=== PATIENT | female | born 1945 | race Caucasian/White ===

== ENCOUNTER → 2016-03-13 | Outpatient (CLI) | payer BC ==
[~2016-03-13] MED LIST: ATEN-173 PO; CALC600T PO; CALCTAB5 PO; CETI5TAB5 PO; CHOL100027 PO; CHOL20009 PO; ELQ25 PO; LORA-741 PO; LOSA50TA6 PO; MAGN250T9 PO; MELO15TA4 PO; MELO7.5T5 PO; METO50TA17 PO; OMEG10007 PO; PRAV20TA PO; PRAV80TA2 PO; PRLSR20 PO; SERT-234 PO; ULT50X PO; ZNTT/150 PO
--- NOTE | 2016-03-13 12:19 | DIAGNOSTIC IMAGING REPORT ---
SPLEEN ULTRASOUND CLINICAL HISTORY: SPLENOMEGALY R16.1 COMPARISON STUDY: Spleen ultrasound 02/13/2015. PET CT 12/16/2015. FINDINGS: The spleen remains enlarged measuring 16.5 cm in length. This previously measured 15.8 cm. No splenic masses. No perisplenic fluid collections. IMPRESSION: Splenomegaly which has slightly increased in size. Electronically signed by: Severino Wu M.D. 03/13/2016 12:17 PM Dictated Date/Time: 03/13/2016 12:15 PM
[2016-03-13 12:35] LABS: BASO % 0.3 %; BASO ABS # 0.02 K/uL (0-0.2); COMPLETE YES; EOS % 4.4 %; HEMATOCRIT 43.8 % (37-47); IG% 0.4 %; LYMPH % 20.4 %; LYMPH ABS # 1.39 K/uL (1.2-3.4); MEAN CELL VOLUME 86.7 fL (80-100); MEAN CORPUSCULAR HEMOGLOBIN 29.7 pg (25-34); MEAN CORPUSCULAR HGB CONC 34.2 g/dl (32-36); MEAN PLATELET VOLUME 10.1 fL (7.4-10.4); NEUT % 68.5 %; PLATELET COUNT 153 K/uL (130-400); RED BLOOD COUNT 5.05 M/uL (4.2-5.4); WHITE BLOOD COUNT 6.81 K/uL (4.8-10.8)
[2016-03-13 13:13] LABS: ALT/SGPT 21 U/L (12-78); BLOOD UREA NITROGEN 24 mg/dl (7-18); BUN/CREATININE RATIO 26.2 (10-20); CALCIUM 9.3 mg/dl (8.5-10.1); CARBON DIOXIDE 28 mmol/L (21-32); CHLORIDE 104 mmol/L (98-107); CREATININE 0.93 mg/dl (0.60-1.20); GLUCOSE 91 mg/dl (70-99); POTASSIUM 3.9 mmol/L (3.5-5.1); SODIUM 140 mmol/L (136-145)
[2016-03-13 13:17] LABS: ALB/GLOB RATIO 1.1 (0.9-2); ALKALINE PHOSPHATASE 97 U/L (45-117); AST/SGOT 18 U/L (15-37)
[2016-03-16 15:01] LABS: ALBUMIN 4.8 G/DL (3.8-4.8); GAMMA GLOBULIN 1.2 G/DL (0.8-1.7); TOTAL PROTEIN 7.7 G/DL (6.2-8.3)
== END | disposition home or self-care (01) ==
LOC: C.ULTR 11:29
PROVIDERS: ATTEND Nurse Practitioner
DX: R16.1 Splenomegaly, not elsewhere classified (principal)

== ENCOUNTER → 2016-03-24 | Outpatient (CLI) | payer BC ==
--- NOTE | 2016-03-24 15:45 | MAMMOGRAPHY REPORT ---
BILATERAL DIGITAL SCREENING MAMMOGRAM WITH CAD: 03/24/2016 CLINICAL HISTORY: Routine screening. Patient has no complaints. TECHNIQUE: Bilateral CC, MLO and repeat left cc views were obtained. Current study was also evaluat ed with a Computer Aided Detection (CAD) system. COMPARISON: Comparison is made to exams dated: 08/02/2014 mammogram, 06/27/2013 mammogram, 06/22/2013 mammogram, 06/14/2012 mammogram, 03/24/2011 mammogram, and 03/21/2010 mammogram - [facility]. BREAST COMPOSITION: There are scattered areas of fibroglandular density in both breasts. FINDINGS: There are benign calcifications and benign-appearing rodlike calcifications in the breasts . No new suspicious mass, architectural distortion or cluster of microcalcifications is seen. IMPRESSION: ACR BI-RADS CATEGORY 1: NEGATIVE There is no mammographic evidence of malignancy. A 1 year screening mammogram is recommended. The p atient will receive written notification of the results. Approximately 10% of breast cancers are not detected with mammography. A negative mammographic repor t should not delay biopsy if a clinically suggestive mass is present. Viji Vanegas M.D. ay/:03/24/2016 15:25:43 [employer] Operator: Marisel ZHANG(Niranjan)(Rober)(BD), [facility] letter sent: Normal 1/2 BI-RADS Code: ACR BI-RADS Category 1: Negative
== END | disposition home or self-care (01) ==
LOC: C.MAMM 14:23
PROVIDERS: ATTEND Obstetrics & Gynecology
DX: Z12.31 Encounter for screening mammogram for malignant neoplasm of breast (principal)

== ENCOUNTER → 2016-04-07 | Outpatient (CLI) | payer BC | END | disposition home or self-care (01) | LOC: C.LABSPEC 14:41 | PROVIDERS: ATTEND Pathology Anatomic Pathology & Clinical Pathology | DX: R91.1 Solitary pulmonary nodule (principal) ==

== ENCOUNTER → 2016-05-03 | Outpatient (CLI) | payer BC ==
[2016-05-03 08:43] LABS: BASO % 0.4 %; BASO ABS # 0.02 K/uL (0-0.2); COMPLETE YES; EOS % 5.6 %; HEMATOCRIT 40.7 % (37-47); IG% 0.2 %; LYMPH % 19.4 %; LYMPH ABS # 1.08 K/uL (1.2-3.4); MEAN CELL VOLUME 85.3 fL (80-100); MEAN CORPUSCULAR HEMOGLOBIN 29.4 pg (25-34); MEAN CORPUSCULAR HGB CONC 34.4 g/dl (32-36); MEAN PLATELET VOLUME 9.9 fL (7.4-10.4); NEUT % 67.4 %; PLATELET COUNT 138 K/uL (130-400); RED BLOOD COUNT 4.77 M/uL (4.2-5.4); WHITE BLOOD COUNT 5.58 K/uL (4.8-10.8)
[2016-05-03 09:11] LABS: URINE APPEARANCE CLEAR (CLEAR); URINE BILIRUBIN NEG (NEG); URINE COLOR YELLOW; URINE EPITHELIAL CELL AUTO >30 /lpf (0-5); URINE NITRITE NEG (NEG); URINE SPECIFIC GRAVITY 1.018 (1.000-1.030); UROBILINOGEN NEG (NEG); ZZUR CULT IF INDIC CLEAN CATCH YES
[2016-05-03 09:13] LABS: ALT/SGPT 20 U/L (12-78); BLOOD UREA NITROGEN 23 mg/dl (7-18); BUN/CREATININE RATIO 25.3 (10-20); CALCIUM 8.9 mg/dl (8.5-10.1); CARBON DIOXIDE 30 mmol/L (21-32); CHLORIDE 102 mmol/L (98-107); CHOLESTEROL 203 mg/dl (0-200); CREATININE 0.91 mg/dl (0.60-1.20); GLUCOSE 109 mg/dl (70-99); SODIUM 137 mmol/L (136-145)
[2016-05-03 09:14] LABS: MANUAL MICROSCOPIC REQUIRED? NO; REVIEW REQ? NO
[2016-05-03 09:23] LABS: ALKALINE PHOSPHATASE 88 U/L (45-117); AST/SGOT 15 U/L (15-37); CHOLESTEROL/HDL RATIO 5.2; HDL CHOLESTEROL 39 mg/dl; LDL CHOLESTEROL CALCULATED 104 mg/dl; TRIGLYCERIDES 298 mg/dl (0-150); VERY LOW DENSITY LIPOPROT CALC 60 mg/dl
[2016-05-04 07:01] LABS: ESTIMATED AVERAGE GLUCOSE 105 mg/dl; HA1C FLAG Normal (Normal)
--- NOTE | 2016-05-07 10:43 | CODING QUERY MEDICAL NECESSITY ---
SUPPORTING DIAGNOSIS NEEDED A supporting diagnosis is required for the test/procedure performed on this patient in order for us to be reimbursed by the patient's insurance. Please provide a supporting diagnosis for the following test/procedure listed below next to the test name along with your signature. *If there is no additional diagnosis for this patient that would support the following test/procedure please document that below next to the test/procedure. Test(s)/Procedure(s) that require a supporting diagnosis: DOS 05/03 * Vitamin D DIAGNOSIS: * urine culture DIAGNOSIS: Provider Signature: Date: Thank you Chloé Miller Health Information Management Once completed, please kindly fax back to [phone] For questions please call [phone]
== END | disposition home or self-care (01) ==
LOC: C.LAB 08:08
PROVIDERS: ATTEND Internal Medicine
DX: M85.80 Other specified disorders of bone density and structure, unspecified site (principal); E78.00 Pure hypercholesterolemia, unspecified; R73.01 Impaired fasting glucose; M34.1 CR(E)ST syndrome; E55.9 Vitamin D deficiency, unspecified; R31.9 Hematuria, unspecified

== ENCOUNTER → 2016-05-11 | Outpatient (CLI) | payer BC ==
--- NOTE | 2016-05-11 10:53 | DIAGNOSTIC IMAGING REPORT ---
CHEST 2 VIEWS ROUTINE CLINICAL HISTORY: R91.1 Pulmonary nodule COMPARISON STUDY: 02/05/2016 FINDINGS: The heart is normal in size. There are postsurgical changes present within the left hemithorax. There is no focal pulmonary consolidation. There are no pleural effusions. There is a laminated calcification within the upper abdomen, consistent with a gallstone.[ IMPRESSION: Lower lobe postsurgical changes in left hemithorax. No active disease in the chest. Cholelithiasis. Electronically signed by: Germán Lin M.D. 05/11/2016 10:51 AM Dictated Date/Time: 05/11/2016 10:46 AM
[2016-05-11 11:04] LABS: BLOOD UREA NITROGEN 30 mg/dl (7-18); GLUCOSE 108 mg/dl (70-99)
[2016-05-11 11:05] LABS: BUN/CREATININE RATIO 26.9 (10-20); CALCIUM 9.8 mg/dl (8.5-10.1); CARBON DIOXIDE 30 mmol/L (21-32); CHLORIDE 103 mmol/L (98-107); POTASSIUM 4.6 mmol/L (3.5-5.1); SODIUM 140 mmol/L (136-145)
== END | disposition home or self-care (01) ==
LOC: C.RAD 09:56
PROVIDERS: ATTEND Internal Medicine
DX: R91.1 Solitary pulmonary nodule (principal); K80.20 Calculus of gallbladder without cholecystitis without obstruction

== ENCOUNTER 2016-05-30 22:23 | Inpatient (IN) | payer BC, OTHER ==
[~2016-05-30] VITALS: Ht 149.9 cm; Wt 83.7 kg
[~2016-05-30 22:23] MED LIST changes: -ATEN-173 PO; -CALC600T PO; -CHOL100027 PO; -ELQ25 PO; -MELO7.5T5 PO; -METO50TA17 PO; -PRAV20TA PO; -ULT50X PO
[2016-05-30] MEDS ORDERED: METOPROLOL TARTRATE 1 MG/ML VIAL IV STA ×2 (22:44→23:33)
[2016-05-30 22:50] LABS: BASO % 0.3 %; BASO ABS # 0.02 K/uL (0-0.2); COMPLETE YES; EOS % 3.8 %; HEMATOCRIT 38.8 % (37-47); IG% 0.3 %; LYMPH % 24.9 %; LYMPH ABS # 1.65 K/uL (1.2-3.4); MEAN CELL VOLUME 87.8 fL (80-100); MEAN CORPUSCULAR HEMOGLOBIN 30.3 pg (25-34); MEAN CORPUSCULAR HGB CONC 34.5 g/dl (32-36); MEAN PLATELET VOLUME 10.3 fL (7.4-10.4); MONO % 5.1 %; NEUT % 65.6 %; PLATELET COUNT 146 K/uL (130-400); RED BLOOD COUNT 4.42 M/uL (4.2-5.4); WHITE BLOOD COUNT 6.62 K/uL (4.8-10.8)
--- NOTE | 2016-05-30 22:55 | DIAGNOSTIC IMAGING REPORT ---
SINGLE VIEW CHEST CLINICAL HISTORY: Atypical chest pain. FINDINGS: An AP, portable, upright chest radiograph is compared to study dated 05/11/2016 and correlated with chest CT dated 11/25/2015. The examination is degraded by portable technique, large body habitus, and patient rotation. The heart is top normal for projection and there is atherosclerotic calcification of the thoracic aorta. There is chronic elevation of right hemidiaphragm and interstitial thickening. Right basilar atelectasis is observed. Consolidative change is questioned at the left lung base in the retrocardiac region. Suture material projects over the left lower lung. No large pleural effusion or pneumothorax is seen. The skeletal structures are osteopenic. Degenerative change and scoliosis are noted in the thoracic spine. Chronic posttraumatic deformity is seen in the right proximal humerus. IMPRESSION: Question developing airspace consolidation at the left lung base. Clinically for evidence of aspiration pneumonitis/developing pneumonia. Radiographic follow-up to resolution is recommended. Electronically signed by: Edwin Franz M.D. 05/30/2016 10:53 PM Dictated Date/Time: 05/30/2016 10:50 PM
[2016-05-30 23:00] LABS: PARTIAL THROMBOPLASTIN RATIO 0.9; PROTHROMBIN TIME (PATIENT) 10.7 SECONDS (9.0-12.0)
[2016-05-30] MEDS ORDERED: ASPIRIN 81 MG CHEW PO STA (23:07)
[2016-05-30 23:18] LABS: ALKALINE PHOSPHATASE 80 U/L (45-117); ALT/SGPT 24 U/L (12-78); BLOOD UREA NITROGEN 22 mg/dl (7-18); BUN/CREATININE RATIO 19.9 (10-20); CALCIUM 8.7 mg/dl (8.5-10.1); CARBON DIOXIDE 30 mmol/L (21-32); CHLORIDE 106 mmol/L (98-107); GLUCOSE 98 mg/dl (70-99)
[2016-05-30 23:23] LABS: POTASSIUM 3.8 mmol/L (3.5-5.1); SODIUM 144 mmol/L (136-145)
[2016-05-30 23:32] LABS: AST/SGOT 21 U/L (15-37); CKMB/CK RATIO 2.8 (0-3.0); MAGNESIUM 2.1 mg/dl (1.8-2.4)
[2016-05-30] MEDS ORDERED: CALC600T PO (23:48)
[2016-05-30] MEDS ORDERED: ATEN-173 PO (23:48)
[2016-05-31] VITALS (10 sets, daily range): BP systolic 108–138; BP diastolic 65–84; PULSE 95–130; TEMP 36.5–37; O2SAT 93–97; Ht 149.9 cm; Wt 83.7 kg
[2016-05-31] MEDS ORDERED: HEPARIN IV LOW DOSE NO BOLUS STA (01:02)
[2016-05-31] MEDS ORDERED: ZOLPIDEM TARTRATE 5 MG TAB PO PRN (01:15)
[2016-05-31] MEDS ORDERED: CETIRIZINE HCL 10 MG TAB PO PRN (01:15)
[2016-05-31] MEDS ORDERED: NITROGLYCERIN 0.4 MG SL PER TAB CHARGE SL PRN (01:15)
[2016-05-31] MEDS ORDERED: ACETAMINOPHEN 325 MG TAB PO PRN (01:15)
[2016-05-31] MEDS ORDERED: LORAZEPAM 0.5 MG TAB PO PRN (01:15)
[2016-05-31] MEDS ORDERED: DIGOXIN IV 250 MCG in SYRINGE 9 ML IV STA (01:15)
[2016-05-31] MEDS ORDERED: HEPARIN 25000 UNIT/500 ML D5W ONE (01:42)
[2016-05-31] MEDS ORDERED: HEPARIN 25,000 UNIT/500ML D5W 500 ML IV PRN (02:15)
[2016-05-31] MEDS ORDERED: NSS + 20MEQ KCL 1000ML 1,000 ML IV SCH (02:30)
--- NOTE | 2016-05-31 02:59 | EMERGENCY ROOM VISIT NOTE ---
History Report prepared by Franky: Mark Olivarez Under the Supervision of: Dr. Kehinde Nash M.D. First contact with patient: 22:25 Chief Complaint: CHEST PAIN Stated Complaint: CHEST PAIN, SOB Nursing Triage Summary: Per EMS, patient c/o of shortness of breath for several weeks and intermittent chest pain for 1 week. Today, patient experienced chest pain radiating to left shoulder and back, palpitations and shortness of breath. Patient received 500 mls of NSS in route. History of Present Illness The patient is a 70 year old female who presents to the Emergency Room via EMS with complaints of intermittent band like pressure chest pain that began 1 week ago. This pain tends to last for about 20 minutes at a time. The patient rates her current pain a 2/10 in severity. At its worst, the pain was a 10/10, and she felt like she was going to "burst open". Today, her pain radiated into her right arm and shoulder. She was not doing anything in particular when the pain began. She is also experiencing shortness of breath that worsens with exertion, diaphoresis, palpitations, and fatigue. Earlier today, she was also having some indigestion. In the past, she was told she has a heart murmur. Patient denies LOC, headache, fevers, chills, visual changes, neck pain, nausea, vomiting, abdominal pain, back pain, melena, hematochezia, urinary symptoms, numbness, weakness, lymphadenopathy, rash, or other complaints. She does not take Aspirin regularly. Source of History: patient Onset: 1 week ago Position: chest Symptom Intensity: 2/10 Quality: pressure Timing: intermittent Modifying Factors (Worsening): exertion Associated Symptoms: + SOB, + diaphoresis, + fatigue Note: She has palpitations. Review of Systems See HPI for pertinent positives and negatives. A total of ten systems were reviewed and were otherwise negative. Past Medical & Surgical Medical Problems: (1) Arthritis (2) Atrial fibrillation with rapid ventricular response (3) Mass of left lung Family History Omitted due to age. Social History Smoking Status: Never Smoker Smokeless Tobacco Use: No Drug Use: none Marital Status: Housing Status: lives with family Current/Historical Medications Scheduled Atenolol (Tenormin), 25 MG PO QAM Calcium Carbonate (Calcium 600), 1,200 MG PO QPM Cholecalciferol (Vitamin D), 2 TAB PO QAM Fish Oil ([place]-3), 1 CAP PO QAM Magnesium (Magnesium), 250 MG PO QPM Meloxicam (Mobic), 15 MG PO QAM Omeprazole (Prilosec), 20 MG PO QAM Pravastatin Sodium (Pravastatin Sodium), 80 MG PO HS Ranitidine (Zantac), 150 MG PO QAM Sertraline (Zoloft), 150 MG PO QAM Scheduled PRN Cetirizine Hcl (Zyrtec), 5 MG PO DAILY PRN for ALLERGY SX Lorazepam (Ativan), 0.5 MG PO DAILY PRN for Anxiety Allergies Coded Allergies: Adhesives (Verified Allergy, Unknown, skin irritation/'burning', 05/30/16) Diclofenac (Verified Allergy, Unknown, RASH, 05/30/16) Penicillins (Verified Allergy, Unknown, HIVES, 05/30/16) Physical Exam Vital Signs Date Time Temp Pulse Resp B/P Pulse Ox O2 Delivery O2 Flow Rate FiO2 05/31/16 01:00 127/111 05/31/16 00:43 107 23 93 05/31/16 00:30 125/98 05/31/16 00:13 125 22 97 05/31/16 00:01 109 22 122/89 94 Room Air 05/31/16 00:00 122/89 05/30/16 23:52 137 149/104 05/30/16 23:43 109 22 149/104 96 Room Air 05/30/16 23:43 137 26 94 05/30/16 23:38 136 22 96 05/30/16 23:30 149/104 05/30/16 23:23 142 23 93 05/30/16 23:11 119/83 05/30/16 23:10 138/84 05/30/16 23:08 125 19 149/115 94 05/30/16 23:06 125 158/78 05/30/16 23:05 141 05/30/16 23:02 158/78 05/30/16 23:00 145/128 05/30/16 22:57 120/101 05/30/16 22:38 98 Room Air 05/30/16 22:38 98 Room Air 05/30/16 22:23 36.9 128 24 129/96 98 Room Air 05/30/16 22:23 Room Air Physical Exam GENERAL: Awake, alert, well-appearing, in no distress HENT: Normocephalic, atraumatic. Oropharynx unremarkable. EYES: Normal conjunctiva. Sclera non-icteric. NECK: Supple. No nuchal rigidity. FROM. No JVD. RESPIRATORY: Clear to auscultation. CARDIAC: Tachycardic rate, irregular rhythm. Extremities warm and well perfused. Pulses equal. ABDOMEN: Soft, non-distended. No tenderness to palpation. No rebound or guarding. No masses. RECTAL: Deferred. MUSCULOSKELETAL: Chest examination reveals no tenderness. The back is symmetrical on inspection without obvious abnormality. There is no CVA tenderness to palpation. No joint edema. LOWER EXTREMITIES: Calves are equal size bilaterally and non-tender. No edema. No discoloration. NEURO: Normal sensorium. No sensory or motor deficits noted. SKIN: No rash or jaundice noted. Medical Decision & Procedures ER Provider Diagnostic Interpretation: X ray results as stated below per my interpretation and radiologist interpretation. Other radiology results as stated below per my review and radiologist interpretation. SINGLE VIEW CHEST CLINICAL HISTORY: Atypical chest pain. FINDINGS: An AP, portable, upright chest radiograph is compared to study dated 05/11/2016 and correlated with chest CT dated 11/25/2015. The examination is degraded by portable technique, large body habitus, and patient rotation. The heart is top normal for projection and there is atherosclerotic calcification of the thoracic aorta. There is chronic elevation of right hemidiaphragm and interstitial thickening. Right basilar atelectasis is observed. Consolidative change is questioned at the left lung base in the retrocardiac region. Suture material projects over the left lower lung. No large pleural effusion or pneumothorax is seen. The skeletal structures are osteopenic. Degenerative change and scoliosis are noted in the thoracic spine. Chronic posttraumatic deformity is seen in the right proximal humerus. IMPRESSION: Question developing airspace consolidation at the left lung base. Clinically for evidence of aspiration pneumonitis/developing pneumonia. Radiographic follow-up to resolution is recommended. Electronically signed by: Edwin Franz M.D. 05/30/2016 10:53 PM Dictated Date/Time: 05/30/2016 10:50 PM Laboratory Results 05/30/16 22:23 Red Blood Count 4.42, Mean Corpuscular Volume 87.8, Mean Corpuscular Hemoglobin 30.3, Mean Corpuscular Hemoglobin Concent 34.5, Mean Platelet Volume 10.3, Neutrophils (%) (Auto) 65.6, Lymphocytes (%) (Auto) 24.9, Monocytes (%) (Auto) 5.1, Eosinophils (%) (Auto) 3.8, Basophils (%) (Auto) 0.3, Neutrophils # (Auto) 4.34, Lymphocytes # (Auto) 1.65, Monocytes # (Auto) 0.34, Eosinophils # (Auto) 0.25, Basophils # (Auto) 0.02 05/30/16 22:23 Test 05/30/16 22:23 White Blood Count 6.62 K/uL (4.8-10.8) Red Blood Count 4.42 M/uL (4.2-5.4) Hemoglobin 13.4 g/dL (12.0-16.0) Hematocrit 38.8 % (37-47) Mean Corpuscular Volume 87.8 fL (80-100) Mean Corpuscular Hemoglobin 30.3 pg (25-34) Mean Corpuscular Hemoglobin Concent 34.5 g/dl (32-36) Platelet Count 146 K/uL (130-400) Mean Platelet Volume 10.3 fL (7.4-10.4) Neutrophils (%) (Auto) 65.6 % Lymphocytes (%) (Auto) 24.9 % Monocytes (%) (Auto) 5.1 % Eosinophils (%) (Auto) 3.8 % Basophils (%) (Auto) 0.3 % Neutrophils # (Auto) 4.34 K/uL (1.4-6.5) Lymphocytes # (Auto) 1.65 K/uL (1.2-3.4) Monocytes # (Auto) 0.34 K/uL (0.11-0.59) Eosinophils # (Auto) 0.25 K/uL (0-0.5) Basophils # (Auto) 0.02 K/uL (0-0.2) RDW Standard Deviation 49.1 fL (36.4-46.3) RDW Coefficient of Variation 15.4 % (11.5-14.5) Immature Granulocyte % (Auto) 0.3 % Immature Granulocyte # (Auto) 0.02 K/uL (0.00-0.02) Prothrombin Time 10.7 SECONDS (9.0-12.0) Prothromb Time International Ratio 1.0 (0.9-1.1) Activated Partial Thromboplast Time 24.5 SECONDS (21.0-31.0) Partial Thromboplastin Ratio 0.9 Anion Gap 8.0 mmol/L (3-11) Est Creatinine Clear Calc Drug Dose 46.8 ml/min Estimated GFR () 59.3 Estimated GFR (Non- 51.2 BUN/Creatinine Ratio 19.9 (10-20) Calcium Level 8.7 mg/dl (8.5-10.1) Magnesium Level 2.1 mg/dl (1.8-2.4) Total Bilirubin 0.5 mg/dl (0.2-1) Direct Bilirubin 0.1 mg/dl (0-0.2) Aspartate Amino Transf (AST/SGOT) 21 U/L (15-37) Alanine Aminotransferase (ALT/SGPT) 24 U/L (12-78) Alkaline Phosphatase 80 U/L (45-117) Total Creatine Kinase 138 U/L (26-192) Creatine Kinase MB 3.9 ng/ml (0.5-3.6) Creatine Kinase MB Ratio 2.8 (0-3.0) Troponin I < 0.015 ng/ml (0-0.045) Total Protein 7.3 gm/dl (6.4-8.2) Albumin 3.8 gm/dl (3.4-5.0) Lipase 224 U/L (73-393) Laboratory results reviewed by me Medications Administered Medications (Trade) Dose Ordered Sig/Paige Route Start Time Stop Time Status Last Admin Dose Admin Metoprolol Tartrate (Lopressor Iv) 5 mg NOW STAT IV 05/30/16 22:44 05/30/16 22:45 DC 05/30/16 23:06 5 MG Aspirin (Aspirin Chew) 324 mg NOW STAT PO 05/30/16 23:07 05/30/16 23:08 DC 05/30/16 23:16 324 MG Metoprolol Tartrate (Lopressor Iv) 5 mg NOW STAT IV 05/30/16 23:33 05/30/16 23:35 DC 05/30/16 23:52 5 MG ECG Indication: chest pain Rate (beats per minute): 111 Rhythm: atrial fibrillation Findings: nonspecific-ST abn, other (RVR) Comparison ECG Date: Prehospital ECG Change: Prehospital ECG showed A fib with RVR at 129 with infra/lateral st depressions. ED Course 2224: The patient was evaluated in room B4. A complete history and physical exam was performed. 2244: Ordered Lopressor Iv 5 mg IV 2307: Aspirin 324 mg PO 2333: Lopressor Iv 5 mg IV 2358: Upon reexamination, the patient was resting. I discussed the test results and treatment plan with her. The patient will be evaluated by Dr. Yissel THORNE, for further management. Medical Decision Triage Nursing notes reviewed. The patient's presentation and history were concerning for chest pain and a rapid heart rate. Etiologies such as cardiac ischemia, ectopy, cardiac dysrhythmia, electrolyte abnormality, thyroid dysfunction, pulmonary embolism, infection, gastrointestinal, as well as others were entertained. The patient has new-onset A. fib with rapid ventricular response. She received 2 doses of IV Lopressor and oral aspirin. Her chest discomfort had resolved. The patient had an unremarkable chest x-ray. Her CBC and chemistry panel were unremarkable. Cardiac markers revealed a minimal elevation of CK-MB with normal troponin. The patient will need further evaluation and management in the hospital. Consultation was made with Dr. Kennedy Dey. The patient was evaluated in the Emergency Room for further treatment [employer] Speech voice recognition software. Grammatical errors, random word insertions, pronoun errors, and incomplete sentences are an occasional consequence of this system due to software limitations, ambient noise, and hardware issues. Any formal questions or concerns about the content, text, or information contained within the body of this dictation should be directly addressed to the physician for clarification. Consults Time Called: [phone] Consulting Physician: Dr. Yissel THORNE Returned Call: [phone] He will be evaluating the patient for further management. Impression Primary Impression: Atrial fibrillation with rapid ventricular response Additional Impression: Right-sided chest pain Critical Care I have personally spent greater than 30 minutes of critical care time in the direct management of this patient. This includes bedside care, interpretation of diagnostic studies, and testing, discussion with consultants, patient, and family members, and other required patient management activities. This 30 minutes is in excess of all separately billable procedures. Scribe Attestation The scribe's documentation has been prepared under my direction and personally reviewed by me in its entirety. I confirm that the note above accurately reflects all work, treatment, procedures, and medical decision making performed by me. Departure Information Dispostion Being Evaluated By Hospitalist Referrals Luciano Jorgensen M.D. (PCP) Patient Instructions My [facility] Problem Qualifiers
--- NOTE | 2016-05-31 05:14 | History and Physical ---
History & Physical Date & Time of Service: May 31, 2016 at 05:06 Chief Complaint: A-Fib With Rapid Ventricular Response Primary Care Physician: Luciano Jorgensen M.D. History of Present Illness Source: patient, family The patient is a 70-year-old female who presents emergency department via EMS due to a bandlike pressure around her chest that initially began about one week ago, but since that time has recurred more frequently and the progressively longer duration, with today's episode duration 20 minutes. She reports the pain today radiating to her right arm and shoulder. Her symptoms worsen with activity, and a copy by sweats, palpitations and fatigue. Her symptoms have been off and on a copy by indigestion over the past week as well. Past Medical/Surgical History Medical Problems: (1) Arthritis Status: Chronic Social History Smoking Status: Never Smoker Smokeless Tobacco Use: No Alcohol Use: none Drug Use: none Marital Status: Housing status: lives with family Occupational Status: retired Immunizations History of Influenza Vaccine: Yes Influenza Vaccine Date: Jan 16, 2012 History of Tetanus Vaccine?: Yes History of Pneumococcal: Yes Pneumococcal Date: Jan 15, 2009 History of Hepatitis B Vaccine: No Multi-Drug Resistant Organisms History of MDRO: No Allergies Coded Allergies: Adhesives (Verified Allergy, Unknown, skin irritation/'burning', 05/30/16) Diclofenac (Verified Allergy, Unknown, RASH, 05/30/16) Penicillins (Verified Allergy, Unknown, HIVES, 05/30/16) Home Medications Scheduled Atenolol (Tenormin), 25 MG PO QAM Calcium Carbonate (Calcium 600), 1,200 MG PO QPM Cholecalciferol (Vitamin D), 2 TAB PO QAM Fish Oil ([place]-3), 1 CAP PO QAM Magnesium (Magnesium), 250 MG PO QPM Meloxicam (Mobic), 15 MG PO QAM Omeprazole (Prilosec), 20 MG PO QAM Pravastatin Sodium (Pravastatin Sodium), 80 MG PO HS Ranitidine (Zantac), 150 MG PO QAM Sertraline (Zoloft), 150 MG PO QAM Scheduled PRN Cetirizine Hcl (Zyrtec), 5 MG PO DAILY PRN for ALLERGY SX Lorazepam (Ativan), 0.5 MG PO DAILY PRN for Anxiety Review of Systems The patient denies cough, lower extremity swelling, vision change, hearing change, sore throat, fevers, chills, sweats, vomiting, abdominal pain, pelvic pain, blood in urine or stool, dysuria, urinary frequency or urgency, lightheadedness, dizziness, headache, memory loss, rash, abnormal bruising or bleeding, imbalance, focal weakness, numbness or tingling in legs, arthralgias or myalgias, night sweats, or allergy symptoms. The review of systems is otherwise negative other than for that already noted above, and at least 10 systems have been reviewed. Physical Exam Vital Signs Date Time Temp Pulse Resp B/P Pulse Ox O2 Delivery O2 Flow Rate FiO2 05/31/16 04:02 116 05/31/16 04:02 Room Air 05/31/16 02:42 37.0 130 20 108/65 97 Room Air 05/31/16 02:08 36.9 107 19 112/83 96 05/31/16 02:05 107 19 112/83 96 Room Air 05/31/16 01:48 134 05/31/16 01:13 123 19 96 05/31/16 01:10 123/96 05/31/16 01:00 127/111 05/31/16 00:43 107 23 93 05/31/16 00:30 125/98 05/31/16 00:13 125 22 97 05/31/16 00:01 109 22 122/89 94 Room Air 05/31/16 00:00 122/89 05/30/16 23:52 137 149/104 05/30/16 23:43 109 22 149/104 96 Room Air 05/30/16 23:43 137 26 94 05/30/16 23:38 136 22 96 05/30/16 23:30 149/104 05/30/16 23:23 142 23 93 05/30/16 23:11 119/83 05/30/16 23:10 138/84 05/30/16 23:08 125 19 149/115 94 05/30/16 23:06 125 158/78 05/30/16 23:05 141 05/30/16 23:02 158/78 05/30/16 23:00 145/128 05/30/16 22:57 120/101 05/30/16 22:38 98 Room Air 05/30/16 22:38 98 Room Air 05/30/16 22:23 36.9 128 24 129/96 98 Room Air 05/30/16 22:23 Room Air The patient is awake, well-developed and adequately nourished, alert and oriented 3, normocephalic and atraumatic, lying in bed and in no acute distress. HEENT--PERRL, EOMI, mucous membranes and oropharynx dry. Neck--supple, no JVD or bruits, thyroid normal, trachea midline, no adenopathy. Heart--tachycardic, irregularly irregular, no murmurs, rubs or gallops. Lungs--clear bilaterally with good air movement, no respiratory distress, no accessory muscle use. Abdomen--normal bowel sounds and soft, nontender and nondistended, no hernias or masses, no organomegaly. Extremities--no cyanosis, clubbing or edema. There are good distal pulses b/l. Dermatologic--normal skin turgor, normal color, warm and dry, no abnormal lymph nodes, no rash. Neurologic--cranial nerves II through XII grossly intact, motor and sensory examination normal. Rheumatologic--normal range of motion, nontender, muscles and joints. Psychiatric--normal affect. Diagnostics Laboratory Results Results Past 24 Hours Test 05/30/16 22:23 05/31/16 02:57 Range/Units White Blood Count 6.62 4.8-10.8 K/uL Red Blood Count 4.42 4.2-5.4 M/uL Hemoglobin 13.4 12.0-16.0 g/dL Hematocrit 38.8 37-47 % Mean Corpuscular Volume 87.8 80-100 fL Mean Corpuscular Hemoglobin 30.3 25-34 pg Mean Corpuscular Hemoglobin Concent 34.5 32-36 g/dl Platelet Count 146 130-400 K/uL Mean Platelet Volume 10.3 7.4-10.4 fL Neutrophils (%) (Auto) 65.6 % Lymphocytes (%) (Auto) 24.9 % Monocytes (%) (Auto) 5.1 % Eosinophils (%) (Auto) 3.8 % Basophils (%) (Auto) 0.3 % Neutrophils # (Auto) 4.34 1.4-6.5 K/uL Lymphocytes # (Auto) 1.65 1.2-3.4 K/uL Monocytes # (Auto) 0.34 0.11-0.59 K/uL Eosinophils # (Auto) 0.25 0-0.5 K/uL Basophils # (Auto) 0.02 0-0.2 K/uL RDW Standard Deviation 49.1 36.4-46.3 fL RDW Coefficient of Variation 15.4 11.5-14.5 % Immature Granulocyte % (Auto) 0.3 % Immature Granulocyte # (Auto) 0.02 0.00-0.02 K/uL Prothrombin Time 10.7 9.0-12.0 SECONDS Prothromb Time International Ratio 1.0 0.9-1.1 Activated Partial Thromboplast Time 24.5 21.0-31.0 SECONDS Partial Thromboplastin Ratio 0.9 Sodium Level 144 136-145 mmol/L Potassium Level 3.8 3.5-5.1 mmol/L Chloride Level 106 98-107 mmol/L Carbon Dioxide Level 30 21-32 mmol/L Anion Gap 8.0 3-11 mmol/L Blood Urea Nitrogen 22 7-18 mg/dl Creatinine 1.10 0.60-1.20 mg/dl Est Creatinine Clear Calc Drug Dose 46.8 ml/min Estimated GFR () 59.3 Estimated GFR (Non- 51.2 BUN/Creatinine Ratio 19.9 10-20 Random Glucose 98 70-99 mg/dl Calcium Level 8.7 8.5-10.1 mg/dl Magnesium Level 2.1 1.8-2.4 mg/dl Total Bilirubin 0.5 0.2-1 mg/dl Direct Bilirubin 0.1 0-0.2 mg/dl Aspartate Amino Transf (AST/SGOT) 21 15-37 U/L Alanine Aminotransferase (ALT/SGPT) 24 12-78 U/L Alkaline Phosphatase 80 45-117 U/L Total Creatine Kinase 138 26-192 U/L Creatine Kinase MB 3.9 0.5-3.6 ng/ml Creatine Kinase MB Ratio 2.8 0-3.0 Troponin I < 0.015 0-0.045 ng/ml Total Protein 7.3 6.4-8.2 gm/dl Albumin 3.8 3.4-5.0 gm/dl Lipase 224 73-393 U/L Diagnostic Radiology [~ rep ct add3]] SINGLE VIEW CHEST CLINICAL HISTORY: Atypical chest pain. FINDINGS: An AP, portable, upright chest radiograph is compared to study dated 05/11/2016 and correlated with chest CT dated 11/25/2015. The examination is degraded by portable technique, large body habitus, and patient rotation. The heart is top normal for projection and there is atherosclerotic calcification of the thoracic aorta. There is chronic elevation of right hemidiaphragm and interstitial thickening. Right basilar atelectasis is observed. Consolidative change is questioned at the left lung base in the retrocardiac region. Suture material projects over the left lower lung. No large pleural effusion or pneumothorax is seen. The skeletal structures are osteopenic. Degenerative change and scoliosis are noted in the thoracic spine. Chronic posttraumatic deformity is seen in the right proximal humerus. IMPRESSION: Question developing airspace consolidation at the left lung base. Clinically for evidence of aspiration pneumonitis/developing pneumonia. Radiographic follow-up to resolution is recommended. Electronically signed by: Edwin Franz M.D. 05/30/2016 10:53 PM Dictated Date/Time: 05/30/2016 10:50 PM EKG EKG shows atrial fibrillation with RVR at 111 bpm, with nonspecific ST-T changes in lateral chest leads. Impression Assessment and Plan New onset atrial fibrillation with rapid ventricular response/hypertension--the patient will be admitted to the telemetry unit, for serial cardiac enzymes, cardiac rhythm monitoring and a 2-D echocardiogram with Dopplers. She is received Lopressor 5 mg IV 2 in the emergency department. She'll be given digoxin 0.25 g IV 1, and increase atenolol from 25 mg by mouth every morning to twice a day with additional dose now. Start heparin IV low-dose no bolus since duration of activity is likely one week or greater. Further management based on her response. Hypercholesterolemia--continue pravastatin 80 mg by mouth at bedtime. GERD--change omeprazole 20 mg by mouth every morning to pantoprazole 40 mg by mouth every morning, and change ranitidine 10 mg by mouth at bedtime. Depression--continue sertraline 100 mg by mouth every morning. Osteoarthritis hold movement 50 mg by mouth every morning since will be on anticoagulation. Level of Care Telemetry Advanced Directives Existing Advance Directive: No Existing Living Will: No Existing Power of Biz[employer] Administrator: No Resuscitation Status FULL RESUSCITATION VTE Prophylaxis VTE Risk Assessment Done? Y/N: Yes Risk Level: Moderate Given or contraindicated: Unfractionated heparin SQ
[2016-05-31] MEDS: PANTOprazole SOD 40 MG TAB PO SCH (07:53)
[2016-05-31] MEDS: CHOLECALCIFEROL 1000 INTER.UNIT TAB PO SCH (07:53)
[2016-05-31] MEDS: SERTRALINE HCL 100 MG TAB PO SCH (07:54)
[2016-05-31] MEDS: CALCIUM 600MG + VIT D 400 IU TAB PO SCH ×2 (07:54→19:37)
[2016-05-31] MEDS: MAGNESIUM OXIDE 400 MG TAB PO SCH ×2 (07:54→19:37)
[2016-05-31] MEDS ORDERED: DIGOXIN IV 250 MCG in SYRINGE 9 ML IV SCH (08:00)
[2016-05-31 08:19] LABS: PARTIAL THROMBOPLASTIN RATIO 1.1
[2016-05-31] MEDS ORDERED: METOPROLOL TARTRATE 25 MG TAB PO SCH (09:00)
[2016-05-31] MEDS ORDERED: HEPARIN IV BOLUS 4,000 UNIT in SYRINGE 0 ML IV ONE (09:45)
[2016-05-31] MEDS: APIXABAN 2.5 MG TAB PO SCH ×2 (11:24→19:37)
[2016-05-31] MEDS: METOPROLOL TARTRATE 25 MG TAB PO SCH ×3 (11:24→23:47)
--- NOTE | 2016-05-31 14:22 | Progress Note ---
Subjective Date of Service: May 31, 2016. Subjective pt still with some bandlike tightness across chest even with rate control Problem List Medical Problems: (1) Right-sided chest pain Status: Acute Review of Systems Constitutional: No chills, No fever Respiratory: No cough, No dyspnea on exertion, No shortness of breath Cardiac: + chest pain, + palpitations, No edema Abdomen: No constipation, No diarrhea, No nausea, No pain, No vomiting Psychiatric: No anhedonism, No anxiety, No depression symptoms Objective Vital Signs Date Time Temp Pulse Resp B/P Pulse Ox O2 Delivery O2 Flow Rate FiO2 05/31/16 12:25 36.8 97 18 135/71 93 Room Air 05/31/16 12:00 97 Room Air 05/31/16 08:17 36.5 118 20 133/76 96 Room Air 05/31/16 08:06 134 05/31/16 08:00 97 Room Air 05/31/16 05:00 122 05/31/16 04:02 116 05/31/16 04:02 Room Air 05/31/16 02:42 37.0 130 20 108/65 97 Room Air 05/31/16 02:08 36.9 107 19 112/83 96 05/31/16 02:05 107 19 112/83 96 Room Air 05/31/16 01:48 134 05/31/16 01:13 123 19 96 05/31/16 01:10 123/96 05/31/16 01:00 127/111 05/31/16 00:43 107 23 93 05/31/16 00:30 125/98 05/31/16 00:13 125 22 97 05/31/16 00:01 109 22 122/89 94 Room Air 05/31/16 00:00 122/89 05/30/16 23:52 137 149/104 05/30/16 23:43 109 22 149/104 96 Room Air 05/30/16 23:43 137 26 94 05/30/16 23:38 136 22 96 05/30/16 23:30 149/104 05/30/16 23:23 142 23 93 05/30/16 23:11 119/83 05/30/16 23:10 138/84 05/30/16 23:08 125 19 149/115 94 05/30/16 23:06 125 158/78 05/30/16 23:05 141 05/30/16 23:02 158/78 05/30/16 23:00 145/128 05/30/16 22:57 120/101 05/30/16 22:38 98 Room Air 05/30/16 22:38 98 Room Air 05/30/16 22:23 36.9 128 24 129/96 98 Room Air 05/30/16 22:23 Room Air Physical Exam General Appearance: WD/WN, + mild distress Neck: supple, no JVD Respiratory/Chest: chest non-tender, lungs clear, normal breath sounds Cardiovascular: + tachycardia, + irregularly irregular Abdomen: normal bowel sounds, non tender, soft Extremities: no pedal edema, no calf tenderness Neurologic/Psychiatric: alert, oriented x 3 Laboratory Results Last 24 Hours Test 05/30/16 22:23 05/31/16 07:53 White Blood Count 6.62 K/uL Red Blood Count 4.42 M/uL Hemoglobin 13.4 g/dL Hematocrit 38.8 % Mean Corpuscular Volume 87.8 fL Mean Corpuscular Hemoglobin 30.3 pg Mean Corpuscular Hemoglobin Concent 34.5 g/dl Platelet Count 146 K/uL Mean Platelet Volume 10.3 fL Neutrophils (%) (Auto) 65.6 % Lymphocytes (%) (Auto) 24.9 % Monocytes (%) (Auto) 5.1 % Eosinophils (%) (Auto) 3.8 % Basophils (%) (Auto) 0.3 % Neutrophils # (Auto) 4.34 K/uL Lymphocytes # (Auto) 1.65 K/uL Monocytes # (Auto) 0.34 K/uL Eosinophils # (Auto) 0.25 K/uL Basophils # (Auto) 0.02 K/uL RDW Standard Deviation 49.1 fL RDW Coefficient of Variation 15.4 % Immature Granulocyte % (Auto) 0.3 % Immature Granulocyte # (Auto) 0.02 K/uL Prothrombin Time 10.7 SECONDS Prothromb Time International Ratio 1.0 Activated Partial Thromboplast Time 24.5 SECONDS 27.5 SECONDS Partial Thromboplastin Ratio 0.9 1.1 Sodium Level 144 mmol/L Potassium Level 3.8 mmol/L Chloride Level 106 mmol/L Carbon Dioxide Level 30 mmol/L Anion Gap 8.0 mmol/L Blood Urea Nitrogen 22 mg/dl Creatinine 1.10 mg/dl Est Creatinine Clear Calc Drug Dose 46.8 ml/min Estimated GFR () 59.3 Estimated GFR (Non- 51.2 BUN/Creatinine Ratio 19.9 Random Glucose 98 mg/dl Calcium Level 8.7 mg/dl Magnesium Level 2.1 mg/dl Total Bilirubin 0.5 mg/dl Direct Bilirubin 0.1 mg/dl Aspartate Amino Transf (AST/SGOT) 21 U/L Alanine Aminotransferase (ALT/SGPT) 24 U/L Alkaline Phosphatase 80 U/L Total Creatine Kinase 138 U/L Creatine Kinase MB 3.9 ng/ml Creatine Kinase MB Ratio 2.8 Troponin I < 0.015 ng/ml Total Protein 7.3 gm/dl Albumin 3.8 gm/dl Lipase 224 U/L Hepatitis C Antibody Screen NEG Assessment and Plan New onset atrial fibrillation with rapid ventricular response/hypertension and chest pressure Afib RVR, digoxin 0.25 g IV 1, changed atenolol to metoprolol. Started on heparin IV changed to eliquis since subjective complaints are one week old, pending echo, will have cardiology eval to help determine if her chest pressure is from afib or other testing required, check tsh Hypercholesterolemia-pravastatin 80 mg by mouth at bedtime. GERD-PPI plud ranitidine Depression--clinically stable, sertraline 100 mg
[2016-05-31] MEDS: PRAVASTATIN SOD 20 MG TAB PO SCH (16:39)
[2016-05-31] MEDS: RANITIDINE HCL 150 MG TAB PO SCH (19:37)
[2016-06-01] VITALS (10 sets, daily range): BP systolic 95–156; BP diastolic 62–83; PULSE 78–93; TEMP 36.3–37.1; O2SAT 91–97
[2016-06-01] MEDS: METOPROLOL TARTRATE 25 MG TAB PO SCH ×2 (06:34→12:17)
[2016-06-01 06:57] LABS: MEAN CELL VOLUME 86.5 fL (80-100); MEAN CORPUSCULAR HEMOGLOBIN 29.4 pg (25-34); MEAN PLATELET VOLUME 9.9 fL (7.4-10.4); PLATELET COUNT 155 K/uL (130-400); RED BLOOD COUNT 4.97 M/uL (4.2-5.4); WHITE BLOOD COUNT 6.93 K/uL (4.8-10.8)
--- NOTE | 2016-06-01 07:16 | CARDIOLOGY CONSULTATION ---
DATE OF CONSULTATION: 05/31/2016 DATE OF CONSULTATION: 05/31/2016. REASON FOR CONSULTATION: Atrial fibrillation. REQUESTING: Kennedy Dey. PUMP TECHNICIAN: Joaquín Lundberg D.O, [facility]. Dear Dr. Dey, I am seeing Chanel today in consultation with regards to her atrial fibrillation. As you know, she is a very pleasant 70-year-old female who sounds like she has been having atrial fibrillation at least for a week. She does describe some episodes where she has felt better, but I would not be surprised if it has been continuous over the last week or so. In retrospect she notes an episode about 2 or 3 years ago where she was actually admitted to the hospital with shortness of breath. She had an extensive workup and was only found to have esophageal reflux at the time, but she describes her symptoms as very similar to that. She does describe palpitations and fluttering. She notes she has had increasing shortness of breath, walking to the mailbox makes her short of breath, it is about 500 feet. She does note she gets fatigued and played out very easily with activity which is new for her. She also had a band-like sensation across her chest when her heart was racing. She also had some lightheadedness with it. It also sounds like she has some vertigo as the room at times would spin. She denies any slurred speech, difficulty finding words, weakness one side or the other. She denies any presyncope, syncope, lower extremity edema. She does believe she snores mildly, but she lives by herself. She does wake up well rested. She denies the need to fall asleep in the afternoon. She denies any bleeding, bruising, dark stools, black stools, cough, productive sputum. Her appetite has been stable. Her weight has been up and down and she has been unsure why. She notes that she was placed on losartan and started having personality changes on it and then was switched to atenolol recently. The rest of review of systems otherwise negative. PAST MEDICAL HISTORY: 1. Hypertension. 2. Arthritis. 3. Left lung lesion status post wedge resection January 2016. 4. GERD. 5. Hyperlipidemia. 6. Anxiety. 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 She lives by herself. She denies any alcohol. She is retired. FAMILY HISTORY: No family history of premature heart disease. OUTPATIENT MEDICATIONS: Reviewed in electronic medical record. PHYSICAL EXAMINATION: GENERAL: She is awake, alert, oriented x3. She is in no acute distress. VITAL SIGNS: Her heart rate 118. Her RR is 20, blood pressure 133/76, pulse ox is 96% on room air. HEAD, EYES, EARS, NOSE, AND THROAT: With a longer R to R interval her carotid upstroke did not feel significantly abnormal. There were no carotid bruits. Her jugular venous pressure did not appear elevated. Her sclerae is anicteric. Her hearing is normal. LUNGS: Clear to auscultation bilaterally. No rales, rhonchi or wheezing. HEART: Irregular rate and rhythm (tachycardic). No appreciable murmurs or rubs. ABDOMEN: Soft, nontender, nondistended, positive bowel sounds, obese. EXTREMITIES: No clubbing, cyanosis or edema. PSYCHIATRIC: Mood and affect appeared appropriate. NEUROLOGIC: Grossly nonfocal. EKG: Atrial fibrillation with a rapid ventricular response, nonspecific ST-T changes in the inferior lateral leads. CBC is within normal limits. LABORATORY STUDIES: Hemoglobin 13.4, platelet count of 146. Sodium 144, potassium 3.8, BUN 22, creatinine 1.1. Her troponin is negative. Chest x-ray, question developing airspace consolidation in the left lung base. IMPRESSIONS: 1. Shortness of breath, dyspnea on exertion and palpitations, likely secondary to atrial fibrillation with a rapid ventricular response. 2. CHADS2-VASc score of 3, that being her age, gender, and hypertension. 3. gastroesophageal reflux disease. 4. Obesity. As I discussed with her at this point I would try to slow her heart rate down, increase her Lopressor to 25 mg p.o. q. 6 hours. Instead of heparin I would switch her over to apixaban given her elevated CHADS2-VASc score 5 mg b.i.d. and stop her IV fluids. I also recommended an echocardiogram. I discussed we will have to see how she feels with a controlled heart rate. If she is still short of breath and still having fatigue with activity then at that point I would consider cardioversion and a rhythm control strategy. If she feels well with a relatively controlled heart rate we could consider a rate control strategy. I did discuss with her that I believe most patients deserve at least 1 chance to go back into sinus rhythm if they do not convert on the their own. I did inquire with regards to sleep apnea. Outside of her obesity and some very mild snoring, she really denies other symptoms. At this point, there is nothing to suggest she has had a myocardial infarction as her troponins are negative. Further recommendations will be forthcoming based on her heart rate control and her symptoms as well as her echocardiogram. Thank you for allowing us to participate in her care. FELA
[2016-06-01 08:17] LABS: BUN/CREATININE RATIO 20.2 (10-20); CALCIUM 9.3 mg/dl (8.5-10.1); CREATININE 0.98 mg/dl (0.60-1.20); POTASSIUM 4.2 mmol/L (3.5-5.1)
[2016-06-01] MEDS: PANTOprazole SOD 40 MG TAB PO SCH (09:00)
[2016-06-01] MEDS: CALCIUM 600MG + VIT D 400 IU TAB PO SCH ×2 (09:01→21:22)
[2016-06-01] MEDS: CHOLECALCIFEROL 1000 INTER.UNIT TAB PO SCH (09:01)
[2016-06-01] MEDS: SERTRALINE HCL 100 MG TAB PO SCH (09:01)
[2016-06-01] MEDS: MAGNESIUM OXIDE 400 MG TAB PO SCH ×2 (09:01→21:24)
[2016-06-01] MEDS: APIXABAN 2.5 MG TAB PO SCH ×2 (09:01→21:23)
--- NOTE | 2016-06-01 09:21 | ECHOCARDIOGRAM REPORT ---
*NOTICE TO RECEIVING [employer] This information is strictly Confidential and protected under [place] law. [place] law prohibits you from making any further disclosure of this information unless further disclosure is expressly permitted by the written consent of the person to whom it pertains or is authorized by law. A general authorization for the release of medical or other information is not sufficient for this purpose. Hospital accepts no responsibility if the information is made available to any other person, INCLUDING THE PATIENT. Interpretation Summary * Name: LOKESH NEUMANN Study Date: 05/31/2016 01:54 PM BP: 133/76 mmHg * Patient Location: C.2T\S\S234\S\1 HR: 103 * : 1945 (M/d/yyy) Gender: Female Height: 59 in * Age: 70 yrs Ethnicity: CA Weight: 189 lb * Ordering Physician: Joaquín Lundberg * Referring Physician: Self, Referred * Performed By: Marcos Madsen RDCS * * Reason For Study: A-fib * BSA: 1.8 m2 * -- Conclusions -- * There is borderline concentric left ventricular hypertrophy. * Left ventricular systolic function is normal. * The left atrium is moderately dilated. * Right ventricular systolic pressure is elevated at 30-40mmHg. Procedure Details * A complete two-dimensional transthoracic echocardiogram was performed (2D, M-mode, Doppler and color flow Doppler). * The study was technically adequate. Left Ventricle * The left ventricle is normal in size. * There is borderline concentric left ventricular hypertrophy. * Left ventricular systolic function is normal. * Ejection Fraction = 65-70%. Right Ventricle * The right ventricle is normal in size and function. Atria * The left atrium is moderately dilated. * Right atrial size is normal. Mitral Valve * The mitral valve anatomy is normal. * Significant mitral regurgitation is absent. Tricuspid Valve * The tricuspid valve is not well visualized, but is grossly normal. * There is trace tricuspid regurgitation. * Right ventricular systolic pressure is elevated at 30-40mmHg. Aortic Valve * The aortic valve is normal in structure and function. * No hemodynamically significant valvular aortic stenosis. * There is no significant aortic regurgitation. Great Vessels * The aortic root and proximal ascending aorta are normal sized. Pericardium/Pleural * There is no pericardial effusion. Great Vessels * Normal inferior vena cava diameter and respiratory variation suggests normal central venous pressure. Left Ventricular Diastolic Function * Indeterminate due to arrhythmia MMode 2D Measurements and Calculations IVSd 1.3 cm IVSs 1.6 cm LVIDd 3.8 cm LVIDs 2.6 cm LVPWd 1.3 cm LVPWs 1.6 cm IVS/LVPW 0.98 FS 32.5 % EDV(Teich) 61.8 ml ESV(Teich) 23.7 ml EF(Teich) 61.6 % EDV(cubed) 54.8 ml ESV(cubed) 16.8 ml EF(cubed) 69.3 % % IVS thick 23.6 % % LVPW thick 22.1 % LV mass(C)d 165.6 grams LV mass(C)dI 92.0 grams/m\S\2 LV mass(C)s 138.2 grams LV mass(C)sI 76.8 grams/m\S\2 SV(Teich) 38.1 ml SI(Teich) 21.2 ml/m\S\2 SV(cubed) 37.9 ml SI(cubed) 21.1 ml/m\S\2 ACS 1.5 cm LA dimension 4.7 cm asc Aorta Diam 3.5 cm LVOT diam 1.8 cm LVOT area 2.6 cm\S\2 LVAd ap4 15.0 cm\S\2 LVLd ap4 6.4 cm EDV(MOD-sp4) 28.0 ml LVAs ap4 8.0 cm\S\2 LVLs ap4 5.9 cm ESV(MOD-sp4) 9.0 ml EF(MOD-sp4) 67.9 % LVAd ap2 16.6 cm\S\2 LVLd ap2 6.7 cm EDV(MOD-sp2) 34.0 ml LVAs ap2 8.7 cm\S\2 LVLs ap2 5.8 cm ESV(MOD-sp2) 11.0 ml EF(MOD-sp2) 67.6 % SV(MOD-sp4) 19.0 ml SI(MOD-sp4) 10.6 ml/m\S\2 SV(MOD-sp2) 23.0 ml SI(MOD-sp2) 12.8 ml/m\S\2 Doppler Measurements and Calculations MV E max kvng 116.5 cm/sec MV dec time 0.15 sec Ao V2 max 126.0 cm/sec Ao max PG 6.3 mmHg Ao max PG (full) 3.0 mmHg JOSE ALFREDO(V,A) 1.8 cm\S\2 JOSE ALFREDO(V,D) 1.8 cm\S\2 LV V1 max PG 3.3 mmHg LV V1 max 91.0 cm/sec PA V2 max 138.5 cm/sec PA max PG 7.7 mmHg PI end-d kvng 119.4 cm/sec TR max kvng 269.1 cm/sec
--- NOTE | 2016-06-01 11:36 | CARDIOLOGY PROGRESS NOTE ---
DATE: 06/01/2016 SUBJECTIVE: Ms. Garza claims to be feeling much better. She has not had any symptoms of palpitations, racing heartbeat, chest pain or dyspnea. She has been ambulatory around her room, but did not perform much additional activity. She denies any dizziness or lightheadedness associated with activity as well. PHYSICAL EXAMINATION: GENERAL: She was alert and oriented. Mood and affect appeared normal. She answered all questions appropriately. VITAL SIGNS: Currently include blood pressure 119/83 with a pulse of 87. LUNGS: Auscultation of both lung apices revealed them to be clear. She had good air movement. CARDIAC EXAMINATION: Revealed her to be in an irregularly irregular rhythm, but there were no murmurs appreciated on auscultation. LABORATORY STUDIES: Obtained today include a white cell count of 6.9, a hemoglobin of 14, and a platelet count of 155. Sodium is 142, potassium is 4.2, BUN was 20, and creatinine was 0.9. I reviewed her echocardiogram, which revealed preserved left ventricular systolic function with left atrial enlargement. ASSESSMENT AND PLAN: Atrial fibrillation. The patient is feeling much better presumably due to improve heart rate control. I think she is ambulatory today and feels well in conjunction with reasonably controlled heart rate. She could be discharged. Currently, heart rate control appears to be good at rest. If heart rate is less than 120 with exertion and she is asymptomatic that would be a reasonable guideline for discharge. She could be discharged on a current dose of metoprolol 50 mg twice daily. With respect to anticoagulation, she has been started on Apixaban. She is concerned about the cost. Alternative would be warfarin. Either would suffice in her case given her CHADS2-VASc risk score. The patient can follow up with me as an outpatient in approximately 1 month's time for discussion regarding her medications and possibility of cardioversion.
--- NOTE | 2016-06-01 12:40 | Hospitalist Progress Note ---
Hospitalist Progress Note Date of Service Jun 01, 2016. (Serina Higginbotham ., KILEY) Subjective Pt evaluation today including: conversation w/ patient, physical exam, lab review, review of inpatient medication list Pain: None PO Intake: Tolerating PO diet Voiding: no voiding problems Patient reports feeling well. She denies any chest pain, pressure, tightness or discomfort. She states that she is no longer short of breath, even with exertion. She does complain of sweats and states that she has been dripping in sweat for most of her hospital stay, although this seems to have resolved this morning. She denies any palpitations or lightheadedness. The patient denies fevers, chills, chest pain, palpitations, claudication, cough, wheezing, shortness of breath, nausea, vomiting, abdominal pain, dysuria, hematuria, urinary retention, paralysis, weakness, numbness and tingling. Additional Comments: See HPI for pertinent positives and negatives. All other systems reviewed and negative. (Serina Higginbotham, SAEEDC) Objective Vital Signs Date Time Temp Pulse Resp B/P Pulse Ox O2 Delivery O2 Flow Rate FiO2 06/01/16 11:59 36.5 78 18 122/80 91 Room Air 06/01/16 08:00 Room Air 06/01/16 07:37 36.4 87 18 119/83 91 Room Air 06/01/16 04:00 Room Air 06/01/16 03:31 36.4 84 18 156/76 93 Room Air 06/01/16 00:04 36.6 92 19 156/81 91 Room Air 06/01/16 00:00 Room Air 05/31/16 20:00 Room Air 05/31/16 19:49 36.6 106 20 134/84 94 Room Air 05/31/16 16:00 97 Room Air 05/31/16 15:34 36.8 95 18 138/75 97 Room Air 05/31/16 12:25 36.8 97 18 135/71 93 Room Air (Serina Higginbotham, SAEEDC) Physical Exam General Appearance: WD/WN, no apparent distress, + obese Eyes: normal inspection, PERRL, EOMI ENT: normal ENT inspection, hearing grossly normal, pharynx normal Neck: supple, no JVD, trachea midline Respiratory/Chest: lungs clear, normal breath sounds, no respiratory distress Cardiovascular: no gallop, no murmur, + irregularly irregular (rate controlled) Abdomen: normal bowel sounds, non tender, soft Extremities: non-tender, normal inspection, no pedal edema Neurologic/Psychiatric: alert, normal mood/affect, oriented x 3 Skin: normal color, warm/dry, no rash (Serina Higginbotham PA-C) Laboratory Results Last 24 Hours Test 06/01/16 06:42 White Blood Count 6.93 K/uL Red Blood Count 4.97 M/uL Hemoglobin 14.6 g/dL Hematocrit 43.0 % Mean Corpuscular Volume 86.5 fL Mean Corpuscular Hemoglobin 29.4 pg Mean Corpuscular Hemoglobin Concent 34.0 g/dl RDW Standard Deviation 48.6 fL RDW Coefficient of Variation 15.4 % Platelet Count 155 K/uL Mean Platelet Volume 9.9 fL Activated Partial Thromboplast Time 27.1 SECONDS Partial Thromboplastin Ratio 1.0 Sodium Level 142 mmol/L Potassium Level 4.2 mmol/L Chloride Level 105 mmol/L Carbon Dioxide Level 31 mmol/L Anion Gap 6.0 mmol/L Blood Urea Nitrogen 20 mg/dl Creatinine 0.98 mg/dl Est Creatinine Clear Calc Drug Dose 51.6 ml/min Estimated GFR () 68.2 Estimated GFR (Non- 58.9 BUN/Creatinine Ratio 20.2 Random Glucose 116 mg/dl Calcium Level 9.3 mg/dl (Serina Higginbotham, PRINCESS-C) Diagnostic Results Reviewed EKG and agree with interpretation as follows: 105 bpm, a-fib with RVR Reviewed the following studies and agree with interpretation as follows: [facility] [place] [address] Performing Location: [facility] Patient Name: LOKESH NEUMANN Dictating Provider: Luciano Wright MD Dictation Date: Report Signed By: Date: 1945 Defensive Driving Instructor: KEV Room/Bed: S2341 Family Physician: Luciano Jorgensen M.D. SC: C.2T Primary Care Physician: Luciano Jorgensen M.D. Adm Date: 03/26/17 Attending Physician: Gigi Botello M.D. Dis Date: Admitting Physician: Kennedy Dey M.D. Ordering Physician: *NOTICE TO RECEIVING REPUBLICAN AGENCY This information is strictly Confidential and protected under [place] law. [place] law prohibits you from making any further disclosure of this information unless further disclosure is expressly permitted by the written consent of the person to whom it pertains or is authorized by law. A general authorization for the release of medical or other information is not sufficient for this purpose. Hospital accepts no responsibility if the information is made available to any other person, INCLUDING THE PATIENT. Interpretation Summary * Name: LOKESH NEUMANN Study Date: 05/31/2016 01:54 PM BP: 133/76 mmHg * Patient Location: [facility]\S\S234\S\1 HR: 103 * : 1945 (M/d/yyyy) Gender: Female Height: 59 in * Age: 70 yrs Ethnicity: CA Weight: 189 lb * Ordering Physician: Joaquín Lundberg * Referring Physician: Self, Referred * Performed By: Marcos Madsen RDCS * * Reason For Study: A-fib * BSA: 1.8 m2 * -- Conclusions -- * There is borderline concentric left ventricular hypertrophy. * Left ventricular systolic function is normal. * The left atrium is moderately dilated. * Right ventricular systolic pressure is elevated at 30-40mmHg. Procedure Details * A complete two-dimensional transthoracic echocardiogram was performed (2D, M-mode, Doppler and color flow Doppler). * The study was technically adequate. Left Ventricle * The left ventricle is normal in size. * There is borderline concentric left ventricular hypertrophy. * Left ventricular systolic function is normal. * Ejection Fraction = 65-70%. Right Ventricle * The right ventricle is normal in size and function. Atria * The left atrium is moderately dilated. * Right atrial size is normal. Mitral Valve * The mitral valve anatomy is normal. * Significant mitral regurgitation is absent. Tricuspid Valve * The tricuspid valve is not well visualized, but is grossly normal. * There is trace tricuspid regurgitation. * Right ventricular systolic pressure is elevated at 30-40mmHg. Aortic Valve * The aortic valve is normal in structure and function. * No hemodynamically significant valvular aortic stenosis. * There is no significant aortic regurgitation. Great Vessels * The aortic root and proximal ascending aorta are normal sized. Pericardium/Pleural * There is no pericardial effusion. Great Vessels * Normal inferior vena cava diameter and respiratory variation suggests normal central venous pressure. Left Ventricular Diastolic Function * Indeterminate due to arrhythmia MMode 2D Measurements and Calculations IVSd 1.3 cm IVSs 1.6 cm LVIDd 3.8 cm LVIDs 2.6 cm LVPWd 1.3 cm LVPWs 1.6 cm IVS/LVPW 0.98 FS 32.5 % EDV(Teich) 61.8 ml ESV(Teich) 23.7 ml EF(Teich) 61.6 % EDV(cubed) 54.8 ml ESV(cubed) 16.8 ml EF(cubed) 69.3 % % IVS thick 23.6 % % LVPW thick 22.1 % LV mass(C)d 165.6 grams LV mass(C)dI 92.0 grams/m\S\2 LV mass(C)s 138.2 grams LV mass(C)sI 76.8 grams/m\S\2 SV(Teich) 38.1 ml SI(Teich) 21.2 ml/m\S\2 SV(cubed) 37.9 ml SI(cubed) 21.1 ml/m\S\2 ACS 1.5 cm LA dimension 4.7 cm asc Aorta Diam 3.5 cm LVOT diam 1.8 cm LVOT area 2.6 cm\S\2 LVAd ap4 15.0 cm\S\2 LVLd ap4 6.4 cm EDV(MOD-sp4) 28.0 ml LVAs ap4 8.0 cm\S\2 LVLs ap4 5.9 cm ESV(MOD-sp4) 9.0 ml EF(MOD-sp4) 67.9 % LVAd ap2 16.6 cm\S\2 LVLd ap2 6.7 cm EDV(MOD-sp2) 34.0 ml LVAs ap2 8.7 cm\S\2 LVLs ap2 5.8 cm ESV(MOD-sp2) 11.0 ml EF(MOD-sp2) 67.6 % SV(MOD-sp4) 19.0 ml SI(MOD-sp4) 10.6 ml/m\S\2 SV(MOD-sp2) 23.0 ml SI(MOD-sp2) 12.8 ml/m\S\2 Doppler Measurements and Calculations MV E max kvng 116.5 cm/sec MV dec time 0.15 sec Ao V2 max 126.0 cm/sec Ao max PG 6.3 mmHg Ao max PG (full) 3.0 mmHg JOSE ALFREDO(V,A) 1.8 cm\S\2 JOSE ALFREDO(V,D) 1.8 cm\S\2 LV V1 max PG 3.3 mmHg LV V1 max 91.0 cm/sec PA V2 max 138.5 cm/sec PA max PG 7.7 mmHg PI end-d kvng 119.4 cm/sec TR max kvng 269.1 cm/sec (Serina Higginbotham ., KILEY) Assessment and Plan 70 y/o female with a history of HTN, HLD, depression, and GERD who presented to the ED on 05/30 with chest pressure, palpitations and fatigue. Patient was found to have new onset of atrial fibrillation with rapid ventricular response. CXR showed questionable airspace consolidation left lung base. Initial labs grossly unremarkable, cardiac enzymes negative. She received Lopressor 5 mg IV 2 in the ED. A-fib with RVR/HTN -Admit to telemetry. Patient remained in A. fib overnight, but is rate controlled. Bradycardia as low as 40s overnight, but staying mostly in 80s -Given digoxin 0.25 g IV 1 -Change Lopressor from 25 mg PO q6h 2. Lopressor 50 mg PO BID -Initial cardiac enzymes negative. Patient's symptoms seem to have resolved with rate control, but repeat EKG 06/[address] changes. Repeat troponin. -Echo shows borderline concentric LVH. Left ventricular systolic function normal. Left atrium moderately dilated. Right ventricular systolic pressure elevated at 30-40 mmHg -Continue Eliquis 5 mg PO BID -Cardiology consulted, appreciate recs: stable from cardiac standpoint HLD -Continue pravastatin 80 mg PO qd GERD -Continue pantoprazole 40 mg PO qd and ranitidine 150 mg PO qd Depression -Continue sertraline 100 mg PO qd DVT prophylaxis -Eliquis Code Status -Level I, FULL RESUSCITATION STATUS Dispo -Pt to return home when medically stable -Anticipate discharge tomorrow, will monitor after change Lopressor dose to ensure she doesn't become too bradycardic while receiving 50 mg doses This chart was completed in part utilizing [employer] Voice Recognition software. Attempts were made to minimize the grammatical errors, random word insertions, pronoun errors and incomplete sentences. Any formal questions or concerns about the content, text or information contained within the body of this dictation should be directly addressed to the provider for clarification. (Serina Higginbotham ., KILEY) I personally evaluated this patient and performed a physical exam. I reviewed the orders. I read this note performed by Serina Higginbotham PA-C and agree with its contents in entirety. The patient told me this evening that she is interested in trial of conversion. I told her to discuss that further with cardiology tomorrow. She lives 1 hour from this facility. She is feeing well otherwise. (Brenden Zarco, DO)
--- NOTE | 2016-06-01 15:28 | DIAGNOSTIC IMAGING REPORT ---
CHEST 2 VIEWS ROUTINE CLINICAL HISTORY: Possible pneumonia. COMPARISON STUDY: Chest radiograph May 30, 2016. FINDINGS: Lung volumes are diminished. This is unchanged. Postsurgical findings within the left lung are noted. There is no pneumothorax or pleural effusion. Elevation of the right hemidiaphragm is unchanged. Cardiomediastinal silhouette is stable. No consolidation is identified to suggest pneumonia. IMPRESSION: No acute finding. No convincing evidence for pneumonia. Electronically signed by: Sam Kern M.D. 06/01/2016 3:27 PM Dictated Date/Time: 06/01/2016 3:26 PM
[2016-06-01] MEDS: PRAVASTATIN SOD 20 MG TAB PO SCH (17:09)
[2016-06-01] MEDS: RANITIDINE HCL 150 MG TAB PO SCH (21:21)
[2016-06-01] MEDS: METOPROLOL TARTRATE 50 MG TAB PO SCH (21:24)
[2016-06-02] VITALS (7 sets, daily range): BP systolic 110–126; BP diastolic 70–89; PULSE 63–86; TEMP 36.3–36.5; O2SAT 93–97
[2016-06-02 06:30] LABS: HEMATOCRIT 42.3 % (37-47); MEAN CELL VOLUME 88.3 fL (80-100); MEAN CORPUSCULAR HEMOGLOBIN 30.7 pg (25-34); MEAN CORPUSCULAR HGB CONC 34.8 g/dl (32-36); MEAN PLATELET VOLUME 10.9 fL (7.4-10.4); PLATELET COUNT 189 K/uL (130-400); RED BLOOD COUNT 4.79 M/uL (4.2-5.4); WHITE BLOOD COUNT 8.53 K/uL (4.8-10.8)
[2016-06-02 06:57] LABS: BUN/CREATININE RATIO 21.4 (10-20); CALCIUM 9.7 mg/dl (8.5-10.1); CREATININE 1.2 mg/dl (0.60-1.20); POTASSIUM 4.2 mmol/L (3.5-5.1)
[2016-06-02] MEDS: METOPROLOL TARTRATE 50 MG TAB PO SCH (09:25)
[2016-06-02] MEDS: CALCIUM 600MG + VIT D 400 IU TAB PO SCH (09:25)
[2016-06-02] MEDS: CHOLECALCIFEROL 1000 INTER.UNIT TAB PO SCH (09:25)
[2016-06-02] MEDS: MAGNESIUM OXIDE 400 MG TAB PO SCH (09:25)
[2016-06-02] MEDS: APIXABAN 2.5 MG TAB PO SCH (09:26)
[2016-06-02] MEDS: PANTOprazole SOD 40 MG TAB PO SCH (09:26)
[2016-06-02] MEDS ORDERED: METO50TA17 PO (12:57)
[2016-06-02] MEDS ORDERED: ELQ25 PO (12:57)
--- NOTE | 2016-06-02 12:58 | Discharge Instructions ---
AC Therapy D/C Instructions Current Visit Date Visit Date: Jun 02, 2016. Discharge Discharge Date Jun 02, 2016. Instructions AC Clinic Instructions: Discharge Instructions Following Successful Completion of Anticoagulation Therapy Congratulations! You have completed your course of anticoagulation therapy and may stop taking your warfarin (Coumadin) or low molecular weight heparin (ex: Lovenox). We understand that your visits to our clinic have been a significant part of your life recently and we thank you for your cooperation and willingness to partner with us to improve your health and well being! The following FAQ serves to answer some of the questions people have about stopping anticoagulation therapy: * Is it safe to come off warfarin "cold turkey"? Yes. Your INR will normalize in about 5-7 days. Keep in mind, warfarin actually has its own tapering effect and will slowly taper out of your system over 10-14 days. However, you will remain at an increased risk of bruising/ bleeding during this time. Professional groups who decide best treatment plans for people on anticoagulation recommend that people stop their warfarin and do not have a "tapering" of doses like some medications require. A recent study published in the [place] Journal of Medicine found that persons who have had a DVT might benefit from taking a baby aspirin (81 mg) everyday after completion of anticoagulation therapy. You can ask your healthcare provider if this is a good option for you. * Do I need to have more blood tests after stopping warfarin? As warfarin slowly comes out of your system, your PT/INR will normalize. You do not need to have any further testing of the PT/INR after stopping warfarin. * I have spent so much time watching my intake of "greens". If I eat green, leafy vegetables now that I am off warfarin, will I get another blood clot? There is no evidence that eating green, leafy vegetables causes people to have blood clots. Eat and enjoy! * Do I need to have another ultrasound/doppler to ensure the clot is gone? An ultrasound test is not typically repeated at the completion of anticoagulation therapy unless clinical symptoms warrant doing so. * How do I tell if I have another blood clot? It is very important that you become familiar with the signs and symptoms of a blood clot. Many of the questions that you were asked during clinic visits are those very signs and symptoms to be aware of. DVT (deep vein thrombosis - clot in a vein): Pain, redness, swelling, tenderness in an extremity particularly if these symptoms are one-sided. For example, pain, redness, swelling or tenderness in the right extremity only could indicate a clot has formed in the right extremity. Occasionally, people will be able to feel a firm "line" or "cord" that runs along the length of a vein. This can occur in the arms or the legs. It is sometimes difficult to tell the difference between the symptoms of a new blood clot and the resolving "old" blood clot, especially when it is in the same location. For that reason, it is important to let your healthcare provider know should you have any new symptoms. PE (pulmonary embolism - clot in the lungs): Chest pain, coughing up blood, increased heart rate, shortness of breath, new difficulty breathing with normal daily activities are all symptoms of pulmonary embolism and require immediate evaluation. Stroke (cerebrovascular accident): Sudden weakness, numbness, loss of movement in your extremities, or facial drooping, especially on only one side of your body. Sudden visual changes, dizziness, sudden trouble speaking, and difficulty with balance or movement can all be signs or symptoms of stroke and require immediate evaluation. VT (heart attack - myocardial infarction): Chest discomfort (pain, squeezing, pressure) with or without a reaching into the neck or down the arm and often in association with shortness of breath, sweating and anxiety area requires immediate evaluation. * Sitting for long periods of time is a risk factor for development of a clot. So, if you will be sitting for extended periods while working, traveling, etc it is important for you to take these steps: 1. Stay well hydrated with water, juice and/or non-caffeinated beverages. 2. Take frequent breaks at least every 2 hours to walk for a few minutes. If traveling on a bus, train, or plane take breaks by walking to the restroom. 3. Do some leg exercises while sitting such as flexing your ankles or writing the alphabet with your feet. Roll your feet from heel to toe and make a muscle with your calves. Do both legs, not just the one where there was a blood clot before. Remember, the goal is to keep the blood moving back to the heart and prevent it from pooling in the legs where it can form a clot. 4. Wear compression stockings for the duration of your travel or if you will be sitting for long periods of time. * What else can I do to reduce my chance of having a blood clot? You can reduce your risk of having a blood clot in the following ways: 1. If you smoke, try to cut back or quit altogether. 2.. Regular exercise such as walking, biking, swimming, jogging, etc to improve blood flow. Try to exercise for at least 30 minutes at least 3 days a week. 3. It is important to alert any healthcare provider to the fact that you had a blood clot. This is especially true should you need to have a surgical procedure or go on any type of hormone therapy (including oral contraceptives). AC Clinic Contact Information [facility] Anticoagulation ([facility]) [facility] Email: [email or web address] Patient Signature Section Patient Instructions Signature Page Chanel Garza Patient (or Guardian) Signature/Date: I have read and understand the instructions given to me by my caregivers. Caregiver/RN/Doctor Signature/Date: The above-named patient and/or guardian has received patient instructions on this date. + Original Patient Signature Page (only) stays with chart. Please make copy for patient.
--- NOTE | 2016-06-02 13:08 | Discharge Summary ---
Discharge Summary Date of Service Jun 02, 2016. Discharge Summary Admission Date: May 31, 2016 at 01:01 Discharge Date: Jun 02, 2016 Discharge Disposition: Home Principal Diagnosis: Atrial fibrillation Problems/Secondary Diagnoses: Hyperlipidemia Immunizations: Have You Had Influenza Vaccine: Yes Influenza Vaccine Date: Jan 16, 2012 History of Tetanus Vaccine?: Yes History of Pneumococcal: Yes Pneumococcal Date: Jan 15, 2009 History of Hepatitis B Vaccine: No Consultations: Cardiology, Dr.Jason Lundberg, DO Medication Reconciliation New Medications: Apixaban (Eliquis) 2.5 Mg Tab 5 MG PO BID for 30 Days, #120 TAB 6 Refills Metoprolol Tartrate (Metoprolol Tartrate) 50 Mg Tab 50 MG PO BID, #60 TAB 5 Refills Continued Medications: Calcium Carbonate (Calcium 600) 600 Mg Tab 1200 MG PO QPM Cetirizine Hcl (Zyrtec) 5 Mg Tab 5 MG PO DAILY PRN for ALLERGY SX Cholecalciferol (Vitamin D) 2,000 Unit Tab 2 TAB PO QAM Fish Oil ([place]-3) 1 Ea Cap 1 CAP PO QAM, CAP Lorazepam (Ativan) 0.5 Mg Tab 0.5 MG PO DAILY PRN for Anxiety, TAB Magnesium (Magnesium) 250 Mg Tab 250 MG PO QPM Meloxicam (Mobic) 15 Mg Tab 15 MG PO QAM, TAB Omeprazole (Prilosec) 20 Mg Capcr 20 MG PO QAM, CAP Pravastatin Sodium (Pravastatin Sodium) 80 Mg Tab 80 MG PO HS, 3 Refills Ranitidine (Zantac) 150 Mg Tab 150 MG PO QAM, TAB Sertraline (Zoloft) 100 Mg Tab 150 MG PO QAM Discontinued Medications: Atenolol (Tenormin) 25 Mg Tab 25 MG PO QAM, TAB Discharge Exam Physical Exam: General Appearance: WD/WN, no apparent distress Eyes: normal inspection, PERRL, EOMI ENT: normal ENT inspection, hearing grossly normal, TMs normal, pharynx normal Neck: supple, no adenopathy, thyroid normal Respiratory/Chest: chest non-tender, lungs clear, normal breath sounds Cardiovascular: no JVD, + irregularly irregular Abdomen / GI: normal bowel sounds, non tender, soft, no organomegaly Extremities: normal inspection, no calf tenderness, normal capillary refill Neurologic/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 She does describe some episodes where she has felt better, but I would not be surprised if it has been continuous over the last week or so. In retrospect she notes an episode about 2 or 3 years ago where she was actually admitted to the hospital with shortness of breath. She had an extensive workup and was only found to have esophageal reflux at the time, but she describes her symptoms as very similar to that. She does describe palpitations and fluttering. She notes she has had increasing shortness of breath, walking to the mailbox makes her short of breath, it is about 500 feet. She does note she gets fatigued and played out very easily with activity which is new for her. She also had a band-like sensation across her chest when her heart was racing. She also had some lightheadedness with it. It also sounds like she has some vertigo as the room at times would spin. She denies any slurred speech, difficulty finding words, weakness one side or the other. She denies any presyncope, syncope, lower extremity edema. She does believe she snores mildly, but she lives by herself. She does wake up well rested. She denies the need to fall asleep in the afternoon. She denies any bleeding, bruising, dark stools, black stools, cough, productive sputum. Her appetite has been stable. Her weight has been up and down and she has been unsure why. She notes that she was placed on losartan and started having personality changes on it and then was switched to atenolol recently. A-fib with RVR/HTN -Admitted to telemetry. -Rate controlled on Lopressor 50 mg PO BID -Echo shows borderline concentric LVH. Left ventricular systolic function normal. Left atrium moderately dilated. Right ventricular systolic pressure elevated at 30-40 mmHg -Continue Eliquis 5 mg PO BID -Cardiology consulted, appreciate recs: stable from cardiac standpoint, can follow up with them at discharge. HLD -Continue pravastatin 80 mg PO qd GERD -Continue pantoprazole 40 mg PO qd and ranitidine 150 mg PO qd Depression -Continue sertraline 100 mg PO qd DVT prophylaxis -Eliquis Code Status -Level I, FULL RESUSCITATION STATUS Total Time Spent: Greater than 30 minutes This includes examination of the patient, discharge planning, medication reconciliation, and communication with other providers. Discharge Instructions Please refer to the electronic Patient Visit Report (Discharge Instructions) for additional information. Follow-Up Cardiology in one to two weeks
[2016-06-02] MEDS: SERTRALINE HCL 100 MG TAB PO SCH (13:22)
== END 2016-06-02 13:45 | disposition home or self-care (01) | DRG 310 ==
LOC: ENRESERVTM → ENRESERVDT → EDBD 22:23 → C.EDB 22:24 → C.2T 05-31 01:01
PROVIDERS: ADMIT Hospitalist; ATTEND Internal Medicine
DX: I48.91 Unspecified atrial fibrillation (principal); R00.1 Bradycardia, unspecified; R07.9 Chest pain, unspecified; M25.511 Pain in right shoulder; M79.621 Pain in right upper arm; I10 Essential (primary) hypertension; E78.00 Pure hypercholesterolemia, unspecified; E78.5 Hyperlipidemia, unspecified; K21.9 Gastro-esophageal reflux disease without esophagitis; M19.90 Unspecified osteoarthritis, unspecified site; F41.9 Anxiety disorder, unspecified; F32.9 Major depressive disorder, single episode, unspecified; E66.9 Obesity, unspecified; Z68.37 Body mass index [BMI] 37.0-37.9, adult; Z79.1 Long term (current) use of non-steroidal anti-inflammatories (NSAID); Z79.899 Other long term (current) drug therapy

== ENCOUNTER → 2016-06-18 | Outpatient (CLI) | payer BC ==
[~2016-06-18] MED LIST changes: +APIX1TAB3 PO; +CALC600T PO; -CALCTAB5 PO; +ELQ25 PO; +HYDR25TA4 PO; -LOSA50TA6 PO; +METO50TA17 PO; +METO50TA7 PO; +OPTIRAY 320 IV PRN
--- NOTE | 2016-06-18 12:28 | DIAGNOSTIC IMAGING REPORT ---
CT SCAN OF THE CHEST WITH IV CONTRAST CLINICAL HISTORY: Splenomegaly. Lymphoma. COMPARISON STUDY: Chest x-ray dated 06/01/2016. Chest CT scans dated 11/25/2015, 05/21/2015, and 07/11/2012. TECHNIQUE: Following the IV administration of 93 cc of Optiray 320, CT scan of the thorax was performed from the thoracic inlet to the upper abdomen. Images are reviewed in the axial, sagittal, and coronal planes. IV contrast was administered without complication. Examination is degraded by streak artifact from the right arm which could not be elevated above the chest. FINDINGS: Thyroid: Atrophic. Thoracic aorta: There is mild atherosclerotic calcification of the thoracic aorta, which is normal in caliber and demonstrates standard 3-vessel arch anatomy. No dissection is seen. Pulmonary vasculature: The pulmonary trunk is dilated measuring up to 4 cm. This suggests pulmonary artery hypertension. There are no central filling defects identified to suggest pulmonary embolus. Note that this examination was not protocoled for assessment of the pulmonary vasculature. Heart: The heart is top normal in size and there is trace trace pericardial fluid. The coronary arteries are densely calcified. Lungs and pleural spaces: There are postoperative changes and scarring from left upper lobe wedge resection, new from the 11/25/2015 examination. Mild elevation of the right hemidiaphragm persists. No airspace consolidation or pleural effusion is seen. No pulmonary nodule is identified on today's examination. The trachea and central airways are clear. Mediastinum: There are scattered subcentimeter mediastinal lymph nodes. These are not pathologically enlarged by size criteria an similar to previous. Lori: Not well assessed without IV contrast. Axillae: There is no axillary lymphadenopathy. Upper abdomen: The spleen appears mildly enlarged but is incompletely imaged. A small hiatal hernia is noted. There is cortical atrophy of the partially imaged left kidney. No adrenal lesion is identified. Skeletal structures: The skeletal structures are osteopenic. No lytic or blastic bony lesions are seen. Advanced arthritic and/or posttraumatic change is seen in the right shoulder. Arthritic change is also seen in the left shoulder. There are healed left-sided rib fractures, some of which may be related to previous surgery. Degenerative change and hyperkyphosis are again noted throughout the thoracic spine. Hemangiomas are seen in the bodies of T3, T6, and T11. IMPRESSION: 1. There are postoperative changes from interval wedge resection in the left upper lobe. 2. No pulmonary lesion is identified on today's examination. 3. No airspace consolidation or pleural effusion is identified. 4. The spleen appears mildly enlarged. 5. There is no mediastinal or hilar lymphadenopathy. 6. Additional changes as above. Electronically signed by: Edwin Franz M.D. 06/18/2016 12:26 PM Dictated Date/Time: 06/18/2016 12:11 PM
--- NOTE | 2016-06-18 12:35 | DIAGNOSTIC IMAGING REPORT ---
ABDOMEN AND PELVIS CT WITH IV AND ORAL CONTRAST CT DOSE: 1713.09 mGy.cm HISTORY: Follow-up SPLENOMEGALY TECHNIQUE: Multiaxial CT images of the abdomen and pelvis were performed following the use of intravenous and oral contrast. COMPARISON STUDY: Abdomen CT 10/29/2014. Abdominal ultrasound 03/13/2016. FINDINGS: Postoperative changes within the lingula. These are better appreciated on the same day chest CT. No pneumoperitoneum. No pneumatosis. Healing left-sided rib fractures. This may also be due to the interval postoperative change. No suspicious lytic or blastic osseous lesions. No hepatic or splenic masses. A 1.5 cm gallstone. No gallbladder wall thickening. The pancreas and adrenal glands are unremarkable. Bilateral cortical renal scarring. The kidneys enhance normally. No hydronephrosis. No retroperitoneal lymphadenopathy. Subcentimeter mesenteric lymph nodes remain stable. A 2.2 cm lobular density seen along the posterior aspect of the uterus favors a fibroid. The bladder is unremarkable. No bowel wall thickening or obstruction. Colonic diverticulosis. Normal appendix. IMPRESSION: 1. Stable splenomegaly. 2. No lymphadenopathy within the abdomen or pelvis. 3. Cholelithiasis. 4. Interval postoperative changes within the left chest. Please refer to the dedicated chest CT performed same day. 5. Additional findings as described above. Electronically signed by: Severino Wu M.D. 06/18/2016 12:33 PM Dictated Date/Time: 06/18/2016 12:23 PM
== END | disposition home or self-care (01) ==
LOC: C.CTS 09:26
PROVIDERS: ATTEND Internal Medicine Hematology & Oncology
DX: R16.1 Splenomegaly, not elsewhere classified (principal); C85.90 Non-Hodgkin lymphoma, unspecified, unspecified site

== ENCOUNTER → 2016-09-11 | Outpatient (CLI) | payer BC ==
[~2016-09-11] MED LIST changes: -APIX1TAB3 PO; -HYDR25TA4 PO; -METO50TA7 PO; -OPTIRAY 320 IV PRN
[2016-09-11 13:00] LABS: CHOLESTEROL/HDL RATIO 5.2
== END | disposition home or self-care (01) ==
LOC: C.LABPBG 08:39
PROVIDERS: ATTEND Internal Medicine
DX: E78.00 Pure hypercholesterolemia, unspecified (principal)

== ENCOUNTER → 2016-10-01 | Outpatient (CLI) | payer BC ==
--- NOTE | 2016-10-01 14:39 | DIAGNOSTIC IMAGING REPORT ---
CHEST 2 VIEWS ROUTINE CLINICAL HISTORY: 71 years-old Female presenting with SOB. TECHNIQUE: PA and lateral views of the chest were obtained. COMPARISON: 06/01/2016. FINDINGS: Atherosclerosis of aortic arch. Prominence of the main pulmonary artery. Mild cardiac silhouette enlargement, unchanged. Lungs and pleural spaces clear. Osseous structures and upper abdomen normal. IMPRESSION: 1. No acute cardiopulmonary disease. Electronically signed by: Canelo Flores M.D. 10/01/2016 2:38 PM Dictated Date/Time: 10/01/2016 2:37 PM
== END | disposition home or self-care (01) ==
LOC: C.RAD1850 14:27
PROVIDERS: ATTEND Physician Assistant Medical
DX: R06.02 Shortness of breath (principal)

== ENCOUNTER → 2016-10-01 | Outpatient (CLI) | payer BC ==
[2016-10-01 17:53] LABS: HEMATOCRIT 39.4 % (37-47); MEAN CELL VOLUME 92.5 fL (80-100); MEAN CORPUSCULAR HGB CONC 32.5 g/dl (32-36); MEAN PLATELET VOLUME 10.8 fL (7.4-10.4); PLATELET COUNT 143 K/uL (130-400); RED BLOOD COUNT 4.26 M/uL (4.2-5.4); WHITE BLOOD COUNT 5.84 K/uL (4.8-10.8)
[2016-10-01 18:07] LABS: ALT/SGPT 23 U/L (12-78); AST/SGOT 16 U/L (15-37); BLOOD UREA NITROGEN 20 mg/dl (7-18); BUN/CREATININE RATIO 20.2 (10-20); CALCIUM 9.2 mg/dl (8.5-10.1); CARBON DIOXIDE 31 mmol/L (21-32); CHLORIDE 107 mmol/L (98-107); GLUCOSE 104 mg/dl (70-99); POTASSIUM 4.4 mmol/L (3.5-5.1); SODIUM 141 mmol/L (136-145)
[2016-10-01 18:10] LABS: ALB/GLOB RATIO 1.2 (0.9-2); ALKALINE PHOSPHATASE 80 U/L (45-117)
== END | disposition home or self-care (01) ==
LOC: C.LABBFT 14:18
PROVIDERS: ATTEND Physician Assistant Medical
DX: R06.02 Shortness of breath (principal)

== ENCOUNTER → 2016-11-10 | Outpatient (CLI) | payer BC ==
[2016-11-10 12:11] LABS: BASO % 0.6 %; BASO ABS # 0.03 K/uL (0-0.2); COMPLETE YES; EOS % 3.5 %; HEMATOCRIT 42.2 % (37-47); IG% 0.6 %; LYMPH % 19.1 %; LYMPH ABS # 1.03 K/uL (1.2-3.4); MEAN CELL VOLUME 90.9 fL (80-100); MEAN CORPUSCULAR HEMOGLOBIN 31.3 pg (25-34); MEAN CORPUSCULAR HGB CONC 34.4 g/dl (32-36); MEAN PLATELET VOLUME 10.1 fL (7.4-10.4); MONO % 5.6 %; NEUT % 70.6 %; PLATELET COUNT 139 K/uL (130-400); RED BLOOD COUNT 4.64 M/uL (4.2-5.4)
[2016-11-10 12:32] LABS: ALT/SGPT 36 U/L (12-78); AST/SGOT 31 U/L (15-37); BLOOD UREA NITROGEN 18 mg/dl (7-18); BUN/CREATININE RATIO 17.8 (10-20); CALCIUM 9.9 mg/dl (8.5-10.1); CARBON DIOXIDE 32 mmol/L (21-32); CHLORIDE 104 mmol/L (98-107); CREATININE 0.99 mg/dl (0.60-1.20); GLUCOSE 117 mg/dl (70-99); POTASSIUM 4.1 mmol/L (3.5-5.1); SODIUM 138 mmol/L (136-145)
[2016-11-10 12:44] LABS: ALB/GLOB RATIO 1.1 (0.9-2); ALKALINE PHOSPHATASE 76 U/L (45-117)
[2016-11-12 18:42] LABS: ALBUMIN 4.6 G/DL (3.8-4.8); GAMMA GLOBULIN 1.1 G/DL (0.8-1.7); IMMUNOFIXATION IGA SERUM 205 MG/DL (81-463); IMMUNOFIXATION IGG SERUM 1092 MG/DL (694-1618); IMMUNOFIXATION IGM SERUM 319 MG/DL (48-271); TOTAL PROTEIN 7.3 G/DL (6.2-8.3)
== END | disposition home or self-care (01) ==
LOC: C.LABPBG 10:19
PROVIDERS: ATTEND Nurse Practitioner Family
DX: R16.1 Splenomegaly, not elsewhere classified (principal)

== ENCOUNTER → 2017-01-14 | Day surgery (SDC) | payer BC, OTHER ==
[2016-05-26 10:35] VITALS: BMI 36.0
[2016-12-31 08:17] VITALS: Ht 149.9 cm; Wt 81.8 kg
[~2017-01-14] VITALS: Ht 149.9 cm; Wt 81.8 kg
[~2017-01-14] MED LIST changes: +APIX1TAB3 PO; -ELQ25 PO; +HYDR25TA4 PO; +LIDOCAINE HCL 2% 2 ML VIAL (20MG/ML) ONE; -METO50TA17 PO; +METO50TA7 PO; -OMEG10007 PO; -PRLSR20 PO; +PROPOFOL IV EMULSION 10 MG/ML 20 ML VIAL IV ONE; +SODIUM CHLORIDE 0.9% 500ML 500 ML IV ONE; -ZNTT/150 PO
[2017-01-14 13:12] VITALS: TEMP 37
--- NOTE | 2017-01-14 13:24 | Endo History and Physical ---
History & Physical Date of Service: Jan 14, 2017. Chief Complaint: Family history of colon cancer (mother) Referring Physician: Emmie Weinstein History of Present Illness 71 yo CF who presents for colonoscopy secondary to family history of colon cancer (Mother). Past Medical History Osteoporosis, Arthritis, Other Past Surgical History Hx Cardiac Surgery: No Hx Internal Defibrillator: No Hx Pacemaker: No Hx Abdominal Surgery: Yes (TUBAL LIGATION) Hx of Implantable Prosthesis: No Hx Post-Op Nausea and Vomiting: No Hx Cancer Surgery: No Hx Thoracic Surgery: Yes (BRONCHOSCOPY LT LUNG NODULE REMOVAL 01/2016) Hx Orthopedic: Yes (LT/RT CTR, LT TKA) Hx Urinary Tract Surgery: No Family History Colon CA Social History Smoking Status: Never Smoker Hx Substance Use: No Hx Alcohol Use: No Allergies Coded Allergies: Adhesives (Verified Allergy, Unknown, skin irritation/'burning', 01/14/17) Diclofenac (Verified Allergy, Unknown, RASH, 01/14/17) Penicillins (Verified Allergy, Unknown, HIVES, 01/14/17) Current Medications Reported Home Medications Medications Dose Route/Sig Max Daily Dose Days Date Category Toprol-Xl (Metoprolol Succinate) 50 Mg Tabcr 50 Mg PO HS 12/31/16 Reported Eliquis (Apixaban) 5 Mg Tab 5 Mg PO BID 12/31/16 Reported Hctz (Hydrochlorothiazide) 25 Mg Tab 25 Mg PO QAM 12/31/16 Reported Calcium 600 (Calcium Carbonate) 600 Mg Tab 1,200 Mg PO HS 05/30/16 Reported Ativan (Lorazepam) 0.5 Mg Tab 0.5 Mg PO DAILY PRN 05/26/16 Reported Pravastatin Sodium 80 Mg Tab 80 Mg PO HS 05/26/16 Reported Mobic (Meloxicam) 15 Mg Tab 15 Mg PO QAM 05/26/16 Reported Vitamin D (Cholecalciferol) 2,000 Unit Tab 2 Tab PO QAM 05/26/16 Reported Zyrtec (Cetirizine Hcl) 5 Mg Tab 5 Mg PO DAILY PRN 08/24/14 Reported Zoloft (Sertraline HCl) 100 Mg Tab 100 Mg PO QAM 01/05/14 Reported Magnesium 250 Mg Tab 500 Mg PO HS 07/11/12 Reported Vital Signs Weight (Kilograms): 81.82 Height (Feet): 4 Height (Inches): 11 Date Time Temp Pulse Resp B/P (MAP) Pulse Ox O2 Delivery O2 Flow Rate FiO2 01/14/17 13:12 37.0 101 22 144/75 (98) 100 Room Air Physical Exam General Appearance: WD/WN, no apparent distress Respiratory/Chest: Auscultation: breath sounds normal Cardiovascular: Heart Auscultation: RRR Abdomen: Bowel Sounds: normal Inspection & Palpation: soft, non-distended, no tenderness, guarding & rebound Assessment and Plan Assessment: 71 yo CF who presents for colonoscopy secondary to family history of colon cancer (Mother). Plan: Proceed with colonoscopy.
--- NOTE | 2017-01-14 14:51 | Discharge Instructions ---
Endoscopy Patient Instructions Date / Procedure(s) Performed Jan 14, 2017. Colonoscopy Allergy Information Coded Allergies: Adhesives (Verified Allergy, Unknown, skin irritation/'burning', 01/14/17) Diclofenac (Verified Allergy, Unknown, RASH, 01/14/17) Penicillins (Verified Allergy, Unknown, HIVES, 01/14/17) Discharge Date / Findings Jan 14, 2017. Diverticulosis Internal hemorrhoids Medication Instructions Stopped Medication(s): Eliquis stopped 01/12/17 OK to resume all medications today as prescribed Reported Home Medications Medications Dose Route/Sig Max Daily Dose Days Date Category Toprol-Xl (Metoprolol Succinate) 50 Mg Tabcr 50 Mg PO HS 12/31/16 Reported Eliquis (Apixaban) 5 Mg Tab 5 Mg PO BID 12/31/16 Reported Hctz (Hydrochlorothiazide) 25 Mg Tab 25 Mg PO QAM 12/31/16 Reported Calcium 600 (Calcium Carbonate) 600 Mg Tab 1,200 Mg PO HS 05/30/16 Reported Ativan (Lorazepam) 0.5 Mg Tab 0.5 Mg PO DAILY PRN 05/26/16 Reported Pravastatin Sodium 80 Mg Tab 80 Mg PO HS 05/26/16 Reported Mobic (Meloxicam) 15 Mg Tab 15 Mg PO QAM 05/26/16 Reported Vitamin D (Cholecalciferol) 2,000 Unit Tab 2 Tab PO QAM 05/26/16 Reported Zyrtec (Cetirizine Hcl) 5 Mg Tab 5 Mg PO DAILY PRN 08/24/14 Reported Zoloft (Sertraline HCl) 100 Mg Tab 100 Mg PO QAM 01/05/14 Reported Magnesium 250 Mg Tab 500 Mg PO HS 07/11/12 Reported Provider Instructions Activity Restrictions - No exercising or heavy lifting for 24 hours. - Do not drink alcohol the day of the procedure. - Do not drive a car or operate machinery until the day after the procedure. - Do not make any important decisions or sign important papers in 24 hours after the procedure. Following Day: - Return to full activity which may include returning to work/school. Diet Start your diet with liquids and light foods (jello, soup, juice, toast). Then eat your usual diet if not nauseated. Treatment For Common After Affects For mild abdominal pain, bloating, or excessive gas: - Rest - Eat lightly - Lie on right side Follow-Up Information Follow-up with Emmie Weinstein as scheduled Anesthesia Information What You Should Know You have had a procedure that required some medicine to reduce anxiety and discomfort. This treatment is called moderate sedation. After receiving the treatment, you may be sleepy, but you will be able to breathe on your own. The effects of the treatment may last for several hours. Follow these instructions along with Activity/Diet recommendations noted above: * Do NOT do anything where dizziness or clumsiness would be dangerous. * Rest quietly at home today, then you can be up and about tomorrow. * Have a responsible person stay with you the rest of today. * You may have had an I.V. today. If so, you may take the dressing off later today. Recommendations Call your doctor if: * Trouble breathing * Continuous vomiting for more than 24 hours * Temperature above 101 degrees * Severe abdominal pain or bloating * Pain not relieved by pain medicine ordered * There is increased drainage or redness from any incision * A large amount of rectal bleeding greater than 2-3 tablespoons. (If you had a polyp/s removed or have hemorrhoids, a small amount of blood - from the rectum is to be expected.) * You have any unanswered questions or concerns. IN THE EVENT OF A SERIOUS EMERGENCY, GO TO THE NEAREST EMERGENCY ROOM Your discharge instructions were prepared by provider Piyush Kwan. Patient Instructions Signature Page Chanel Garza Patient (or Guardian) Signature/Date: I have read and understand the instructions given to me by my caregivers. Caregiver/RN/Doctor Signature/Date: The above-named patient and/or guardian has received patient instructions on this date. + Original Patient Signature Page (only) stays with chart. Please make copy for patient.
--- NOTE | 2017-01-14 14:59 | Anesthesiology Progress Note ---
Anesthesia Post Op Note Date & Time Jan 14, 2017 at 14:59 Vital Signs Pain Intensity: 0 Vital Signs Past 12 Hours Date Time Temp Pulse Resp B/P (MAP) Pulse Ox O2 Delivery O2 Flow Rate FiO2 01/14/17 14:46 65 16 107/62 (77) 96 Room Air 01/14/17 13:12 37.0 101 22 144/75 (98) 100 Room Air Notes Mental Status: alert / awake / arousable, participated in evaluation Pt Amnestic to Procedure: Yes Nausea / Vomiting: adequately controlled Pain: adequately controlled Airway Patency, RR, SpO2: stable & adequate BP & HR: stable & adequate Hydration State: stable & adequate Anesthetic Complications: no major complications apparent
--- NOTE | 2017-01-14 14:59 | GI REPORT ---
Procedure Date: 01/14/2017 2:14 PM Procedure: Colonoscopy Indications: Family history of colon cancer in a first-degree relative Medicines: Monitored Anesthesia Care Complications: No immediate complications. Estimated Blood Loss: Estimated blood loss: none. Procedure: Pre-Anesthesia Assessment: - Prior to the procedure, a History and Physical was performed, and patient medications and allergies were reviewed. The patient's tolerance of previous anesthesia was also reviewed. The risks and benefits of the procedure and the sedation options and risks were discussed with the patient. All questions were answered, and informed consent was obtained. Prior Anticoagulants: The patient has taken Eliquis (apixaban), last dose was 2 days prior to procedure. ASA Grade Assessment: III - A patient with severe systemic disease. After reviewing the risks and benefits, the patient was deemed in satisfactory condition to undergo the procedure. After I obtained informed consent, the scope was passed under direct vision. Throughout the procedure, the patient's blood pressure, pulse, and oxygen saturations were monitored continuously. The On-site loaner was introduced through the anus and advanced to the terminal ileum. The colonoscopy was performed without difficulty. The patient tolerated the procedure well. The quality of the bowel preparation was good. The terminal ileum, ileocecal valve, appendiceal orifice, and rectum were photographed. Findings: Multiple small-mouthed diverticula were found in the sigmoid colon. Non-bleeding internal hemorrhoids were found during retroflexion. The hemorrhoids were small. Impression: - Diverticulosis in the sigmoid colon. - Non-bleeding internal hemorrhoids. - No specimens collected. Recommendation: - Resume previous diet. - Continue present medications. - Repeat colonoscopy in 5 years for surveillance. - Return to primary care physician as previously scheduled. Piyush Kwan, DO 01/14/2017 2:59:24 PM This report has been signed electronically. Note Initiated On: 01/14/2017 2:14 PM I attest to the content of the Intraoperative Record and orders documented therein, exceptions below
[2017-01-14 15:16] VITALS: BP 133/80; PULSE 63; O2SAT 97
== END | disposition home or self-care (01) ==
LOC: C.GI 12:44
PROVIDERS: ATTEND Internal Medicine
DX: Z12.11 Encounter for screening for malignant neoplasm of colon (principal); Z80.0 Family history of malignant neoplasm of digestive organs; K57.30 Diverticulosis of large intestine without perforation or abscess without bleeding; K64.8 Other hemorrhoids; M81.0 Age-related osteoporosis without current pathological fracture; M19.90 Unspecified osteoarthritis, unspecified site; Z79.899 Other long term (current) drug therapy

== ENCOUNTER → 2017-02-12 | Outpatient (CLI) | payer BC ==
[~2017-02-12] MED LIST changes: -LIDOCAINE HCL 2% 2 ML VIAL (20MG/ML) ONE; -PROPOFOL IV EMULSION 10 MG/ML 20 ML VIAL IV ONE; -SODIUM CHLORIDE 0.9% 500ML 500 ML IV ONE
[2017-02-12 12:02] LABS: BASO % 0.1 %; BASO ABS # 0.01 K/uL (0-0.2); COMPLETE YES; EOS % 0.1 %; HEMATOCRIT 41.5 % (37-47); IG% 0.3 %; LYMPH % 14.6 %; LYMPH ABS # 1.41 K/uL (1.2-3.4); MEAN CELL VOLUME 91.6 fL (80-100); MEAN CORPUSCULAR HEMOGLOBIN 32.2 pg (25-34); MEAN CORPUSCULAR HGB CONC 35.2 g/dl (32-36); MEAN PLATELET VOLUME 10.5 fL (7.4-10.4); MONO % 6.6 %; NEUT % 78.3 %; PLATELET COUNT 164 K/uL (130-400); RED BLOOD COUNT 4.53 M/uL (4.2-5.4); WHITE BLOOD COUNT 9.66 K/uL (4.8-10.8)
[2017-02-12 12:30] LABS: BLOOD UREA NITROGEN 28 mg/dl (7-18); CREATININE 1.06 mg/dl (0.60-1.20)
[2017-02-16 13:12] LABS: ANA TITER > OR = 1:1280 TITER (<1:40)
== END | disposition home or self-care (01) ==
LOC: C.LABPBG 08:10
DX: H91.21 Sudden idiopathic hearing loss, right ear (principal)

== ENCOUNTER → 2017-03-05 | Outpatient (CLI) | payer BC ==
[~2017-03-05] MED LIST changes: +ATV5X PO; +CALC-449 PO; +CALC600T37 PO; +CHOL1000 PO; +CHOL1TAB76 PO; +FISH1CAP3 PO; +FLEC150T PO; +FLEC50TA PO; +FLEC50TA20 PO; +GADAVIST IV PRN; +GARL10007 PO; +HYDR25TA5 PO; +MELO-83 PO; +MELO-84 PO; -MELO15TA4 PO; +METO25TA4 PO; -METO50TA7 PO; +METO50TA8 PO; +OMEG10002 PO; +PRD/25 PO; +TPRSR/50 PO; +TRAM-10 PO; +VNTHFA/IN INH
--- NOTE | 2017-03-05 12:31 | DIAGNOSTIC IMAGING REPORT ---
Brain and internal auditory canal MRI WITH AND WITHOUT CONTRAST HISTORY: H91.20 Sudden-onset sensorineural hearing loss 71-YEAR-OLD FEMALE TECHNIQUE: Multiplanar multisequence MRI of the brain and internal auditory canals were performed both before and after the intravenous administration of contrast. COMPARISON STUDY: None. FINDINGS: There is no mass, hematoma, midline shift, or acute infarct. The paranasal sinuses are clear. The mastoid air cells are clear. The ventricles and sulci demonstrate mild age-related involutional changes. Scattered foci of T2 hyperintensity seen within the periventricular and subcortical white matter are nonspecific but suggestive of mild microvascular ischemic changes. The major vascular flow voids at the skull base are well-maintained. 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 No abnormal enhancement. Question 5 mm faint T2 hyperintense focus within the medulla on axial image 5. There is no abnormal enhancement on this study. This could be artifact. No masses or abnormal enhancement within the bilateral internal auditory canals. 7th and 8th cranial nerves are normal in caliber. No evidence for any or dysplasia. Questionable small hypointense structure along the posterior proximal right internal auditory canal may be vascular. Therefore, this is of doubtful clinical significance. IMPRESSION: 1. No acute intracranial abnormality. 2. No significant abnormality within the bilateral internal auditory canals. 3. Questionable 5 mm T2 hyperintense focus within the medulla oblongata. This may be due to artifact. Recommend 3 month brain MRI follow-up to ensure stability/resolution and to severe less likely possibility of a low-grade glioma. Electronically signed by: Severino Wu M.D. 03/05/2017 12:30 PM Dictated Date/Time: 03/05/2017 12:17 PM
== END | disposition home or self-care (01) ==
LOC: C.MRI 10:42
DX: H91.20 Sudden idiopathic hearing loss, unspecified ear (principal)

== ENCOUNTER → 2017-03-26 | Outpatient (CLI) | payer BC ==
[~2017-03-26] MED LIST changes: -ATV5X PO; -CALC-449 PO; -CALC600T37 PO; -CHOL1000 PO; -CHOL1TAB76 PO; -FISH1CAP3 PO; -FLEC150T PO; -FLEC50TA PO; -FLEC50TA20 PO; -GADAVIST IV PRN; -GARL10007 PO; -HYDR25TA5 PO; -MELO-83 PO; -MELO-84 PO; +MELO15TA4 PO; -METO25TA4 PO; +METO50TA7 PO; -METO50TA8 PO; -OMEG10002 PO; -PRD/25 PO; -TPRSR/50 PO; -TRAM-10 PO; -VNTHFA/IN INH
--- NOTE | 2017-03-26 13:59 | MAMMOGRAPHY REPORT ---
BILATERAL DIGITAL SCREENING MAMMOGRAM TOMOSYNTHESIS WITH CAD: 03/26/2017 CLINICAL HISTORY: Routine screening. Patient has no complaints. TECHNIQUE: Breast tomosynthesis in addition to standard 2D mammography was performed. Current study was also evaluated with a Computer Aided Detection (CAD) system. COMPARISON: Comparison is made to exams dated: 03/24/2016 mammogram, 08/02/2014 mammogram, 06/27/2013 m ammogram, 06/22/2013 mammogram, 06/14/2012 mammogram, and 03/24/2011 mammogram - [facility]ter. BREAST COMPOSITION: There are scattered areas of fibroglandular density in both breasts. FINDINGS: No suspicious masses, calcifications, or areas of architectural distortion are noted in ei ther breast. There has been no significant interval change compared to prior exams. Bilateral asymme tries and scattered bilateral benign-appearing calcifications are not significantly changed. IMPRESSION: ACR BI-RADS CATEGORY 2: BENIGN There is no mammographic evidence of malignancy. A 1 year screening mammogram is recommended. The pa tient will receive written notification of the results. Approximately 10% of breast cancers are not detected with mammography. A negative mammographic report should not delay biopsy if a clinically suggestive mass is present. Pat Trejo M.D. /:03/26/2017 13:46:33 Ballistic Technician: Sari ZHANG(Niranjan)(M), [facility] letter sent: Normal 1/2 BI-RADS Code: ACR BI-RADS Category 2: Benign
== END | disposition home or self-care (01) ==
LOC: C.MAMM 12:40
PROVIDERS: ATTEND Obstetrics & Gynecology
DX: Z12.31 Encounter for screening mammogram for malignant neoplasm of breast (principal)

== ENCOUNTER → 2017-05-20 | Outpatient (CLI) | payer BC ==
[~2017-05-20] MED LIST changes: +MELO-84 PO; -MELO15TA4 PO; -METO50TA7 PO; +METO50TA8 PO
[2017-05-20 12:21] LABS: BASO % 0.3 %; BASO ABS # 0.02 K/uL (0-0.2); EOS % 2.4 %; EOS ABS # 0.15 K/uL (0-0.5); HEMATOCRIT 42.2 % (37-47); HEMOGLOBIN 14.9 g/dL (12.0-16.0); IG# 0.02 K/uL (0.00-0.02); LYMPH % 19.2 %; LYMPH ABS # 1.18 K/uL (1.2-3.4); MEAN CELL VOLUME 91.5 fL (80-100); MEAN CORPUSCULAR HEMOGLOBIN 32.3 pg (25-34); MEAN CORPUSCULAR HGB CONC 35.3 g/dl (32-36); MEAN PLATELET VOLUME 10.5 fL (7.4-10.4); MONO % 5.5 %; MONO ABS # 0.34 K/uL (0.11-0.59); NEUT % 72.3 %; NEUT ABS # 4.44 K/uL (1.4-6.5); PLATELET COUNT 146 K/uL (130-400); RED CELL DISTRIBUTION WIDTH CV 14.9 % (11.5-14.5); WHITE BLOOD COUNT 6.15 K/uL (4.8-10.8)
[2017-05-20 13:08] LABS: ALBUMIN 4.2 gm/dl (3.4-5.0); ALT/SGPT 27 U/L (12-78); BLOOD UREA NITROGEN 25 mg/dl (7-18); CALCIUM 9.3 mg/dl (8.5-10.1); CARBON DIOXIDE 29 mmol/L (21-32); CHOLESTEROL 205 mg/dl (0-200); CREATININE 1.03 mg/dl (0.60-1.20); GLUCOSE 120 mg/dl (70-99); POTASSIUM 3.9 mmol/L (3.5-5.1); SODIUM 138 mmol/L (136-145)
[2017-05-20 13:19] LABS: ALKALINE PHOSPHATASE 70 U/L (45-117); AST/SGOT 20 U/L (15-37); LDL CHOLESTEROL CALCULATED 96 mg/dl; TOTAL PROTEIN 7.9 gm/dl (6.4-8.2)
== END | disposition home or self-care (01) ==
LOC: C.LABPBG 09:11
PROVIDERS: ATTEND Family Medicine
DX: R16.1 Splenomegaly, not elsewhere classified (principal); I10 Essential (primary) hypertension; E78.5 Hyperlipidemia, unspecified; R73.01 Impaired fasting glucose; H91.20 Sudden idiopathic hearing loss, unspecified ear

== ENCOUNTER → 2017-06-04 | Outpatient (CLI) | payer BC ==
[~2017-06-04] MED LIST changes: +GADAVIST IV PRN
--- NOTE | 2017-06-04 13:46 | DIAGNOSTIC IMAGING REPORT ---
MRI OF THE BRAIN WITHOUT AND WITH IV CONTRAST CLINICAL HISTORY: R93.8 prior abnormal MRI of the brain. COMPARISON STUDY: 03/05/2017 TECHNIQUE: MRI of the brain was performed from the vertex to the skull base utilizing various T1 and T2 weighted sequences. Following the IV administration of 9 mL of Gadavist contrast, additional enhanced images were obtained. FINDINGS: Sagittal T1, axial diffusion, proton density and T2 weighted axial, coronal FLAIR, and pre and post axial T1-weighted images were acquired. These were supplemented with post gadolinium coronal T1 weighted images. There is a stable 5 mm T2 hyperintense focus within the anterior central medulla. There is no pathologic enhancement. This likely relates to a prior inflammatory ischemic focus. The stability and lack of enhancement mitigates against a neoplasm. A 12 month follow-up is recommended. Axial diffusion-weighted images reveal no evidence of acute or subacute infarction. There is no evidence of ventricular dilatation. Proton density T2-weighted and FLAIR images reveal scattered foci of increased T2 signal within the white matter, likely on a small vessel basis. There is an old right cerebellar lacunar infarct There are no abnormal flow voids. There is no evidence of pathologic enhancement. IMPRESSION: 1. No acute intracranial findings 2. No evidence of acute or subacute infarction 3. Stable 5 mm focus of increased T2 signal within the anterior central medulla oblongata. There is no pathologic enhancement. The stability and lack of enhancement mitigates against a small neoplasm. 12 month follow-up is recommended. Electronically signed by: Germán Lin M.D. 06/04/2017 1:45 PM Dictated Date/Time: 06/04/2017 1:35 PM
== END | disposition home or self-care (01) ==
LOC: C.MRI 12:34
PROVIDERS: ATTEND Physician Assistant
DX: R93.8 Abnormal findings on diagnostic imaging of other specified body structures (principal)

== ENCOUNTER 2017-06-22 14:25 | Inpatient (IN) | payer BC, OTHER ==
[~2017-06-22] VITALS: Ht 149.9 cm; Wt 87.7 kg
[~2017-06-22 14:25] MED LIST changes: -GADAVIST IV PRN
--- NOTE | 2017-06-22 14:49 | EMERGENCY ROOM VISIT NOTE ---
History Report prepared by Franky: Gregor Cotto Under the Supervision of: Dr. Alphonso Ansari M.D. First contact with patient: 14:42 Chief Complaint: CARDIAC ASSESSMENT Stated Complaint: AFIB;HIGH BLOOD PRESSURE History of Present Illness The patient is a 71 year old female who presents to the Emergency Room with complaints of a worsening rapid heartbeat that started last week. She states that she has a history of atrial fibrillation. The patient notes that she did not take her blood pressure until today, but it was "shavon high". She says that she took her blood pressure due to the worsening rapid heartbeat as well as some shortness of breath and chest pain. She adds that she is on Eliquis, and already took her dose today. Source of History: patient Onset: Last week Position: other (heart) Symptom Intensity: blood pressure "shavon high" Quality: other (rapid heartbeat) Timing: worsening Associated Symptoms: + chest pain, + SOB Note: No other associated symptoms noted. Review of Systems See HPI for pertinent positives & negatives. A total of 10 systems reviewed and were otherwise negative. Past Medical & Surgical Medical Problems: (1) Arthritis (2) Mass of left lung Family History Family history omitted secondary to patient's advanced age. Social History Smoking Status: Never Smoker Drug Use: none Marital Status: Housing Status: lives with family Occupation Status: retired Current/Historical Medications Scheduled Apixaban (Eliquis), 5 MG PO BID Calcium Carbonate-Cholecalcife (Calcium 600+D3 600-800 mg-Unit), 2 TABS PO HS Cholecalciferol (Vitamin D3), 2,000 INTER.UNIT PO QAM Fish Oil-Cholecalciferol (Fish Oil + D3), 1 CAP PO BID Garlic (Garlic), 1,000 MG PO BID Hydrochlorothiazide (Hydrochlorothiazide), 25 MG PO QAM Magnesium (Magnesium), 500 MG PO HS Meloxicam (Meloxicam), 15 MG PO QAM Metoprolol Succinate (Metoprolol Succinate ER), 50 MG PO HS Pravastatin Sodium (Pravastatin Sodium), 80 MG PO HS Sertraline (Zoloft), 100 MG PO QAM Scheduled PRN Albuterol Hfa (Ventolin Hfa), 1-2 PUFFS INH Q4-6HRS PRN for Shortness of Breath Cetirizine Hcl (Zyrtec), 5 MG PO DAILY PRN for Allergy Symptoms Lorazepam (Lorazepam), 0.5 MG PO BID PRN for Anxiety Allergies Coded Allergies: Adhesives (Verified Allergy, Unknown, skin irritation/'burning', 01/14/17) Diclofenac (Verified Allergy, Unknown, RASH, 01/14/17) Penicillins (Verified Allergy, Unknown, HIVES, 01/14/17) Physical Exam Vital Signs Date Time Temp Pulse Resp B/P (MAP) Pulse Ox O2 Delivery O2 Flow Rate FiO2 06/22/17 17:05 133 16 128/94 94 Room Air 06/22/17 16:26 117 20 166/133 96 Room Air 06/22/17 15:43 105 16 148/87 95 Room Air 06/22/17 15:09 86 148/106 06/22/17 15:07 95 Room Air 06/22/17 15:07 97 Room Air 06/22/17 15:04 112 06/22/17 14:36 94 Room Air 06/22/17 14:33 36.6 151 20 161/84 90 Room Air Physical Exam GENERAL: Awake, alert, well-appearing, in no acute distress HENT: Normocephalic, atraumatic. Oropharynx unremarkable. EYES: Normal conjunctiva. Sclera non-icteric. NECK: Supple. No nuchal rigidity. FROM. No JVD. RESPIRATORY: Clear to auscultation. CARDIAC: Regular rate, normal rhythm. Extremities warm and well perfused. Pulses equal. ABDOMEN: Soft, non-distended. No tenderness to palpation. No rebound or guarding. No masses. RECTAL: Deferred. MUSCULOSKELETAL: Chest examination reveals no tenderness. The back is symmetrical on inspection without obvious abnormality. There is no CVA tenderness to palpation. No joint edema. LOWER EXTREMITIES: Calves are equal size bilaterally and non-tender. No edema. No discoloration. NEURO: Normal sensorium. No sensory or motor deficits noted. SKIN: No rash or jaundice noted. Medical Decision & Procedures ER Provider Diagnostic Interpretation: X-ray results as stated below per interpretation by me and the radiologist: CHEST ONE VIEW PORTABLE HISTORY: 71 years-old Female CHEST PAIN acute atypical chest pain COMPARISON: Chest radiographs 10/01/2016 TECHNIQUE: Portable AP view of the chest FINDINGS: Cardiomediastinal and hilar silhouettes are within normal limits. Atherosclerosis of the aorta. Mild right hemidiaphragmatic elevation. Surgical suture material projects over the left midlung. Linear subsegmental left basilar opacities suggest atelectasis. Degenerative changes of the shoulders and spine. 6 mm radiodensity inferior to the left glenoid suggests loose body of the axillary recess. IMPRESSION: No acute process. The above report was generated using voice recognition software. It may contain grammatical, syntax or spelling errors. Electronically signed by: Javed Agarwal M.D. 06/22/2017 3:23 PM Dictated Date/Time: 06/22/2017 3:22 PM Laboratory Results 06/22/17 15:00 Red Blood Count 4.93, Mean Corpuscular Volume 89.5, Mean Corpuscular Hemoglobin 31.6, Mean Corpuscular Hemoglobin Concent 35.4, Mean Platelet Volume 9.8, Neutrophils (%) (Auto) 71.4, Lymphocytes (%) (Auto) 19.9, Monocytes (%) (Auto) 4.7, Eosinophils (%) (Auto) 3.3, Basophils (%) (Auto) 0.1, Neutrophils # (Auto) 5.12, Lymphocytes # (Auto) 1.43, Monocytes # (Auto) 0.34, Eosinophils # (Auto) 0.24, Basophils # (Auto) 0.01 06/22/17 15:00 Test 06/22/17 15:00 White Blood Count 7.18 K/uL (4.8-10.8) Red Blood Count 4.93 M/uL (4.2-5.4) Hemoglobin 15.6 g/dL (12.0-16.0) Hematocrit 44.1 % (37-47) Mean Corpuscular Volume 89.5 fL (80-100) Mean Corpuscular Hemoglobin 31.6 pg (25-34) Mean Corpuscular Hemoglobin Concent 35.4 g/dl (32-36) Platelet Count 146 K/uL (130-400) Mean Platelet Volume 9.8 fL (7.4-10.4) Neutrophils (%) (Auto) 71.4 % Lymphocytes (%) (Auto) 19.9 % Monocytes (%) (Auto) 4.7 % Eosinophils (%) (Auto) 3.3 % Basophils (%) (Auto) 0.1 % Neutrophils # (Auto) 5.12 K/uL (1.4-6.5) Lymphocytes # (Auto) 1.43 K/uL (1.2-3.4) Monocytes # (Auto) 0.34 K/uL (0.11-0.59) Eosinophils # (Auto) 0.24 K/uL (0-0.5) Basophils # (Auto) 0.01 K/uL (0-0.2) RDW Standard Deviation 47.0 fL (36.4-46.3) RDW Coefficient of Variation 14.4 % (11.5-14.5) Immature Granulocyte % (Auto) 0.6 % Immature Granulocyte # (Auto) 0.04 K/uL (0.00-0.02) Anion Gap 6.0 mmol/L (3-11) Est Creatinine Clear Calc Drug Dose 52.6 ml/min Estimated GFR () 69.4 Estimated GFR (Non- 59.9 BUN/Creatinine Ratio 20.6 (10-20) Calcium Level 10.6 mg/dl (8.5-10.1) Total Bilirubin 0.8 mg/dl (0.2-1) Direct Bilirubin 0.1 mg/dl (0-0.2) Aspartate Amino Transf (AST/SGOT) 25 U/L (15-37) Alanine Aminotransferase (ALT/SGPT) 33 U/L (12-78) Alkaline Phosphatase 84 U/L (45-117) Total Creatine Kinase 113 U/L (26-192) Creatine Kinase MB 4.0 ng/ml (0.5-3.6) Creatine Kinase MB Ratio 3.5 (0-3.0) Troponin I < 0.015 ng/ml (0-0.045) Total Protein 8.1 gm/dl (6.4-8.2) Albumin 4.0 gm/dl (3.4-5.0) Lipase 194 U/L (73-393) Labs reviewed by ED physician. Medications Administered Medications (Trade) Dose Ordered Sig/Paige Route Start Time Stop Time Status Last Admin Dose Admin Metoprolol Tartrate (Lopressor Iv) 15 mg NOW STAT IV 06/22/17 14:50 06/22/17 14:51 DC 06/22/17 15:09 15 MG ECG Per My Interpretation Indication: palpitations Rate (beats per minute): 141 Rhythm: atrial fibrillation Findings: ST depression (anterolateral leads), other (normal axis) ED Course 1445: Past medical records reviewed. The patient was evaluated in room A2. A complete history and physical examination was performed. 1450: Lopressor IV 15 mg. 1515: I reevaluated the patient and she is doing better. 1550: I discussed the patient with Dr. Anu THORNE cardiology. 1600: Upon reexamination the patient is resting. I discussed results and treatment plan with the patient. She verbalizes agreement and understanding. The patient will be evaluated for further management. 1613: I discussed the patient's case with Dr. Nate York supervisor reactor fueling, she has agreed to evaluate the patient for further management and care. Medical Decision Differential diagnosis: Etiologies such as premature contractions, electrolyte abnormality, cardiac dysrhythmia, thyroid dysfunction, pulmonary embolism, infection, gastrointestinal, as well as others were entertained. This is a 71-year-old female who presents the emergency department complaining of A. fib with RVR. The patient presents to the emergency department with a heart rate of 150. The patient was given multiple doses of Lopressor 3 without any improvement in her symptoms. She is complaining of vague chest tightness and states that this has been going on for a week. She has not skipped any doses of her Eliquis. I did discuss the case with the patient's follow up rep who gave the patient the option of being cardioverted in the emergency department or being admitted for observation. The patient chose the option of observation. Family was in agreement with the treatment plan. Medication Reconcilliation Current Medication List: was personally reviewed by me Blood Pressure Screening Patient's blood pressure: Elevated blood pressure Referred to hospitalist team. Consults Time Called: 1540 Consulting Physician: Dr. Anu THORNE cardiology Returned Call: 1550 I discussed the patient with Dr. Anu THORNE cardiology. Additional Consults: Time Called: 1610 Consulted Physician: Dr. Nate York supervisor reactor fueling Returned Call: 1613 Additional Comments: I discussed the patient's case with Dr. Nate York supervisor reactor fueling, she has agreed to evaluate the patient for further management and care. Impression Primary Impression: Atrial fibrillation with rapid ventricular response Scribe Attestation The scribe's documentation has been prepared under my direction and personally reviewed by me in its entirety. I confirm that the note above accurately reflects all work, treatment, procedures, and medical decision making performed by me. Departure Information Dispostion Being Evaluated By Hospitalist Referrals Emmie Weinstein DO (PCP) Patient Instructions My [facility]
[2017-06-22] MEDS ORDERED: METOPROLOL TARTRATE 1 MG/ML VIAL IV STA (14:50)
[2017-06-22 15:21] LABS: BASO % 0.1 %; BASO ABS # 0.01 K/uL (0-0.2); EOS % 3.3 %; EOS ABS # 0.24 K/uL (0-0.5); HEMATOCRIT 44.1 % (37-47); HEMOGLOBIN 15.6 g/dL (12.0-16.0); IG# 0.04 K/uL (0.00-0.02); LYMPH % 19.9 %; LYMPH ABS # 1.43 K/uL (1.2-3.4); MEAN CELL VOLUME 89.5 fL (80-100); MEAN CORPUSCULAR HEMOGLOBIN 31.6 pg (25-34); MEAN CORPUSCULAR HGB CONC 35.4 g/dl (32-36); MEAN PLATELET VOLUME 9.8 fL (7.4-10.4); MONO % 4.7 %; MONO ABS # 0.34 K/uL (0.11-0.59); NEUT % 71.4 %; NEUT ABS # 5.12 K/uL (1.4-6.5); PLATELET COUNT 146 K/uL (130-400); RED CELL DISTRIBUTION WIDTH CV 14.4 % (11.5-14.5); WHITE BLOOD COUNT 7.18 K/uL (4.8-10.8)
--- NOTE | 2017-06-22 15:25 | DIAGNOSTIC IMAGING REPORT ---
CHEST ONE VIEW PORTABLE HISTORY: 71 years-old Female CHEST PAIN acute atypical chest pain COMPARISON: Chest radiographs 10/01/2016 TECHNIQUE: Portable AP view of the chest FINDINGS: Cardiomediastinal and hilar silhouettes are within normal limits. Atherosclerosis of the aorta. Mild right hemidiaphragmatic elevation. Surgical suture material projects over the left midlung. Linear subsegmental left basilar opacities suggest atelectasis. Degenerative changes of the shoulders and spine. 6 mm radiodensity inferior to the left glenoid suggests loose body of the axillary recess. IMPRESSION: No acute process. The above report was generated using voice recognition software. It may contain grammatical, syntax or spelling errors. Electronically signed by: Javed Agarwal M.D. 06/22/2017 3:23 PM Dictated Date/Time: 06/22/2017 3:22 PM
[2017-06-22] MEDS ORDERED: ATV5X PO (15:34)
[2017-06-22] MEDS ORDERED: VNTHFA/IN INH (15:34)
[2017-06-22] MEDS ORDERED: HYDR25TA5 PO (15:34)
[2017-06-22] MEDS ORDERED: TPRSR/50 PO (15:34)
[2017-06-22] MEDS ORDERED: FISH1CAP3 PO (15:39)
[2017-06-22] MEDS ORDERED: GARL10007 PO (15:39)
[2017-06-22] MEDS ORDERED: CALC-449 PO (15:39)
[2017-06-22] MEDS ORDERED: MELO-83 PO (15:39)
[2017-06-22] MEDS ORDERED: CHOL1000 PO (15:39)
[2017-06-22 15:49] LABS: ALT/SGPT 33 U/L (12-78); AST/SGOT 25 U/L (15-37); BLOOD UREA NITROGEN 20 mg/dl (7-18); CALCIUM 10.6 mg/dl (8.5-10.1); CARBON DIOXIDE 28 mmol/L (21-32); CREATININE 0.96 mg/dl (0.60-1.20); GLUCOSE 109 mg/dl (70-99); LIPASE 194 U/L (73-393); POTASSIUM 3.7 mmol/L (3.5-5.1); SODIUM 138 mmol/L (136-145)
[2017-06-22 15:55] LABS: ALKALINE PHOSPHATASE 84 U/L (45-117); TOTAL PROTEIN 8.1 gm/dl (6.4-8.2)
[2017-06-22 18:05] VITALS: Ht 149.9 cm; Wt 87.7 kg
[2017-06-22] MEDS ORDERED: FLECAINIDE ACETATE 100 MG TAB PO ONE (18:14)
[2017-06-22] MEDS ORDERED: ACETAMINOPHEN 325 MG TAB PO PRN (18:30)
[2017-06-22] MEDS ORDERED: MAGNESIUM HYDROXIDE SUSP 30 ML UDC PO PRN (18:30)
[2017-06-22] MEDS ORDERED: POLYETHYLENE (MIRALAX) 17 GM PACK PO PRN (18:30)
[2017-06-22] MEDS ORDERED: LORAZEPAM 0.5 MG TAB PO PRN (18:30)
[2017-06-22] MEDS ORDERED: ONDANSETRON INJ 2 MG/ML 2 ML VIAL IV PRN (18:30)
[2017-06-22] MEDS ORDERED: ALBUTEROL HFA 8 GM INHALER INH PRN (18:30)
[2017-06-22] MEDS ORDERED: CETIRIZINE HCL 10 MG TAB PO PRN (18:30)
[2017-06-22] MEDS ORDERED: ALUMINUM/MAGNESIUM/SIMETH (MAALOX MAX) 30 ML UDC PO PRN (18:30)
--- NOTE | 2017-06-22 18:34 | Cardiology Consultation ---
Cardiology Consultation Date of Consultation: Jun 22, 2017. Requesting Physician: Dr. Sullivan Attending Physician: Dr. Sullivan Reason for Consultation: Atrial fibrillation with rapid ventricular response Pt evaluation today including: conversation w/ patient, conversation w/ family , physical exam, chart review, lab review, review of studies, review of inpatient medication list, conversation w/ attending History of Present Illness Mrs. Garza is a very pleasant 71-year-old female with a history significant for paroxysmal atrial fibrillation , crest/scleroderma, sleep apnea on CPAP, hypertension, and dyslipidemia. She is status post left lung wedge resection for benign lesion in January of 2016. She has had the following studies/procedures: 1. PFTs 12/27/2015: Normal spirometry. 2. Echo 05/31/2016: Normal LV systolic function. EF 65-70%. Normal wall motion. Borderline LVH. Moderate left atrial dilation. RVSP 30-40. No significant valvular abnormalities. 3. Nuclear stress 04/27/2017: Negative for ischemia. EF 85%. Normal wall motion. She presented today to [facility] emergency department with shortness of breath and rapid heart rate. For the past 1 week she has noted shortness of breath worsen her usual baseline. She has had intermittent shortness of breath for approximately 10 years or more according to our conversation in March of 2017. For the past week however her symptoms have progressively worsened. Some days were worse than others. Shortness of breath occurred even at rest and sometimes even while laying in bed using his CPAP machine. She had PND and sometimes would feel better if she took a CPAP machine off. She denies any type of chest pain or chest discomfort. She has had intermittent nausea. She was seen by her PCP yesterday and was given an inhaler. Her heart rate was charted as normal. Because of her symptoms today, worse than yesterday, she checked her blood pressure and heart rate. Her blood pressure was 154/117 and she noticed her pulse as high as 138 bpm. In the emergency department she was found to be in atrial fibrillation with rapid ventricular response. She was given IV metoprolol 15 mg with no significant lasting effect. She denies palpitations, chest pain, shortness of breath currently, melena, hematochezia, hematuria, vomiting, diarrhea, fevers, or stroke-like symptoms. She has had chronic diaphoretic episodes and she thinks that they have been worse recently. She denies edema. While we were talking, her heart rate was intermittently in the 140s and she was asymptomatic. She has been compliant with Eliquis, not missing any dose. She also has been compliant with metoprolol and other medications. Review of systems: As above review of systems otherwise negative. Past Medical/Surgical History 1. Paroxysmal atrial fibrillation 2. Dyslipidemia 3. Sleep apnea on CPAP 4. Hypertension 5. Crest/scleroderma 6. Left lung wedge resection for benign lesion in January of 2016 7. History of anemia 8. Carotid artery plaque 9. Depression with anxiety 10. Diverticulosis 11. Lymphoproliferative disease 12. Laryngopharyngeal reflux 13. Tinnitus 14. Osteopenia 15. Osteoarthritis Family History Father had CABG at approximately 60 years of age. Social History Smoking Status: Never Smoker History of Alcohol Use: No Denies tobacco or alcohol abuse. She is a . She has 3 children, 2 daughters and 1 son. Her daughters, Chanda and Nika, accompany her today. She lives alone. 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 Review of Systems Cardiac: + chest pain, + palpitations All Other Systems: Reviewed and Negative Allergies Coded Allergies: Adhesives (Verified Allergy, Unknown, skin irritation/'burning', 01/14/17) Diclofenac (Verified Allergy, Unknown, RASH, 01/14/17) Penicillins (Verified Allergy, Unknown, HIVES, 01/14/17) Medications Home medications include: 1. Metoprolol succinate 50 mg daily 2. Eliquis 5 mg twice daily 3. HCTZ 25 mg daily Please see full list as per H&P. Current Inpatient Medications Medications (Trade) Dose Ordered Sig/Paige Route Start Time Stop Time Status Last Admin Dose Admin Flecainide Acetate (Tambocor Tab) 50 mg Q12 PO 06/23/17 09:00 07/23/17 08:59 UNV Flecainide Acetate (Tambocor Tab) 50 mg 1814 ONCE PO 06/22/17 18:14 06/22/17 18:15 UNV Apixaban (Eliquis Tab) 5 mg BID PO 06/22/17 21:00 07/22/17 20:59 UNV Metoprolol Succinate (Toprol Xl Tab) 50 mg QAM PO 06/23/17 09:00 07/23/17 08:59 UNV Physical Exam Vital Signs Past 12 Hours Date Time Temp Pulse Resp B/P (MAP) Pulse Ox O2 Delivery O2 Flow Rate FiO2 06/22/17 18:05 Room Air 06/22/17 17:05 133 16 128/94 94 Room Air 06/22/17 16:26 117 20 166/133 96 Room Air 06/22/17 15:43 105 16 148/87 95 Room Air 06/22/17 15:09 86 148/106 06/22/17 15:07 95 Room Air 06/22/17 15:07 97 Room Air 06/22/17 15:04 112 06/22/17 14:36 94 Room Air 06/22/17 14:33 36.6 151 20 161/84 90 Room Air Gen.: No acute distress. Alert and oriented. HEENT: Anicteric sclera. Neck: No JVD. No hepatic jugular reflux. No bruits. Normal carotid upstrokes bilaterally. Cardiac: PMI was nonpalpable . No ventricular heave. Irregularly irregular and tachycardic. Normal S1-S2. No murmurs, rubs, or gallops. Pulmonary: Clear to auscultation bilaterally without wheezes, rales, or rhonchi. Abdomen: Soft, nontender, nondistended, with normoactive bowel sounds. No bruits noted. Extremities: 2+ radial pulses bilaterally. 2+ posterior tibialis pulses bilaterally. No edema or cyanosis. Psychiatric: Affect appears appropriate. Data Laboratory Results: Last 24 Hours Test 06/22/17 15:00 White Blood Count 7.18 K/uL Red Blood Count 4.93 M/uL Hemoglobin 15.6 g/dL Hematocrit 44.1 % Mean Corpuscular Volume 89.5 fL Mean Corpuscular Hemoglobin 31.6 pg Mean Corpuscular Hemoglobin Concent 35.4 g/dl Platelet Count 146 K/uL Mean Platelet Volume 9.8 fL Neutrophils (%) (Auto) 71.4 % Lymphocytes (%) (Auto) 19.9 % Monocytes (%) (Auto) 4.7 % Eosinophils (%) (Auto) 3.3 % Basophils (%) (Auto) 0.1 % Neutrophils # (Auto) 5.12 K/uL Lymphocytes # (Auto) 1.43 K/uL Monocytes # (Auto) 0.34 K/uL Eosinophils # (Auto) 0.24 K/uL Basophils # (Auto) 0.01 K/uL RDW Standard Deviation 47.0 fL RDW Coefficient of Variation 14.4 % Immature Granulocyte % (Auto) 0.6 % Immature Granulocyte # (Auto) 0.04 K/uL Sodium Level 138 mmol/L Potassium Level 3.7 mmol/L Chloride Level 104 mmol/L Carbon Dioxide Level 28 mmol/L Anion Gap 6.0 mmol/L Blood Urea Nitrogen 20 mg/dl Creatinine 0.96 mg/dl Est Creatinine Clear Calc Drug Dose 52.6 ml/min Estimated GFR () 69.4 Estimated GFR (Non- 59.9 BUN/Creatinine Ratio 20.6 Random Glucose 109 mg/dl Calcium Level 10.6 mg/dl Total Bilirubin 0.8 mg/dl Direct Bilirubin 0.1 mg/dl Aspartate Amino Transf (AST/SGOT) 25 U/L Alanine Aminotransferase (ALT/SGPT) 33 U/L Alkaline Phosphatase 84 U/L Total Creatine Kinase 113 U/L Creatine Kinase MB 4.0 ng/ml Creatine Kinase MB Ratio 3.5 Troponin I < 0.015 ng/ml Total Protein 8.1 gm/dl Albumin 4.0 gm/dl Lipase 194 U/L ECG personally reviewed. ECG 06/22/2017: Atrial fibrillation at [address] abnormality. Chest x-ray image personally reviewed. Chest x-ray 06/22/2017: No acute process per Radiology. No obvious infiltrate on personal review. Telemetry personally reviewed: Atrial fibrillation with rapid ventricular response. Assessment & Plan ASSESSMENT/PLAN: 1. Atrial fibrillation with rapid ventricular response: She has paroxysmal atrial fibrillation and her heart rate is not adequately controlled at this time. We discussed treatment strategies in detail including rate control strategy, rhythm control, electrical cardioversion, and ablation. Given the fact that her heart rate is typically in the 60s while in sinus, rhythm control was recommended. There was concern that if more aggressive heart rate control was used to effectively control her heart rate while in atrial fibrillation, we could potentially precipitate bradycardia if she should convert. Therefore, flecainide 50 mg twice daily will be initiated. She would like to hold off on electrical cardioversion if possible. If she does not convert after the first 3 or 4 doses, will plan for electrical cardioversion while hospitalized. She was agreeable for this approach. Continue anticoagulation without interruption. Continue beta-bridget therapy. If her heart rate is inadequately controlled overnight, can use intravenous diltiazem to help achieve acceptable rate. 2. Shortness of breath: She has chronic shortness of breath occasionally but with much more symptomatic in the past week. This was consistent with her symptoms with her first documented atrial fibrillation in 2017. Her worsening shortness of breath recently is likely secondary to the atrial fibrillation with rapid ventricular response. She does not appear to be hypervolemic on exam. She had recent negative myocardial perfusion study as noted above. 3. Hypertension: Blood pressure has been intermittently hypertensive. If her blood pressure does not improve, titrate medications as appropriate. 4. Disposition: Cardiology will continue to follow. Patient care has been discussed with Dr. Ansari of the ED, and Dr. Sullivan of the primary hospitalist admitting service. Thank you for allowing me to participate in the care of your patient. Please call for any other questions or concerns. Sincerely, Junior Brennan M.D.
--- NOTE | 2017-06-22 18:36 | History and Physical ---
History & Physical Date & Time of Service: Jun 22, 2017 at 18:33 Chief Complaint: Afib;High Blood Pressure Primary Care Physician: Emmie Weinstein DO History of Present Illness Source: patient Ms. Garza is a 71 y/o female with PMHx of Paroxysmal Atrial Fibrillation, HLD, Chronic SOB, QUINTON on CPAP, HTN, and Crest/Scleroderma who presents to the ED c/o rapid heartbeat that started x 1 week ago. Patient reports chronic SOB that has not been fully determined and has had PFT studies that were normal. She does carry a diagnosis of Scleroderma and has had extensive second hand exposures to cigarette smoke. However, she has noticed her SOB was more progressive over the past week and presented to her PCP yesterday. It was thought to be allergy associated and recommended inhalers. She states she felt that her SOB worsened while utilizing the inhalers. She states she can tell her HR is fast however largely asymptomatic. She also noticed her BP has been higher and averaging around 140/80-100. She did have A Fib in the past and seemed to improve with CPAP usage. In the ED, she was given a total of 15 mg IV Metoprolol with no change in HR which is largely in the 140s. Dr. Brennan evaluated her and initiated Flecainide. Past Medical/Surgical History Medical Problems: (1) Arthritis (2) Left Knee DJD (3) Mass of left lung (4) Right-sided chest pain Family History CAD Hyperlipidemia Hypertension Stroke Social History Smoking Status: Never Smoker Smokeless Tobacco Use: No Alcohol Use: none Drug Use: none Marital Status: Housing status: lives with family Occupational Status: retired Immunizations History of Influenza Vaccine: Yes Influenza Vaccine Date: Jan 16, 2012 History of Tetanus Vaccine?: Yes History of Pneumococcal: Yes Pneumococcal Date: Jan 15, 2009 History of Hepatitis B Vaccine: No Allergies Coded Allergies: Adhesives (Verified Allergy, Unknown, skin irritation/'burning', 01/14/17) Diclofenac (Verified Allergy, Unknown, RASH, 01/14/17) Penicillins (Verified Allergy, Unknown, HIVES, 01/14/17) Home Medications Scheduled Apixaban (Eliquis), 5 MG PO BID Calcium Carbonate-Cholecalcife (Calcium 600+D3 600-800 mg-Unit), 2 TABS PO HS Cholecalciferol (Vitamin D3), 2,000 INTER.UNIT PO QAM Fish Oil-Cholecalciferol (Fish Oil + D3), 1 CAP PO BID Garlic (Garlic), 1,000 MG PO BID Hydrochlorothiazide (Hydrochlorothiazide), 25 MG PO QAM Magnesium (Magnesium), 500 MG PO HS Meloxicam (Meloxicam), 15 MG PO QAM Metoprolol Succinate (Metoprolol Succinate ER), 50 MG PO HS Pravastatin Sodium (Pravastatin Sodium), 80 MG PO HS Sertraline (Zoloft), 100 MG PO QAM Scheduled PRN Albuterol Hfa (Ventolin Hfa), 1-2 PUFFS INH Q4-6HRS PRN for Shortness of Breath Cetirizine Hcl (Zyrtec), 5 MG PO DAILY PRN for Allergy Symptoms Lorazepam (Lorazepam), 0.5 MG PO BID PRN for Anxiety Review of Systems Constitutional: + fatigue, No fever, No chills Eyes: + problem reported (watery eyes - improving) ENT: No nasal symptoms, No sore throat Respiratory: + shortness of breath (chronic), No cough Cardiovascular: No chest pain Abdomen: No pain, No nausea, No vomiting, No diarrhea, No constipation Musculoskeletal: No swelling, No calf pain Genitourinary - Female: No dysuria Hematologic / Lymphatic: No abnormal bleeding/bruising Physical Exam Vital Signs Date Time Temp Pulse Resp B/P (MAP) Pulse Ox O2 Delivery O2 Flow Rate FiO2 06/22/17 18:23 153 18 134/76 94 Room Air 06/22/17 18:05 Room Air 06/22/17 17:05 133 16 128/94 94 Room Air 06/22/17 16:26 117 20 166/133 96 Room Air 06/22/17 15:43 105 16 148/87 95 Room Air 06/22/17 15:09 86 148/106 06/22/17 15:07 95 Room Air 06/22/17 15:07 97 Room Air 06/22/17 15:04 112 06/22/17 14:36 94 Room Air 06/22/17 14:33 36.6 151 20 161/84 90 Room Air General Appearance: WD/WN, no apparent distress Head: normocephalic, atraumatic Eyes: sclerae normal ENT: hearing grossly normal Neck: supple, no JVD, trachea midline Respiratory/Chest: lungs clear, normal breath sounds, no respiratory distress, no accessory muscle use Cardiovascular: + tachycardia, + irregularly irregular Abdomen/GI: normal bowel sounds, non tender, soft Extremities/Musculoskelatal: no pedal edema Neurologic/Psych: alert, oriented x 3 Skin: normal color, warm/dry Diagnostics Laboratory Results Results Past 24 Hours Test 06/22/17 15:00 Range/Units White Blood Count 7.18 4.8-10.8 K/uL Red Blood Count 4.93 4.2-5.4 M/uL Hemoglobin 15.6 12.0-16.0 g/dL Hematocrit 44.1 37-47 % Mean Corpuscular Volume 89.5 80-100 fL Mean Corpuscular Hemoglobin 31.6 25-34 pg Mean Corpuscular Hemoglobin Concent 35.4 32-36 g/dl Platelet Count 146 130-400 K/uL Mean Platelet Volume 9.8 7.4-10.4 fL Neutrophils (%) (Auto) 71.4 % Lymphocytes (%) (Auto) 19.9 % Monocytes (%) (Auto) 4.7 % Eosinophils (%) (Auto) 3.3 % Basophils (%) (Auto) 0.1 % Neutrophils # (Auto) 5.12 1.4-6.5 K/uL Lymphocytes # (Auto) 1.43 1.2-3.4 K/uL Monocytes # (Auto) 0.34 0.11-0.59 K/uL Eosinophils # (Auto) 0.24 0-0.5 K/uL Basophils # (Auto) 0.01 0-0.2 K/uL RDW Standard Deviation 47.0 36.4-46.3 fL RDW Coefficient of Variation 14.4 11.5-14.5 % Immature Granulocyte % (Auto) 0.6 % Immature Granulocyte # (Auto) 0.04 0.00-0.02 K/uL Sodium Level 138 136-145 mmol/L Potassium Level 3.7 3.5-5.1 mmol/L Chloride Level 104 98-107 mmol/L Carbon Dioxide Level 28 21-32 mmol/L Anion Gap 6.0 3-11 mmol/L Blood Urea Nitrogen 20 7-18 mg/dl Creatinine 0.96 0.60-1.20 mg/dl Est Creatinine Clear Calc Drug Dose 52.6 ml/min Estimated GFR () 69.4 Estimated GFR (Non- 59.9 BUN/Creatinine Ratio 20.6 10-20 Random Glucose 109 70-99 mg/dl Calcium Level 10.6 8.5-10.1 mg/dl Total Bilirubin 0.8 0.2-1 mg/dl Direct Bilirubin 0.1 0-0.2 mg/dl Aspartate Amino Transf (AST/SGOT) 25 15-37 U/L Alanine Aminotransferase (ALT/SGPT) 33 12-78 U/L Alkaline Phosphatase 84 45-117 U/L Total Creatine Kinase 113 26-192 U/L Creatine Kinase MB 4.0 0.5-3.6 ng/ml Creatine Kinase MB Ratio 3.5 0-3.0 Troponin I < 0.015 0-0.045 ng/ml Total Protein 8.1 6.4-8.2 gm/dl Albumin 4.0 3.4-5.0 gm/dl Lipase 194 73-393 U/L Diagnostic Radiology CHEST ONE VIEW PORTABLE FINDINGS: Cardiomediastinal and hilar silhouettes are within normal limits. Atherosclerosis of the aorta. Mild right hemidiaphragmatic elevation. Surgical suture material projects over the left midlung. Linear subsegmental left basilar opacities suggest atelectasis. Degenerative changes of the shoulders and spine. 6 mm radiodensity inferior to the left glenoid suggests loose body of the axillary recess. IMPRESSION: No acute process. EKG Atrial fibrillation with rapid ventricular response Nonspecific ST abnormality Abnormal ECG When compared with ECG of 02-JUN-2016 06:47, Nonspecific T wave abnormality, improved in Inferior leads Nonspecific T wave abnormality no longer evident in Lateral leads Impression Assessment and Plan Ms. Garza is a 71 y/o female with PMHx of Paroxysmal Atrial Fibrillation, HLD, Chronic SOB, QUINTON on CPAP, HTN, and Crest/Scleroderma who presents to the ED c/o rapid heartbeat that started x 1 week ago. Atrial Fibrillation with RVR: - Patient largely asymptomatic with elevated BP but did not response to a total of 15 mg IV Metorpolol - Eliquis 5 mg BID and Toprol XL 50 mg daily - Dr. Brennan following - considered cardioversion but has elected for Flecainide 50 mg BID and could consider cardioversion in the coming days and could consider diltiazem if rate control issues continue HTN and HLD: - BP is improving but during my examination was 123/100 and diastolic reading seems to not move much - HCTZ 25 mg daily and Toprol XL 50 mg daily; Pravastatin 80 mg daily Acute on Chronic SOB: - Appropriate O2 saturations - likely due to RVR and will monitor - She has had normal PFTs and Lexiscan - possible related to scleroderma but would think some restrictive lung findings would be seen on PFTs? Records reviewed and question that it could be simply obesity related QUINTON on CPAP: - Set up in-hospital DVT Prophylaxis: Eliquis Code Status: FULL RESUSCITATION Disposition: Possible D/C tomorrow if rate controlled Advanced Directives Existing Living Will: No Existing Power of [employer]: No Resuscitation Status VTE Prophylaxis Will order VTE Prophylaxis: Yes Reviewed: Pt Seen/Exam by Me History Pt is feeling overall improved. She no longer has chest tightness or SOB at rest. Still a bit SOB with ambulation when she was up to the restroom. Agree with HPI/ROS as noted by PA. General Appearance: WD/WN, no apparent distress Eye Exam: bilateral eye normal inspection, bilateral eye other (nml sclerae) Respiratory: normal breath sounds, no respiratory distress Cardiovascular: normal peripheral pulses, tachycardia Gastrointestinal: non tender, soft Extremities: non-tender, no pedal edema Neurologic/Psychiatric: alert, normal mood/affect, oriented x 3 Skin Characteristics: normal color, warm/dry Assessment/Plan Agree with plan as outlined above Pt with afib in RVR that was not responsive to multiple doses of metoprolol Seen by cards Planning for trial of flecainide Continue eliquis t/c cardizem drip if not improving with flecainide t/c cardioversion if ongoing issues, but pt and cards are hoping to avoid this
[2017-06-22 20:00] VITALS: BP 128/71; PULSE 109; TEMP 36.5; O2SAT 94
[2017-06-22] MEDS: APIXABAN 2.5 MG TAB PO SCH (20:57)
[2017-06-22] MEDS ORDERED: PRAVASTATIN SOD 40 MG TAB PO SCH (21:00)
[2017-06-22 22:31] VITALS: PULSE 65; O2SAT 94
[2017-06-22 23:40] VITALS: BP 96/63; PULSE 66; TEMP 36.6; O2SAT 91
[2017-06-23 03:12] LABS: BASO % 0.3 %; BASO ABS # 0.02 K/uL (0-0.2); EOS % 3.8 %; HEMATOCRIT 41.4 % (37-47); HEMOGLOBIN 14.4 g/dL (12.0-16.0); IG# 0.03 K/uL (0.00-0.02); LYMPH % 20.6 %; LYMPH ABS # 1.62 K/uL (1.2-3.4); MEAN CELL VOLUME 90.2 fL (80-100); MEAN CORPUSCULAR HEMOGLOBIN 31.4 pg (25-34); MEAN CORPUSCULAR HGB CONC 34.8 g/dl (32-36); MEAN PLATELET VOLUME 9.7 fL (7.4-10.4); MONO % 7.1 %; MONO ABS # 0.56 K/uL (0.11-0.59); NEUT % 67.8 %; NEUT ABS # 5.33 K/uL (1.4-6.5); PLATELET COUNT 127 K/uL (130-400); RED CELL DISTRIBUTION WIDTH CV 14.6 % (11.5-14.5); RED CELL DISTRIBUTION WIDTH SD 47.4 fL (36.4-46.3); WHITE BLOOD COUNT 7.86 K/uL (4.8-10.8)
[2017-06-23 03:30] VITALS: BP 120/77; PULSE 61; TEMP 36.9; O2SAT 96
[2017-06-23 03:30] LABS: BLOOD UREA NITROGEN 22 mg/dl (7-18); CALCIUM 9.4 mg/dl (8.5-10.1); CARBON DIOXIDE 31 mmol/L (21-32); CREATININE 1.04 mg/dl (0.60-1.20); GLUCOSE 141 mg/dl (70-99); POTASSIUM 3.4 mmol/L (3.5-5.1); SODIUM 138 mmol/L (136-145)
[2017-06-23 07:16] VITALS: BP 138/85; PULSE 67; TEMP 36.5; O2SAT 94
[2017-06-23] MEDS: APIXABAN 2.5 MG TAB PO SCH (07:27)
[2017-06-23] MEDS ORDERED: METOPROLOL SUCC 50MG EXT REL TAB PO SCH (09:00)
[2017-06-23] MEDS ORDERED: HYDROCHLOROTHIAZIDE 25 MG TAB PO SCH (09:00)
[2017-06-23] MEDS ORDERED: POTASSIUM CHLORIDE 20 MEQ TABCR PO SCH (09:00)
[2017-06-23] MEDS ORDERED: FLECAINIDE ACETATE 100 MG TAB PO SCH (09:00)
[2017-06-23] MEDS ORDERED: SERTRALINE HCL 100 MG TAB PO SCH (09:00)
[2017-06-23] MEDS ORDERED: CHOLECALCIFEROL 1000 INTER.UNIT TAB PO SCH (09:00)
--- NOTE | 2017-06-23 09:23 | CARDIOLOGY PROGRESS NOTE ---
DATE: 06/23/2017 TIME: 8:57 a.m. SUBJECTIVE: She feels much better. Shortness of breath has resolved. She denies palpitations, chest pain, syncope, near syncope, or edema. She has ambulated within her hospital room and tolerated it well without dyspnea. She did have some diaphoresis last night. OBJECTIVE: VITAL SIGNS: Temperature 36.5 degrees, heart rate 67 beats per minute, respiration rate 20, blood pressure 138/85 mmHg, oxygen saturation 94% on room air. GENERAL: No acute distress. She is alert. NECK: No JVD. CARDIAC EXAM: No ventricular heave. Regular, normal S1, S2. There were no audible murmurs, rubs, or gallops. LUNGS: Clear to auscultation bilaterally without wheezes, rales or rhonchi. ABDOMEN: Soft, nontender, nondistended. Normoactive bowel sounds. EXTREMITIES: No cyanosis or pitting edema. PSYCHIATRIC: Affect appears appropriate. MEDICATIONS: Include flecainide 50 mg p.o. q. 12 hours, metoprolol succinate mg daily, hydrochlorothiazide 25 mg daily, Eliquis 5 mg p.o. b.i.d., potassium chloride 20 mEq daily, pravastatin 80 mg daily, sertraline 100 mg daily. LABORATORY DATA: White blood cell count is 7.86, hemoglobin 14.4, platelets 127. Sodium 138, potassium 3.4, BUN 22, creatinine 1.04, magnesium 2. Troponin negative x3. TSH 4.03. Telemetry personally reviewed. Converted to sinus rhythm at 2208 last night. ECGs were reviewed. ECG this morning at 6:57 a.m. demonstrated sinus rhythm at 62 beats per minute. Anterolateral T-wave inversion. When comparing ECG to an office ECG on 10/01/2016, the inferolateral T-wave inversions are new. When reviewing other ECGs in the past, they have been intermittently present. ASSESSMENT AND PLAN: 1. Paroxysmal atrial fibrillation: She converted last night after receiving one dose of flecainide. She feels much better from her shortness of breath perspective. Continue flecainide 50 mg twice daily. Continue beta bridget at current dose. Follow up in the office in 2-3 weeks. Continue Eliquis for stroke risk reduction at 5 mg twice daily. 2. Shortness of breath: This has resolved after converting to sinus rhythm. She chronically has had intermittent shortness of breath. She had a negative myocardial perfusion study earlier this year. 3. Abnormal ECG: Given her T-wave inversions, echocardiogram was ordered this morning to evaluate for any structural abnormalities. If she has LV systolic dysfunction, it could be secondary to tachycardia and would warrant close followup as an outpatient. She did have a negative noninvasive ischemic evaluation earlier this year and denies any angina. 4. Hypertension: Blood pressure acceptable. Continue current regimen. 5. Disposition: Follow up in cardiology office in 2-3 weeks. Cardiology office is arranging this. From a cardiac perspective, could be discharged today pending echo findings.
[2017-06-23 10:46] VITALS: BP 141/89; PULSE 64; TEMP 36.5; O2SAT 93
--- NOTE | 2017-06-23 12:47 | ECHOCARDIOGRAM REPORT ---
*NOTICE TO RECEIVING DEMOCRAT AGENCY This information is strictly Confidential and protected under [place] law. [place] law prohibits you from making any further disclosure of this information unless further disclosure is expressly permitted by the written consent of the person to whom it pertains or is authorized by law. A general authorization for the release of medical or other information is not sufficient for this purpose. Hospital accepts no responsibility if the information is made available to any other person, INCLUDING THE PATIENT. Interpretation Summary * Conclusions -- * 1. Normal left ventricular size with hyperdynamic systolic function. EF 65-70%. No regional wall motion abnormalities. No left ventricular hypertrophy. No significant diastolic dysfunction. * 2. The left atrium is mildly dilated. * 3. Normal estimated right ventricular systolic pressure; 36mmHg. * 4. Similar findings reported on prior study on 05/31/2016. Procedure Details * A complete two-dimensional transthoracic echocardiogram was performed (2D, M-mode, Doppler and color flow Doppler). Left Ventricle * Normal left ventricular size with hyperdynamic systolic function. EF 65-70%. No regional wall motion abnormalities. No left ventricular hypertrophy. No significant diastolic dysfunction. Right Ventricle * The right ventricle is normal in size and function. * The right ventricular systolic function is normal as assessed by tricuspid annular plane systolic excursion (TAPSE) (normal >1.5 cm). Atria * The left atrium is mildly dilated. * Right atrial size is normal. * There is no evidence of atrial septal defect, but resolution does not allow assessment for a patent foramen ovale. Mitral Valve * The mitral valve is grossly normal. * There is no mitral valve stenosis. * There is trace mitral regurgitation. Tricuspid Valve * The tricuspid valve is not well visualized, but is grossly normal. * There is no tricuspid stenosis. * There is trace tricuspid regurgitation. Aortic Valve * The aortic valve is trileaflet. * The aortic valve opens well. * No hemodynamically significant valvular aortic stenosis. * No aortic regurgitation is present. Pulmonic Valve * The pulmonic valve is not well seen, but is grossly normal. * There is no pulmonic valvular stenosis. * Trace pulmonic valvular regurgitation. Great Vessels * The aortic root is normal size. Pericardium/Pleural * There is no pericardial effusion. Great Vessels * Normal inferior vena cava size and collapsability with sniff indicates a normal right atrial pressure of 3 mmHg MMode 2D Measurements and Calculations IVSd 1.0 cm IVSs 1.2 cm LVIDd 4.7 cm LVIDs 2.7 cm LVPWd 0.98 cm LVPWs 1.8 cm IVS/LVPW 1.0 FS 42.3 % EDV(Teich) 102.3 ml ESV(Teich) 27.3 ml EF(Teich) 73.3 % EDV(cubed) 103.7 ml ESV(cubed) 19.9 ml EF(cubed) 80.8 % % IVS thick 15.1 % % LVPW thick 80.2 % LV mass(C)d 163.6 grams LV mass(C)dI 90.1 grams/m\S\2 LV mass(C)s 133.7 grams LV mass(C)sI 73.6 grams/m\S\2 SV(Teich) 75.0 ml SI(Teich) 41.3 ml/m\S\2 SV(cubed) 83.8 ml SI(cubed) 46.1 ml/m\S\2 Ao root diam 2.9 cm Ao root area 6.6 cm\S\2 ACS 1.6 cm LA dimension 4.5 cm asc Aorta Diam 3.3 cm LA/Ao 1.5 LVAd ap4 22.1 cm\S\2 LVLd ap4 7.4 cm EDV(MOD-sp4) 52.9 ml EDV(sp4-el) 56.3 ml Doppler Measurements and Calculations MV E max kvng 99.7 cm/sec MV A max kvng 42.7 cm/sec MV E/A 2.3 MV P1/2t max kvng 104.0 cm/sec MV P1/2t 73.1 msec MVA(P1/2t) 3.0 cm\S\2 MV dec slope 416.7 cm/sec\S\2 MV dec time 0.21 sec Ao V2 max 151.2 cm/sec Ao max PG 9.1 mmHg Ao max PG (full) 0.89 mmHg LV V1 max PG 8.3 mmHg LV V1 max 143.7 cm/sec PA V2 max 117.3 cm/sec PA max PG 5.5 mmHg TR max kvng 285.4 cm/sec RVSP(TR) 35.6 mmHg RAP systole 3.0 mmHg
[2017-06-23] MEDS ORDERED: FLEC50TA PO (14:20)
--- NOTE | 2017-06-23 14:31 | Discharge Instructions ---
Discharge Instructions Date of Service Jun 23, 2017. Admission Reason for Admission: Atrial Fibrillation With Rvr Discharge Discharge Diagnosis / Problem: Atrial Fibrillation with RVR Discharge Goals Goal(s): Decrease discomfort, Improve function, Increase independence, Improve disease control Activity Recommendations Activity Limitations: resume your previous activity Lifting Limitations: no more than 25 pounds, gradually increase as tolerated Exercise/Sports Limitations: rest today, gradually increase as tolerated May Resume Sexual Activity: when tolerated Shower/Bathe: no limitations Driving or Machine Use: no limitations . Instructions / Follow-Up Instructions / Follow-Up You were admitted to [facility] with rapid heart rate, fatigue and shortness of breath and diagnosed with atrial fibrillation with rapid ventricular response ( RVR). During your stay here you were treated with rate controlling medication called flecainide, and other supportive care. Your heart converted to normal rhythm while in the hospital and your symptoms resolved. Imaging studies which were completed include Echocardiogram, and were normal, and unchanged from previous study. Medications: Continue taking your medications as prescribed. -You have placed on a new medication called flecainide 50 mg twice daily for heart rate control. Appointments: Follow up with PCP within 1 week. Follow up with cardiology within 2-3 weeks. Current Hospital Diet Patient's current hospital diet: AHA Diet (Heart Healthy) Discharge Diet Recommended Diet: AHA Diet (Heart Healthy) Pending Studies Studies pending at discharge: no Laboratory Results Hemoglobin A1c Test 05/20/17 09:18 Range/Units Estimated Average Glucose 97 mg/dl Hemoglobin A1c 5.0 4.5-5.6 % Lipid Panel Test 05/20/17 09:18 Range/Units Triglycerides Level 376 H 0-150 mg/dl Cholesterol Level 205 H 0-200 mg/dl HDL Cholesterol 34 mg/dl Cholesterol/HDL Ratio 6.0 LDL Cholesterol, Calculated 96 mg/dl Medical Emergencies . Who to Call and When: Medical Emergencies: If at any time you feel your situation is an emergency, please call 911 immediately. . Non-Emergent Contact Non-Emergency issues call your: Primary Care Provider Call Non-Emergent contact if: you have a fever, temperature is above 100.5, your pain is not controlled, you have any medication questions other concerns with your health. Call 911 or go directly to the Emergency Department if you experience any of the following: Chest pain, chest tightness, shortness of breath, abdominal pain , lightheadedness, dizziness, gastrointestinal bleeding, or have any other concerns regarding your health. . Past History Medical & Surgical History: (1) Obesity (BMI 35.0-39.9 without comorbidity) (2) Atrial fibrillation with rapid ventricular response (3) Arthritis . "Provider Documentation" section prepared by Shreya Ignacio. .
--- NOTE | 2017-06-23 14:44 | Discharge Summary ---
Discharge Summary Date of Service Jun 23, 2017. Discharge Summary Admission Date: Jun 22, 2017 at 18:32 Discharge Date: Jun 23, 2017 Discharge Disposition: Home Principal Diagnosis: Afib with RVR Problems/Secondary Diagnoses: Medical Problems: (1) Arthritis (2) Atrial fibrillation with rapid ventricular response (3) Chronic a-fib (4) Mass of left lung (5) Obesity (BMI 35.0-39.9 without comorbidity) Immunizations: Have You Had Influenza Vaccine: Yes Influenza Vaccine Date: Jan 16, 2012 History of Tetanus Vaccine?: Yes History of Pneumococcal: Yes Pneumococcal Date: Jan 15, 2009 History of Hepatitis B Vaccine: No Procedures: CHEST ONE VIEW PORTABLE 06/22/17 IMPRESSION: No acute process. Consultations: Cardiology Medication Reconciliation New Medications: Flecainide Acetate (Tambocor) 50 Mg Tab 50 MG PO BID for 30 Days, #60 TAB Continued Medications: Albuterol Hfa (Ventolin Hfa) 200 Puffs/20338 Mcg Aers 1-2 PUFFS INH Q4-6HRS PRN for Shortness of Breath Apixaban (Eliquis) 5 Mg Tab 5 MG PO BID Calcium Carbonate-Cholecalcife (Calcium 600+D3 600-800 mg-Unit) 1 Tab Tab 2 TABS PO HS Cetirizine Hcl (Zyrtec) 5 Mg Tab 5 MG PO DAILY PRN for Allergy Symptoms Cholecalciferol (Vitamin D3) 1,000 Unit Tab 2000 INTER.UNIT PO QAM, TAB Fish Oil-Cholecalciferol (Fish Oil + D3) 1 Cap Cap 1 CAP PO BID Garlic (Garlic) 1,000 Mg Cap 1000 MG PO BID Hydrochlorothiazide (Hydrochlorothiazide) 25 Mg Tab 25 MG PO QAM Lorazepam (Lorazepam) 0.5 Mg Tab 0.5 MG PO BID PRN for Anxiety Magnesium (Magnesium) 250 Mg Tab 500 MG PO HS Meloxicam (Meloxicam) 15 Mg Tab 15 MG PO QAM Metoprolol Succinate (Metoprolol Succinate ER) 50 Mg Tabcr 50 MG PO HS Pravastatin Sodium (Pravastatin Sodium) 80 Mg Tab 80 MG PO HS Sertraline (Zoloft) 100 Mg Tab 100 MG PO QAM Discharge Exam The patient was seen and examined this morning. Pt reports doing very well today. She denies feeling her heart rate being elevated, no palpitation, flutter, shortness of breath is resolved, and she denies any feeling of generalized weakness. Her heart rate converted last evening at 2300 to NSR on monitor. Review of Systems: Constitutional: No fever, No chills, No sweats, No weight loss, No fatigue Eyes: No redness, No diplopia ENT: No sore throat, No trouble swallowing Respiratory: No cough, No shortness of breath Cardiovascular: No chest pain, No edema, No palpitations Abdomen: No pain, No nausea, No vomiting, No diarrhea, No constipation Musculoskeletal: No joint pain, No swelling Genitourinary - Female: No dysuria, No urinary frequency Neurologic: No weakness, No numbness/tingling Psychiatric: No depression symptoms, No anxiety Endocrine: No fatigue Integumentary: No rash, No itch Physical Exam: General Appearance: WD/WN, no apparent distress, + obese Eyes: PERRL, EOMI ENT: hearing grossly normal, pharynx normal Neck: supple, thyroid normal, no JVD Respiratory/Chest: lungs clear, no respiratory distress, no accessory muscle use Cardiovascular: regular rate, rhythm, no murmur, normal peripheral pulses Abdomen / GI: normal bowel sounds, non tender, soft Extremities: normal inspection, no calf tenderness Neurologic/Psychiatric: no motor/sensory deficits, alert, normal mood/affect , normal reflexes Skin: normal color, warm/dry Hospital Course Ms. Garza is a 71 y/o female with PMHx of Paroxysmal Atrial Fibrillation, HLD, Chronic SOB, QUINTON on CPAP, HTN, and Crest/Scleroderma who presents to the ED c/o rapid heartbeat that started x 1 week ago. Atrial Fibrillation with RVR: - No response to a total of 15 mg IV Metorpolol so was started on flecainide 50 mg BID during hospital stay - cardioverted spontaneously overnight to NSR. - Eliquis 5 mg BID and Toprol XL 50 mg daily to continue - Follow up with cardiology - Dr. Brennan within 2-3 weeks. HTN and HLD: - BP is stable - HCTZ 25 mg daily and Toprol XL 50 mg daily; Pravastatin 80 mg daily Acute on Chronic SOB: - Appropriate O2 saturations - likely due to RVR and will monitor - sx are resolved - She has had normal PFTs and Lexiscan - possible related to scleroderma but would think some restrictive lung findings would be seen on PFTs? Records reviewed and question that it could be simply obesity related QUINTON on CPAP: - stable DVT Prophylaxis: Eliquis 5 mg BID Code Status: FULL RESUSCITATION Disposition: Dc to home today. PA Physician Supervision Note: I interviewed and examined the patient. Discussed with Katherine Ignacio PAC and agree with findings and plan as documented in the note. Any exceptions or clarifications are listed here: None Patient feels much better after she is achieved rate control and eventual conversion to sinus rhythm with flecainide monitoring without any significant ischemia per cardiology's is agreeable to her to go home on flecainide with close outpatient follow-up continue anticoagulation with Eliquis with further evaluation for her rhythm 30 days of anticoagulation after conversion Vital signs are stable with heart rate in the 60s blood pressure stable 130/85 Cardiac exam is regular lungs are clear without wheezes or crackles she has no JVD extremities are with trace edema which she says is chronic for her Atrial fibrillation with rapid ventricular response patient converted chemically with flecainide the patient be discharged on flecainide with cardiology follow-up maintaining anticoagulation Documented By: Gigi Botello Total Time Spent: Greater than 30 minutes This includes examination of the patient, discharge planning, medication reconciliation, and communication with other providers. Discharge Instructions Please refer to the electronic Patient Visit Report (Discharge Instructions) for additional information. Follow-Up Follow up with your Primary Care Provider within 1 week. Follow up with cardiology within 2-3 weeks. Additional Copies To Emmie Weinstein,
[2017-06-23 15:33] VITALS: BP 133/77; PULSE 65; TEMP 36.8; O2SAT 95
[2017-06-23 15:35] VITALS: BP 133/77; PULSE 65; TEMP 36.8; O2SAT 95
== END 2017-06-23 17:45 | disposition home or self-care (01) | DRG 310 ==
LOC: C.EDB 14:28 → C.2T 18:32 → ENRESERV 18:57
PROVIDERS: ADMIT Family Medicine; ATTEND Family Medicine
DX: I48.0 Paroxysmal atrial fibrillation (principal); M19.90 Unspecified osteoarthritis, unspecified site; M34.1 CR(E)ST syndrome; E78.5 Hyperlipidemia, unspecified; G47.33 Obstructive sleep apnea (adult) (pediatric); I10 Essential (primary) hypertension; R06.02 Shortness of breath; F32.9 Major depressive disorder, single episode, unspecified; F41.9 Anxiety disorder, unspecified; E66.9 Obesity, unspecified; Z68.39 Body mass index [BMI] 39.0-39.9, adult; Z88.0 Allergy status to penicillin; Z82.3 Family history of stroke; Z82.49 Family history of ischemic heart disease and other diseases of the circulatory system

== ENCOUNTER → 2017-06-24 | Outpatient (CLI) | payer BC ==
[~2017-06-24] MED LIST changes: +ATV5X PO; +CALC-449 PO; -CALC600T PO; +CHOL1000 PO; -CHOL20009 PO; +FISH1CAP3 PO; +FLEC50TA PO; +GARL10007 PO; -HYDR25TA4 PO; +HYDR25TA5 PO; -LORA-741 PO; +MELO-83 PO; -MELO-84 PO; -METO50TA8 PO; +TPRSR/50 PO; +VNTHFA/IN INH
[2017-06-29 04:37] LABS: ANA SCREEN TC 249X POSITIVE (NEGATIVE); ANTI-SS-A <1.0 NEG AI (<1.0 NEG); ANTI-SS-B <1.0 NEG AI (<1.0 NEG); COMPLEMENT C3 TC 44859W 138 MG/DL (90-180); COMPLEMENT C4 TC 44982E 26 MG/DL (16-47)
[2017-06-29 11:50] LABS: ANA TITER > OR = 1:1280 TITER (<1:40)
== END | disposition home or self-care (01) ==
LOC: C.LABPBG 14:42
PROVIDERS: ATTEND Internal Medicine Rheumatology
DX: Z79.899 Other long term (current) drug therapy (principal); I73.00 Raynaud's syndrome without gangrene

== ENCOUNTER → 2017-07-26 | Outpatient (CLI) | payer BC ==
[~2017-07-26] MED LIST changes: -FLEC50TA PO
== END | disposition home or self-care (01) ==
LOC: C.MAMM 12:49
PROVIDERS: ATTEND Family Medicine
DX: Z00.00 Encounter for general adult medical examination without abnormal findings (principal); M85.80 Other specified disorders of bone density and structure, unspecified site

== ENCOUNTER 2017-10-03 16:58 | Emergency (ER) | payer BC ==
[~2017-10-03] VITALS: Ht 152.4 cm; Wt 88.0 kg
[2017-10-03 17:00] VITALS: TEMP 37; Ht 152.4 cm; Wt 88.0 kg
--- NOTE | 2017-10-03 17:22 | EMERGENCY ROOM VISIT NOTE ---
History Report prepared by Franky: Rich Linda Under the Supervision of: Dr. Jose Fu M.D. First contact with patient: 17:03 Chief Complaint: CARDIAC ASSESSMENT Stated Complaint: SOB, A FIB, HIGH BLOOD PRESSURE AND PULSE RATE History of Present Illness The patient is a 72 year old female who presents to the Emergency Room with complaints of constant a-fib beginning 9 days ago. The patient states she has a history of intermittent a-fib, and she was last hospitalized in June for a- fib. She notes she takes Eliquis for her a-fib. She reports she is typically short of breath and with a bloated-heavy feeling with her a-fib. The patient denies chest pain and feeling a heart skip a beat when in a-fib. She notes for the past 9 days she has been short of breath, lightheaded, and experiencing mild headaches. The patient states she was evaluated by her PCP two days ago. She reports she did not know she was in a-fib until she saw her PCP. The patient notes she was placed on prednisone for weakness and fatigue on Wednesday. She states she has been taking it since. The patient reports she called the on- call doctor and was told to be evaluated for her abnormal blood pressure. She notes Dr. Brennan is her pot tender, and she did not think to call him. The patient states she is keeping up with her fluids. She reports she has been cutting her Metoprolol in half for the past month because her heart rate was in the 50s. The patient denies pain with breathing, a history of blood clots, leg swelling, and calf pain. Source of History: patient Onset: 9 days ago Position: other (heart) Quality: other (a-fib) Timing: constant Associated Symptoms: + headache (mild), + SOB Note: Associated symptoms: a bloated-heavy feeling, lightheaded Denies: pain with breathing, a history of blood clots, leg swelling, and calf pain Review of Systems See HPI for pertinent positives & negatives. A total of 10 systems reviewed and were otherwise negative. Past Medical & Surgical Medical Problems: (1) Arthritis (2) Atrial fibrillation with rapid ventricular response (3) Chronic a-fib (4) Mass of left lung (5) Obesity (BMI 35.0-39.9 without comorbidity) Old medical records were reviewed. Nurse's notes were reviewed and I agree with. Family History CAD Hyperlipidemia Hypertension Stroke Social History Smoking Status: Never Smoker Drug Use: none Marital Status: Housing Status: lives with family Occupation Status: retired Current/Historical Medications Scheduled Apixaban (Eliquis), 5 MG PO BID Calcium (Calcium), 600 MG PO BID Cholecalciferol (D 2000), 2,000 UNITS PO BID Flecainide (Tambocor), 50 MG PO BID Garlic (Garlic), 1,000 MG PO BID Hydrochlorothiazide (Hydrochlorothiazide), 25 MG PO QAM Magnesium (Magnesium), 500 MG PO HS Metoprolol Succinate (Metoprolol Succinate ER), 25 MG PO HS [place]-3 Fatty Acids (Fish Oil), 1,000 MG PO BID Pravastatin Sodium (Pravastatin Sodium), 80 MG PO HS Sertraline (Zoloft), 100 MG PO QAM Scheduled PRN Albuterol Hfa (Ventolin Hfa), 1-2 PUFFS INH Q4-6HRS PRN for Shortness of Breath Cetirizine Hcl (Zyrtec), 5 MG PO DAILY PRN for Seasonal Allergies Lorazepam (Lorazepam), 0.5 MG PO BID PRN for Anxiety Allergies Coded Allergies: POLLEN (Verified Allergy, Intermediate, ITCHY, WATERY EYES, SNEEZING, CONGESTION, 10/03/17) Adhesives (Verified Allergy, Unknown, skin irritation/'burning', 10/03/17) Diclofenac (Verified Allergy, Unknown, RASH, 10/03/17) Penicillins (Verified Allergy, Unknown, HIVES, 10/03/17) Physical Exam Vital Signs Date Time Temp Pulse Resp B/P (MAP) Pulse Ox O2 Delivery O2 Flow Rate FiO2 10/03/17 19:38 81 16 152/89 96 10/03/17 17:46 103 22 144/102 95 Room Air 10/03/17 17:43 95 Room Air 10/03/17 17:15 109 10/03/17 17:00 37.0 105 20 170/89 94 Room Air Physical Exam General: Non-ill appearing older female in no acute distress. HEENT: Normal cephalic atraumatic. Pupils are equal round and reactive to light. Extraocular movements are intact. Oropharynx is pink with moist mucous membranes. No swelling of the mouth lips or tongue. Neck: Supple with a midline trachea. No meningeal signs or stiffness, no JVD or bruits. No Stridor. Chest: Clear to auscultation bilaterally. No wheezes or rhonchi. No increased work of breathing. Heart: Irregularly irregular with a rate in the 90s. Abdomen: Soft nontender, nondistended without rebound guarding or rigidity. Extremities: No cyanosis clubbing or edema. No calf tenderness or assymetry Spine/Back. Non tender to palpation. No CVA tenderness Skin: Good turgor without rashes. Neurologic exam: Cranial nerves two through 12 are intact. Motor and sensation are intact and symmetrical throughout. Medical Decision & Procedures ER Provider Diagnostic Interpretation: X-ray results as stated below per interpretation by me and the radiologist: CHEST ONE VIEW PORTABLE CLINICAL HISTORY: CHEST PAIN dyspnea COMPARISON STUDY: 06/22/2017 FINDINGS: The bones soft tissues and hemidiaphragms are normal. The cardiomediastinal silhouette is normal. The lungs are clear. The pulmonary vasculature is normal. IMPRESSION: Negative chest. The above report was generated using voice recognition software. It may contain grammatical, syntax or spelling errors. Electronically signed by: Grant Mishra M.D. 10/03/2017 5:40 PM Dictated Date/Time: 10/03/2017 5:39 PM Laboratory Results 10/03/17 17:28 Red Blood Count 4.52, Mean Corpuscular Volume 94.5, Mean Corpuscular Hemoglobin 32.5, Mean Corpuscular Hemoglobin Concent 34.4, Mean Platelet Volume 10.8, Neutrophils (%) (Auto) 86.2, Lymphocytes (%) (Auto) 9.7, Monocytes (%) (Auto) 3.1, Eosinophils (%) (Auto) 0.1, Basophils (%) (Auto) 0.1, Neutrophils # (Auto) 6.45, Lymphocytes # (Auto) 0.73, Monocytes # (Auto) 0.23, Eosinophils # (Auto) 0.01, Basophils # (Auto) 0.01 10/03/17 17:28 Test 10/03/17 17:28 10/03/17 17:36 White Blood Count 7.49 K/uL (4.8-10.8) Red Blood Count 4.52 M/uL (4.2-5.4) Hemoglobin 14.7 g/dL (12.0-16.0) Hematocrit 42.7 % (37-47) Mean Corpuscular Volume 94.5 fL (80-100) Mean Corpuscular Hemoglobin 32.5 pg (25-34) Mean Corpuscular Hemoglobin Concent 34.4 g/dl (32-36) Platelet Count 166 K/uL (130-400) Mean Platelet Volume 10.8 fL (7.4-10.4) Neutrophils (%) (Auto) 86.2 % Lymphocytes (%) (Auto) 9.7 % Monocytes (%) (Auto) 3.1 % Eosinophils (%) (Auto) 0.1 % Basophils (%) (Auto) 0.1 % Neutrophils # (Auto) 6.45 K/uL (1.4-6.5) Lymphocytes # (Auto) 0.73 K/uL (1.2-3.4) Monocytes # (Auto) 0.23 K/uL (0.11-0.59) Eosinophils # (Auto) 0.01 K/uL (0-0.5) Basophils # (Auto) 0.01 K/uL (0-0.2) RDW Standard Deviation 56.0 fL (36.4-46.3) RDW Coefficient of Variation 16.6 % (11.5-14.5) Immature Granulocyte % (Auto) 0.8 % Immature Granulocyte # (Auto) 0.06 K/uL (0.00-0.02) Prothrombin Time 10.7 SECONDS (9.0-12.0) Prothromb Time International Ratio 1.0 (0.9-1.1) Activated Partial Thromboplast Time 24.0 SECONDS (21.0-31.0) Partial Thromboplastin Ratio 0.9 D-Dimer 340 ug/L FEU (0-500) Anion Gap 7.0 mmol/L (3-11) Est Creatinine Clear Calc Drug Dose 40.4 ml/min Estimated GFR () 49.6 Estimated GFR (Non- 42.8 BUN/Creatinine Ratio 21.7 (10-20) Calcium Level 9.3 mg/dl (8.5-10.1) Total Bilirubin 0.7 mg/dl (0.2-1) Direct Bilirubin 0.2 mg/dl (0-0.2) Aspartate Amino Transf (AST/SGOT) 18 U/L (15-37) Alanine Aminotransferase (ALT/SGPT) 24 U/L (12-78) Alkaline Phosphatase 85 U/L (45-117) Total Creatine Kinase 68 U/L (26-192) Creatine Kinase MB 2.9 ng/ml (0.5-3.6) Creatine Kinase MB Ratio 4.3 (0-3.0) Total Protein 8.4 gm/dl (6.4-8.2) Albumin 4.5 gm/dl (3.4-5.0) Lipase 188 U/L (73-393) Thyroid Stimulating Hormone (TSH) 0.873 uIu/ml (0.300-4.500) Bedside Troponin I < 0.030 ng/ml (0-0.045) Laboratory studies as stated above per my review. ECG Per My Interpretation Indication: SOB/dyspnea, other (a-fib) Rate (beats per minute): 100 Rhythm: atrial fibrillation Findings: other (lateral T-wave abnormality) Comparison ECG Date: 06/23/2017 Change: A-fib replaced NSR. T-wave remains unchanged. ED Course 1706: Past medical records reviewed. The patient was evaluated in room C11B, and a complete history and physical examination were performed. 1925: I discussed the patient's case with Dr. Tai, Cardiology. He agrees with the treatment plan. 1928: Upon reevaluation, the patient is resting. I discussed the results and treatment plan with her. She verbalized agreement of the treatment plan. The patient was discharged home. Medical Decision Differentials include, but are not limited to; a-fib, ACS, PE, thyroid disease, electrolyte or metabolic abnormality. This patient comes in as described above. She was placed on a cardiac technician in room C11. She is complaining of shortness of breath and symptoms that she typically has with A. fib these been going on for over a week. She is anticoagulated with Eliquis. Her rate is controlled. She says she has not missed any medication. she is also on flecainide. They did decrease her beta- bridget recently. She looks well on exam. She has mild high blood pressure. EKG shows A. fib with out significant rapid rate. No definite acute ischemic changes. She some chronic lateral T-wave inversions which are unchanged compared to old. Multiple blood testing was obtained she is placed on cardiac technician. She was reassessed frequently. Her heart rate is now in the 70s she looks well. Her troponin is within normal limits. she has no significant electrolyte or metabolic abnormalities. She has mild elevation of her BUN and creatinine and she is on a diuretic is possible she is a little dry this is prerenal. Her d-dimer is within normal limits and a low pretest probability setting makes PE highly unlikely. Chest x-ray does not show congestive heart failure, pneumonia, or pneumothorax. She has paroxysmal A. fib and is in a coagulated with Eliquis and this is been going on for at least a week. Her rate is adequately controlled. She feels good and would like to go home. She has nothing to suggest acute coronary syndrome at this point. I think this is reasonable with close cardiology follow-up. I did discuss this with the pot tender production technologist, Dr. Tai. He said they would follow-up with her in the office this week for recheck with the next couple days and she should call tomorrow. Medication Reconcilliation Current Medication List: was personally reviewed by me Blood Pressure Screening Patient's blood pressure: Elevated blood pressure Blood pressure disposition: Referred to PCP Consults Time Called: 1903 Consulting Physician: Dr. Tai, Cardiology Returned Call: 1925 I discussed the patient's case with Dr. Tai, Cardiology. He agrees with the treatment plan. Impression Primary Impression: SOB (shortness of breath) Additional Impression: A-fib Scribe Attestation The scribe's documentation has been prepared under my direction and personally reviewed by me in its entirety. I confirm that the note above accurately reflects all work, treatment, procedures, and medical decision making performed by me. Departure Information Dispostion Home / Self-Care Referrals Emmie Weinstein DO (PCP) Forms IMPORTANT VISIT INFORMATION Patient Instructions My [facility] Additional Instructions Rest Drink plenty of fluids REturn if: worsening of symptoms, chest pain, shortness of breath, rapid heart rate greater than 100 consistently, any new problems or concerns Follow-up with the pot tender this week for recheck Problem Qualifiers Additional Impression: A-fib Atrial fibrillation type: paroxysmal Qualified Codes: I48.0 - Paroxysmal atrial fibrillation
--- NOTE | 2017-10-03 17:41 | DIAGNOSTIC IMAGING REPORT ---
CHEST ONE VIEW PORTABLE CLINICAL HISTORY: CHEST PAIN dyspnea COMPARISON STUDY: 06/22/2017 FINDINGS: The bones soft tissues and hemidiaphragms are normal. The cardiomediastinal silhouette is normal. The lungs are clear. The pulmonary vasculature is normal. IMPRESSION: Negative chest. The above report was generated using voice recognition software. It may contain grammatical, syntax or spelling errors. Electronically signed by: Grant Mishra M.D. 10/03/2017 5:40 PM Dictated Date/Time: 10/03/2017 5:39 PM
[2017-10-03 17:44] LABS: BASO % 0.1 %; BASO ABS # 0.01 K/uL (0-0.2); EOS % 0.1 %; EOS ABS # 0.01 K/uL (0-0.5); HEMATOCRIT 42.7 % (37-47); HEMOGLOBIN 14.7 g/dL (12.0-16.0); IG# 0.06 K/uL (0.00-0.02); LYMPH % 9.7 %; LYMPH ABS # 0.73 K/uL (1.2-3.4); MEAN CELL VOLUME 94.5 fL (80-100); MEAN CORPUSCULAR HEMOGLOBIN 32.5 pg (25-34); MEAN CORPUSCULAR HGB CONC 34.4 g/dl (32-36); MEAN PLATELET VOLUME 10.8 fL (7.4-10.4); MONO % 3.1 %; MONO ABS # 0.23 K/uL (0.11-0.59); NEUT % 86.2 %; NEUT ABS # 6.45 K/uL (1.4-6.5); PLATELET COUNT 166 K/uL (130-400); RED CELL DISTRIBUTION WIDTH CV 16.6 % (11.5-14.5); WHITE BLOOD COUNT 7.49 K/uL (4.8-10.8)
[2017-10-03] MEDS ORDERED: CHOL1TAB76 PO (17:46)
[2017-10-03] MEDS ORDERED: CALC600T37 PO (17:46)
[2017-10-03] MEDS ORDERED: FLEC50TA20 PO (17:46)
[2017-10-03] MEDS ORDERED: OMEG10002 PO (17:46)
[2017-10-03 18:02] LABS: CALCIUM 9.3 mg/dl (8.5-10.1); CREATININE 1.26 mg/dl (0.60-1.20); POTASSIUM 4.3 mmol/L (3.5-5.1)
[2017-10-03 18:23] LABS: ALBUMIN 4.5 gm/dl (3.4-5.0); CKMB 2.9 ng/ml (0.5-3.6); TOTAL PROTEIN 8.4 gm/dl (6.4-8.2)
[2017-10-03 19:38] VITALS: BP 152/89; PULSE 81; O2SAT 96
== END 2017-10-03 19:38 | disposition home or self-care (01) ==
LOC: C.EDB 16:59 → C.EDC 19:38
DX: I48.0 Paroxysmal atrial fibrillation (principal); R94.31 Abnormal electrocardiogram [ECG] [EKG]; R51 Headache; R42 Dizziness and giddiness; Z79.01 Long term (current) use of anticoagulants; Z79.899 Other long term (current) drug therapy; Z88.6 Allergy status to analgesic agent; Z88.0 Allergy status to penicillin; Z91.048 Other nonmedicinal substance allergy status; Z82.49 Family history of ischemic heart disease and other diseases of the circulatory system

== ENCOUNTER → 2017-10-25 | Outpatient (CLI) | payer BC ==
[~2017-10-25] MED LIST changes: -CALC-449 PO; +CALC600T37 PO; -CHOL1000 PO; +CHOL1TAB76 PO; -FISH1CAP3 PO; +FLEC150T PO; -MELO-83 PO; +METO25TA4 PO; +OMEG10002 PO; +PRD/25 PO; -TPRSR/50 PO; +TRAM-10 PO
== END | disposition home or self-care (01) ==
LOC: C.LABPBG 14:58
PROVIDERS: ATTEND Internal Medicine Cardiovascular Disease
DX: I48.0 Paroxysmal atrial fibrillation (principal)

== ENCOUNTER 2019-03-09 19:35 | Observation (INO) ==
[2019-03-09 20:43] LABS: Basophils # (auto) 0.01 K/uL (0-0.2); Basophils % (auto) 0.2 %; Eosinophils # (auto) 0.26 K/uL (0-0.5); Eosinophils % (auto) 4.1 %; Hematocrit (blood only) 43.3 % (37-47); Hemoglobin 15.1 g/dL (12.0-16.0); Immature Granulocytes # (auto) 0.01 K/uL (0.00-0.02); Immature Granulocytes % (auto) 0.2 %; Lymphocytes # (auto) 1.39 K/uL (1.2-3.4); Lymphocytes % (auto) 22.1 %; Mean Corpuscular Hemoglobin 32.5 pg (25-34); Mean Corpuscular Hgb Conc 34.9 g/dL (32-36); Mean Corpuscular Volume 93.3 fL (80-100); Mean Platelet Volume 10.4 fL (7.4-10.4); Monocytes # (auto) 0.35 K/uL (0.11-0.59); Monocytes % (auto) 5.6 %; Neutrophils # (auto) 4.28 K/uL (1.4-6.5); Neutrophils % (auto) 67.8 %; Platelet Count 160 K/uL (130-400); RDW Standard Deviation 50.9 fL (36.4-46.3); Red Blood Count 4.64 M/uL (4.2-5.4)
--- NOTE | 2019-03-09 20:46 | XRay Report ---
XR chest 1V portable CLINICAL HISTORY: Dyspnea dyspnea COMPARISON STUDY: 10/01/2017 FINDINGS: Mild cardiac enlargement. Increased prominence of the pulmonary vasculature compared to the prior study. Chronic elevation right hemidiaphragm. IMPRESSION: Congestive heart failure ACT 112: Negative or not required by law. The above report was generated using voice recognition software. It may contain grammatical, syntax or spelling errors. Electronically signed by: Grant Mishra M.D. 03/09/2019 8:45 PM
[2019-03-09 20:55] LABS: INR 1.1 (0.9-1.1); Partial Thromboplastin Ratio 0.9; Partial Thromboplastin Time 25.6 Seconds (21.0-31.0)
[2019-03-09 21:09] LABS: Alanine Aminotransferase 21 U/L (12-78); Aspartate Aminotransferase 17 U/L (15-37); BUN Creatinine Ratio 15.5 (10-20); Blood Urea Nitrogen 19 mg/dl (7-18); Calcium 11.1 mg/dl (8.5-10.1); Carbon Dioxide 31 mmol/L (21-32); Chloride 102 mmol/L (98-107); Creatinine Clr Calc Pharmacy 38.5 ml/min; Est GFR (African American) 50.3; Est GFR (Non-African American) 43.4; Glucose 106 mg/dl (70-99); Potassium 3.5 mmol/L (3.5-5.1); Sodium 139 mmol/L (136-145)
[2019-03-09 21:13] LABS: Influenza A virus by PCR Neg for Influ A (Neg); Influenza B virus by PCR Neg for Influ B (Neg)
[2019-03-09 21:14] LABS: Albumin Globulin Ratio 0.9 (0.9-2); Alkaline Phosphatase 114 U/L (45-117); Bilirubin,Total 0.7 mg/dl (0.2-1); Globulin 4.4 gm/dl (2.5-4.0); NT Pro B Type Natriuretic Pept 471 pg/ml (0-900); Total Protein 8.4 gm/dl (6.4-8.2); Troponin I < 0.015 ng/ml (0-0.045)
[2019-03-09 22:03] LABS: Appearance Urine Clear (Clear); Bilirubin Urine Negative (Negative); Blood Urine Negative (Negative); Color Urine Dark Yellow; Glucose Urine UA Negative (Negative); Ketones Urine Trace (Negative); Leukocyte Esterase Urine Negative (Negative); Nitrite Urine Negative (Negative); Protein Urine Negative (Negative); Specific Gravity Urine 1.023 (1.000-1.030); Urobilinogen Urine Negative (Negative)
[2019-03-09] MEDS ORDERED: FUROSEMIDE 40 MG/4 ML VIAL IV STA (22:28)
--- NOTE | 2019-03-09 23:59 | Emergency Department Note ---
Entered by Rochelle Mac acting as a scribe for Mehrdad Salgado DO History of Present Illness General Chief complaint: Shortness of Breath/Dyspnea Stated complaint: SOB, TALKED TO GLORIA Source: patient Limitations: no limitations History of Present Illness Onset (ago): week(s) 3 Location: chest Pain Consistency: + constant Maximum Pain Intensity: 0 Quality: + other (SOB) Exacerbated By: + other (exertion) Associated symptoms: + denies other symptoms (chest pain, vomiting, recent weight gain, and urinary symptoms) and + cough The patient is a 73 year old female who presents to the Emergency Room with complaints of constant SOB that began 3 weeks ago. She reports that the symptoms worsened, as she began with SOB with exertion only and she now has SOB constantly. The patient reports that she talked to Dr. Gloria CORTES, and she was referred here. The patient notes that exertion exacerbates the symptoms. She complains of nausea and a cough. The patient denies any chest pain, vomiting, recent weight gain, and urinary symptoms. She notes that she takes Eliquis, and she has not missed any doses recently. The patient denies any history of COPD, a sthma, and smoking cigarettes. She notes that she wears a CPAP at night. No other exacerbating or remitting factors. Home Medications Home Medications Medication Instructions Recorded Confirmed Type apixaban 5 mg tablet 5 mg PO BID #180 tab 11/17/18 03/09/19 History cetirizine 10 mg tablet 10 mg PO QAM PRN tab 11/17/18 03/09/19 History cholecalciferol (vitamin D3) 25 4,000 units PO QAM cap 11/17/18 03/09/19 History mcg (1,000 unit) capsule flecainide 100 mg tablet 100 mg PO Q12H #180 tab 11/17/18 03/09/19 History hydrochlorothiazide 25 mg tablet 25 mg PO QAM #90 tab 11/17/18 03/09/19 History metoprolol succinate 25 mg 25 mg PO HS #90 tab 11/17/18 03/09/19 History tablet,extended release 24 hr sertraline 100 mg tablet 100 mg PO HS #135 tab 11/17/18 03/09/19 History diclofenac sodium 1 % topical gel 2 gm TOPICAL BID PRN #1 gm 11/22/18 03/09/19 History calcium carbonate 600 mg (1,500 1 tab PO BID 11/24/18 03/09/19 History mg)-vitamin D3 200 unit tablet tramadol 50 mg tablet 50 mg PO TID PRN #60 tab 02/17/19 03/09/19 Rx potassium chloride [Klor-Con M20] 20 meq PO BID 03/09/19 03/09/19 History pravastatin 80 mg PO HS 03/09/19 03/09/19 History Allergies Allergy/AdvReac Type Severity Reaction Status Date / Time pollen extracts Allergy Intermediate ITCHY, Verified 03/09/19 21:14 WATERY EYES, SNEEZING, CONGESTION adhesive Allergy Mild skin Verified 03/09/19 21:14 irritation/'burning' diclofenac Allergy Mild RASH Verified 03/09/19 21:14 Penicillins Allergy Mild HIVES Verified 03/09/19 21:14 capsaicin Allergy Unknown RASH Verified 03/09/19 21:14 Diclopak Allergy Unknown RASH Verified 10/21/17 12:04 Past Med/Surg History Medical History Allergic rhinitis Anticoagulant long-term use Atrial fibrillation with rapid ventricular response Carotid artery plaque Chronic a-fib 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 Depression with anxiety Diverticulosis Dyslipidemia Gastroesophageal reflux disease Generalized osteoarthritis of multiple sites Hypertension Impaired fasting glucose Internal hemorrhoids Lichen sclerosus et atrophicus Lymphoproliferative disease Mass of left lung (Resolved) Morbid obesity Obstructive sleep apnea (adult) (pediatric) Osteoarthritis Osteopenia Paroxysmal atrial fibrillation Paroxysmal atrial flutter (Chronic) Pneumonia (Resolved) LAST 3-4 YRS AGO--NO ISSUES NOW--HAD PNX SHOT Pulmonary nodule Raynaud's disease without gangrene Splenomegaly Vitamin D deficiency Surgical History H/O dilation and curettage H/O wrist surgery History of bilateral tubal ligation History of carpal tunnel surgery bilateral History of lobectomy of lung (01/2016) L LUNG--01/2016 (BENIGN) History of tooth extraction History of total knee replacement (09/2014) L KNEE Hx of cataract surgery RIGHT Hx of lumpectomy L BREAST (BENIGN) Family History Mother History of colon cancer Hypercholesteremia Father Hx of CABG Coronary heart disease Cardiac disorder Hypertension Sinus disorder Stroke syndrome Social History Preferred Language: [place] Communication Ability: Effective Peat 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 and A total of 10 systems reviewed and were otherwise negative Physical Exam Vital Signs Vital Signs - 24 hr 03/09/19 19:49 03/09/19 20:04 03/09/19 20:15 Temperature 36.7 C Temperature Source Oral Pulse Rate 68 61 Pulse Rate [Right Finger] Pulse Rate from SpO2 Sensor 61 Respiratory Rate 18 13 Respiratory Effort / Characteristics Non-Labored Spontaneous Respiratory Depth Normal Respiratory Pattern Blood Pressure 148/79 H Blood Pressure [Right Arm] Blood Pressure Mean 102 Blood Pressure Mean [Right Arm] Blood Pressure Position [Right Arm] Pulse Oximetry 92 94 93 Pulse Oximetry [Exercises] Oxygen Delivery Method Room Air Room Air Sepsis Recent Fever Within 48 Hours No Sepsis New/Unexplained Change in Mental Status No Sepsis Action Taken by Nursing No Action Required 03/09/19 20:20 03/09/19 20:28 03/09/19 20:30 Temperature Temperature Source Pulse Rate 66 73 Pulse Rate [Right Finger] Pulse Rate from SpO2 Sensor 65 62 Respiratory Rate 21 22 Respiratory Effort / Characteristics Respiratory Depth Respiratory Pattern Blood Pressure Blood Pressure [Right Arm] Blood Pressure Mean Blood Pressure Mean [Right Arm] Blood Pressure Position [Right Arm] Pulse Oximetry 96 97 90 Pulse Oximetry [Exercises] Oxygen Delivery Method Room Air Sepsis Recent Fever Within 48 Hours Sepsis New/Unexplained Change in Mental Status Sepsis Action Taken by Nursing 03/09/19 20:31 03/09/19 20:40 03/09/19 20:50 Temperature Temperature Source Pulse Rate 62 105 H 60 Pulse Rate [Right Finger] Pulse Rate from SpO2 Sensor 61 65 60 Respiratory Rate 22 16 15 Respiratory Effort / Characteristics Respiratory Depth Respiratory Pattern Blood Pressure 139/68 Blood Pressure [Right Arm] Blood Pressure Mean 76 Blood Pressure Mean [Right Arm] Blood Pressure Position [Right Arm] Pulse Oximetry 90 91 94 Pulse Oximetry [Exercises] Oxygen Delivery Method Sepsis Recent Fever Within 48 Hours Sepsis New/Unexplained Change in Mental Status Sepsis Action Taken by Nursing 03/09/19 21:00 03/09/19 21:01 03/09/19 21:10 Temperature Temperature Source Pulse Rate 60 59 L 58 L Pulse Rate [Right Finger] Pulse Rate from SpO2 Sensor 60 59 L 58 L Respiratory Rate 17 19 17 Respiratory Effort / Characteristics Respiratory Depth Respiratory Pattern Blood Pressure 145/75 H Blood Pressure [Right Arm] Blood Pressure Mean 83 Blood Pressure Mean [Right Arm] Blood Pressure Position [Right Arm] Pulse Oximetry 89 L 91 91 Pulse Oximetry [Exercises] Oxygen Delivery Method Sepsis Recent Fever Within 48 Hours Sepsis New/Unexplained Change in Mental Status Sepsis Action Taken by Nursing 03/09/19 21:20 03/09/19 21:30 03/09/19 21:31 Temperature Temperature Source Pulse Rate 57 L 57 L 56 L Pulse Rate [Right Finger] Pulse Rate from SpO2 Sensor 58 L 57 L 58 L Respiratory Rate 20 22 14 Respiratory Effort / Characteristics Respiratory Depth Respiratory Pattern Blood Pressure 143/69 H Blood Pressure [Right Arm] Blood Pressure Mean 77 Blood Pressure Mean [Right Arm] Blood Pressure Position [Right Arm] Pulse Oximetry 92 93 91 Pulse Oximetry [Exercises] Oxygen Delivery Method Sepsis Recent Fever Within 48 Hours Sepsis New/Unexplained Change in Mental Status Sepsis Action Taken by Nursing 03/09/19 21:40 03/09/19 21:50 03/09/19 22:00 Temperature Temperature Source Pulse Rate 58 L 61 60 Pulse Rate [Right Finger] Pulse Rate from SpO2 Sensor 57 L 62 60 Respiratory Rate 19 22 20 Respiratory Effort / Characteristics Respiratory Depth Respiratory Pattern Blood Pressure 144/76 H Blood Pressure [Right Arm] Blood Pressure Mean 91 Blood Pressure Mean [Right Arm] Blood Pressure Position [Right Arm] Pulse Oximetry 90 92 92 Pulse Oximetry [Exercises] Oxygen Delivery Method Sepsis Recent Fever Within 48 Hours Sepsis New/Unexplained Change in Mental Status Sepsis Action Taken by Nursing 03/09/19 22:01 03/09/19 22:10 03/09/19 22:34 Temperature Temperature Source Pulse Rate 57 L 59 L Pulse Rate [Right Finger] Pulse Rate from SpO2 Sensor 58 L 59 L Respiratory Rate 21 17 Respiratory Effort / Characteristics Respiratory Depth Respiratory Pattern Blood Pressure Blood Pressure [Right Arm] Blood Pressure Mean Blood Pressure Mean [Right Arm] Blood Pressure Position [Right Arm] Pulse Oximetry 92 93 84 L Pulse Oximetry [Exercises] 84 L Oxygen Delivery Method Room Air Sepsis Recent Fever Within 48 Hours Sepsis New/Unexplained Change in Mental Status Sepsis Action Taken by Nursing 03/09/19 23:16 Temperature Temperature Source Pulse Rate Pulse Rate [Right Finger] 63 Pulse Rate from SpO2 Sensor Respiratory Rate 18 Respiratory Effort / Characteristics Non-Labored Spontaneous Respiratory Depth Normal Respiratory Pattern Regular Blood Pressure Blood Pressure [Right Arm] 131/68 Blood Pressure Mean Blood Pressure Mean [Right Arm] 89 Blood Pressure Position [Right Arm] Lying Pulse Oximetry 93 Pulse Oximetry [Exercises] Oxygen Delivery Method Room Air Sepsis Recent Fever Within 48 Hours Sepsis New/Unexplained Change in Mental Status Sepsis Action Taken by Nursing GENERAL: sitting up in bed, no acute distress, talking in full sentences, non- toxic EYE EXAM: normal conjunctiva OROPHARYNX: no exudate, no erythema, lips, buccal mucosa, and tongue normal and mucous membranes are moist NECK: supple, no nuchal rigidity, no adenopathy, non-tender LUNGS: Clear to auscultation. Normal chest wall mechanics HEART: no murmurs, S1 normal and S2 normal ABDOMEN: abdomen soft, non-tender, normo-active bowel sounds, no masses, no rebound or guarding. BACK: Back is symmetrical on inspection and there is no deformity, no midline tenderness, no CVA tenderness. SKIN: no rashes and no bruising UPPER EXTREMITIES: upper extremities are grossly normal. LOWER EXTREMITIES: No pitting edema. Calves equal bilaterally. NEURO EXAM: Normal sensorium, cranial nerves II-XII grossly intact, normal speech, no gross weakness of arms, no gross weakness of legs. Course Course ED COURSE: Vital signs were reviewed and showed tachycardia. The patients medical record was reviewed The above diagnostic studies were performed and reviewed. ED treatments and interventions as stated above. 2017: The patient was evaluated in room B06. A complete history and physical examination was performed. 8: I updated the patient, and she was walking around the room. 2248: I spoke with Dr. Shaver, [facility] hospitalist, about the patient's case. He will further evalaute the patient. 2256: Upon reevaluation, the patient is stable. I discussed my findings with the patient and she understands and agrees with the treatment plan. Based on the patients age, coexisting illnesses, exam and lab findings the decision to treat as an inpatient was made. The patient remained stable while under my care. The patient will be evaluated for further management. Administered Medications Discontinued Medications Furosemide (Lasix) 40 mg IV NOW STA Stop: 03/09/19 22:29 Last Admin: 03/09/19 22:53 Dose: 40 mg Documented by: [id number] Medical Decision Making Differential Diagnosis Differential diagnoses includes but is not limited to pneumonia, bronchitis, COPD/Asthma exacerbation, pneumothorax, pulmonary embolism, congestive heart failure, acute coronary syndrome Medical Records Attestation: I reviewed the patient's medical records. Home Medications Current Medication List: was personally reviewed by me Laboratory Data Attestation: I reviewed the patient's lab results. Result diagrams: 03/09/19 20:27 03/09/19 20:27 Lab Results 03/09/19 03/09/19 03/09/19 Range/Units 20:27 20:27 20:27 WBC 6.30 (4.8-10.8) K/uL RBC 4.64 (4.2-5.4) M/uL Hgb 15.1 (12.0-16.0) g/dL Hct 43.3 (37-47) % MCV 93.3 (80-100) fL MCH 32.5 (25-34) pg MCHC 34.9 (32-36) g/dL RDW Std Deviation 50.9 H (36.4-46.3) fL RDW Coeff of [place] 15.0 H (11.5-14.5) % Plt Count 160 (130-400) K/uL MPV 10.4 (7.4-10.4) fL Immature Gran % (Auto) 0.2 % Neut % (Auto) 67.8 % Lymph % (Auto) 22.1 % [place] % (Auto) 5.6 % Eos % (Auto) 4.1 % Baso % (Auto) 0.2 % Immature Gran # (Auto) 0.01 (0.00-0.02) K/uL Neut # (Auto) 4.28 (1.4-6.5) K/uL Lymph # (Auto) 1.39 (1.2-3.4) K/uL [place] # (Auto) 0.35 (0.11-0.59) K/uL Eos # (Auto) 0.26 (0-0.5) K/uL Baso # (Auto) 0.01 (0-0.2) K/uL PT 11.0 (9.0-12.0) Seconds INR 1.1 (0.9-1.1) APTT 25.6 (21.0-31.0) Seconds PTT Ratio 0.9 Sodium 139 (136-145) mmol/L Potassium 3.5 (3.5-5.1) mmol/L Chloride 102 (98-107) mmol/L Carbon Dioxide 31 (21-32) mmol/L Anion Gap 6.0 (3-11) BUN 19 H (7-18) mg/dl Creatinine 1.24 H (0.6-1.2) mg/dl Est Cr Clr Drug Dosing 38.5 ml/min Est GFR ( Amer) 50.3 Est GFR (Non-Af Amer) 43.4 BUN/Creatinine Ratio 15.5 (10-20) Glucose 106 H (70-99) mg/dl Calcium 11.1 H (8.5-10.1) mg/dl Total Bilirubin 0.7 (0.2-1) mg/dl AST 17 (15-37) U/L ALT 21 (12-78) U/L Alkaline Phosphatase 114 (45-117) U/L Troponin I < 0.015 (0-0.045) ng/ml NT-Pro-B Natriuret Pep 471 (0-900) pg/ml Total Protein 8.4 H (6.4-8.2) gm/dl Albumin 4.0 (3.4-5.0) gm/dl Globulin 4.4 H (2.5-4.0) gm/dl Albumin/Globulin Ratio 0.9 (0.9-2) Urine Color Urine Appearance (Clear) Urine pH (4.5-7.5) Ur Specific Rowe (1.000-1.030) Urine Protein (Negative) Urine Glucose (UA) (Negative) Urine Ketones (Negative) Urine Blood (Negative) Urine Nitrite (Negative) Urine Bilirubin (Negative) Urine Urobilinogen (Negative) Ur Leukocyte Esterase (Negative) Influenza Type A (PCR) (Neg) Influenza Type B (PCR) (Neg) 03/09/19 03/09/19 Range/Units 20:35 21:45 WBC (4.8-10.8) K/uL RBC (4.2-5.4) M/uL Hgb (12.0-16.0) g/dL Hct (37-47) % MCV (80-100) fL MCH (25-34) pg MCHC (32-36) g/dL RDW Std Deviation (36.4-46.3) fL RDW Coeff of [place] (11.5-14.5) % Plt Count (130-400) K/uL MPV (7.4-10.4) fL Immature Gran % (Auto) % Neut % (Auto) % Lymph % (Auto) % [place] % (Auto) % Eos % (Auto) % Baso % (Auto) % Immature Gran # (Auto) (0.00-0.02) K/uL Neut # (Auto) (1.4-6.5) K/uL Lymph # (Auto) (1.2-3.4) K/uL [place] # (Auto) (0.11-0.59) K/uL Eos # (Auto) (0-0.5) K/uL Baso # (Auto) (0-0.2) K/uL PT (9.0-12.0) Seconds INR (0.9-1.1) APTT (21.0-31.0) Seconds PTT Ratio Sodium (136-145) mmol/L Potassium (3.5-5.1) mmol/L Chloride (98-107) mmol/L Carbon Dioxide (21-32) mmol/L Anion Gap (3-11) BUN (7-18) mg/dl Creatinine (0.6-1.2) mg/dl Est Cr Clr Drug Dosing ml/min Est GFR ( Amer) Est GFR (Non-Af Amer) BUN/Creatinine Ratio (10-20) Glucose (70-99) mg/dl Calcium (8.5-10.1) mg/dl Total Bilirubin (0.2-1) mg/dl AST (15-37) U/L ALT (12-78) U/L Alkaline Phosphatase (45-117) U/L Troponin I (0-0.045) ng/ml NT-Pro-B Natriuret Pep (0-900) pg/ml Total Protein (6.4-8.2) gm/dl Albumin (3.4-5.0) gm/dl Globulin (2.5-4.0) gm/dl Albumin/Globulin Ratio (0.9-2) Urine Color Dark Yellow Urine Appearance Clear (Clear) Urine pH 5.0 (4.5-7.5) Ur Specific Rowe 1.023 (1.000-1.030) Urine Protein Negative (Negative) Urine Glucose (UA) Negative (Negative) Urine Ketones Trace H (Negative) Urine Blood Negative (Negative) Urine Nitrite Negative (Negative) Urine Bilirubin Negative (Negative) Urine Urobilinogen Negative (Negative) Ur Leukocyte Esterase Negative (Negative) Influenza Type A (PCR) Neg for Influ A (Neg) Influenza Type B (PCR) Neg for Influ B (Neg) Imaging Data Radiologist's Impression: Radiology results as stated below per my review and the radiologist's interpretation: XR chest 1V portable CLINICAL HISTORY: Dyspnea dyspnea COMPARISON STUDY: 10/01/2017 FINDINGS: Mild cardiac enlargement. Increased prominence of the pulmonary vasculature compared to the prior study. Chronic elevation right hemidiaphragm. IMPRESSION: Congestive heart failure ACT 112: Negative or not required by law. The above report was generated using voice recognition software. It may contain grammatical, syntax or spelling errors. Electronically signed by: Grant Mishra M.D. 03/09/2019 8:45 PM ECG Data Attestation: I personally reviewed and interpreted this ECG as follows: Indication: + SOB/dyspnea Rate (beats per minute): 64 Rhythm: + sinus rhythm ECG Intervals/blocks: + First degree AV block ECG [place]: + Normal ECG Findings: + Other (normal QTC, non specific ST changes in the inferior and lateral); no PVCs Comparison ECG Date: from (06/23/17) Change: no significant change (consistent with old EKG) Blood Pressure Blood Pressure Findings: Elevated blood pressure Blood Pressure Disposition: Referred to patients primary care provider ELIZABETH Carter Patient is a 73-year-old female who presents the ER for shortness of breath which is been worsening for the past month. Initially it was with exertion notes with rest. IV was established blood work was obtained. She was referred in by cardiology. Labs show no significant leukocytosis or anemia. INR was unremarkable. BMP was fairly unremarkable with exception of elevated calcium at 11.1. UA negative. Influenza negative. Patient had stress test in 2018 which was normal. Echo on 06/2017 with an EF of 65 to 70%. EKG was nondiagnostic. Patient ambulated and pulse ox dropped to 83 to 84%. Chest x-ray showed vascular congestion. She was given IV Lasix. Does have a history of A. fib on NOAC and flecainide. Patient/family were updated bedside and discussed with hospitalist for observation secondary to new onset CHF with hypoxia on exertion. Impression & Plan CHF (congestive heart failure), Hypoxia, REYES (dyspnea on exertion) Discharge Plan Visit Data Chief Complaint: Shortness of Breath/Dyspnea Stated Complaint: SOB, TALKED TO GLORIA ED Provider: Mehrdad Salgado Discharge Problem: CHF (congestive heart failure), Hypoxia, REYES (dyspnea on exertion) Patient Disposition: Being Evaluated by Hospitalist Forms Stand Alone Forms: My [facility], Important Visit Information Prescriptions Prescriptions: No Action tramadol 50 mg tablet 50 mg PO TID PRN (Reason: pain) Qty: 60 RF: 0 calcium carbonate-vitamin D3 600 mg(1,500mg) -200 unit tablet 1 tab PO BID RF: 0 cetirizine 10 mg tablet 10 mg PO QAM PRN (Reason: allergies) RF: 0 flecainide 100 mg tablet 100 mg PO Q12H Qty: 180 RF: 0 sertraline 100 mg tablet 100 mg PO HS Qty: 135 RF: 0 cholecalciferol (vitamin D3) 1,000 unit capsule 4,000 units PO QAM RF: 0 hydrochlorothiazide 25 mg tablet 25 mg PO QAM Qty: 90 RF: 0 Eliquis 5 mg tablet 5 mg PO BID Qty: 180 RF: 0 metoprolol succinate 25 mg tablet extended release 24 hr 25 mg PO HS Qty: 90 RF: 0 diclofenac sodium 1 % gel 2 gm topical BID PRN (Reason: Pain) Qty: 1 RF: 0 potassium chloride [Klor-Con M20] 20 mEq tablet,ER particles/crystals 20 meq PO BID RF: 0 pravastatin 80 mg tablet 80 mg PO HS RF: 0 Referrals Referrals: Emmie Weinstein DO [Primary Care Provider] - Discharge Problem: CHF (congestive heart failure) Qualifiers: Heart failure type: unspecified Heart failure chronicity: unspecified Qualified Code(s): I50.9 - Heart failure, unspecified The scribe's documentation has been prepared under my direction and personally r eviewed by me in its entirety. I confirm that the note above accurately reflects all work, treatment, procedures, and medical decision making performed by me.
--- NOTE | 2019-03-10 00:07 | History & Physical Report ---
Date of Service March 10, 2019 Assessment & Plan (1) REYES (dyspnea on exertion): 73 yo F with PMHx sign for paroxysmal AF (on flecainide, currently NSR, and eliquis), HTN (HCTZ, metoprolol), HLD (on pravastatin), severe QUINTON (compliant with CPAP), CREST/scleroderma (stable, sees Rheum, tramadol PRN) -- who presents for worsening shortness of breath on exertion x 3 weeks, although states she has had dyspnea in the past - attributed to her PAF, but dissipated once she converted. She grew increasingly concerned due to return of dyspnea over the last 3 weeks, and called her gear grinding machine operator office, was instructed to go to ED for further Eval. Found to be in NSR on EKG here. CXR concerning for pulm. edema. Hypoxia while ambulating down to 84%. Given lasix. Labs otherwise unremarkable, including neg trop, neg BNP, and normal e-lytes. Director Of Materials Management slightly elev 1.2. Of note, she endorses longstanding orthopnea, made better by initiating CPAP months ago, but states she still cannot lay flat. 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 Endorses increased salt intake over the last several weeks because she has lost her sense of taste. Assessment: -possible new onset CHF -last TTE: June 2017 - EF 65-70%, normal LV size, no sign diastolic disfunction. 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 (6) Obstructive sleep apnea (adult) (pediatric): compliant cont CPAP (7) Allergic rhinitis: cont home cetirizine (8) Hypertension: cont home HCTZ, metoprolol History of Present Illness Primary Care Provider: Emmie Weinstein, DO 73 yo F with PMHx sign for paroxysmal AF (on flecainide, currently NSR, and eliquis), HTN (HCTZ, metoprolol), HLD (on pravastatin), severe QUINTON (compliant with CPAP), CREST/scleroderma (stable, sees Rheum, tramadol PRN) -- who presents for worsening shortness of breath on exertion x 3 weeks, although states she has had dyspnea in the past - attributed to her PAF, but dissipated once she converted. She grew increasingly concerned due to return of dyspnea over the last 3 weeks, and called her gear grinding machine operator office, was instructed to go to ED for further Eval. Found to be in NSR on EKG here. CXR concerning for pulm. edema. Hypoxia while ambulating down to 84%. Given lasix. Labs otherwise unremarkable, including neg trop, neg BNP, and normal e-lytes. Director Of Materials Management slightly elev 1.2. Of note, she endorses longstanding orthopnea, made better by initiating CPAP months ago, but states she still cannot lay flat. 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 Endorses increased salt intake over the last several weeks because she has lost her sense of taste. Denies T/E/D. Allergies Allergy/AdvReac Type Severity Reaction Status Date / Time pollen extracts Allergy Intermediate ITCHY, Verified 03/09/19 21:14 WATERY EYES, SNEEZING, CONGESTION adhesive Allergy Mild skin Verified 03/09/19 21:14 irritation/'burning' diclofenac Allergy Mild RASH Verified 03/09/19 21:14 Penicillins Allergy Mild HIVES Verified 03/09/19 21:14 capsaicin Allergy Unknown RASH Verified 03/09/19 21:14 Diclopak Allergy Unknown RASH Verified 10/21/17 12:04 Home Medications Home Medications Medication Instructions Recorded Confirmed Type apixaban 5 mg tablet 5 mg PO BID #180 tab 11/17/18 03/09/19 History cetirizine 10 mg tablet 10 mg PO QAM PRN tab 11/17/18 03/09/19 History cholecalciferol (vitamin D3) 25 4,000 units PO QAM cap 11/17/18 03/09/19 History mcg (1,000 unit) capsule flecainide 100 mg tablet 100 mg PO Q12H #180 tab 11/17/18 03/09/19 History hydrochlorothiazide 25 mg tablet 25 mg PO QAM #90 tab 11/17/18 03/09/19 History metoprolol succinate 25 mg 25 mg PO HS #90 tab 11/17/18 03/09/19 History tablet,extended release 24 hr sertraline 100 mg tablet 100 mg PO HS #135 tab 11/17/18 03/09/19 History diclofenac sodium 1 % topical gel 2 gm TOPICAL BID PRN #1 gm 11/22/18 03/09/19 History calcium carbonate 600 mg (1,500 1 tab PO BID 11/24/18 03/09/19 History mg)-vitamin D3 200 unit tablet tramadol 50 mg tablet 50 mg PO TID PRN #60 tab 02/17/19 03/09/19 Rx potassium chloride [Klor-Con M20] 20 meq PO BID 03/09/19 03/09/19 History pravastatin 80 mg PO HS 03/09/19 03/09/19 History Past Med/Surg History Medical History Allergic rhinitis Anticoagulant long-term use Atrial fibrillation with rapid ventricular response Carotid artery plaque Chronic a-fib 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 Depression with anxiety Diverticulosis Dyslipidemia Gastroesophageal reflux disease Generalized osteoarthritis of multiple sites Hypertension Impaired fasting glucose Internal hemorrhoids Lichen sclerosus et atrophicus Lymphoproliferative disease Mass of left lung (Resolved) Morbid obesity Obstructive sleep apnea (adult) (pediatric) Osteoarthritis Osteopenia Paroxysmal atrial fibrillation Paroxysmal atrial flutter (Chronic) Pneumonia (Resolved) LAST 3-4 YRS AGO--NO ISSUES NOW--HAD PNX SHOT Pulmonary nodule Raynaud's disease without gangrene Splenomegaly Vitamin D deficiency Surgical History H/O dilation and curettage H/O wrist surgery History of bilateral tubal ligation History of carpal tunnel surgery bilateral History of lobectomy of lung (01/2016) L LUNG--01/2016 (BENIGN) History of tooth extraction History of total knee replacement (09/2014) L KNEE Hx of cataract surgery RIGHT Hx of lumpectomy L BREAST (BENIGN) Family History Mother History of colon cancer Hypercholesteremia Father Hx of CABG Coronary heart disease Cardiac disorder Hypertension Sinus disorder Stroke syndrome Social History Preferred Language: [place] Communication 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 Otherwise is on room air. GENERAL: Awake, alert to person, place, and time, nontoxic-appearing, in no distress. HENT: Normocephalic, atraumatic. Mucus membranes appear moist. EYES: Normal conjunctiva. Sclera non-icteric. EOMI. NECK: Supple. Full range of motion. No JVD. RESPIRATORY: Clear to auscultation. Normal work of breathing. CARDIAC: Regular rate, normal rhythm. Extremities warm and well perfused, ABDOMEN: Soft, non-distended. Mild tenderness to palpation in epigastrium. No rebound or guarding. No masses. Bowel sounds are normal. LOWER EXTREMITIES: Inspection of calves reveal equal size bilaterally. They are non-tender. No edema. No discoloration. NEURO: No gross focal motor deficits noted. Sensation in tact. CN II-XII grossly in tact. . SKIN: Rash not present. No jaundice noted. Significant lesions not present. PSYCH: Appropriate mood and affect. Cooperative. Daughter Nika is present at bedside. Exam as done by Lizzette Lennon MD, Domestic Cleaner. Results & Data Vital Signs (Past 12 Hours) Vital Signs Temp Pulse Pulse Resp BP BP Pulse Ox 03/09/19 23:16 63 18 131/68 93 03/09/19 22:34 84 L 03/09/19 22:10 59 L 17 93 03/09/19 22:01 57 L 21 92 03/09/19 22:00 60 20 144/76 H 92 03/09/19 21:50 61 22 92 03/09/19 21:40 58 L 19 90 03/09/19 21:31 56 L 14 91 03/09/19 21:30 57 L 22 143/69 H 93 03/09/19 21:20 57 L 20 92 03/09/19 21:10 58 L 17 91 03/09/19 21:01 59 L 19 91 03/09/19 21:00 60 17 145/75 H 89 L 03/09/19 20:50 60 15 94 03/09/19 20:40 105 H 16 91 03/09/19 20:31 62 22 139/68 90 03/09/19 20:30 73 22 90 03/09/19 20:28 97 03/09/19 20:20 66 21 96 03/09/19 20:15 61 13 93 03/09/19 20:04 94 03/09/19 19:49 36.7 C 68 18 148/79 H 92 Pulse Ox 03/09/19 23:16 03/09/19 22:34 84 L 03/09/19 22:10 03/09/19 22:01 03/09/19 22:00 03/09/19 21:50 03/09/19 21:40 03/09/19 21:31 03/09/19 21:30 03/09/19 21:20 03/09/19 21:10 03/09/19 21:01 03/09/19 21:00 03/09/19 20:50 03/09/19 20:40 03/09/19 20:31 03/09/19 20:30 03/09/19 20:28 03/09/19 20:20 03/09/19 20:15 03/09/19 20:04 03/09/19 19:49 Laboratory Results 03/09/19 03/09/19 03/09/19 Range/Units 21:45 20:35 20:27 WBC (4.8-10.8) K/uL RBC (4.2-5.4) M/uL Hgb (12.0-16.0) g/dL Hct (37-47) % MCV (80-100) fL MCH (25-34) pg MCHC (32-36) g/dL RDW Std Deviation (36.4-46.3) fL RDW Coeff of [place] (11.5-14.5) % Plt Count (130-400) K/uL MPV (7.4-10.4) fL Immature Gran % (Auto) % Neut % (Auto) % Lymph % (Auto) % [place] % (Auto) % Eos % (Auto) % Baso % (Auto) % Immature Gran # (Auto) (0.00-0.02) K/uL Neut # (Auto) (1.4-6.5) K/uL Lymph # (Auto) (1.2-3.4) K/uL [place] # (Auto) (0.11-0.59) K/uL Eos # (Auto) (0-0.5) K/uL Baso # (Auto) (0-0.2) K/uL PT (9.0-12.0) Seconds INR (0.9-1.1) APTT (21.0-31.0) Seconds PTT Ratio Sodium 139 (136-145) mmol/L Potassium 3.5 (3.5-5.1) mmol/L Chloride 102 (98-107) mmol/L Carbon Dioxide 31 (21-32) mmol/L Anion Gap 6.0 (3-11) BUN 19 H (7-18) mg/dl Creatinine 1.24 H (0.6-1.2) mg/dl Est Cr Clr Drug Dosing 38.5 ml/min Est GFR ( Amer) 50.3 Est GFR (Non-Af Amer) 43.4 BUN/Creatinine Ratio 15.5 (10-20) Glucose 106 H (70-99) mg/dl Calcium 11.1 H (8.5-10.1) mg/dl Total Bilirubin 0.7 (0.2-1) mg/dl AST 17 (15-37) U/L ALT 21 (12-78) U/L Alkaline Phosphatase 114 (45-117) U/L Troponin I < 0.015 (0-0.045) ng/ml NT-Pro-B Natriuret Pep 471 (0-900) pg/ml Total Protein 8.4 H (6.4-8.2) gm/dl Albumin 4.0 (3.4-5.0) gm/dl Globulin 4.4 H (2.5-4.0) gm/dl Albumin/Globulin Ratio 0.9 (0.9-2) Urine Color Dark Yellow Urine Appearance Clear (Clear) Urine pH 5.0 (4.5-7.5) Ur Specific [place] 1.023 (1.000-1.030) Urine Protein Negative (Negative) Urine Glucose (UA) Negative (Negative) Urine Ketones Trace H (Negative) Urine Blood Negative (Negative) Urine Nitrite Negative (Negative) Urine Bilirubin Negative (Negative) Urine Urobilinogen Negative (Negative) Ur Leukocyte Esterase Negative (Negative) Influenza Type A (PCR) Neg for Influ A (Neg) Influenza Type B (PCR) Neg for Influ B (Neg) 03/09/19 03/09/19 Range/Units 20:27 20:27 WBC 6.30 (4.8-10.8) K/uL RBC 4.64 (4.2-5.4) M/uL Hgb 15.1 (12.0-16.0) g/dL Hct 43.3 (37-47) % MCV 93.3 (80-100) fL MCH 32.5 (25-34) pg MCHC 34.9 (32-36) g/dL RDW Std Deviation 50.9 H (36.4-46.3) fL RDW Coeff of [place] 15.0 H (11.5-14.5) % Plt Count 160 (130-400) K/uL MPV 10.4 (7.4-10.4) fL Immature Gran % (Auto) 0.2 % Neut % (Auto) 67.8 % Lymph % (Auto) 22.1 % [place] % (Auto) 5.6 % Eos % (Auto) 4.1 % Baso % (Auto) 0.2 % Immature Gran # (Auto) 0.01 (0.00-0.02) K/uL Neut # (Auto) 4.28 (1.4-6.5) K/uL Lymph # (Auto) 1.39 (1.2-3.4) K/uL [place] # (Auto) 0.35 (0.11-0.59) K/uL Eos # (Auto) 0.26 (0-0.5) K/uL Baso # (Auto) 0.01 (0-0.2) K/uL PT 11.0 (9.0-12.0) Seconds INR 1.1 (0.9-1.1) APTT 25.6 (21.0-31.0) Seconds PTT Ratio 0.9 Sodium (136-145) mmol/L Potassium (3.5-5.1) mmol/L Chloride (98-107) mmol/L Carbon Dioxide (21-32) mmol/L Anion Gap (3-11) BUN (7-18) mg/dl Creatinine (0.6-1.2) mg/dl Est Cr Clr Drug Dosing ml/min Est GFR ( Amer) Est GFR (Non-Af Amer) BUN/Creatinine Ratio (10-20) Glucose (70-99) mg/dl Calcium (8.5-10.1) mg/dl Total Bilirubin (0.2-1) mg/dl AST (15-37) U/L ALT (12-78) U/L Alkaline Phosphatase (45-117) U/L Troponin I (0-0.045) ng/ml NT-Pro-B Natriuret Pep (0-900) pg/ml Total Protein (6.4-8.2) gm/dl Albumin (3.4-5.0) gm/dl Globulin (2.5-4.0) gm/dl Albumin/Globulin Ratio (0.9-2) Urine Color Urine Appearance (Clear) Urine pH (4.5-7.5) Ur Specific [place] (1.000-1.030) Urine Protein (Negative) Urine Glucose (UA) (Negative) Urine Ketones (Negative) Urine Blood (Negative) Urine Nitrite (Negative) Urine Bilirubin (Negative) Urine Urobilinogen (Negative) Ur Leukocyte Esterase (Negative) Influenza Type A (PCR) (Neg) Influenza Type B (PCR) (Neg) Supervising Physician Co-Signing Physician Notes Pt seen/examined in conjunction with resident MD Tyler Lennon. Orders and plan of admission reviewed with resident. 73 y/o F Hx PAF, HTN, HLD, QUINTON, scleroderma/crest. Presenting with progressive SOB. Denies a history of CHF - exam/ imaging/labs consistent with new-onset CHF. OE AA) x 3 S1,2 irr BL crackles at bases NT, ND No CCE No deficits No rashes/ulcers P: CHF - AM echo - diuresis - I/O , daily weights PAF - cont Flecainide, Eliquis HTN, HLD - cont Toprol - HCTZ held in favor of Lasix due to CHF - cont pravastatin Resident Activity Tracking Resident Involvement: Resident Care Provided Care Provided: Adult Hospital Medicine
[2019-03-10] MEDS ORDERED: ONDANSETRON INJ 2 MG/ML 2 ML VIAL IV PRN (00:51)
[2019-03-10] MEDS ORDERED: DICLOFENAC SOD 1% GEL 100 GM TUBE EXT PRN (00:51)
[2019-03-10] MEDS ORDERED: CETIRIZINE HCL 10 MG TABLET PO PRN ×2 (00:51→22:16)
[2019-03-10] MEDS ORDERED: POLYETHYLENE (MIRALAX) 17 GM PACK PO PRN (00:51)
[2019-03-10] MEDS ORDERED: ACETAMINOPHEN 325 MG TAB PO PRN (00:51)
[2019-03-10] MEDS ORDERED: TRAMADOL HCL 50 MG TABLET PO PRN (00:51)
[2019-03-10] MEDS ORDERED: ALUMINUM/MAGNESIUM SUSP 30 ML UDC PO PRN (00:51)
[2019-03-10] MEDS ORDERED: MAGNESIUM HYDROXIDE SUSP 30 ML UDC PO PRN (00:51)
[2019-03-10 07:16] LABS: BUN Creatinine Ratio 15.2 (10-20); Calcium 10.8 mg/dl (8.5-10.1); Creatinine Clr Calc Pharmacy 37.8 ml/min; Est GFR (African American) 49.3; Est GFR (Non-African American) 42.5; Potassium 3.4 mmol/L (3.5-5.1)
[2019-03-10] MEDS ORDERED: hydroCHLOROthiazide 25 MG TAB PO SCH (09:00)
[2019-03-10] MEDS: APIXABAN 5 MG TABLET PO SCH ×2 (09:13→21:11)
[2019-03-10] MEDS: POTASSIUM CHLORIDE 20 MEQ TABCR PO SCH ×2 (09:13→21:10)
[2019-03-10] MEDS: FLECAINIDE ACETATE 100 MG TABLET PO SCH ×2 (09:13→21:10)
[2019-03-10] MEDS ORDERED: POTASSIUM CHLORIDE 20 MEQ TABCR PO STA (10:04)
[2019-03-10] MEDS ORDERED: FUROSEMIDE 20 MG in SYRINGE 0 ML IV ONE (10:20)
--- NOTE | 2019-03-10 13:49 | Hospitalist Progress Note ---
Date of Service March 10, 2019 Assessment & Plan (1) REYES (dyspnea on exertion): This patient is a 73 yo F with PMHx sign for paroxysmal AF (on flecainide, currently NSR, and eliquis), HTN (HCTZ, metoprolol), HLD (on pravastatin), severe QUINTON (compliant with CPAP), CREST/scleroderma (stable, previously saw Rheum, tramadol PRN) -- who presents for worsening shortness of breath on exertion x 3 weeks, although states she has had dyspnea in the past - attributed to her PAF, but dissipated once she converted. She grew increasingly concerned due to return of dyspnea over the last 3 weeks, and called her home inspector office, was instructed to go to ED for further Eval. Found to be in NSR on EKG here. CXR concerning for pulm. edema although proBNP was normal. She had hypoxia while ambulating down to 84%. Given lasix in the emergency room. Labs otherwise unremarkable, including neg trop, neg BNP, and normal e-lytes. Travel Physical Therapist slightly elev 1.2 and hypercalcemic at 11.1. Of note, she endorses longstanding orthopnea, made better by initiating CPAP months ago, but states she still cannot lay flat. 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 Endorses increased salt intake over the last several weeks because she has lost her sense of taste. Much improved today after IV Lasix. No evidence of arrhythmia on telemetry to account for this and no history of chronic lung disease -Admitted to assess for new onset CHF-discussed with cardiology and do not feel that that she has CHF, but did have some pulmonary vascular congestion likely from volume overload from increased sodium intake She has responded well to a few doses now of IV Lasix-we will give 1 more dose in the morning -last TTE: June 2017 - EF 65-70%, normal LV size. Repeat echocardiogram here again with preserved EF. -increased salt intake likely contributed to volume overload-cautioned about low-sodium diet -Daily weights, strict I's and O's, low-sodium diet -Consider pulmonary function tests as an outpatient-she does have a diagnosis of crest but not systemic scleroderma, although I do not have access to her rheumatology records for review-scleroderma patients can develop pulmonary fibrosis and I do hear some fine crackles on examination but these also could be consistent with pulmonary edema (2) Paroxysmal atrial flutter: Remains in NSR here Cont home flecainide and toprol and eliquis (3) CREST variant of scleroderma: cont home tramadol PRN -Previously followed with rheumatology-again, I do not have records for review (4) Degenerative joint disease of cervical spine: Noted (5) Depression with anxiety: -Report from outpatient PCP suggested weaning off sertraline in November 2018 (6) Obstructive sleep apnea (adult) (pediatric): compliant with CPAP at home but did not receive here -CPAP is indeed ordered here for tonight (7) Allergic rhinitis: cont home cetirizine (8) Hypertension: Holding home HCTZ while diuresing with Lasix, continue metoprolol Blood pressures are well controlled here (9) Hypercalcemia: Calcium was elevated 11.1 on admission -Advised her to discontinue vitamin D and calcium use at this time Repeat calcium is now slightly lower at 10.8 Creatinine is slightly elevated at 1.29 and this likely could be contributing Calcium has never been elevated before; vitamin D level was low normal at 27 just 3 months ago -Check vitamin D level, intact PTH, phosphorus, follow BMP with calcium -Lasix may also help with this -Not severely elevated but perhaps could be contributing to her excessive sweating (10) Diaphoresis: Possibly related to hypercalcemia? Unclear what other reason, does not seem like she has any B type symptoms -Continue to follow This is a chronic complaint (11) DVT prophylaxis: Eliquis Disposition-remain on medical telemetry floor overnight and perhaps discharged home tomorrow Subjective Patient reports feeling less short of breath today. Her main complaint is that for at least the last month, she has been having sweats especially after eating. Denies chills or fevers. Denies weight loss that is unintentional-she has lost 10 pounds in the long-term purposefully. Denies weight gain. Denies cough or sore throat, no headache or lightheadedness. Denies abdominal pain or nausea. No trouble with her bowels or bladder. She does report that she takes 4000 units of vitamin D plus a calcium and vitamin D supplement twice a day for the last several years but it has not changed. I discussed her case with the home inspector today. Telemetry with normal sinus rhythm with rates in the 60s to 70s. She did not get CPAP here last night although it was ordered Review of Systems Review of Systems: All systems reviewed & are unremarkable except as noted in HPI & below Physical Exam Constitutional: WD/WN, vitals as above Eyes: PERRL, conjunctivae normal, anicteric sclerae ENMT: external ear and nose normal, oropharynx normal Neck: trachea midline, no thyromegaly Respiratory: normal respiratory effort; no labored breathing Auscultation: + crackles (Mild at the bases); no rhonchi and no wheezes Cardiovascular: RRR, no murmur, no edema Chest (Breasts): Chest: normal inspection of chest Gastrointestinal (Abdomen): normal bowel sounds, soft, nontender, no hepatosplenomegaly Musculoskeletal: Extremities: extremities normal to inspection; no cyanosis and no clubbing Skin: no rashes, warm and dry Neurologic: moves all extremities and awake; no focal motor deficits Psychiatric: A+Ox3, euthymic affect Lymphatic: no lymphedema Results & Data Vital Signs (Past 12 Hours) Vital Signs Temp Pulse Pulse Resp BP Pulse Ox 03/10/19 11:23 36.5 C 67 16 126/77 94 03/10/19 08:00 70 03/10/19 07:36 36.5 C 64 18 144/81 H 94 Laboratory Results Labs reviewed, creatinine 1.26, proBNP 471, calcium corrected is 10.8 down from 11.1 yesterday PG Care Time/CCT Total # of Minutes Spent Total Time Spent with Patient: Total time spent is greater than 50% in coordination of care (as documented) at patient's floor/unit and/or counseling patient:
[2019-03-10 14:42] LABS: Phosphorus 5.5 mg/dl (2.5-4.9); Thyroid Stimulating Hormone 2.63 uIu/ml (0.300-4.500)
--- NOTE | 2019-03-10 18:46 | Cardiology Consultation ---
Date of Consultation March 10, 2019 Assessment & Plan (1) REYES (dyspnea on exertion): She appears to have had an element of pulmonary vascular congestion. Despite a normal BNP, she responded quite well to diuresis. This would suggest pulmonary edema as the etiology of her dyspnea. This perhaps was related to some dietary indiscretion recently and high sodium intake. She otherwise is known to have preserved LV systolic and diastolic function. She has not suffered similar symptoms in the past. I suspect that with adequate diuresis she will not require an outpatient diuretic. I cautioned her regarding high sodium intake. There is not appear to be on other proximate cause for her symptoms. She did not have any evidence of arrhythmia. In the past she has been symptomatic with atrial fibrillation. No evidence of a recent ischemic event. Blood pressure appears well controlled. (2) Paroxysmal atrial fibrillation: Currently maintaining sinus rhythm on flecainide. She will metoprolol and adequately anticoagulated with apixaban. No recent symptoms or objective evidence of atrial fibrillation. History of Present Illness Reason for Consultation: Shortness of breath Requesting Physician: Yadi Attending Physician: Santa Grullon MD History of Present Illness The patient is a 73-year-old woman with a history of paroxysmal atrial fibrillation who has been experiencing worsening shortness of breath over a period several days. Patient states that normally she has not been short of breath. She is able to perform her usual activity without limiting dyspnea. However, recently she has had a change in her diet. She was not able to taste things like she normally would in admits to using more salt. She also had [place] in [place] other salty foods recently over the holidays. She did not report overt orthopnea, but does use CPAP at night. She has been sleeping on her side mostly. She has not noticed any swelling in her lower extremities or increasing abdominal girth. She has not noticed any palpitations or chest pain. She does measure her blood pressure recently and has not noticed any high heart rates or significant hemodynamic derangements. She has had some dizziness on occasion. This appears to have occurred with changes in position. She is not markedly presyncopal and did not report syncope. At the time of admission the patient was felt to have an element of pulmonary vascular congestion and was administer diuretics. Since diuresing, her breathing has improved significantly. Allergies Allergy/AdvReac Type Severity Reaction Status Date / Time pollen extracts Allergy Intermediate ITCHY, Verified 03/09/19 21:14 WATERY EYES, SNEEZING, CONGESTION adhesive Allergy Mild skin Verified 03/09/19 21:14 irritation/'burning' diclofenac Allergy Mild RASH Verified 03/09/19 21:14 Penicillins Allergy Mild HIVES Verified 03/09/19 21:14 capsaicin Allergy Unknown RASH Verified 03/09/19 21:14 Diclopak Allergy Unknown RASH Verified 10/21/17 12:04 Home Medications Home Medications Medication Instructions Recorded Confirmed Type apixaban 5 mg tablet 5 mg PO BID #180 tab 11/17/18 03/09/19 History cetirizine 10 mg tablet 10 mg PO QAM PRN tab 11/17/18 03/09/19 History cholecalciferol (vitamin D3) 25 4,000 units PO QAM cap 11/17/18 03/09/19 History mcg (1,000 unit) capsule flecainide 100 mg tablet 100 mg PO Q12H #180 tab 11/17/18 03/09/19 History hydrochlorothiazide 25 mg tablet 25 mg PO QAM #90 tab 11/17/18 03/09/19 History metoprolol succinate 25 mg 25 mg PO HS #90 tab 11/17/18 03/09/19 History tablet,extended release 24 hr sertraline 100 mg tablet 100 mg PO HS #135 tab 11/17/18 03/09/19 History diclofenac sodium 1 % topical gel 2 gm TOPICAL BID PRN #1 gm 11/22/18 03/09/19 History calcium carbonate 600 mg (1,500 1 tab PO BID 11/24/18 03/09/19 History mg)-vitamin D3 200 unit tablet tramadol 50 mg tablet 50 mg PO TID PRN #60 tab 02/17/19 03/09/19 Rx potassium chloride [Klor-Con M20] 20 meq PO BID 03/09/19 03/09/19 History pravastatin 80 mg PO HS 03/09/19 03/09/19 History Patient History Medical History Allergic rhinitis Anticoagulant long-term use Atrial fibrillation with rapid ventricular response Carotid artery plaque Chronic a-fib 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 Depression with anxiety Diverticulosis Dyslipidemia Gastroesophageal reflux disease Generalized osteoarthritis of multiple sites Hypertension Impaired fasting glucose Internal hemorrhoids Lichen sclerosus et atrophicus Lymphoproliferative disease Mass of left lung (Resolved) Morbid obesity Obstructive sleep apnea (adult) (pediatric) Osteoarthritis Osteopenia Paroxysmal atrial fibrillation Paroxysmal atrial flutter (Chronic) Pneumonia (Resolved) LAST 3-4 YRS AGO--NO ISSUES NOW--HAD PNX SHOT Pulmonary nodule Raynaud's disease without gangrene Splenomegaly Vitamin D deficiency Surgical History H/O dilation and curettage H/O wrist surgery History of bilateral tubal ligation History of carpal tunnel surgery bilateral History of lobectomy of lung (01/2016) L LUNG--01/2016 (BENIGN) History of tooth extraction History of total knee replacement (09/2014) L KNEE Hx of cataract surgery RIGHT Hx of lumpectomy L BREAST (BENIGN) Family History Mother History of colon cancer Hypercholesteremia Father Hx of CABG Coronary heart disease Cardiac disorder Hypertension Sinus disorder Stroke syndrome Social History Preferred Language: Kyrgyz Communication Ability: Effective Solar Energy Specialist Required: No Beliefs That Will Affect Care: None marital status: / Current Living Situation: Alone current occupational status: retired Feels Safe at Home: Yes Safety Concerns: Feels Safe At This Time Smoking Status: Never smoker Second Hand Exposure: Yes ; Hx Alcohol Use: No Hx Substance Use: No Review of Systems Review of Systems: All systems reviewed & are unremarkable except as noted in HPI & below Some occasional abdominal discomfort. No vomiting. Diaphoresis with eating. Physical Exam Physical Exam: She is alert and oriented x3. Mood affect appear normal. She answered all questions appropriately. HEENT: Sclerae are anicteric. Pupils are equal and reactive to light and accommodation. Extraocular movements were intact. Neuro: Cranial nerves intact Neck: Examination of the submandibular region did not reveal any significant lymphadenopathy. Carotids are palpable bilaterally and free of bruits on auscultation. There was no evidence of jugular venous distention. The thyroid was not enlarged. Lungs: Lungs are clear to auscultation bilaterally. There are no rales wheezes or rhonchi. She has normal respiratory effort without use of accessory muscles. There is normal pulmonary excursion. Cardiac: The rhythm was regular. S1 and S2 were normal. Systolic murmur appreciated. The PMI was not markedly displaced on palpation. Abdomen: The abdomen was soft and nontender. Extremities: Patient has bilateral radial pulses that are equal in intensity. There is no evidence cyanosis or clubbing. There was no evidence of significant peripheral edema bilaterally. Skin: There are no rashes noted on examination today. Results & Data Vital Signs (Past 12 Hours) Vital Signs Temp Pulse Pulse Resp BP Pulse Ox 03/10/19 16:00 76 03/10/19 15:37 36.9 C 72 16 137/78 91 03/10/19 11:23 36.5 C 67 16 126/77 94 03/10/19 08:00 70 03/10/19 07:36 36.5 C 64 18 144/81 H 94 Laboratory Results Abnormal Lab Results 03/09/19 03/09/19 03/09/19 20:27 20:27 20:27 WBC 6.30 RBC 4.64 Hgb 15.1 Hct 43.3 MCV 93.3 MCH 32.5 MCHC 34.9 RDW Std Deviation 50.9 H RDW Coeff of [place] 15.0 H Plt Count 160 MPV 10.4 Immature Gran % (Auto) 0.2 Neut % (Auto) 67.8 Lymph % (Auto) 22.1 [place] % (Auto) 5.6 Eos % (Auto) 4.1 Baso % (Auto) 0.2 Immature Gran # (Auto) 0.01 Neut # (Auto) 4.28 Lymph # (Auto) 1.39 [place] # (Auto) 0.35 Eos # (Auto) 0.26 Baso # (Auto) 0.01 PT 11.0 INR 1.1 APTT 25.6 PTT Ratio 0.9 Sodium 139 Potassium 3.5 Chloride 102 Carbon Dioxide 31 Anion Gap 6.0 BUN 19 H Creatinine 1.24 H Est Cr Clr Drug Dosing 38.5 Est GFR ( Amer) 50.3 Est GFR (Non-Af Amer) 43.4 BUN/Creatinine Ratio 15.5 Glucose 106 H Calcium 11.1 H Phosphorus Total Bilirubin 0.7 AST 17 ALT 21 Alkaline Phosphatase 114 Troponin I < 0.015 NT-Pro-B Natriuret Pep 471 Total Protein 8.4 H Albumin 4.0 Globulin 4.4 H Albumin/Globulin Ratio 0.9 25-OH Vitamin D Total TSH PTH Intact Urine Color Urine Appearance Urine pH Ur Specific [place] Urine Protein Urine Glucose (UA) Urine Ketones Urine Blood Urine Nitrite Urine Bilirubin Urine Urobilinogen Ur Leukocyte Esterase Influenza Type A (PCR) Influenza Type B (PCR) 03/09/19 03/09/19 03/10/19 20:35 21:45 06:19 WBC RBC Hgb Hct MCV MCH MCHC RDW Std Deviation RDW Coeff of [place] Plt Count MPV Immature Gran % (Auto) Neut % (Auto) Lymph % (Auto) [place] % (Auto) Eos % (Auto) Baso % (Auto) Immature Gran # (Auto) Neut # (Auto) Lymph # (Auto) [place] # (Auto) Eos # (Auto) Baso # (Auto) PT INR APTT PTT Ratio Sodium 141 Potassium 3.4 L Chloride 101 Carbon Dioxide 34 H Anion Gap 6.0 BUN 19 H Creatinine 1.26 H Est Cr Clr Drug Dosing 37.8 Est GFR ( Amer) 49.3 Est GFR (Non-Af Amer) 42.5 BUN/Creatinine Ratio 15.2 Glucose 143 H Calcium 10.8 H Phosphorus Total Bilirubin AST ALT Alkaline Phosphatase Troponin I NT-Pro-B Natriuret Pep Total Protein Albumin Globulin Albumin/Globulin Ratio 25-OH Vitamin D Total TSH PTH Intact Urine Color Dark Yellow Urine Appearance Clear Urine pH 5.0 Ur Specific [place] 1.023 Urine Protein Negative Urine Glucose (UA) Negative Urine Ketones Trace H Urine Blood Negative Urine Nitrite Negative Urine Bilirubin Negative Urine Urobilinogen Negative Ur Leukocyte Esterase Negative Influenza Type A (PCR) Neg for Influ A Influenza Type B (PCR) Neg for Influ B 03/10/19 03/10/19 03/10/19 06:19 15:58 15:58 WBC RBC Hgb Hct MCV MCH MCHC RDW Std Deviation RDW Coeff of [place] Plt Count MPV Immature Gran % (Auto) Neut % (Auto) Lymph % (Auto) [place] % (Auto) Eos % (Auto) Baso % (Auto) Immature Gran # (Auto) Neut # (Auto) Lymph # (Auto) [place] # (Auto) Eos # (Auto) Baso # (Auto) PT INR APTT PTT Ratio Sodium Potassium Chloride Carbon Dioxide Anion Gap BUN Creatinine Est Cr Clr Drug Dosing Est GFR ( Amer) Est GFR (Non-Af Amer) BUN/Creatinine Ratio Glucose Calcium Phosphorus 5.5 H Total Bilirubin AST ALT Alkaline Phosphatase Troponin I NT-Pro-B Natriuret Pep Total Protein Albumin Globulin Albumin/Globulin Ratio 25-OH Vitamin D Total 51.3 TSH 2.630 PTH Intact 34.3 Urine Color Urine Appearance Urine pH Ur Specific [place] Urine Protein Urine Glucose (UA) Urine Ketones Urine Blood Urine Nitrite Urine Bilirubin Urine Urobilinogen Ur Leukocyte Esterase Influenza Type A (PCR) Influenza Type B (PCR) Diagnostic Findings Chest x-ray obtained at the time of admission revealed evidence of pulmonary vascular congestion and elevated right hemidiaphragm, reportedly chronic Echocardiogram obtained today revealed preserved LV systolic and diastolic function. Mildly dilated left atrium. ECG Additional Comments: EKG obtained at the time of admission revealed normal sinus rhythm with nonspecific ST and T-wave changes. PG Care Time/CCT Total # of Minutes Spent Total Time Spent with Patient: Total time spent is greater than 50% in coordination of care (as documented) at patient's floor/unit and/or counseling patient:
[2019-03-10] MEDS ORDERED: PRAVASTATIN SOD 40 MG TAB PO SCH (21:00)
[2019-03-10] MEDS ORDERED: METOPROLOL SUCC 25MG EXT REL TAB PO SCH (21:00)
--- NOTE | 2019-03-10 21:32 | Communication Note ---
Date of Service: March 10, 2019 Depression Patient informed nursing and physician that she is still taking sertraline 100 mg and that she was never weaned off. -Continue sertraline 100 mg at bedtime Resident Activity Tracking Resident Involvement: Resident Care Provided Care Provided: Adult [facility]
[2019-03-10] MEDS ORDERED: SERTRALINE HCL 100 MG TABLET PO SCH (22:00)
[2019-03-11] MEDS ORDERED: TRAZODONE HCL 50 MG TAB PO PRN (00:21)
--- NOTE | 2019-03-11 07:27 | Electrocardiogram Report ---
Test Reason : Blood Pressure : / mmHG Vent. Rate : 064 BPM Atrial Rate : 064 BPM P-R Int : 242 ms QRS Dur : 086 ms QT Int : 416 ms P-R-T Axes : 046 079 090 degrees QTc Int : 429 ms Sinus rhythm with 1st degree A-V block Abnormal ECG When compared with ECG of 28-OCT-2017 07:04, No significant change was found Confirmed by Luciano Wright ([id number]) on 03/11/2019 7:26:42 AM Referred By: Erlin Brennan Confirmed By:Gerson Wright
[2019-03-11 07:31] LABS: BUN Creatinine Ratio 24.4 (10-20); Calcium 9.4 mg/dl (8.5-10.1); Creatinine Clr Calc Pharmacy 40.5 ml/min; Est GFR (African American) 53.9; Est GFR (Non-African American) 46.5; Potassium 3.1 mmol/L (3.5-5.1)
[2019-03-11] MEDS: POTASSIUM CHLORIDE 20 MEQ TABCR PO SCH (08:18)
[2019-03-11] MEDS: APIXABAN 5 MG TABLET PO SCH (08:18)
[2019-03-11] MEDS: FLECAINIDE ACETATE 100 MG TABLET PO SCH (08:19)
[2019-03-11] MEDS ORDERED: POTASSIUM CHLORIDE 20 MEQ TABCR PO STA (08:37)
[2019-03-11] MEDS ORDERED: FUROSEMIDE 20 MG in SYRINGE 0 ML IV SCH (09:00)
--- NOTE | 2019-03-11 14:40 | Discharge Summary ---
Date of Service March 11, 2019 Admission HPI Per Admitting Provider 73 yo F with PMHx sign for paroxysmal AF (on flecainide, currently NSR, and eliquis), HTN (HCTZ, metoprolol), HLD (on pravastatin), severe QUINTON (compliant with CPAP), CREST/scleroderma (stable, sees Rheum, tramadol PRN) -- who presents for worsening shortness of breath on exertion x 3 weeks, although states she has had dyspnea in the past - attributed to her PAF, but dissipated once she converted. She grew increasingly concerned due to return of dyspnea over the last 3 weeks, and called her programmer business office, was instructed to go to ED for further Eval. Found to be in NSR on EKG here. CXR concerning for pulm. edema. Hypoxia while ambulating down to 84%. Given lasix. Labs otherwise unremarkable, including neg trop, neg BNP, and normal e-lytes. Teaching Dietitian slightly elev 1.2. Of note, she endorses longstanding orthopnea, made better by initiating CPAP months ago, but states she still cannot lay flat. 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 Endorses increased salt intake over the last several weeks because she has lost her sense of taste. Denies T/E/D. Principal Diagnosis Dyspnea, Hypervolemia, CHF RULED OUT Discharge Exam Constitutional WD/WN, vitals as above Eyes PERRL, conjunctivae normal, anicteric sclerae ENMT external ear and nose normal, oropharynx normal Neck trachea midline, no thyromegaly Respiratory normal respiratory effort, lungs clear to auscultation Cardiovascular RRR, no murmur, no edema Chest (Breasts) Chest: normal inspection of chest Gastrointestinal (Abdomen) normal bowel sounds, soft, nontender, no hepatosplenomegaly Musculoskeletal Extremities: extremities normal to inspection; no cyanosis and no clubbing Skin no rashes, warm and dry Neurologic moves all extremities and awake; no focal motor deficits Psychiatric A+Ox3, euthymic affect Lymphatic no lymphedema Discharge Data Allergies Allergy/AdvReac Type Severity Reaction Status Date / Time pollen extracts Allergy Intermediate ITCHY, Verified 03/09/19 21:14 WATERY EYES, SNEEZING, CONGESTION adhesive Allergy Mild skin Verified 03/09/19 21:14 irritation/'burning' diclofenac Allergy Mild RASH Verified 03/09/19 21:14 Penicillins Allergy Mild HIVES Verified 03/09/19 21:14 capsaicin Allergy Unknown RASH Verified 03/09/19 21:14 Diclopak Allergy Unknown RASH Verified 10/21/17 12:04 Consultations 03/09/19 22:47 ED Decision to Admit Stat 03/10/19 13:48 Consult Cardiology Routine Ordered Studies CXR ECHO Hospital Course (1) REYES (dyspnea on exertion): This patient is a 73 yo F with PMHx sign for paroxysmal AF (on flecainide, currently NSR, and eliquis), HTN (HCTZ, metoprolol), HLD (on pravastatin), severe QUINTON (compliant with CPAP), CREST/scleroderma (stable, previously saw Rheum, tramadol PRN) -- who presents for worsening shortness of breath on exertion x 3 weeks, although states she has had dyspnea in the past - attributed to her PAF, but dissipated once she converted. She grew increasingly concerned due to return of dyspnea over the last 3 weeks, and called her programmer business office, was instructed to go to ED for further Eval. Found to be in NSR on EKG here. CXR concerning for pulm. edema although proBNP was normal. She had hypoxia while ambulating down to 84%. Given lasix in the emergency room. Labs otherwise unremarkable, including neg trop, neg BNP, and normal e-lytes. Teaching Dietitian slightly elev 1.2 and hypercalcemic at 11.1. Of note, she endorses longstanding orthopnea, made better by initiating CPAP months ago, but states she still cannot lay flat. 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 Endorses increased salt intake over the last several weeks because she has lost her sense of taste and with the Holidays. Much improved after IV Lasix. No evidence of arrhythmia on telemetry to account for this and no history of chronic lung disease -Admitted to assess for new onset CHF-discussed with cardiology and do not feel that that she has CHF, but did have some pulmonary vascular congestion likely from volume overload from increased sodium intake She has responded well to a few doses of IV Lasix over a two day period -last TTE: June 2017 - EF 65-70%, normal LV size. Repeat echocardiogram here again with preserved EF. -increased salt intake likely contributed to volume overload-cautioned about low-sodium diet -Daily weights, strict I's and O's, low-sodium diet -Consider pulmonary function tests as an outpatient-she does have a diagnosis of crest but not systemic scleroderma, although I do not have access to her rheumatology records for review-scleroderma patients can develop pulmonary fibrosis and I do hear some fine crackles on examination despite diuresis Stable for dc to home (2) Paroxysmal atrial flutter: Remains in NSR here Cont home flecainide and toprol and eliquis (3) CREST variant of scleroderma: cont home tramadol PRN -Previously followed with rheumatology-again, I do not have records for review (4) Degenerative joint disease of cervical spine: Noted (5) Depression with anxiety: continue sertraline (6) Obstructive sleep apnea (adult) (pediatric): continue CPAP qhs (7) Allergic rhinitis: cont home cetirizine (8) Hypertension: Held home HCTZ while diuresing with Lasix, continue metoprolol Can restart HCTZ on discharge Blood pressures are well controlled here (9) Hypercalcemia: Calcium was elevated 11.1 on admission Vit D level here at 51.3 which is quite an increase from previous of 27 3 months ago -Advised her to discontinue vitamin D and calcium use at this time Repeat calcium is now lower at 9.4 likely secondary to lasix use and holding calcium and D supplements Creatinine was slightly elevated at 1.29 and this likely could be contributing- slot machine repairer now improved also to 1.17 on day of discharge Calcium has never been elevated before intact PTH is appropriately low, phosphorus is high -Not severely elevated but perhaps could be contributing to her excessive sweating? -continue off supplements and follow up with PCP (10) Diaphoresis: Possibly related to hypercalcemia? Unclear what other reason, does not seem like she has any B type symptoms -Continue to follow as an outpt This is a chronic complaint (11) DVT prophylaxis: Eliquis Disposition-stable for dc to home Total Time Total Time Spent Total Time Spent (In Minutes): 35 min Total Time Includes: Examination of the Patient, Discharge Planning and Medication Reconciliation Discharge Plan Discharge Items Patient Disposition: Home - Self-Care Reason For Visit: SOB Discharge Diagnosis: Shortness of breath, volume overload, pulmonary edema, hypercalcemia Condition on Discharge: Good Goals: You have been hospitalized for an acute medical problem. During your stay at [facility], we have made an effort to correct the problem that brought you to the hospital while keeping you as comfortable as possible. Medications were used to bring your condition under control and your discharge instructions will include directions for any medications you should take after leaving the hospital. Please make sure you see your Primary Care Provider as part of your follow up plan. Activity: Resume your previous activity Bathing: No limitations Non-emergency contact: Primary Care Provider Call non-emergency contact if: you have any medication questions and your symptoms worsen Follow-up/Referrals: Emmie Weinstein, [Primary Care Provider] - (Please call for a hospital follow up appointment within 1-2 weeks.) Diet: Low Sodium (2gm) Addtl Attending Provider Instructions: You were admitted with volume overload and fluid in the lungs due to excessive sodium intake. You were given diuretics and we were able to remove your excess fluid so your shortness of breath improved. Please eat a low sodium diet and weight yourself daily. You can return to taking your usual medications on discharge except please STOP taking your vitamin D and calcium supplements at least temporarily. Your calcium levels were slightly elevated during your stay and improved before discharge. Please follow up with your PCP within 1-2 weeks after discharge. Pending Studies at Discharge: No Stand-Alone Forms: [facility] Medications and DC Order Prescriptions: Continued tramadol 50 mg tablet 50 mg PO TID PRN (Reason: pain) Qty: 60 RF: 0 calcium carbonate-vitamin D3 600 mg(1,500mg) -200 unit tablet 1 tab PO BID RF: 0 cetirizine 10 mg tablet 10 mg PO QAM PRN (Reason: allergies) RF: 0 flecainide 100 mg tablet 100 mg PO Q12H Qty: 180 RF: 0 sertraline 100 mg tablet 100 mg PO HS Qty: 135 RF: 0 hydrochlorothiazide 25 mg tablet 25 mg PO QAM Qty: 90 RF: 0 apixaban 5 mg tablet 5 mg PO BID Qty: 180 RF: 0 metoprolol succinate 25 mg tablet extended release 24 hr 25 mg PO HS Qty: 90 RF: 0 diclofenac sodium 1 % gel 2 gm topical BID PRN (Reason: Pain) Qty: 1 RF: 0 potassium chloride [Klor-Con M20] 20 mEq tablet,ER particles/crystals 20 meq PO BID RF: 0 pravastatin 80 mg tablet 80 mg PO HS RF: 0 Discontinued cholecalciferol (vitamin D3) 1,000 unit capsule 4,000 units PO QAM RF: 0 Discharge Orders: Discharge Order (Routine); Ordered 03/11/19 Ordered By: Santa Grullon Admission Data Admit Date/Time: 03/10/19 00:09 Attending Provider: Santa Grullon Admit Provider: Lizzette Lennon Primary Care Provider: Emmie Weinstein Other Providers: Oliver Shaver ; Erlin Brennan Other Interventions: Discharge Summary Assessment (RN) Last Done: 03/11/19 15:03 DC Date/Time DO NOT enter until pt leaves facility: 03/11/19 15:46
== END 2019-03-11 15:46 | disposition home or self-care (01) ==
LOC: ED 19:35 → 2N 19:35 → SUATTDRO 03-10 00:09 → 2N 03-10 00:40

== ENCOUNTER 2021-08-08 05:18 | Observation (INO) ==
--- NOTE | 2021-07-10 14:27 | PAT Medication Instructions ---
Medication Instructions Date of Service July 10, 2021 Home Medications Medication Instructions Recorded apixaban 5 mg tablet 5 mg PO BID #180 tab 09/16/20 Auto Titrating CPAP #1 ea 11/05/20 metoprolol succinate 25 mg 25 mg PO HS #90 tab 02/05/21 tablet,extended release 24 hr pravastatin 80 mg tablet 80 mg PO HS #90 tab 02/05/21 potassium chloride 20 mEq 20 meq PO BID #180 tab 02/11/21 tablet,extended release(part/cryst) (Klor-Con M) sertraline 100 mg tablet 150 mg PO HS #135 tab 04/23/21 celecoxib 100 mg capsule (Celebrex) 100 mg PO BID PRN #180 cap 06/05/21 hydrochlorothiazide 25 mg tablet 25 mg PO QAM #90 tab 06/19/21 tramadol 50 mg tablet 50 mg PO TID PRN #60 tab 06/23/21 cetirizine 10 mg tablet 10 mg PO QAM PRN calcium carbonate 600 mg-vitamin D3 5 mcg (200 unit) tablet 1 tab PO HS apixaban 5 mg tablet 5 mg PO BID Auto Titrating CPAP metoprolol succinate 25 mg tablet,extended release 24 hr 25 mg PO HS pravastatin 80 mg tablet 80 mg PO HS potassium chloride 20 mEq tablet,extended release(part/cryst) (Klor-Con M) 20 meq PO BID sertraline 100 mg tablet 150 mg PO HS celecoxib 100 mg capsule (Celebrex) 100 mg PO BID PRN hydrochlorothiazide 25 mg tablet 25 mg PO QAM tramadol 50 mg tablet 50 mg PO TID PRN cholecalciferol (vitamin D3) 25 mcg (1,000 unit) capsule (Vitamin D3) 25 mcg PO HS ASK your surgeon for instructions celecoxib 100 mg capsule (Celebrex) 100 mg PO BID PRN ASK your prescriber and surgeon apixaban 5 mg tablet 5 mg PO BID DO NOT take the morning of surgery cetirizine 10 mg tablet 10 mg PO QAM PRN potassium chloride 20 mEq tablet,extended release(part/cryst) (Klor-Con M) 20 meq PO BID hydrochlorothiazide 25 mg tablet 25 mg PO QAM Take morning of surgery With a small sip of water, OTHERWISE NOTHING TO EAT OR DRINK AFTER MIDNIGHT: tramadol 50 mg tablet 50 mg PO TID PRN(okay to take up to 4 hours prior to surgery if needed) Take evening before surgery calcium carbonate 600 mg-vitamin D3 5 mcg (200 unit) tablet 1 tab PO HS metoprolol succinate 25 mg tablet,extended release 24 hr 25 mg PO HS pravastatin 80 mg tablet 80 mg PO HS potassium chloride 20 mEq tablet,extended release(part/cryst) (Klor-Con M) 20 meq PO BID sertraline 100 mg tablet 150 mg PO HS tramadol 50 mg tablet 50 mg PO TID PRN(if needed) cholecalciferol (vitamin D3) 25 mcg (1,000 unit) capsule (Vitamin D3) 25 mcg PO HS Other Notes If you have any questions please call us at [phone] or [phone] or [phone] or [phone]
--- NOTE | 2021-07-14 11:04 | Anesthesiology Consultation ---
Date of Service July 14, 2021 Assessment & Plan (1) Encounter for pre-operative examination: - COVID screening: Per assessment on 07/14: No known COVID-19 positive contacts or current COVID-19 related symptoms. Travel screen negative. Surgeon arranging p reop COVID testing. Awaiting results. - Cardiology office visit (06/23/21): "Atrial fibrillation: Appears permanent. Asymptomatic. In the past, she converted while on flecainide 100 mg twice daily, but later self-discontinued flecainide due to intolerance. Heart rate remains well controlled on low-dose beta-bridget. Continue rate control strategy. Continue anticoagulation for stroke risk reduction. Monitor CBC and renal function periodically.. Shortness of breath: Chronic dyspnea with exertion. Reports no shortness of breath today. She has had negative ischemic evaluation and had no improvement in the past with a trial of diuretics. Her proBNP was unremarkable.. Preoperative cardiac assessment: She appears low risk from a cardiac standpoint for upcoming right hip surgery. She was reminded to continue beta-bridget without any interruption for upcoming surgery. She could hold Eliquis for 3 days prior to surgery and resume when safe from a bleeding standpoint as per orthopedics. - S/P Left TKA (09/21/14): SAB at L3/L4 (x1 attempt) + PNB at [facility] Chart Review Chart Review: Acceptable Risk for Surgery and Patient seen in Pre Admission Testing Teaching & Discussion Pre-Anesthesia Teaching/Discussion Notes: Instructed NPO after midnight before surgery,except medications with 15 cc of water. Medication instructions provided according to the PAT guidelines. History Surgery Operation Date: 08/08/21 09:10 Proposed Procedures p Right Total Hip Arthroplasty - David Hernandez MD Height/Weight Height: 4 ft 11 in Weight: 76.7 kg Allergies Allergy/AdvReac Type Severity Reaction Status Date / Time pollen extracts Allergy Intermediate Itchy, Verified 07/10/21 16:16 watery eyes, sneezing, congestion adhesive Allergy Mild skin Verified 07/10/21 16:16 irritation, "burning" capsaicin Allergy Mild Rash Verified 07/10/21 16:16 diclofenac Allergy Mild Rash Verified 07/10/21 16:16 Penicillins Allergy Mild Hives Verified 07/10/21 16:16 Diclopak Allergy Unknown RASH Verified 10/21/17 12:04 Medications Home Medications Medication Instructions Recorded Confirmed Last Taken cetirizine 10 mg tablet 10 mg PO QAM PRN tab 11/17/18 07/10/21 Unknown calcium carbonate 600 mg-vitamin 1 tab PO HS tab 03/23/19 07/10/21 Unknown D3 5 mcg (200 unit) tablet apixaban 5 mg tablet 5 mg PO BID #180 tab 09/16/20 07/10/21 Unknown Auto Titrating CPAP #1 ea 11/05/20 06/23/21 Unknown metoprolol succinate 25 mg 25 mg PO HS #90 tab 02/05/21 07/10/21 Unknown tablet,extended release 24 hr pravastatin 80 mg tablet 80 mg PO HS #90 tab 02/05/21 07/10/21 Unknown potassium chloride 20 mEq 20 meq PO BID #180 tab 02/11/21 07/10/21 Unknown tablet,extended release(part/cryst) (Klor-Con M) sertraline 100 mg tablet 150 mg PO HS #135 tab 04/23/21 07/10/21 Unknown celecoxib 100 mg capsule (Celebrex) 100 mg PO BID PRN #180 cap 06/05/21 07/10/21 Unknown hydrochlorothiazide 25 mg tablet 25 mg PO QAM #90 tab 06/19/21 07/10/21 Unknown tramadol 50 mg tablet 50 mg PO TID PRN #60 tab 06/23/21 07/10/21 Unknown cholecalciferol (vitamin D3) 25 25 mcg PO HS 07/10/21 07/10/21 Unknown mcg (1,000 unit) capsule (Vitamin D3) Past Medical History Medical History Allergic rhinitis Anxiety and depression Carotid artery plaque CREST variant of scleroderma Stable Dyslipidemia Generalized osteoarthritis of multiple sites Hypertension Lymphoproliferative disease Obesity Obstructive sleep apnea (adult) (pediatric) CPAP (Generally compliant) Osteopenia Paroxysmal atrial fibrillation Paroxysmal atrial flutter Follows with [facility]/Dr. Brennan Pulmonary nodule Raynaud's disease without gangrene Splenomegaly Exercise / Class Metabolic Activity III < 4 Walking/Shop/Light housework (one FS (no CP, + SOB)) Past Family History Family History Mother History of colon cancer Hypercholesteremia Colorectal cancer Father Sinus disorder Coronary heart disease Cardiac disorder Myocardial infarction Stroke syndrome Hx of CABG Hypertension Other No family history of adverse response to anesthesia Denies family history of Ovarian cancer Prostate cancer Breast cancer Past Surgical History Surgical History H/O dilation and curettage History of bilateral tubal ligation History of carpal tunnel surgery R/L History of colonoscopy History of lobectomy of lung L LUNG- 2016 (BENIGN MASS) History of tooth extraction History of total knee replacement Left TKA (09/21/14): SAB at L3/L4 (x1 attempt) + PNB at [facility] Hx of cataract surgery R/L Hx of lumpectomy L BREAST (BENIGN) Past Anesthesia History No Hx of Anesthesia Complications and No Family Hx of Anesthesia Complications History of PONV No Hx of PONV and No Hx of Motion Sickness Social History Smoking Status: Never smoker Do You Dip or Chew Tobacco: No Hx Alcohol Use: No Hx Substance Use: No substance use type: does not use Review of Systems Patient denies chest pain, shortness of breath, fever, chills, cough, wheezing, palpitations. Physical Exam Vital Signs VITALS BP 108/76 P 78 TEMP 98.3 SP02 95%RA RESP 16 PHYSICAL Significantly decreased cervical extension range of motion. Full TMJ range of motion. TMD 3.5 finger breaths Mallampati Score 1 Dentition: upper full dentures Lungs: clear throughout to auscultation Cardiac: regular rate, irregular rhythm, no murmurs noted Spine: normal Carotid arteries: negative bruit Extremities: no edema Lab Results Anesthesia Preop Results Results Anesthesia Widget: WBC 8.22 K/uL (4.8-10.8) 07/14/21 Hgb 14.0 g/dL (12.0-16.0) 07/14/21 Hct 40.8 % (37-47) 07/14/21 Plt 164 K/uL (130-400) 07/14/21 Na 141 mmol/L (136-145) 07/14/21 K 4.0 mmol/L (3.5-5.1) 07/14/21 Cl 103 mmol/L (98-107) 07/14/21 CO2 31 mmol/L (21-32) 07/14/21 BUN 23 mg/dl (6-23) 07/14/21 Creat 0.93 mg/dl (0.6-1.2) 07/14/21 Glucose Level 96 mg/dl (70-99(Fasting)) 07/14/21 PT 12.3 Seconds (9.0-12.0) H 07/14/21 PTT 28.0 Seconds (21.0-31.0) 07/14/21 INR 1.2 (0.9-1.1) H 07/14/21 Blood Type A Negative 07/14/21 Antibody Screen NEGATIVE 07/14/21 Testing Laboratory Results Mildly elevated coags - Pt on Eliquis* Electrocardiogram Date: 07/14/21 Atrial fibrillation at 76 bpm. Unconfirmed report. Chest X-Ray Date: 07/14/21 FINDINGS: The cardiac silhouette is enlarged. Atherosclerosis of the thoracic aorta. Eventration of the right hemidiaphragm. Emphysema. No pneumothorax, pleural effusion, airspace consolidation or overt pulmonary edema. Mild chronic interstitial coarsening of the lung bases. Degenerative changes of the shoulders and spine. Cholelithiasis redemonstrated. IMPRESSION: Cardiomegaly without acute process. Cholelithiasis. Echocardiogram Date: 03/10/19 EF 60-65%. No regional motion abnormality. Mild LAD. No significant valvular disease. Stress Test Date: 03/28/09 Type: nuclear Negative myocardial perfusion study for ischemia or infarct. Hyperdynamic left ventricular systolic function. EF 86%. Normal wall motion. Lexiscan induced chest pain and dyspnea. Nondiagnostic Lexiscan ECG. Other Testing Holter Monitor (03/25/21) Underlying rhythm is A-Fib. Average HR 84 bpm. Minimum HR46 bpm. Maximum HR 138 bpm. No significant pauses or evidence of AV block. Isolated PVC's. No symptoms reported.
[2021-08-08] MEDS ORDERED: FAMOTIDINE 20 MG TAB PO SCH (06:00)
[2021-08-08] MEDS ORDERED: ACETAMINOPHEN 500 MG TAB PO SCH (06:00)
[2021-08-08] MEDS ORDERED: GABAPENTIN 300 MG CAP PO SCH (06:00)
[2021-08-08] MEDS ORDERED: LR 500ML BOLUS, THEN 15ML/HR IV SCH (06:00)
[2021-08-08] MEDS ORDERED: METOCLOPRAMIDE HCL 10 MG TABLET PO SCH (06:00)
[2021-08-08] MEDS ORDERED: LR 60ML/HR IV SCH (06:00)
[2021-08-08] MEDS ORDERED: ceFAZolin 2000MG 2,000 MG/15 ML SYR IV SCH (06:00)
[2021-08-08] MEDS ORDERED: BUPIVACAINE LIPOSOME/PF 266 MG, BUPIVACAINE/EPINEPHRINE 50 ML, SODIUM CHLORIDE 0.9% 30 ... INFIL SCH (06:00)
[2021-08-08] MEDS ORDERED: TRANEXAMIC ACID 1,000 MG **IV Intra-op IV SCH (06:00)
[2021-08-08] MEDS ORDERED: BUPIVACAINE 0.5 % 5 MG/1 ML PF 10ML VIAL ONE (06:35)
[2021-08-08] MEDS ORDERED: BUPIVACAINE 0.5 % 5 MG/1 ML MPF 30ML VIAL ONE (06:35)
[2021-08-08] MEDS ORDERED: EPINEPHrine INJ 1 MG/ML AMP ONE (06:35)
[2021-08-08] MEDS ORDERED: MIDAZOLAM HCL 1 MG/ML 2ML VIAL ONE (06:36)
[2021-08-08] MEDS ORDERED: fentaNYL citrate 100 MCG/2 ML VIAL ONE (06:37)
[2021-08-08] MEDS ORDERED: ceFAZolin 2,000 MG/15 ML IV PUSH IV ONE (06:47)
--- NOTE | 2021-08-08 06:53 | History & Physical Bridge Note ---
Date of Service August 08, 2021 History & Physical Bridge Note I have examined the patient, reviewed the History & Physical and in the interval since the performance of the History & Physical I have noted the following changes of clinical significance: no changes noted
[2021-08-08] MEDS ORDERED: PROPOFOL IV EMULSION 10 MG/ML 20 ML VIAL IV ONE (07:32)
--- NOTE | 2021-08-08 08:54 | Operative Report ---
PG Post Operative Report Pre & Post Diagnosis Operation Date: 08/08/21 07:00 Pre-Op Diagnosis: Advanced Right Hip Degenerative Joint Disease Post-Op Diagnosis: Advanced Right Hip Degenerative Joint Disease I identified the patient and participated in the time-out.: Yes Procedure Operation Date: 08/08/21 07:00 Actual Procedures p Right Total Hip Arthroplasty--Uncemented(Right) - David Hernandez MD Surgeon David Hernandez MD Card Table Attendant Pito Sherman PA-C Estimated Blood Loss 200 Findings Consistent with Post-Op Diagnosis Operative findings revealed advanced right hip arthritis. She had inflammatory appearance with a cystic change of the femoral head and acetabulum with erosive changes as well. Very little offset. Very sclerotic acetabulum as well as femoral head with flattening of the femoral head. She had a significant leg length discrepancy intra op/preoperatively of at least a centimeter. Fluids 1500 cc Specimens Right hip/femoral head sent for pathology Drains None Anesthesia Type Spinal MAC Complications none Disposition Accompanied Patient To Recovery: Yes Indications Patient is a 75-year-old female has had a gradual progressive increase right hip pain discomfort is gotten significant worse over the past year. She is actually resorted to using a cane to get around. X-rays show advanced erosive hip arthritis. She elected proceed with total hip arthroplasty. Description of Procedure Operative implants consist of: 1. Biomet size 50 mm G7 acetabular shell. 2. 6.5 cancellous acetabular screws 135 mm length 1 of 25 mm length. 3. [place] hole investigator operator. 4. Highly cross-linked polyethylene liner with a 50 mm outer diam and 36 mm darrell meter. 5. DePuy Corail size 9 short neck 135 degree angle femoral stem. 6. +5/36 mm ceramic articular ball. The patient was taken to the operating, identified, placed on the operating table supine position protectors were properly padded identified by anesthesia team. A spinal anesthetic had been implemented holding area. Gallardo catheter was placed in sterile fashion. Patient then placed in the left lateral cubitus position. Axillary roll was placed. Stulberg hip positioner was used for positioning. The right hip and leg were then prepped and draped in usual sterile fashion. A posterior lateral approach of the right hip was then performed to a curvilinear incision centered over the greater trochanter. Sharp dissection was carried through subcutaneous tissue down to the IT band gluteal fascia with the IT band gluteal fascia incised longitudinally in line with skin incision. The underlying greater bursa was excised. The piriformis and external rotators along with the posterior hip joint capsule were then released from the posterior aspect hip as a single layer. Hip was internally rotated and dislocated. Femoral neck osteotomy cut was then made about 7 mm above the lesser trochanter. Femoral head was removed and sent for pathology. The femur was retracted anteriorly. Attention drawn the acetabulum. The acetabular labrum was excised. Pulmonary fat was excised. Sequential reaming the acetabulum was then performed again with a size 43 and progressing up to 49. I did reamed with a 50 reamer. Her bone was pretty sclerotic. A 50 mm Biomet G7 acetabular shell was then placed in about 40 degrees lateral opening and 20 degrees of anteversion. Was fixed with two 6.5 cancellous acetabular screws. Trial liner was placed. Attention drawn the femur. The proximal femur was entered with a [employer] cutter followed by canal finder. I then broached begin the size 8 and progressed to a 9. I really did not think I can get a bigger implant in this patient especially concerning her early bone. We had a good fit. I then trialed the hip. The standard offset stem created too much soft tissue tension. We therefore used a short neck with 135 degree angle stem in order to increase her length a bit but not affect the office that is much and therefore take some of the tension off the soft tissues. The hip was fully stable in full extension and external rotation flexion to 90 degrees internal rotation over [address] these implants. All trial implants were removed. An apex director perioperative was placed. Highly cross- linked polyethylene liner was placed. A DePuy size 10 standard 135degree angle short neck stem was impacted in position. A +5/36 mm ceramic articular ball was placed. Hip was located once again found to be stable. Attention drawn toward closing. Wound was irrigated scope soft pulsatile lavage solution. I did inject locally with 50 cc of half percent Marcaine with epinephrine. The posterior hip joint capsule along with the external rotators were repaired through drill hole in the posterior trochanter as a single layer. The IT band gluteal fascia then closed #1 PDS suture running fashion. Subcutaneous tissue then closed with 2 layers with a deep layer #2 Vicryl suture and subcutaneous tissue with 2 Dexon suture in a buried interrupted fashion. Skin was closed skin rajesh. Leg was then cleaned and dried. A Prevena VAC negative pressure dressing was applied. The patient then transferred to the recovery room in stable condition. Patient tolerated procedure well no complications. I attest to the content of the Intraoperative Record and any orders documented therein. Any exceptions are noted below.
[2021-08-08] MEDS ORDERED: ATROPINE SULFATE 0.1 MG/ML 10ML SYR IV PRN (09:02)
[2021-08-08] MEDS ORDERED: ONDANSETRON INJ 2 MG/ML 2 ML VIAL IV PRN ×2 (09:02→11:55)
[2021-08-08] MEDS ORDERED: fentaNYL citrate 100 MCG/2 ML VIAL IV PRN (09:02)
[2021-08-08] MEDS ORDERED: ePHEDrine sulfate 50 MG/ML AMP IV PRN (09:02)
--- NOTE | 2021-08-08 09:48 | XRay Report ---
AP PELVIS, CROSSTABLE LATERAL RIGHT HIP History: Right total hip arthroplasty. Degenerative arthritis. Postop. FINDINGS: The patient is status post a right total hip arthroplasty. The hardware is intact. No fract ure or dislocation. Skin rajesh are in place. IMPRESSION: Right total hip arthroplasty. No evidence for hardware complication ACT 112: Negative or not required by law. Electronically signed by: Severino Wu M.D. 08/08/2021 9:47 AM
[2021-08-08] MEDS ORDERED: NALOXONE HCL 0.4 MG/1 ML VIAL/CARP IV PRN (11:55)
[2021-08-08] MEDS ORDERED: bisacodyL 10 MG SUPP PR PRN (11:55)
[2021-08-08] MEDS ORDERED: MAGNESIUM HYDROXIDE SUSP 30 ML UDC PO PRN (11:55)
[2021-08-08] MEDS ORDERED: METOCLOPRAMIDE HCL INJ 5 MG/ML 2 ML VIAL IV PRN (11:55)
[2021-08-08] MEDS ORDERED: ALUMINUM/MAGNESIUM SUSP 30 ML UDC PO PRN (11:55)
[2021-08-08] MEDS: SODIUM CHLORIDE 0.9% 1000ML 1,000 ML IV SCH ×2 (13:40→23:52)
[2021-08-08] MEDS: hydroCHLOROthiazide 25 MG TAB PO SCH (13:49)
[2021-08-08] MEDS: ACETAMINOPHEN 500 MG TAB PO SCH ×2 (13:50→21:48)
[2021-08-08] MEDS: MULTIVITAMIN TAB PO SCH (13:50)
[2021-08-08] MEDS: DOCUSATE SODIUM/SENNA 50/8.6MG TAB PO SCH (13:50)
[2021-08-08] MEDS: DOCUSATE SODIUM 100 MG CAP PO SCH ×2 (13:50→20:56)
[2021-08-08] MEDS: KETOROLAC TROMETHAMINE 15 MG/ML VIAL IV SCH ×2 (13:51→19:26)
[2021-08-08] MEDS: POTASSIUM CHLORIDE CRTAB 20 MEQ TABCR PO SCH ×2 (13:51→20:56)
[2021-08-08] MEDS: ASPIRIN 81 MG ECTAB PO SCH (13:51)
--- NOTE | 2021-08-08 14:01 | Anesthesiology Progress Note ---
Date of Service August 08, 2021 Anesthesia Post Procedure Vital Signs Vital Signs: Temp Pulse Pulse Resp BP Pulse Ox 08/08/21 13:15 36.5 C 64 16 107/71 99 08/08/21 12:20 78 20 97/56 L 100 08/08/21 11:50 72 16 94/58 L 100 08/08/21 11:35 69 15 95/66 L 98 08/08/21 11:20 72 15 114/65 99 08/08/21 11:05 70 21 84/58 L 97 08/08/21 10:50 36.5 C 80 12 107/65 100 08/08/21 10:40 68 14 107/65 99 08/08/21 10:30 67 17 95/53 L 100 08/08/21 10:20 79 19 109/67 100 08/08/21 10:10 81 15 96/63 L 99 08/08/21 10:00 70 14 111/69 92 08/08/21 09:50 77 17 116/63 95 08/08/21 09:40 70 19 105/67 95 08/08/21 09:30 83 16 115/63 95 08/08/21 09:20 89 21 116/77 95 08/08/21 09:10 85 15 102/62 94 08/08/21 09:00 82 17 96/66 L 92 08/08/21 08:50 91 H 15 100/69 97 08/08/21 08:44 36.3 C L 89 12 102/63 97 08/08/21 05:39 36.8 C 81 18 129/88 95 Pain Intensity Right Hip: Pain Intensity: 0 Transfer of Care Handoff Completed per policy Notes Mental Status: alert / awake / arousable and participated in evaluation Patient Amnestic to Procedure: Yes Nausea / Vomiting: adequately controlled Pain: adequately controlled Airway Patency, RR, SpO2: stable & adequate BP & HR: stable & adequate Hydration State: stable & adequate Neuraxial Anesthesia: was administered and sensory block is resolving Anesthetic Complications: no major complications apparent and Pt Satisfied with anesthetic care
--- NOTE | 2021-08-08 14:19 | Progress Notes ---
DATE OF SERVICE: 08/08/2021 SUBJECTIVE: A 75-year-old female postop from a right hip replacement. She is doing well. Not havin g any pain at all yet. Just starting to get some function back in her leg. No chest pain or shortne ss of breath. Not feeling dizzy or lightheaded. OBJECTIVE: VITAL SIGNS: Temperature 36.5. Vital signs are stable. GENERAL: Shows a pleasant, elderly female. She is sitting up in bed, looks entirely comfortable. LUNGS: Clear to auscultation. HEART: Regular rate and rhythm. ABDOMEN: Soft, nontender, nondistended. EXTREMITIES: Grossly neurovascularly intact except as follows: Examination of both lower extremitie s reveals the legs to be well aligned. She is just starting to be able to move her feet. She can pl antarflex a bit better than dorsiflex. She has got brisk refill. Toes are still pretty numb. X-RAYS: X-rays of the right hip from recovery room are reviewed. It shows right uncemented hip repl acement. Components looked to be in good position. No signs of problems. ASSESSMENT: A 75-year-old female postoperative from right hip replacement, doing reasonably well. H er pain is controlled. She is neurologically just starting to get the function back in her legs. Rosie colón exam currently as a result. PLAN: 1. DVT prophylaxis includes thigh-high TEDs, SCDs and we will start her back on a prophylactic dose of Eliquis 24 hours postop starting tomorrow. While she is in the hospital, we will use 2.5 twice a day and then discharge her back on her full dose. 2. PT, OT, weightbear as tolerated. Right total hip protocol. 3. Pain control, doing okay with current pain regimen. We will use tramadol for pain in addition to Tylenol. 4. Disposition: Plan to discharge to home. Her daughter is going to come and stay with her and ass ist in her care. We will see how she does in therapy tomorrow about discharge. Job ID: [id number]
[2021-08-08] MEDS: ceFAZolin 1000MG 1,000 MG/7.5 ML SYR IV SCH ×2 (14:22→22:42)
[2021-08-08] MEDS ORDERED: TRANEXAMIC ACID / 0.7% NACL 1,000 MG/100 ML BAG IV SCH (14:45)
[2021-08-08] MEDS: traMADol HCL 50 MG TABLET PO PRN (17:58)
[2021-08-08] MEDS: METOPROLOL SUCC 25MG EXT REL TAB PO SCH (20:55)
[2021-08-08] MEDS: SERTRALINE HCL 50 MG TABLET PO SCH (20:56)
[2021-08-08] MEDS: CALCIUM 600MG + VIT D 400 IU TAB PO SCH (20:56)
[2021-08-08] MEDS: SENNA 8.6 MG TAB PO SCH (20:56)
[2021-08-08] MEDS: PRAVASTATIN SOD 40 MG TAB PO SCH (20:56)
[2021-08-08] MEDS: CHOLECALCIFEROL 1,000 UNITS 25 MCG TAB PO SCH (20:56)
[2021-08-08] MEDS: CETIRIZINE HCL 10 MG TABLET PO PRN (21:48)
[2021-08-09] MEDS: KETOROLAC TROMETHAMINE 15 MG/ML VIAL IV SCH ×2 (01:58→08:27)
[2021-08-09] MEDS: ACETAMINOPHEN 500 MG TAB PO SCH ×3 (05:48→22:45)
[2021-08-09 07:01] LABS: Basophils # (auto) 0.01 K/uL (0-0.2); Basophils % (auto) 0.2 %; Eosinophils # (auto) 0.18 K/uL (0-0.5); Eosinophils % (auto) 2.8 %; Hematocrit (blood only) 31.9 % (37-47); Hemoglobin 10.6 g/dL (12.0-16.0); Immature Granulocytes # (auto) 0.01 K/uL (0.00-0.02); Immature Granulocytes % (auto) 0.2 %; Lymphocytes # (auto) 0.66 K/uL (1.2-3.4); Lymphocytes % (auto) 10.1 %; Mean Corpuscular Hemoglobin 30.4 pg (25-34); Mean Corpuscular Hgb Conc 33.2 g/dL (32-36); Mean Corpuscular Volume 91.4 fL (80-100); Mean Platelet Volume 10.5 fL (7.4-10.4); Monocytes % (auto) 6.1 %; Neutrophils # (auto) 5.27 K/uL (1.4-6.5); Neutrophils % (auto) 80.6 %; Platelet Count 110 K/uL (130-400); RDW Coefficient of Variation 15.2 % (11.5-14.5); RDW Standard Deviation 50.9 fL (36.4-46.3); Red Blood Count 3.49 M/uL (4.2-5.4); White Blood Count 6.53 K/uL (4.8-10.8)
--- NOTE | 2021-08-09 07:23 | Orthopedic Progress Note ---
Date of Service August 09, 2021 Assessment & Plan (1) Status post right hip replacement: She is still having a lot of soreness in the right hip. She will be seen by physical therapy today for ambulation and range of motion exercises. She is on aspirin for DVT prophylaxis. We will keep her in the hospital today for pain control. We will plan to discharge her to home tomorrow. Steve Buchanan was seen and examined at bedside this morning. Overall she is doing okay. When she is lying still she does not have much pain but she says she has a lot of pain when she is sitting up. She was able to use a bedside commode but it was quite painful. She has physical therapy today. She was very concerned about going home today. Aside from the pain, she has no other complaints. Review of Systems All systems reviewed & are unremarkable except as noted in HPI & below. Physical Exam On physical examination of the right hip, the Prevena VAC dressing is to suction. Her leg lengths are equal. She is active dorsiflexion and plantarflexion of her right ankle.. Results & Data Results & Data Laboratory Results . Diagnostic Findings . PG Care Time/CCT Total # of Minutes Spent Total Time Spent with Patient: Total time spent is greater than 50% in coordination of care (as documented) at patient's floor/unit and/or counseling patient: Coding Level of Care Code 65585 Post Operative Follow-Up Diagnoses Status post right hip replacement Z96.641
[2021-08-09 07:52] LABS: Calcium 8.5 mg/dl (8.5-10.1); Potassium 4.4 mmol/L (3.5-5.1)
[2021-08-09 07:58] LABS: BUN Creatinine Ratio 26.4 (10-20); Creatinine Clr Calc Pharmacy 47.6 ml/min; Est GFR (African American) 71.5 ml/min; Est GFR (Non-African American) 61.7 ml/min
[2021-08-09] MEDS ORDERED: dexAMETHasone 10 MG in SYRINGE 0 ML IV SCH (08:00)
[2021-08-09] MEDS: DOCUSATE SODIUM 100 MG CAP PO SCH ×2 (08:27→20:22)
[2021-08-09] MEDS: DOCUSATE SODIUM/SENNA 50/8.6MG TAB PO SCH (08:28)
[2021-08-09] MEDS: MULTIVITAMIN TAB PO SCH (08:28)
[2021-08-09] MEDS: hydroCHLOROthiazide 25 MG TAB PO SCH (08:28)
[2021-08-09] MEDS: APIXABAN 2.5 MG TAB PO SCH ×2 (08:28→20:22)
[2021-08-09] MEDS: ASPIRIN 81 MG ECTAB PO SCH (08:28)
[2021-08-09] MEDS: POTASSIUM CHLORIDE CRTAB 20 MEQ TABCR PO SCH ×2 (08:31→20:21)
[2021-08-09] MEDS: traMADol HCL 50 MG TABLET PO PRN (11:11)
[2021-08-09] MEDS: PRAVASTATIN SOD 40 MG TAB PO SCH (20:22)
[2021-08-09] MEDS: SENNA 8.6 MG TAB PO SCH (20:23)
[2021-08-09] MEDS: CALCIUM 600MG + VIT D 400 IU TAB PO SCH (20:23)
[2021-08-09] MEDS: CHOLECALCIFEROL 1,000 UNITS 25 MCG TAB PO SCH (20:23)
[2021-08-09] MEDS: HYDROmorphone INJ 0.5 MG/0.5 ML SYR IV PRN (20:24)
[2021-08-09] MEDS: SERTRALINE HCL 50 MG TABLET PO SCH (20:24)
[2021-08-09] MEDS: METOPROLOL SUCC 25MG EXT REL TAB PO SCH (20:28)
[2021-08-10] MEDS: HYDROmorphone INJ 0.5 MG/0.5 ML SYR IV PRN ×2 (03:06→09:05)
[2021-08-10] MEDS: ACETAMINOPHEN 500 MG TAB PO SCH (05:39)
--- NOTE | 2021-08-10 07:01 | Orthopedic Progress Note ---
Date of Service August 10, 2021 Assessment & Plan (1) Status post right hip replacement: Overall she is doing well. She is not having much pain in the right hip. She will be seen by physical therapy again today for ambulation and range of motion exercises. She is on aspirin for DVT prophylaxis. She can be discharged home later today. She will follow-up with orthopedics in 2 weeks. Steve Buchanan was seen and examined at bedside this morning. Overall she is doing much better. She is not having too much pain in the right hip. She was able to participate well with physical therapy yesterday. She has no new complaints. Review of Systems All systems reviewed & are unremarkable except as noted in HPI & below. Physical Exam On physical examination of the right hip, the Prevena VAC dressing is to suction. Her leg lengths are equal. She is neurovascular intact. Results & Data Results & Data Laboratory Results . Diagnostic Findings . PG Care Time/CCT Total # of Minutes Spent Total Time Spent with Patient: Total time spent is greater than 50% in coordination of care (as documented) at patient's floor/unit and/or counseling patient: Coding Level of Care Code 13835 Post Operative Follow-Up Diagnoses Status post right hip replacement Z96.641
[2021-08-10] MEDS: DOCUSATE SODIUM/SENNA 50/8.6MG TAB PO SCH (07:43)
[2021-08-10] MEDS: hydroCHLOROthiazide 25 MG TAB PO SCH (07:43)
[2021-08-10] MEDS: MULTIVITAMIN TAB PO SCH (07:43)
[2021-08-10] MEDS: APIXABAN 2.5 MG TAB PO SCH (07:43)
[2021-08-10] MEDS: DOCUSATE SODIUM 100 MG CAP PO SCH (07:43)
[2021-08-10] MEDS: ASPIRIN 81 MG ECTAB PO SCH (07:43)
[2021-08-10] MEDS: POTASSIUM CHLORIDE CRTAB 20 MEQ TABCR PO SCH (07:44)
[2021-08-10] MEDS: CETIRIZINE HCL 10 MG TABLET PO PRN (07:45)
== END 2021-08-10 10:32 | disposition home health service (06) ==
LOC: ASU 05:18 → PACUINP 05:18 → 3N 13:08

== ENCOUNTER 2024-05-14 21:18 | Inpatient (IN) ==
--- NOTE | 2024-05-14 21:34 | Emergency Department Note ---
Impression & Plan Hypoxia Admission ED Provider Note HPI: History obtained from patient. The patient is a 78-year-old female with history of atrial fibrillation, on Eliquis, who presents the emergency department with a chief complaint of cough, subjective fever/chills, and a sensation of lightheadedness and presyncope prior to arrival to the ER. Patient states she has had her infectious symptoms for about the past week. Per EMS report, the patient was hypoxic in the field at 87% was placed on nasal cannula oxygen with good improvement. Patient does not wear nasal cannula oxygen at baseline. On arrival here to the ED the patient is hemodynamically stable, she is saturating at 97% on 2 L nasal cannula oxygen on arrival. Patient denies any chest pain, states she does have some mild shortness of breath and a wet cough. ROS: - Per HPI Differential Diagnosis: Pneumonia, viral upper respiratory infection to include influenza A, COVID-19, acute bronchitis, CHF, ACS, PE, amongst other potential pathologies. *Outpatient medications and allergy history reviewed. PE: General: Alert, no acute distress HEENT: Normocephalic, trachea midline Eyes: Extraocular eye movement is intact, no scleral erythema Pulmonary: Coarse bilateral breath sounds Cardio: Regular rate and rhythm GI: Abdomen is soft to palpation : No suprapubic tenderness MSK: No evidence of trauma or malformation of the extremities, no edema Skin: No evidence of rash Neuro: Alert, no focal deficits Psychiatric: Cooperative INDEPENDENT INTERPRETATIONS: surveillance system monitor: (As interpreted by myself): - An order was placed for continuous cardiac monitoring - Patient was noted to be in atrial flutter with a rate of 95 EKG: (As interpreted by myself): Rate: 86 Rhythm: Atrial flutter with variable AV block Intervals: Within normal limits ST changes: No ST elevation Time: 2123 Chest x-ray: (As interpreted by myself): Questionable left lower lobe pneumonia versus atelectasis Interventions provided in ED: -IV fluid bolus Medical Decision Making: Shortly after the patient arrived IV was established and lab work obtained, patient was placed on classroom monitor. Patient was maintained on nasal cannula oxygen with good improvement in her hypoxia in the field. Lab work shows no leukocytosis, hemoglobin is stable at 11.9, platelet count is normal, venous blood gas shows pH near normal at 7.43, pCO2 is normal. CMP does not show any evidence of any critical findings. Troponin is mildly elevated at two 3.9, BNP is mildly elevated at 218. Procalcitonin is low at 0.05, viral panel testing is negative. Unclear source for the patient's hypoxia at this time, given her complaint of cough/congestion, I suspect she likely has a viral URI. Her procalcitonin is low and she has no leukocytosis, I do not see a clear pneumonia on chest x-ray (formal radiology interpretation is pending). Given the patient's hypoxia in the field and slightly elevated troponin, I did discuss the patient's presentation with the on-call hospitalist, Dr. Dey, and the patient was placed for admission in stable condition. Will defer potential antibiotic therapy to the admitting team following our conversation, blood cultures were ordered. Patient denies any chest pain, have low suspicion for PE, patient is noted to be on anticoagulation. Consultants/Discussions held with other healthcare providers: -Hospitalist, Dr. Dey Diagnosis: 1. Hypoxia, acute 2. Elevated high-sensitivity troponin level, acute 3. Elevated BNP, acute, mild 4. Dyspnea, acute 5. Cough, acute Disposition: Admission Grant Penn DO Emergency Medicine Past Med/Surg History Problem List (Updated 05/15/24 @ 00:08 by Grant Penn DO) Hypoxia (Acute) Fibromyalgia Arthritis of left hip History of colon polyps Morbid obesity Lichen sclerosus et atrophicus Internal hemorrhoids Impaired fasting glucose Gastroesophageal reflux disease Diverticulosis Depression with anxiety Degenerative joint disease of cervical spine Anticoagulant long-term use Reactive airway disease Right knee DJD Atrial fibrillation, permanent dx approx 3 yrs ago > no pacer, Eliquis Anxiety and depression Paroxysmal atrial flutter (Chronic) Follows with [facility]/Dr. Brennan Allergic rhinitis CREST variant of scleroderma (Chronic) Stable Carotid artery plaque Dyslipidemia Generalized osteoarthritis of multiple sites Hypertension Lymphoproliferative disease Obstructive sleep apnea (adult) (pediatric) CPAP (Generally compliant) Osteopenia Pulmonary nodule Raynaud's disease without gangrene Splenomegaly Medical History Left rotator cuff tear arthropathy Chronic pain 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 Dyspnea on exertion Arthritis of right hip Chronic cough Hypercalcemia Fatigue Obesity Surgical History History of total right hip arthroplasty Status post right hip replacement History of colonoscopy History of carpal tunnel surgery R/L H/O dilation and curettage Hx of cataract surgery R/L Hx of lumpectomy L BREAST (BENIGN) History of total knee replacement Left TKA (09/21/14): SAB at L3/L4 (x1 attempt) + PNB at [facility] History of bilateral tubal ligation History of tooth extraction History of lobectomy of lung L LUNG- 2016 (BENIGN MASS) Family History Mother History of colon cancer Hypercholesteremia Colorectal cancer Father Sinus disorder Coronary heart disease Cardiac disorder Myocardial infarction Stroke syndrome Hx of CABG Hypertension Other No family history of adverse response to anesthesia Denies family history of Ovarian cancer Prostate cancer Breast cancer Social History Smoking Status: Never smoker Second Hand Exposure: Yes ( smoked); Do You Dip or Chew Tobacco: No; Hx Alcohol Use: No Hx Substance Use: No Preferred Language: Afghan Communication Ability: Effective Visual Impairment: No Limitations Hearing Ability: Normal Peace Officer Required: No Beliefs That Will Affect Care: None marital status: / Current Living Situation: Alone current occupational status: retired 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 [employer] Feels Safe at Home: Yes Childhood Exposure to Second-Hand Smoke: Yes Diet: DASH Diet Comment: heart healthy caffeine: No during the past year weight has: remained stable Dental Care, Regularly: No Physical Activity Frequency: 3-4 Times per Week Physical Activity Frequency Comment: walking; house work Seatbelt Use: always Sunscreen Use: Yes Assistive Devices: Walker Allergies Allergies Allergy/AdvReac Type Severity Reaction Status Date / Time pollen extracts Allergy Intermediate Itchy, Verified 02/14/24 12:50 watery eyes, sneezing, congestion adhesive Allergy Mild skin Verified 02/14/24 12:50 irritation, "burning" capsaicin Allergy Mild Rash Verified 02/14/24 12:50 Penicillins Allergy Mild Hives Verified 02/14/24 12:50 gabapentin AdvReac Intermediate Confusion Verified 02/14/24 12:50 Home Meds Home Medications Medication Instructions Recorded Confirmed cetirizine 10 mg tablet 10 mg PO QAM PRN allergies 11/17/18 02/25/24 calcium 600 mg (as 1 tab PO HS 03/23/19 02/25/24 carbonate)-vitamin D3 5 mcg (200 unit) tablet acetaminophen 500 mg capsule 1,000 mg PO TID PRN Pain 12/03/21 02/25/24 diclofenac sodium 1 % topical gel 2 g topical QID 02/03/22 02/25/24 (Voltaren Arthritis Pain) food supplemt, lactose-reduced PO DAILY 08/06/23 02/25/24 [Boost] duloxetine 60 mg capsule,delayed 60 mg PO DAILY 02/25/24 02/25/24 release prednisone 5 mg tablet 5 mg PO DAILY 02/25/24 02/25/24 Previous Rx's Medication Instructions Recorded Auto Titrating CPAP #1 ea 11/05/20 hydroxyzine HCl 10 mg tablet 10 mg PO BID PRN itching #180 tabs 08/18/22 albuterol sulfate 90 mcg/actuation 2 puff inhalation Q6H PRN 04/06/23 aerosol inhaler (Ventolin HFA) shortness of breath or wheezing #6.7 grams CPAP Machine #1 ea 04/19/23 CPAP Supplies #1 ea 06/22/23 CPAP Supplies #1 ea 07/14/23 triamcinolone acetonide 0.5 % 1 applic topical DAILY PRN skin 08/06/23 topical cream irritation #60 grams apixaban 5 mg tablet (Eliquis) 5 mg PO BID #60 tabs 10/26/23 potassium chloride 20 mEq 20 meq PO BID #180 tabs 12/08/23 tablet,extended release(part/cryst) (Klor-Con M) tramadol 50 mg tablet 50 mg PO Q4H PRN pain #60 tabs 04/27/24 diltiazem HCl 180 mg 180 mg PO DAILY #90 caps 05/02/24 capsule,extended release 24 hr hydrochlorothiazide 25 mg tablet 25 mg PO QAM #90 tabs 05/02/24 pravastatin 80 mg tablet 80 mg PO HS #90 tabs 05/02/24 Results & Data (ED) Vital Signs Vital Signs - 24 hr 05/14/24 21:24 05/14/24 21:27 05/14/24 21:27 Temperature 36.7 C Temperature Source Oral Pulse Rate 86 86 Pulse Rate [Right Finger] Respiratory Rate 24 Blood Pressure 140/82 Blood Pressure [Right Arm] Blood Pressure Mean 101 Blood Pressure Mean [Right Arm] Blood Pressure Position Sitting Pulse Oximetry 97 88 L Oxygen Delivery Method Nasal Cannula Room Air Nasal Cannula Oxygen Flow Rate 2 0 Sepsis Recent Fever Within 48 Hours No Sepsis New/Unexplained Change in Mental Status No Sepsis Action Taken by Nursing No Action Required Oxygen Flow Rate - Titration 2 Pulse Oximetry Post Tiitration 97 05/14/24 21:28 05/14/24 23:09 Temperature Temperature Source Pulse Rate 92 H Pulse Rate [Right Finger] 97 H Respiratory Rate 24 22 Blood Pressure Blood Pressure [Right Arm] 108/75 Blood Pressure Mean Blood Pressure Mean [Right Arm] 86 Blood Pressure Position Pulse Oximetry 97 96 Oxygen Delivery Method Nasal Cannula Nasal Cannula Oxygen Flow Rate 2 2 Sepsis Recent Fever Within 48 Hours Sepsis New/Unexplained Change in Mental Status Sepsis Action Taken by Nursing Oxygen Flow Rate - Titration Pulse Oximetry Post Tiitration Laboratory Data 05/14/24 21:30 05/14/24 21:30 Lab Results 05/14/24 05/14/24 Range/Units 21:30 21:40 WBC 8.68 (4.8-10.8) K/ul RBC 3.64 L (4.20-5.40) M/uL Hgb 11.9 L (12.0-16.0) g/dl Hct 34.5 L (37.0-47.0) % MCV 94.8 (80.0-100.0) fL MCH 32.7 (25.0-34.0) pg MCHC 34.5 (32.0-36.0) g/dL RDW Std Deviation 55.9 H (36.4-46.3) fL RDW Coeff of Morro 16.6 H (11.5-14.5) % Plt Count 143 (130-400) K/uL MPV 9.6 (9.4-12.4) fL Immature Gran % (Auto) 0.5 % Neut % (Auto) 83.0 % Lymph % (Auto) 8.3 % [place] % (Auto) 6.5 % Eos % (Auto) 1.5 % Baso % (Auto) 0.2 % Neut # (Auto) 7.21 H (1.40-6.50) K/uL Lymph # (Auto) 0.72 L (1.20-3.40) K/uL [place] # (Auto) 0.56 (0.11-0.59) K/uL Eos # (Auto) 0.13 (0.00-0.50) K/uL Baso # (Auto) 0.02 (0.00-0.20) K/uL Immature Gran # (Auto) 0.04 (0.01-0.20) K/uL PT Cancelled INR Cancelled VBG pH 7.43 H (7.36-7.41) VBG pCO2 45 (38-50) mmHg VBG pO2 44 mmHg VBG HCO3 30 mmol/L VBG O2 Saturation 74.7 % VBG Base Excess 4.8 mEq/L Sodium 136 (136-145) mmol/L Potassium 3.4 L (3.5-5.1) mmol/L Chloride 100 (98-107) mmol/L Carbon Dioxide 30 (21-32) mmol/L Anion Gap 6 (3-11) BUN 27 H (6-23) mg/dl Creatinine 0.81 (0.6-1.2) mg/dl Est Cr Clr Drug Dosing 51.9 ml/min eGFR 74.72 BUN/Creatinine Ratio 33.3 H (10-20) Glucose 151 H (70-99(Fasting)) mg/dl Calcium 9.1 (8.6-10.3) mg/dl Total Bilirubin 1.1 H (0.2-1.0) mg/dl AST 15 (13-39) U/L ALT 10 (7-52) U/L Alkaline Phosphatase 64 (34-104) U/L Troponin I High Sens 23.9 H (0-14) pg/ml B-Natriuretic Peptide 218 H (0-100) pg/ml Total Protein 6.6 (6.0-8.3) gm/dl Albumin 3.8 (3.4-5.0) gm/dl Globulin 2.8 (2.5-4.0) gm/dl Albumin/Globulin Ratio 1.4 (0.9-2) Lipase 21 (11-82) U/L Procalcitonin 0.05 (0-0.5) ng/ml Adenovirus (PCR) Not Detected (NotDetected) B. pertussis DNA (PCR) Not Detected (NotDetected) B.parapertussis DNA PCR Not Detected (NotDetected) C. pneumoniae DNA (PCR) Not Detected (NotDetected) Coronavirus OC43 (PCR) Not Detected (NotDetected) Coronavirus HKU1 (PCR) Not Detected (NotDetected) Coronavirus 229E (PCR) Not Detected (NotDetected) SARS-CoV-2 (PCR) Not Detected (NotDetected) Coronavirus NL63 (PCR) Not Detected (NotDetected) Human Metapneumovir PCR Not Detected (NotDetected) Influenza Type A (PCR) Not Detected (NotDetected) Influenza Type B (PCR) Not Detected (NotDetected) M. pneumoniae (PCR) Not Detected (NotDetected) Parainfluenza 1 (PCR) Not Detected (NotDetected) Parainfluenza 2 (PCR) Not Detected (NotDetected) Parainfluenza 3 (PCR) Not Detected (NotDetected) Parainfluenza 4 (PCR) Not Detected (NotDetected) RSV (PCR) Not Detected (NotDetected) Entero/Rhino (PCR) Not Detected (NotDetected) Administered Medications Discontinued Medications Sodium Chloride (Nss) 500 mls @ 999 mls/hr IV .Q31M ONE Stop: 05/14/24 22:01 Last Infusion: 05/14/24 23:16 Dose: Infused Documented By: Admin: 05/14/24 21:44 Dose: 999 mls/hr Documented By: QGV Discharge Plan Visit Data Chief Complaint: Dizziness Stated Complaint: DIZZINESS, COUGH ED Provider: Grant Penn Discharge Problem: Hypoxia Forms Stand Alone Forms: [facility] Prescriptions Prescriptions: No Action (DME) CPAP Machine Misc See Rx Instructions .Route Qty: 1 0RF Rx Instructions: Min 5- Max 20 Aflex 3 (DME) CPAP Supplies Misc See Rx Instructions .Route Qty: 1 0RF Rx Instructions: As directed; face mask- patient will need fitted (DME) CPAP Supplies Misc See Rx Instructions .Route Qty: 1 3RF Rx Instructions: As directed. Face mask HCPCS A7030, head gear HCPCS a7035 Eliquis 5 mg tablet 5 mg PO BID Qty: 60 11RF potassium chloride [Klor-Con M20] 20 mEq tablet,ER particles/crystals 20 meq PO BID Qty: 180 1RF tramadol 50 mg tablet 50 mg PO Q4H PRN (Reason: pain) Qty: 60 0RF diltiazem HCl 180 mg capsule,extended release 24hr 180 mg PO DAILY Qty: 90 3RF hydrochlorothiazide 25 mg tablet 25 mg PO QAM Qty: 90 3RF Hold Instructions: Home Medication placed on hold at Doctor's office pravastatin 80 mg tablet 80 mg PO HS Qty: 90 3RF calcium carbonate-vitamin D3 600 mg(1,500mg) -200 unit tablet 1 tab PO HS diclofenac sodium [Voltaren Arthritis Pain] 1 % gel 2 g topical QID Rx Instructions: apply to single elbow, wrist or hand; for hand includes palm/fingers/back of hand cetirizine 10 mg tablet 10 mg PO QAM PRN (Reason: allergies) (DME) Auto Titrating CPAP Misc See Rx Instructions .Route Qty: 1 0RF Rx Instructions: As directed acetaminophen 500 mg capsule 1,000 mg PO TID PRN (Reason: Pain) Rx Instructions: TAke 3 times per day to lessen pain. triamcinolone acetonide 0.5 % cream 1 applic topical DAILY PRN (Reason: skin irritation) Qty: 60 1RF duloxetine 60 mg capsule,delayed release(DR/EC) 60 mg PO DAILY Referrals Referrals: Emmie Weinstein DO [Primary Care Provider] -
[2024-05-14] MEDS: SODIUM CHLORIDE 0.9% 500 ML IV ONE (21:44)
[2024-05-14 21:54] LABS: Base Excess VBG 4.8 mEq/L; HCO3 VBG 30 mmol/L; Oxygen Saturation VBG 74.7 %; PCO2 VBG 45 mmHg (38-50); PO2 VBG 44 mmHg; pH VBG 7.43 (7.36-7.41)
[2024-05-14 21:54] LABS: Basophils # (auto) 0.02 K/uL (0.00-0.20); Basophils % (auto) 0.2 %; Eosinophils # (auto) 0.13 K/uL (0.00-0.50); Eosinophils % (auto) 1.5 %; Hematocrit (blood only) 34.5 % (37.0-47.0); Hemoglobin 11.9 g/dl (12.0-16.0); Immature Granulocytes # (auto) 0.04 K/uL (0.01-0.20); Immature Granulocytes % (auto) 0.5 %; Lymphocytes # (auto) 0.72 K/uL (1.20-3.40); Lymphocytes % (auto) 8.3 %; Mean Corpuscular Hemoglobin 32.7 pg (25.0-34.0); Mean Corpuscular Hgb Conc 34.5 g/dL (32.0-36.0); Mean Corpuscular Volume 94.8 fL (80.0-100.0); Mean Platelet Volume 9.6 fL (9.4-12.4); Monocytes # (auto) 0.56 K/uL (0.11-0.59); Monocytes % (auto) 6.5 %; Neutrophils # (auto) 7.21 K/uL (1.40-6.50); Platelet Count 143 K/uL (130-400); RDW Coefficient of Variation 16.6 % (11.5-14.5); RDW Standard Deviation 55.9 fL (36.4-46.3); Red Blood Count 3.64 M/uL (4.20-5.40); White Blood Count 8.68 K/ul (4.8-10.8)
[2024-05-14 22:09] LABS: Albumin Globulin Ratio 1.4 (0.9-2); Albumin Level 3.8 gm/dl (3.4-5.0); BUN Creatinine Ratio 33.3 (10-20); Bilirubin,Total 1.1 mg/dl (0.2-1.0); Calcium 9.1 mg/dl (8.6-10.3); Creatinine Clr Calc Pharmacy 51.9 ml/min; Globulin 2.8 gm/dl (2.5-4.0); Potassium 3.4 mmol/L (3.5-5.1); Total Protein 6.6 gm/dl (6.0-8.3)
[2024-05-14 22:15] LABS: Troponin I High Sensitivity 23.9 pg/ml (0-14)
[2024-05-14 22:37] LABS: Adenovirus PCR Not Detected (NotDetected); Bordetella parapertussis PCR Not Detected (NotDetected); Bordetella pertussis PCR Not Detected (NotDetected); Chlamydia pneumoniae PCR Not Detected (NotDetected); Coronavirus 229E PCR Not Detected (NotDetected); Coronavirus CoV-2 (COVID19)PCR Not Detected (NotDetected); Coronavirus HKU1 PCR Not Detected (NotDetected); Coronavirus NL63 PCR Not Detected (NotDetected); Coronavirus OC43PCR Not Detected (NotDetected); Human Metapneumovirus PCR Not Detected (NotDetected); Influenza A PCR Not Detected (NotDetected); Influenza B PCR Not Detected (NotDetected); Mycoplasma pneumoniae PCR Not Detected (NotDetected); Parainfluenza Virus 1 PCR Not Detected (NotDetected); Parainfluenza Virus 2 PCR Not Detected (NotDetected); Parainfluenza Virus 3 PCR Not Detected (NotDetected); Parainfluenza Virus 4 PCR Not Detected (NotDetected); Respiratory Syncytial VirusPCR Not Detected (NotDetected); Rhinovirus/Enterovirus PCR Not Detected (NotDetected)
--- NOTE | 2024-05-14 23:34 | History & Physical Report ---
Date of Service May 14, 2024 Assessment & Plan (1) Hypoxia: (2) Hypokalemia: (3) Elevated troponin: (4) Wound of right foot: Plan 78-year-old female PMHx fibromyalgia, GERD, depression anxiety, A-fib on Eliquis, scleroderma (crest), dyslipidemia, HTN, QUINTON, and Raynaud's presenting via EMS for dizziness starting day of arrival. ED evaluation reveals no leukocytosis, H&H 11.9/34.5, VBG's pH 7.43, potassium 3.4, BUN 27, ratio 33.3, bilirubin 1.1, Trope 23.9, pending repeat, BNP 218, procalcitonin 0.05; BioFire negative; CXR pending official read; EKG A-fib with variable AV block and rate controlled (86 bpm). Provided with NSS in ED. #Hypoxia/SOB Quick onset SOB with associated tachycardia, presyncope, and weakness occurring at patient's home. When EMS arrived, patient found to be hypoxic and was satting 88% on RA. No history of smoking, but with significant exposure to x 50 years. Suspect hypoxia/SOB related to multiple factors, with concern being questionable aspiration from esophageal dysmotility as seen with CREST syndrome versus relation with pulmonary hypertension also related to CREST. Patient with significant wheezing on exam, audible even without stethoscope on chest. H&H are low on admission, unlikely source of symptoms. - CBC without leukocytosis, H&H 11.9/34.5; VBG's pH 7.4; BNP 218; Pro-Chris 0.05; BioFire negative; CXR enlarged cardiac silhouette, pulm vascular interstitial markings in the perihilar regions and left lung base noted to be increasing previous.- CBC am - No clear source of infection/pulmonary source at time of admission - O2 prn; wean as patient tolerates - No O2 at baseline - Levalbuterol neb q4hr - Solu-Medrol 125mg IV - Speech therapy consult placed given ? aspiration risk; aspiration precautions ordered - Consider pulm consult in AM given new pulm HTN as identified on 05/08 echo #Hypokalemia Asymptomatic currently. On HCTZ normally. - K 3.4; Mg pending- repeat AM - HOLD HCTZ at admission - KCl 20 mEq IV ordered - attempt IV given h/o CREST + ? esophageal dysmotility + impact of po K on such - No EKG changes #Elevated troponin Pt w/ h/o Afib, slightly tachycardic during arrival; no current chest pain - Troponin 23.9, pending repeat - EKG Afib, without ischemic changes - Likely 2/2 demand #Toe wound R foot, 2nd toe wound. Was outside in just socks during cold weather, believes that she got frostbite. Has been using symptomatic management. No pain. - CBC w/o leukocytosis; wound culture pending - XR R foot: Hallux valgus, OA changes, ? lucency in head of proximal phalanx 2nd toe (OM cannot be r/o, MRI/CT for further eval), soft tissue swelling and lucencies in R fore/midfoot. - Arterial dopplers pending - No h/o DM, no drainage from area, no impact on ambulation - PCN allergy - daptomycin + cefepime IV started - adjust abx as appropriate - Hold statin on dapto - Wound care consulted #Afib, on eliquis H/o permanent Afib; without symptoms. Eliquis, diltiazem - EKG on admission showed Afib, rate 86bpm - Echo 3/ EF 60 to 65%, severe LAD, mild RAD, severe pulmonary HTN estimated RVSP 73 mmHg #HLD- Pravastatin Dispo: Admit, PCU VTE Prophylaxis: Eliquis This document was dictated utilizing [employer]. Please excuse any grammatical errors that may be secondary to use of this software. Admission and Anticipated Discharge Date Admission Date: 05/15/2024 History of Present Illness Chief Complaint: Dizziness Primary Care Provider: Emmie Weinstein DO 78-year-old female PMHx fibromyalgia, GERD, depression anxiety, A-fib on Eliquis, scleroderma (crest), dyslipidemia, HTN, QUINTON, and Raynaud's presenting via EMS for dizziness starting day of arrival. 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 When EMS arrived, patient was reported to be 88% on RA but was able to be increased to 96% on 2L NC. No oxygen at baseline. Patient states that for approximately 4 to 5 days she has been having flulike symptoms described as productive cough and scattered feeling of being feverish. On the day of arrival, patient states that in the morning hours that she felt slightly weak and tired, but around the time that she was getting ready for bed she was walking from her bathroom to her bed and suddenly became very weak, had onset of shortness of breath, could feel her heart racing, and felt as though she was, passed out. She was able to make it to bed and did not pass out or fall but was still getting the sensation that she was going to. Patient states that this happened on 2 occasions within minutes of each other. Denies sick contacts, and has never had this happen before. Overall denying chest pain, palpitations, abdominal pain, N/V/D/C, LUTS, numbness/tingling, vertigo, or headache. Denies smoking, but states that she had secondhand exposure to her for 50 years. ED evaluation reveals no leukocytosis, H&H 11.9/34.5, VBG's pH 7.43, potassium 3.4, BUN 27, ratio 33.3, bilirubin 1.1, Trope 23.9, pending repeat, BNP 218, procalcitonin 0.05; BioFire negative; CXR pending official read; EKG A- fib with variable AV block and rate controlled (86 bpm). Provided with NSS in ED. Please see Dr. Dey's attestation for adjustments/additions to treatment plan. Allergies Allergy/AdvReac Type Severity Reaction Status Date / Time pollen extracts Allergy Intermediate Itchy, Verified 02/14/24 12:50 watery eyes, sneezing, congestion adhesive Allergy Mild skin Verified 02/14/24 12:50 irritation, "burning" capsaicin Allergy Mild Rash Verified 02/14/24 12:50 Penicillins Allergy Mild Hives Verified 02/14/24 12:50 gabapentin AdvReac Intermediate Confusion Verified 02/14/24 12:50 Home Medications Medication Instructions Recorded Confirmed Type cetirizine 10 mg tablet 10 mg PO QAM PRN allergies 11/17/18 05/15/24 History calcium 600 mg (as 1 tab PO HS 03/23/19 05/15/24 History carbonate)-vitamin D3 5 mcg (200 unit) tablet Auto Titrating CPAP #1 ea 11/05/20 02/14/24 Rx acetaminophen 500 mg capsule 1,000 mg PO TID PRN Pain 12/03/21 05/15/24 History diclofenac sodium 1 % topical gel 2 g topical QID 02/03/22 05/15/24 History (Voltaren Arthritis Pain) CPAP Machine #1 ea 04/19/23 02/14/24 Rx CPAP Supplies #1 ea 06/22/23 02/14/24 Rx CPAP Supplies #1 ea 07/14/23 02/14/24 Rx triamcinolone acetonide 0.5 % 1 applic topical DAILY PRN skin 08/06/23 05/15/24 Rx topical cream irritation #60 grams apixaban 5 mg tablet (Eliquis) 5 mg PO BID #60 tabs 10/26/23 05/15/24 Rx potassium chloride 20 mEq 20 meq PO BID #180 tabs 12/08/23 05/15/24 Rx tablet,extended release(part/cryst) (Klor-Con M) duloxetine 60 mg capsule,delayed 60 mg PO DAILY 02/25/24 05/15/24 History release tramadol 50 mg tablet 50 mg PO Q4H PRN pain #60 tabs 04/27/24 05/15/24 Rx diltiazem HCl 180 mg 180 mg PO DAILY #90 caps 05/02/24 05/15/24 Rx capsule,extended release 24 hr hydrochlorothiazide 25 mg tablet 25 mg PO QAM #90 tabs 05/02/24 05/15/24 Rx pravastatin 80 mg tablet 80 mg PO HS #90 tabs 05/02/24 05/15/24 Rx Past Med/Surg History Problem List (Updated 05/15/24 @ 13:39 by Koby Pham MD) Scleroderma Pulmonary hypertension Wound of right foot Elevated troponin Hypokalemia Hypoxia (Acute) Fibromyalgia Arthritis of left hip History of colon polyps Morbid obesity Lichen sclerosus et atrophicus Internal hemorrhoids Impaired fasting glucose Gastroesophageal reflux disease Diverticulosis Depression with anxiety Degenerative joint disease of cervical spine Anticoagulant long-term use Reactive airway disease Right knee DJD Atrial fibrillation, permanent dx approx 3 yrs ago > no pacer, Eliquis Anxiety and depression Paroxysmal atrial flutter (Chronic) Follows with [facility]/Dr. Brennan Allergic rhinitis CREST variant of scleroderma (Chronic) Stable Carotid artery plaque Dyslipidemia Generalized osteoarthritis of multiple sites Hypertension Lymphoproliferative disease Obstructive sleep apnea (adult) (pediatric) CPAP (Generally compliant) Osteopenia Pulmonary nodule Raynaud's disease without gangrene Splenomegaly Medical History Left rotator cuff tear arthropathy Chronic pain 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 Dyspnea on exertion Arthritis of right hip Chronic cough Hypercalcemia Fatigue Obesity Surgical History History of total right hip arthroplasty Status post right hip replacement History of colonoscopy History of carpal tunnel surgery R/L H/O dilation and curettage Hx of cataract surgery R/L Hx of lumpectomy L BREAST (BENIGN) History of total knee replacement Left TKA (09/21/14): SAB at L3/L4 (x1 attempt) + PNB at [facility] History of bilateral tubal ligation History of tooth extraction History of lobectomy of lung L LUNG- 2016 (BENIGN MASS) Family History Mother History of colon cancer Hypercholesteremia Colorectal cancer Father Sinus disorder Coronary heart disease Cardiac disorder Myocardial infarction Stroke syndrome Hx of CABG Hypertension Other No family history of adverse response to anesthesia Denies family history of Ovarian cancer Prostate cancer Breast cancer Social History Smoking Status: Never smoker Second Hand Exposure: No; Do You Dip or Chew Tobacco: No; Tobacco Cessation Education Requested by Patient: No Hx Alcohol Use: No Hx Substance Use: No Preferred Language: Albanian Communication Ability: Effective Visual Impairment: No Limitations Hearing Ability: Normal Aviation Program Manager Required: No Beliefs That Will Affect Care: None marital status: / Current Living Situation: Alone current occupational status: retired 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 [employer] Other Information That Helps Us Care for You: No Feels Safe at Home: Yes Safety Concerns: Feels Safe At This Time Childhood Exposure to Second-Hand Smoke: Yes Diet: DASH Diet Comment: heart healthy caffeine: No during the past year weight has: remained stable Dental Care, Regularly: No Physical Activity Frequency: 3-4 Times per Week Physical Activity Frequency Comment: walking; house work Seatbelt Use: always Sunscreen Use: Yes Assistive Devices: Cane and Walker Review of Systems 2 Review of Systems: All systems reviewed & are unremarkable except as noted in Subjective Physical Exam 2 Physical Exam: General: No acute distress Skin: Warm and dry; Wound to R 2nd toe, dry skin, no oozing or erythema, no streaking Head: Normocephalic, atraumatic Eyes: PERRL, conjunctivae clear, sclera non-icteric; wearing glasses ENT: External ear and ear canal without swelling; nose atraumatic; good dentition, tongue normal appearance, pharynx normal Neck: Supple, no LAD Cardio: Tachycardic 100s, irregularly irregular rhythm, no M/G/R, S1 and S2 normal Resp: Decreased air movement throughout, inspiratory and expiratory wheezing heard even without stethoscope on chest, no respiratory distress, Lungs CTA in all lobes bilaterally, no wheezes, rales, or rhonchi Abdomen: Soft, symmetric, nontender; No masses or hepatosplenomegaly; Bowel sounds normoactive MSK: No deformities, full ROM throughout; pulses palpable and equal; no edema. Neuro: Awake, alert; CN grossly intact Psych: Appropriate mood and affect; good judgement and insight. Daughter present in room at time of visit. Results & Data Results & Data Vital Signs (Past 12 Hours) Vital Signs Temp Pulse Pulse Resp BP BP Pulse Ox 05/14/24 23:09 97 H 22 108/75 96 05/14/24 21:28 92 H 24 97 05/14/24 21:27 88 L 05/14/24 21:27 36.7 C 86 24 140/82 97 05/14/24 21:24 86 O2 Del Method O2 Flow Rate 05/14/24 23:09 Nasal Cannula 2 05/14/24 21:28 Nasal Cannula 2 05/14/24 21:27 Room Air, Nasal Cannula 0 05/14/24 21:27 Nasal Cannula 2 05/14/24 21:24 Laboratory Results 05/14/24 05/14/24 21:40 21:30 WBC 8.68 RBC 3.64 L Hgb 11.9 L Hct 34.5 L MCV 94.8 MCH 32.7 MCHC 34.5 RDW Std Deviation 55.9 H RDW Coeff of Morro 16.6 H Plt Count 143 MPV 9.6 Immature Gran % (Auto) 0.5 Neut % (Auto) 83.0 Lymph % (Auto) 8.3 Cowley % (Auto) 6.5 Eos % (Auto) 1.5 Baso % (Auto) 0.2 Neut # (Auto) 7.21 H Lymph # (Auto) 0.72 L Cowley # (Auto) 0.56 Eos # (Auto) 0.13 Baso # (Auto) 0.02 Immature Gran # (Auto) 0.04 PT Cancelled INR Cancelled VBG pH 7.43 H VBG pCO2 45 VBG pO2 44 VBG HCO3 30 VBG O2 Saturation 74.7 VBG Base Excess 4.8 Sodium 136 Potassium 3.4 L Chloride 100 Carbon Dioxide 30 Anion Gap 6 BUN 27 H Creatinine 0.81 Est Cr Clr Drug Dosing 51.9 eGFR 74.72 BUN/Creatinine Ratio 33.3 H Glucose 151 H Calcium 9.1 Total Bilirubin 1.1 H AST 15 ALT 10 Alkaline Phosphatase 64 Troponin I High Sens 23.9 H B-Natriuretic Peptide 218 H Total Protein 6.6 Albumin 3.8 Globulin 2.8 Albumin/Globulin Ratio 1.4 Lipase 21 Procalcitonin 0.05 Adenovirus (PCR) Not Detected B. pertussis DNA (PCR) Not Detected B.parapertussis DNA PCR Not Detected C. pneumoniae DNA (PCR) Not Detected Coronavirus OC43 (PCR) Not Detected Coronavirus HKU1 (PCR) Not Detected Coronavirus 229E (PCR) Not Detected SARS-CoV-2 (PCR) Not Detected Coronavirus NL63 (PCR) Not Detected Human Metapneumovir PCR Not Detected Influenza Type A (PCR) Not Detected Influenza Type B (PCR) Not Detected M. pneumoniae (PCR) Not Detected Parainfluenza 1 (PCR) Not Detected Parainfluenza 2 (PCR) Not Detected Parainfluenza 3 (PCR) Not Detected Parainfluenza 4 (PCR) Not Detected RSV (PCR) Not Detected Entero/Rhino (PCR) Not Detected Diagnostic Findings Chest X-Ray 05/14/24 21:28 Exam(s): XR CXR 1 VIEW EXAM: XR Chest, 1 View CLINICAL HISTORY: Reason for exam: Chest pain, nonspecific. TECHNIQUE: Frontal view of the chest. COMPARISON: July 14, 2021 FINDINGS: Lungs: Prominent vascular and interstitial markings in the perihilar regions and left lung base, increased previous. No definite edema or focal consolidation seen. Pleural space: Unremarkable. No pneumothorax. Heart: The cardiac silhouette is mildly enlarged, similar to previous. Mediastinum: Unremarkable. Normal mediastinal contour. Bones/joints: Mild degenerative changes in the lower thoracic spine. Moderate degenerative changes in the left shoulder and old healed fracture of the proximal right humerus. Vasculature: The aortic arch is calcified, unchanged. Upper abdomen: 4 cm elevation of the right diaphragm. IMPRESSION: 1. The cardiac silhouette is mildly enlarged, similar to previous. 2. Prominent vascular and interstitial markings in the perihilar regions and left lung base, increased previous. No definite edema or focal consolidation seen. Electronically signed by: Angel Hernandez MD 05/15/24 00:05 AM Medications Administered 500 mL NSS ECG Additional Comments: A-fib with variable AV block, ST and T wave abnormality 86 bpm, QRS 64, QT/QTc 410/490, PRT */74/139 Code Status & VTE Plan Code Status Conditional - OK with cardiac interventions to include compressions, electricity, and medications - NO mechanical ventilation; "No machines to keep me alive." Wishes confirmed with patient, patient's daughter in room. Supervising Physician Co-Signing Physician Notes Attending addendum: I have physically seen this patient, have supervised the DIMAS's began earlier in the morning. She was noted to have pulse ox of 87% on room air, which included 7% on 2 L nasal cannula oxygen. She was referred for evaluation for admission for acute onset hypoxia, tachycardia, to evaluate hospitalist service. #Hypoxia/shortness of breath/dyspnea exertion- Patient with new oxygen requirement, with normal-appearing chest x-ray. Pulse ox is 78% on room air, improved to 97% on 2 L nasal cannula. BioFire testing negative No History of tobacco use disorder or COPD Recent echocardiogram 05/08/2024 suggesting severe pulmonary hypertension, which likely needs to be treated Xopenex nebulizer every 4 hours Methylprednisolone 125 mg IV, reassess in the a.m. Nasal cannula oxygen, titrate to keep pulse ox around 94% Pulmonology consult Atrial fibrillation/hypertension/elevated troponin- Troponin 23.9 likely supply demand Continue Eliquis, diltiazem Echocardiogram on 05/08/2024 and ejection fraction 60-65%, and severe pulmonary hypertension as noted Right second toe wound- X-ray ordered, concerning for osteomyelitis Likely secondary to Raynaud's/CREST Ordering lower extremity arterial ultrasound Placed on daptomycin IV and cefepime IV Consult wound care Hypokalemia- Hold HCTZ temporarily Potassium 3.4 on admission Given IV replacement, recheck laboratories in a.m. Remaining orders and notations as noted PG Care Time/CCT Total # of Minutes Spent Total Time Spent with Patient: Total time spent is greater than 50% in coordination of care (as documented) at patient's floor/unit and/or counseling patient: Coding Level of Care Code 40245 INT INP/OBS CARE 3/75MIN Diagnoses Hypoxia R09.02 Hypokalemia E87.6 Elevated troponin R79.89 Wound of right foot S91.301A
--- NOTE | 2024-05-15 00:07 | XRay Report ---
Exam(s): XR CXR 1 VIEW EXAM: XR Chest, 1 View CLINICAL HISTORY: Reason for exam: Chest pain, nonspecific. TECHNIQUE: Frontal view of the chest. COMPARISON: July 14, 2021 FINDINGS: Lungs: Prominent vascular and interstitial markings in the perihilar regions and left lung base, increased previous. No definite edema or focal consolidation seen. Pleural space: Unremarkable. No pneumothorax. Heart: The cardiac silhouette is mildly enlarged, similar to previous. Mediastinum: Unremarkable. Normal mediastinal contour. Bones/joints: Mild degenerative changes in the lower thoracic spine. Moderate degenerative changes in the left shoulder and old healed fracture of the proximal right humerus. Vasculature: The aortic arch is calcified, unchanged. Upper abdomen: 4 cm elevation of the right diaphragm. IMPRESSION: 1. The cardiac silhouette is mildly enlarged, similar to previous. 2. Prominent vascular and interstitial markings in the perihilar regions and left lung base, increased previous. No definite edema or focal consolidation seen. Electronically signed by: Angel Hernandez MD 05/15/24 00:05 AM
[2024-05-15] MEDS: ALBUT/IPRATROP 3MG/0.5MG NEB 3 ML VIAL NEB STA (00:13)
[2024-05-15 00:32] LABS: Magnesium 1.8 mg/dl (1.7-2.4)
[2024-05-15 00:39] LABS: Troponin I High Sensitivity 24.4 pg/ml (0-14)
[2024-05-15 00:40] LABS: INR 1.1 (0.9-1.1); Prothrombin Time 11.8 Seconds (9.0-12.0)
[2024-05-15] MEDS: methylPREDNISolone 125 MG/2 ML VIAL IV STA (00:44)
[2024-05-15] MEDS: LEVALBUTEROL HCL 0.63 MG/3 ML NEB NEB STA (00:44)
[2024-05-15] MEDS ORDERED: ACETAMINOPHEN 325 MG TAB PO PRN (02:10)
[2024-05-15] MEDS: POTASSIUM CHLORIDE / WTR 10 MEQ/100 ML PLCT IV SCH (02:50)
--- NOTE | 2024-05-15 03:32 | XRay Report ---
EXAM: XR foot RT min 3V routine CLINICAL HISTORY: 2nd toe osteomyelitis; CREST, toe wound. TECHNIQUE: X-ray images of the right foot were obtained in anteroposterior (AP), lateral, and oblique projections. COMPARISON: No prior studies available for comparison. FINDINGS: Bone Structure: There is hallux valgus deformity. There are osteoarthritic changes involving the first metatarsophalangeal joint, the proximal interphalangeal joint of the fifth toe, and all tarsometatarsal joints. A small calcaneal spur is seen along its plantar aspect. Enthesophyte at the attachment site of the Achilles tendon. Questionable lucency is present in the head of the proximal phalanx of the second toe only appreciated on oblique view. The possibility of osteomyelitis can't be ruled out. Joint Spaces: No evidence of joint effusion. Soft Tissues: Soft tissue swelling and lucencies are identified in the right fore and midfoot. IMPRESSION: 1. Hallux valgus deformity 2. Osteoarthritic changes as mentioned above. 3. Questionable lucency in the head of the proximal phalanx of the second toe is only appreciated in the oblique view. The possibility of osteomyelitis can't be ruled out. 4. MRI/CT scan is advised for further evaluation. 5. Soft tissue swelling and lucencies are identified in the right fore and midfoot. Disclaimer: A subtle bone abnormality or fracture may not be readily apparent on X-rays, thus clinical correlation and further imaging including follow-up CT, MRI, or follow-up X-rays are advised as needed. Electronically signed by Deven Wilson 05-15-2024 03:32 AM
--- NOTE | 2024-05-15 04:27 | Ultrasound Report ---
EXAM: US arterial duplex LE RT CLINICAL HISTORY: Toe wound, CREST. TECHNIQUE: Ultrasound examination of the right lower extremity arteries and duplex in real time. One or more of the following were performed- spectral analysis, resistive index, waveform analysis, and pulsed Doppler. COMPARISON: None. FINDINGS: Vessel Flow Pattern Right Peak Velocity Right (cm/sec) Common Femoral Artery (GRANT WRITER) Triphasic [PSV 107] Superficial Femoral Artery (SFA) Triphasic [PSV 75] Popliteal Artery (POP A) Triphasic [PSV 65] Posterior Tibial Artery (ROCKET ASSEMBLY OPERATOR), proximal Triphasic [PSV 121] Posterior Tibial Artery (ROCKET ASSEMBLY OPERATOR), distal Triphasic [PSV 120] Dorsalis Pedis Artery (DPA) Triphasic [PSV 79] Multiple small nonsignificant mural plaques with no hemodynamically significant stenosis are noted in the arteries. The peak systolic velocities are within normal limits. No evidence of significant stenosis (50%) or hemodynamically significant lesions. Normal triphasic/triphasic waveform pattern observed throughout the evaluated segments. Collateral Circulation: No significant collateral circulation noted indicative of chronic arterial occlusion. IMPRESSION: 1. Duplex ultrasound of the lower extremity arteries: 2. Preserved arterial flow characteristics with no evidence of significant stenosis or occlusion. Electronically signed by Deven Wilson 05-15-2024 04:26 AM
[2024-05-15] MEDS: DAPTOmycin 500 MG in SYRINGE 0 ML IV SCH (05:39)
[2024-05-15] MEDS: CEFEPIME 2000MG 2,000 MG/20 ML SYR IV SCH (05:39)
[2024-05-15] MEDS ORDERED: traMADol HCL 50 MG TABLET PO PRN (06:14)
[2024-05-15] MEDS ORDERED: ACETAMINOPHEN 500 MG TAB PO PRN (06:21)
[2024-05-15] MEDS: APIXABAN 5 MG TABLET PO SCH (07:47)
[2024-05-15] MEDS: dilTIAZem HCL 180 MG CAPCR PO SCH (07:48)
[2024-05-15] MEDS: DULoxetine HCL 60 MG CAP PO SCH (07:48)
[2024-05-15] MEDS: METOPROLOL TARTRATE 1 MG/ML VIAL IV STA (09:32)
[2024-05-15] MEDS: guaiFENesin 600 MG TABCR PO SCH (11:25)
--- NOTE | 2024-05-15 13:43 | Pulmonary Consultation ---
Date of Consultation May 15, 2024 Assessment & Plan (1) Pulmonary hypertension: Pulmonary hypertension noted on echo with an estimated RVSP of 73 mmHg. EF is 60 to 65%. No prior right heart catheterization data available for review. BNP on admission was 218. Recommend maintaining euvolemia and having the patient follow-up with a pulmonary hypertension center of excellence as an outpatient with PFTs, right heart catheterization and office visit. She does not appear to be in decompensated right-sided heart failure at this present time. Will pursue an HRCT while she is in the hospital due to determine if there is any evidence of interstitial lung disease or acute infiltrate. (2) Scleroderma: Patient followed by rheumatology as an outpatient. The patient does not appear to be on any home immunosuppressants. Will defer immunosuppression to outpatient rheumatology who is managing her scleroderma. Plan Will follow-up with the patient after HRCT. History of Present Illness Reason for Consultation: Pulmonary hypertension Attending Physician: Jermaine Wen History of Present Illness 78-year-old female with a past medical history of A-fib on Eliquis, GERD and scleroderma followed by rheumatology in [place] presenting to the hospital due to increased cough and shortness of breath. Patient is a non-smoker. She denies any prior lung disease that she is aware. She apparently had an onset of shortness of breath and tachycardia at home with presyncope. She is currently being treated with daptomycin and cefepime. Daptomycin has been used for toe cellulitis. Chest x-ray 05/14/2024 revealed increased prominent vascular interstitial markings in the perihilar regions. No infiltrate was seen. Patient requiring low-flow oxygen. Cough is less today and she feels slightly less short of breath. Allergies Allergy/AdvReac Type Severity Reaction Status Date / Time pollen extracts Allergy Intermediate Itchy, Verified 02/14/24 12:50 watery eyes, sneezing, congestion adhesive Allergy Mild skin Verified 02/14/24 12:50 irritation, "burning" capsaicin Allergy Mild Rash Verified 02/14/24 12:50 Penicillins Allergy Mild Hives Verified 02/14/24 12:50 gabapentin AdvReac Intermediate Confusion Verified 02/14/24 12:50 Home Medications Medication Instructions Recorded Confirmed Type cetirizine 10 mg tablet 10 mg PO QAM PRN allergies 11/17/18 05/15/24 History calcium 600 mg (as 1 tab PO HS 03/23/19 05/15/24 History carbonate)-vitamin D3 5 mcg (200 unit) tablet Auto Titrating CPAP #1 ea 11/05/20 02/14/24 Rx acetaminophen 500 mg capsule 1,000 mg PO TID PRN Pain 12/03/21 05/15/24 History diclofenac sodium 1 % topical gel 2 g topical QID 02/03/22 05/15/24 History (Voltaren Arthritis Pain) CPAP Machine #1 ea 04/19/23 02/14/24 Rx CPAP Supplies #1 ea 06/22/23 02/14/24 Rx CPAP Supplies #1 ea 07/14/23 02/14/24 Rx triamcinolone acetonide 0.5 % 1 applic topical DAILY PRN skin 08/06/23 05/15/24 Rx topical cream irritation #60 grams apixaban 5 mg tablet (Eliquis) 5 mg PO BID #60 tabs 10/26/23 05/15/24 Rx potassium chloride 20 mEq 20 meq PO BID #180 tabs 12/08/23 05/15/24 Rx tablet,extended release(part/cryst) (Klor-Con M) duloxetine 60 mg capsule,delayed 60 mg PO DAILY 02/25/24 05/15/24 History release tramadol 50 mg tablet 50 mg PO Q4H PRN pain #60 tabs 04/27/24 05/15/24 Rx diltiazem HCl 180 mg 180 mg PO DAILY #90 caps 05/02/24 05/15/24 Rx capsule,extended release 24 hr hydrochlorothiazide 25 mg tablet 25 mg PO QAM #90 tabs 05/02/24 05/15/24 Rx pravastatin 80 mg tablet 80 mg PO HS #90 tabs 05/02/24 05/15/24 Rx Patient History Medical History Left rotator cuff tear arthropathy Chronic pain 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 Dyspnea on exertion Arthritis of right hip Chronic cough Hypercalcemia Fatigue Obesity Surgical History History of total right hip arthroplasty Status post right hip replacement History of colonoscopy History of carpal tunnel surgery R/L H/O dilation and curettage Hx of cataract surgery R/L Hx of lumpectomy L BREAST (BENIGN) History of total knee replacement Left TKA (09/21/14): SAB at L3/L4 (x1 attempt) + PNB at [facility] History of bilateral tubal ligation History of tooth extraction History of lobectomy of lung L LUNG- 2016 (BENIGN MASS) Family History Mother History of colon cancer Hypercholesteremia Colorectal cancer Father Sinus disorder Coronary heart disease Cardiac disorder Myocardial infarction Stroke syndrome Hx of CABG Hypertension Other No family history of adverse response to anesthesia Denies family history of Ovarian cancer Prostate cancer Breast cancer Social History Smoking Status: Never smoker Second Hand Exposure: No; Do You Dip or Chew Tobacco: No; Tobacco Cessation Education Requested by Patient: No Hx Alcohol Use: No Hx Substance Use: No Preferred Language: Italian Communication Ability: Effective Visual Impairment: No Limitations Hearing Ability: Normal Genetic Counsellor Required: No Beliefs That Will Affect Care: None marital status: / Current Living Situation: Alone current occupational status: retired 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 [employer] Other Information That Helps Us Care for You: No Feels Safe at Home: Yes Safety Concerns: Feels Safe At This Time Childhood Exposure to Second-Hand Smoke: Yes Diet: DASH Diet Comment: heart healthy caffeine: No during the past year weight has: remained stable Dental Care, Regularly: No Physical Activity Frequency: 3-4 Times per Week Physical Activity Frequency Comment: walking; house work Seatbelt Use: always Sunscreen Use: Yes Assistive Devices: Denture - Upper and Glasses Review of Systems Review of Systems: All systems reviewed & are unremarkable except as noted in HPI & below Physical Exam Physical Exam: Constitutional: Patient appears to be of their stated age. Patient is in no apparent distress. Patient is well-developed. Eyes: Pupils are equal round and reactive to light. Conjunctivae are normal. Anicteric sclera. Ears nose, mouth and throat: Mallampati class 2. Normal posterior oropharynx. Uvula is midline. Neck: Trachea is midline. Visual inspection is normal. Respiratory: Clear to auscultation bilaterally. No use of accessory muscles. No significant clubbing noted. Cardiovascular: Regular rate and rhythm. No murmurs. No edema. Gastrointestinal: Normal bowel sounds, soft, nontender and nondistended. No hepatosplenomegaly noted. Musculoskeletal: No cyanosis. Patient is able to move all extremities. Strength is 5 out of 5 in the upper and lower extremities. Skin: No rashes, warm dry and intact. Neurologic: No obvious focal neurological deficits seen. Psychiatric: Alert and oriented x3 with a euthymic affect. Results & Data Results & Data Vital Signs (Past 12 Hours) Vital Signs Temp Pulse Pulse Resp BP BP Pulse Ox 05/15/24 10:00 94 H 128/86 05/15/24 09:32 124 H 124/86 05/15/24 09:00 99 H 05/15/24 08:00 05/15/24 07:54 36.5 C 150 H 20 102/75 94 05/15/24 02:15 111 H 05/15/24 02:10 05/15/24 02:10 37.0 C 112 H 24 118/59 L 94 05/15/24 01:50 36.7 C 92 H 18 126/84 95 O2 Del Method O2 Flow Rate 05/15/24 10:00 05/15/24 09:32 05/15/24 09:00 05/15/24 08:00 Nasal Cannula 2 05/15/24 07:54 Nasal Cannula 3.5 05/15/24 02:15 05/15/24 02:10 Nasal Cannula 2 05/15/24 02:10 Nasal Cannula 2 05/15/24 01:50 Nasal Cannula 2 PG Care Time/CCT Total # of Minutes Spent Total Time Spent with Patient: Total time spent is greater than 50% in coordination of care (as documented) at patient's floor/unit and/or counseling patient: Coding Level of Care Code 66928 INT INP/OBS CARE 2/55MIN Diagnoses Pulmonary hypertension I27.20 Scleroderma M34.9
--- NOTE | 2024-05-15 19:29 | CT Scan Report ---
CT CHEST HIGH RESOLUTION (INCLUDING INSPIRATORY AND EXPIRATORY PHASES) WITHOUT CONTRAST: HISTORY: Shortness of breath. TECHNIQUE: CT of the chest was obtained without intravenous contrast. Coronal and sagittal reformats were created. COMPARISON: CT thorax May 15, 2024 FINDINGS: LOWER NECK: Normal thyroid. LYMPH NODES: A few small nonenlarged lymph nodes in the mediastinum. No lymphadenopathy by size criteria. CARDIOVASCULAR: Cardiac size is enlarged. Coronary artery calcifications are noted. No aortic aneurysm. LUNGS: The trachea and central bronchi are widely patent. No focal confluent infiltrates are seen. There is increased mosaic attenuation of the lungs in the expiratory phase imaging. There are tree-in-bud nodular opacities in the medial aspect of the right lower lobe and in the right upper lobe. No significant reticulations in the lungs. No suspicious pulmonary nodules identified. PLEURA: There are no pleural effusions. There is no pneumothorax. UPPER ABDOMEN: Hepatosplenomegaly. Gallstones. OSSEOUS STRUCTURES: No acute findings. Severe osteoarthritis of both glenohumeral joints. Intraosseous hemangiomas of the spinal vertebral bodies. IMPRESSION: Increased mosaic attenuation of the lungs in the expiratory phase suggesting air trapping. Tree-in-bud nodular opacities in the right lung as above indicative of bronchiolitis and mild pneumonia. No appreciable reticular changes to the lungs to suggest fibrosis. Electronically signed by Naseem Rivera 05-15-2024 7:29 PM
[2024-05-15] MEDS: DICLOFENAC SOD 1% GEL 100 GM TUBE EXT SCH (22:32)
--- NOTE | 2024-05-15 23:08 | Hospitalist Progress Note ---
Date of Service May 15, 2024 Assessment & Plan (1) Hypoxia: (2) Hypokalemia: (3) Elevated troponin: (4) Wound of right foot: Plan 78-year-old female PMHx fibromyalgia, GERD, depression anxiety, A-fib on Eliquis, scleroderma (crest), dyslipidemia, HTN, QUINTON, and Raynaud's presenting via EMS for dizziness starting day of arrival. ED evaluation reveals no leukocytosis, H&H 11.9/34.5, VBG's pH 7.43, potassium 3.4, BUN 27, ratio 33.3, bilirubin 1.1, Trope 23.9, pending repeat, BNP 218, procalcitonin 0.05; BioFire negative; CXR pending official read; EKG A-fib with variable AV block and rate controlled (86 bpm). Provided with NSS in ED. #Hypoxia/SOB Quick onset SOB with associated tachycardia, presyncope, and weakness occurring at patient's home. When EMS arrived, patient found to be hypoxic and was satting 88% on RA. No history of smoking, but with significant exposure to x 50 years. Suspect hypoxia/SOB related to multiple factors, with concern being questionable aspiration from esophageal dysmotility as seen with CREST syndrome versus relation with pulmonary hypertension also related to CREST. Patient with significant wheezing on exam, audible even without stethoscope on chest. H&H are low on admission, unlikely source of symptoms. - CBC without leukocytosis, H&H 11.9/34.5; VBG's pH 7.4; BNP 218; Pro-Chris 0.05; BioFire negative; CXR enlarged cardiac silhouette, pulm vascular interstitial markings in the perihilar regions and left lung base noted to be increasing previous.- CBC am - No clear source of infection/pulmonary source at time of admission - O2 prn; wean as patient tolerates - No O2 at baseline - Levalbuterol neb q4hr - Solu-Medrol 125mg IV - Speech therapy consult placed given ? aspiration risk; aspiration precautions ordered - Consulted pulmonary: obtain ct chest. #Hypokalemia Asymptomatic currently. On HCTZ normally. - K 3.4; Mg pending- repeat AM - HOLD HCTZ at admission - KCl 20 mEq IV ordered - attempt IV given h/o CREST + ? esophageal dysmotility + impact of po K on such - No EKG changes #Elevated troponin Pt w/ h/o Afib, slightly tachycardic during arrival; no current chest pain - Troponin 23.9, pending repeat - EKG Afib, without ischemic changes - Likely 2/2 demand #Toe wound R foot, 2nd toe wound. Was outside in just socks during cold weather, believes that she got frostbite. Has been using symptomatic management. No pain. - CBC w/o leukocytosis; wound culture pending - XR R foot: Hallux valgus, OA changes, ? lucency in head of proximal phalanx 2nd toe (OM cannot be r/o, MRI/CT for further eval), soft tissue swelling and lucencies in R fore/midfoot. - Arterial dopplers: negative. - No h/o DM, no drainage from area, no impact on ambulation - PCN allergy - daptomycin + cefepime IV started - adjust abx as appropriate - Hold statin on dapto - Wound care consulted #Afib, on eliquis H/o permanent Afib; without symptoms. Eliquis, diltiazem - EKG on admission showed Afib, rate 86bpm - Echo 3/3 EF 60 to 65%, severe LAD, mild RAD, severe pulmonary HTN estimated RVSP 73 mmHg #HLD- Pravastatin Dispo: Admit, PCU VTE Prophylaxis: Eliquis Admission and Anticipated Discharge Date Admission Date: May 15, 2024 Subjective 78 yo female reports no new symptoms. She continues to cough. Physical Exam Physical Exam: General: No acute distress Skin: Warm and dry; Wound to R 2nd toe, dry skin, no oozing or erythema, no streaking Head: Normocephalic, atraumatic Eyes: PERRL, conjunctivae clear, sclera non-icteric; wearing glasses ENT: External ear and ear canal without swelling; nose atraumatic; good dentition, tongue normal appearance, pharynx normal Neck: Supple, no LAD Cardio: Tachycardic 100s, irregularly irregular rhythm, no M/G/R, S1 and S2 normal Resp: Lungs CTA in all lobes bilaterally, no wheezes, rales, or rhonchi Abdomen: Soft, symmetric, nontender; No masses or hepatosplenomegaly; Bowel sounds normoactive Psych: Appropriate mood and affect; good judgement and insight. Results & Data Results & Data Vital Signs (Past 12 Hours) Vital Signs Temp Pulse Resp BP Pulse Ox O2 Del Method O2 Flow Rate 05/15/24 20:00 Nasal Cannula 3 05/15/24 19:25 36.6 C 100 H 24 121/74 95 Nasal Cannula 3.5 PG Care Time/CCT Total # of Minutes Spent Total Time Spent with Patient: Total time spent is greater than 50% in coordination of care (as documented) at patient's floor/unit and/or counseling patient: Coding Level of Care Code 02254 SUB INP/OBS CARE 3/50MIN Diagnoses Hypoxia R09.02 Hypokalemia E87.6 Elevated troponin R79.89 Wound of right foot S91.301A
--- NOTE | 2024-05-16 05:57 | Electrocardiogram Report ---
Test Reason : Blood Pressure : */* mmHG Vent. Rate : 86 BPM Atrial Rate : 312 BPM P-R Int : * ms QRS Dur : 64 ms QT Int : 410 ms P-R-T Axes : * 74 139 degrees QTcB Int : 490 ms Atrial flutter with variable A-V block Abnormal ECG When compared with ECG of 14-Jul-2021 11:36, Atrial flutter has replaced Atrial fibrillation T wave inversion now evident in Lateral leads Confirmed by Erlin Brennan ([id number]) on 05/16/2024 5:57:21 AM Referred By: REFERRED SELF Confirmed By: Erlin Brennan
[2024-05-16 07:36] LABS: Basophils # (auto) 0.01 K/uL (0.00-0.20); Basophils % (auto) 0.1 %; Hematocrit (blood only) 35.2 % (37.0-47.0); Hemoglobin 12.1 g/dl (12.0-16.0); Immature Granulocytes # (auto) 0.06 K/uL (0.01-0.20); Immature Granulocytes % (auto) 0.6 %; Lymphocytes % (auto) 6.9 %; Mean Corpuscular Hemoglobin 33.2 pg (25.0-34.0); Mean Corpuscular Hgb Conc 34.4 g/dL (32.0-36.0); Mean Corpuscular Volume 96.4 fL (80.0-100.0); Mean Platelet Volume 9.6 fL (9.4-12.4); Monocytes # (auto) 0.71 K/uL (0.11-0.59); Neutrophils % (auto) 85.4 %; Platelet Count 160 K/uL (130-400); RDW Coefficient of Variation 16.4 % (11.5-14.5); RDW Standard Deviation 56.4 fL (36.4-46.3); Red Blood Count 3.65 M/uL (4.20-5.40); White Blood Count 10.18 K/ul (4.8-10.8)
[2024-05-16 07:45] LABS: BUN Creatinine Ratio 32.9 (10-20); C Reactive Protein 3.78 mg/dl (0-0.5); Calcium 9.1 mg/dl (8.6-10.3); Creatinine Clr Calc Pharmacy 60.6 ml/min; Potassium 3.6 mmol/L (3.5-5.1)
[2024-05-16] MEDS: DOXYCYCLINE HYCLATE 100 MG in DEXTROSE 5% MINI-B 100 ML IV SCH (10:49)
--- NOTE | 2024-05-16 11:54 | Pulmonology Progress Note ---
Date of Service May 16, 2024 Assessment & Plan (1) Pulmonary hypertension: Plan: Pulmonary hypertension noted on echo with an estimated RVSP of 73 mmHg. EF is 60 to 65%. No prior right heart catheterization data available for review. BNP on admission was 218. Recommend maintaining euvolemia and having the patient follow-up with a pulmonary hypertension center of excellence as an outpatient with PFTs, right heart catheterization and office visit. She does not appear to be in decompensated right-sided heart failure at this present time. (2) Scleroderma: Plan: Patient followed by rheumatology as an outpatient. The patient does not appear to be on any home immunosuppressants. Will defer immunosuppression to outpatient rheumatology who is managing her scleroderma. (3) Abnormal CT scan, chest: Plan: HRCT performed 05/15/2024 revealed mosaic attenuation suggestive of air trapping and tree-in-bud opacities in the right lung base. I added doxycycline for atypical coverage and added to the urine Legionella antigen. (4) Acute pneumonia: Plan: See above, continue treatment with cefepime and doxycycline. I would recommend 7 days total of treatment. Consider transition to Levaquin tomorrow as I think she will be stable for discharge home tomorrow. Would recommend a repeat EKG to evaluate QTc prior to transitioning to Levaquin. Plan Pulmonary to sign off. Please call with questions. Thank you for the consult. Admission and Anticipated Discharge Date Admission Date: May 15, 2024 Subjective Patient up in a chair today and saturating well on 2 L. Minimal cough. Minimal shortness of breath at rest, but some shortness of breath with exertion. Review of Systems Review of Systems: All systems reviewed & are unremarkable except as noted in HPI & below Physical Exam Physical Exam: Constitutional: Patient appears to be of their stated age. Patient is in no apparent distress. Patient is well-developed. Eyes: Pupils are equal round and reactive to light. Conjunctivae are normal. Anicteric sclera. Ears nose, mouth and throat: Mallampati class 2. Normal posterior oropharynx. Uvula is midline. Neck: Trachea is midline. Visual inspection is normal. Respiratory: Clear to auscultation bilaterally. No use of accessory muscles. No significant clubbing noted. Cardiovascular: Regular rate and rhythm. No murmurs. No edema. Gastrointestinal: Normal bowel sounds, soft, nontender and nondistended. No hepatosplenomegaly noted. Musculoskeletal: No cyanosis. Patient is able to move all extremities. Strength is 5 out of 5 in the upper and lower extremities. Skin: No rashes, warm dry and intact. Neurologic: No obvious focal neurological deficits seen. Psychiatric: Alert and oriented x3 with a euthymic affect. Results & Data Results & Data Vital Signs (Past 12 Hours) Vital Signs Temp Pulse Resp BP Pulse Ox O2 Del Method O2 Flow Rate 05/16/24 10:34 36.4 C L 108 H 19 144/84 H 97 Nasal Cannula 2 05/16/24 08:00 Nasal Cannula 2 05/16/24 07:05 36.7 C 103 H 19 163/78 H 97 Nasal Cannula 3 05/16/24 02:57 36.5 C 79 16 122/77 97 Nasal Cannula 3.5 PG Care Time/CCT Total # of Minutes Spent Total Time Spent with Patient: Total time spent is greater than 50% in coordination of care (as documented) at patient's floor/unit and/or counseling patient: Coding Level of Care Code 15914 SUB INP/OBS CARE 2/35MIN Diagnoses Pulmonary hypertension I27.[address] scan, chest R93.89 Acute pneumonia J18.9
--- NOTE | 2024-05-16 23:14 | Hospitalist Progress Note ---
Date of Service May 16, 2024 Assessment & Plan (1) Hypoxia: (2) Hypokalemia: (3) Elevated troponin: (4) Wound of right foot: Plan 78-year-old female PMHx fibromyalgia, GERD, depression anxiety, A-fib on Eliquis, scleroderma (crest), dyslipidemia, HTN, QUINTON, and Raynaud's presenting via EMS for dizziness starting day of arrival. ED evaluation reveals no leukocytosis, H&H 11.9/34.5, VBG's pH 7.43, potassium 3.4, BUN 27, ratio 33.3, bilirubin 1.1, Trope 23.9, pending repeat, BNP 218, procalcitonin 0.05; BioFire negative; CXR pending official read; EKG A-fib with variable AV block and rate controlled (86 bpm). Provided with NSS in ED. #Hypoxia/SOB Quick onset SOB with associated tachycardia, presyncope, and weakness occurring at patient's home. When EMS arrived, patient found to be hypoxic and was satting 88% on RA. No history of smoking, but with significant exposure to x 50 years. Suspect hypoxia/SOB related to multiple factors, with concern being questionable aspiration from esophageal dysmotility as seen with CREST syndrome versus relation with pulmonary hypertension also related to CREST. Patient with significant wheezing on exam, audible even without stethoscope on chest. H&H are low on admission, unlikely source of symptoms. still on oxygen but clinically improving. - CBC without leukocytosis, H&H 11.9/34.5; VBG's pH 7.4; BNP 218; Pro-Chris 0.05; BioFire negative; CXR enlarged cardiac silhouette, pulm vascular interstitial markings in the perihilar regions and left lung base noted to be increasing previous.- CBC am - No clear source of infection/pulmonary source at time of admission - O2 prn; wean as patient tolerates - No O2 at baseline ; continues to be on oxygen - Levalbuterol neb q4hr - Solu-Medrol 125mg IV - Speech therapy consult placed given ? aspiration risk; aspiration precautions ordered - Consulted pulmonary: reviewed ct scan. 05/15/2024 revealed mosaic attenuation suggestive of air trapping and tree-in-bud opacities in the right lung base. pulm added doxycycline #Hypokalemia Asymptomatic currently. On HCTZ normally. -potassium improving, - HOLD HCTZ at admission resolved. - No EKG changes #Elevated troponin Pt w/ h/o Afib, slightly tachycardic during arrival; no current chest pain - Troponin 23.9, pending repeat - EKG Afib, without ischemic changes - Likely 2/2 demand #Toe wound R foot, 2nd toe wound. Was outside in just socks during cold weather, believes that she got frostbite. Has been using symptomatic management. No pain. - CBC w/o leukocytosis; wound culture pending - XR R foot: Hallux valgus, OA changes, ? lucency in head of proximal phalanx 2nd toe (OM cannot be r/o, MRI/CT for further eval), soft tissue swelling and lucencies in R fore/midfoot. - Arterial dopplers: negative. - No h/o DM, no drainage from area, no impact on ambulation - PCN allergy - daptomycin + cefepime IV started - adjust abx as appropriate - Hold statin on dapto - Wound care consulted #Afib, on eliquis H/o permanent Afib; without symptoms. Eliquis, diltiazem - EKG on admission showed Afib, rate 86bpm - Echo 3/3 EF 60 to 65%, severe LAD, mild RAD, severe pulmonary HTN estimated RVSP 73 mmHg #HLD- Pravastatin Dispo: Admit, PCU VTE Prophylaxis: Eliquis Admission and Anticipated Discharge Date Admission Date: May 15, 2024 Subjective 78 yo female reports breathing better. She has no new complaints. Physical Exam Physical Exam: General: No acute distress Skin: Warm and dry; Wound to R 2nd toe, dry skin, no oozing or erythema, no streaking Head: Normocephalic, atraumatic Eyes: PERRL, conjunctivae clear, sclera non-icteric; wearing glasses ENT: External ear and ear canal without swelling; nose atraumatic; good dentition, tongue normal appearance, pharynx normal Neck: Supple, no LAD Cardio: Tachycardic 100s, irregularly irregular rhythm, no M/G/R, S1 and S2 normal Resp: Lungs CTA in all lobes bilaterally, no wheezes, rales, or rhonchi Abdomen: Soft, symmetric, nontender; No masses or hepatosplenomegaly; Bowel sounds normoactive Psych: Appropriate mood and affect; good judgement and insight. Results & Data Results & Data Vital Signs (Past 12 Hours) Vital Signs Temp Pulse Resp BP Pulse Ox O2 Del Method O2 Flow Rate 05/16/24 23:10 36.5 C 59 L 20 138/88 97 Nasal Cannula 05/16/24 21:45 Nasal Cannula 2 05/16/24 19:10 36.4 C L 98 H 16 128/78 97 Nasal Cannula 2 05/16/24 15:49 36.3 C L 80 18 136/81 98 Nasal Cannula 2 PG Care Time/CCT Total # of Minutes Spent Total Time Spent with Patient: Total time spent is greater than 50% in coordination of care (as documented) at patient's floor/unit and/or counseling patient: Coding Level of Care Code 34310 SUB INP/OBS CARE 3/50MIN Diagnoses Hypoxia R09.02 Hypokalemia E87.6 Elevated troponin R79.89 Wound of right foot S91.301A
[2024-05-17 06:34] LABS: Hematocrit (blood only) 37.6 % (37.0-47.0); Hemoglobin 12.5 g/dl (12.0-16.0); Mean Corpuscular Hemoglobin 32.6 pg (25.0-34.0); Mean Corpuscular Hgb Conc 33.2 g/dL (32.0-36.0); Mean Corpuscular Volume 98.2 fL (80.0-100.0); Mean Platelet Volume 9.7 fL (9.4-12.4); Platelet Count 172 K/uL (130-400); RDW Coefficient of Variation 17.2 % (11.5-14.5); RDW Standard Deviation 60.1 fL (36.4-46.3); Red Blood Count 3.83 M/uL (4.20-5.40); White Blood Count 9.38 K/ul (4.8-10.8)
[2024-05-17 07:11] LABS: C Reactive Protein 1.67 mg/dl (0-0.5); Calcium 9.2 mg/dl (8.6-10.3); Creatinine Clr Calc Pharmacy 47.3 ml/min; Potassium 4.9 mmol/L (3.5-5.1)
--- NOTE | 2024-05-17 19:07 | Hospitalist Progress Note ---
Date of Service May 17, 2024 Assessment & Plan (1) Hypoxia: (2) Hypokalemia: (3) Elevated troponin: (4) Wound of right foot: Plan 78-year-old female PMHx fibromyalgia, GERD, depression anxiety, A-fib on Eliquis, scleroderma (crest), dyslipidemia, HTN, QUINTON, and Raynaud's presenting via EMS for dizziness starting day of arrival. ED evaluation reveals no leukocytosis, H&H 11.9/34.5, VBG's pH 7.43, potassium 3.4, BUN 27, ratio 33.3, bilirubin 1.1, Trope 23.9, pending repeat, BNP 218, procalcitonin 0.05; BioFire negative; CXR pending official read; EKG A-fib with variable AV block and rate controlled (86 bpm). Provided with NSS in ED. #Hypoxia/SOB Quick onset SOB with associated tachycardia, presyncope, and weakness occurring at patient's home. When EMS arrived, patient found to be hypoxic and was satting 88% on RA. No history of smoking, but with significant exposure to x 50 years. Suspect hypoxia/SOB related to multiple factors, with concern being questionable aspiration from esophageal dysmotility as seen with CREST syndrome versus relation with pulmonary hypertension also related to CREST. Patient with significant wheezing on exam, audible even without stethoscope on chest. H&H are low on admission, unlikely source of symptoms. still on oxygen but clinically improving. - CBC without leukocytosis, H&H 11.9/34.5; VBG's pH 7.4; BNP 218; Pro-Chris 0.05; BioFire negative; CXR enlarged cardiac silhouette, pulm vascular interstitial markings in the perihilar regions and left lung base noted to be increasing previous.- CBC am - No clear source of infection/pulmonary source at time of admission - O2 prn; wean as patient tolerates - No O2 at baseline ; continues to be on oxygen - Levalbuterol neb q4hr - Solu-Medrol 125mg IV - Speech therapy consult placed given ? aspiration risk; aspiration precautions ordered - Consulted pulmonary: reviewed ct scan. 05/15/2024 revealed mosaic attenuation suggestive of air trapping and tree-in-bud opacities in the right lung base. pulm added doxycycline holding discharge due to oxygen requirement and waiting for cultures results #Hypokalemia Asymptomatic currently. On HCTZ normally. -potassium improving, - HOLD HCTZ at admission resolved. - No EKG changes #Elevated troponin/demand ischemia Pt w/ h/o Afib, slightly tachycardic during arrival; no current chest pain - Troponin 23.9, pending repeat - EKG Afib, without ischemic changes - Likely 2/2 demand #Toe wound R foot, 2nd toe wound. Was outside in just socks during cold weather, believes that she got frostbite. Has been using symptomatic management. No pain. - CBC w/o leukocytosis; wound culture pending - XR R foot: Hallux valgus, OA changes, ? lucency in head of proximal phalanx 2nd toe (OM cannot be r/o, MRI/CT for further eval), soft tissue swelling and lucencies in R fore/midfoot. - Arterial dopplers: negative. - No h/o DM, no drainage from area, no impact on ambulation - PCN allergy - daptomycin + cefepime IV started - adjust abx as appropriate - Hold statin on dapto - Wound care consulted -awaiting culture results #Afib, on eliquis H/o permanent Afib; without symptoms. Eliquis, diltiazem - EKG on admission showed Afib, rate 86bpm - Echo 3/3 EF 60 to 65%, severe LAD, mild RAD, severe pulmonary HTN estimated RVSP 73 mmHg #HLD- Pravastatin Dispo: Admit, PCU VTE Prophylaxis: Eliquis discussed with telehealth case manager Admission and Anticipated Discharge Date Admission Date: May 15, 2024 Subjective 78 yo female reports breathing better. She has no new complaints. Physical Exam Physical Exam: General: No acute distress Skin: Warm and dry; Wound to R 2nd toe, dry skin, no oozing or erythema, no streaking Head: Normocephalic, atraumatic Eyes: PERRL, conjunctivae clear, sclera non-icteric; wearing glasses ENT: External ear and ear canal without swelling; nose atraumatic; good dentition, tongue normal appearance, pharynx normal Neck: Supple, no LAD Cardio: Tachycardic 100s, irregularly irregular rhythm, no M/G/R, S1 and S2 normal Resp: Lungs CTA in all lobes bilaterally, no wheezes, rales, or rhonchi Abdomen: Soft, symmetric, nontender; No masses or hepatosplenomegaly; Bowel sounds normoactive Psych: Appropriate mood and affect; good judgement and insight. Results & Data Results & Data Vital Signs (Past 12 Hours) Vital Signs Temp Pulse Pulse Resp BP Pulse Ox O2 Del Method 05/17/24 15:47 36.5 C 97 H 18 145/81 H 94 Nasal Cannula 05/17/24 11:06 36.5 C 77 20 144/81 H 91 Room Air 05/17/24 11:05 90 Room Air 05/17/24 10:27 Nasal Cannula 05/17/24 08:00 108 H 05/17/24 08:00 Nasal Cannula 05/17/24 07:13 36.6 C 96 H 18 141/82 H 95 Nasal Cannula O2 Flow Rate 05/17/24 15:47 2 05/17/24 11:06 05/17/24 11:05 05/17/24 10:27 2 05/17/24 08:00 05/17/24 08:00 2 05/17/24 07:13 2 PG Care Time/CCT Total # of Minutes Spent Total Time Spent with Patient: Total time spent is greater than 50% in coordination of care (as documented) at patient's floor/unit and/or counseling patient: Coding Level of Care Code 02627 SUB INP/OBS CARE 3/50MIN Diagnoses Hypoxia R09.02 Hypokalemia E87.6 Elevated troponin R79.89 Wound of right foot S91.301A
[2024-05-17] MEDS: DOXYCYCLINE HYCLATE 100 MG CAP PO SCH (20:26)
[2024-05-18] MEDS: dilTIAZem HCL 240 MG CAPCR PO SCH (06:43)
[2024-05-18 07:36] LABS: Hemoglobin 12.5 g/dl (12.0-16.0); Mean Corpuscular Hgb Conc 33.8 g/dL (32.0-36.0); Mean Corpuscular Volume 97.6 fL (80.0-100.0); Mean Platelet Volume 9.6 fL (9.4-12.4); Platelet Count 173 K/uL (130-400); RDW Coefficient of Variation 17.1 % (11.5-14.5); RDW Standard Deviation 59.7 fL (36.4-46.3); Red Blood Count 3.79 M/uL (4.20-5.40); White Blood Count 7.67 K/ul (4.8-10.8)
[2024-05-18 07:54] LABS: BUN Creatinine Ratio 26.6 (10-20); Calcium 9.1 mg/dl (8.6-10.3); Creatinine Clr Calc Pharmacy 52.2 ml/min; Potassium 4.7 mmol/L (3.5-5.1)
[2024-05-18] MEDS: dilTIAZem HCl 5 MG/ML 5 ML VIAL IV STA ×3 (10:13→17:58)
--- NOTE | 2024-05-18 10:34 | XRay Report ---
XR chest 1V portable CLINICAL HISTORY: hypoxia COMPARISON STUDY: 05/14/2024, 03/09/2019, and 10/03/2017 FINDINGS: No significant interval changes have occurred. Chronic prominence of the bronchovascular ma rkings with bronchial wall thickening and right hilar prominence are redemonstrated. Right diaphragma tic eventration unchanged. No focal airspace opacity or pneumothorax. IMPRESSION: Stable exam as described. No new or adverse change identified. Consider chest CT if clin ical symptoms warrant. ACT 112: Negative or not required by law. Electronically signed by: Malu Shea M.D. 05/18/2024 10:32 AM
[2024-05-18] MEDS ORDERED: methylPREDNISolone 10 mg/mL (For Ped Dose < 7mg) IV SCH (12:30)
[2024-05-18] MEDS: methylPREDNISolone 60 MG in SYRINGE 0 ML IV SCH (12:46)
--- NOTE | 2024-05-18 15:22 | Hospitalist Progress Note ---
Date of Service May 18, 2024 Assessment & Plan (1) Hypoxia: Plan: Acute hypoxic respiratory failure. Continue oxygen per nasal cannula to maintain saturation greater than 90%. Treat suspected asthmatic bronchitis. No overt pneumonia seen on chest x-ray (2) Asthmatic bronchitis: Plan: Currently on cefepime, day 4. Blood cultures remain negative. Parenteral steroid therapy ordered (3) Atrial flutter with rapid ventricular response: Plan: Oral diltiazem dosage uptitrated todayMay 18. She responded to 110 mg dose of intravenous diltiazem todayMay 18. Cardiac echo reveals normal ejection fraction with severe left atrial enlargement and elevated right ventricular systolic pressure. (4) Hypokalemia: Plan: Corrected with oral replacement (5) Elevated troponin: Plan: Appears to be due to supply demand mismatch. No evidence of acute coronary syndrome (6) Wound of right foot: Plan: Right second toe appears to have a distal infection. There may be some dry gangrene. Podiatry consultation appreciated. MRI scan of the right foot ordered and pending Plan Hopeful discharge to home within the next day or 2 Admission and Anticipated Discharge Date Admission Date: May 15, 2024 Subjective Alert and oriented. Case discussed with podiatry. MRI scan of the right foot is pending. She had rapid heart rate associated with atrial flutter earlier this morning, May 18. She responded to 10 mg intravenous diltiazem. Oral diltiazem CD uptitrated from 240 to 300 mg daily. Clinical examination is consistent with asthmatic bronchitis. No pneumonic infiltrate seen on repeat chest x-ray done todayMay 18. She remains on intravenous cefepime, day 4. Doxycycline and daptomycin discontinued. Parenteral steroid therapy started. Incentive spirometry ordered to hopefully assist with oxygen weaning. She currently is on 2 L of oxygen per nasal cannula. Review of Systems 2 Review of Systems: Constitutionalno fever or chills ENTno blurred vision, no double vision, no epistaxis, no sore throat Respiratoryproductive cough and wheezing. Dyspnea on exertion. No hemoptysis Cardiacno palpitations, no chest pain, no syncope Russ nausea, vomiting, diarrhea, melena, hematochezia GUno urinary retention, no urinary incontinence, no dysuria, no hematuria Musculoskeletalno joint pain, no muscle tenderness. Tip of right second toe appears blackened with dry gangrene. Skinno bruising, no rashes, no pruritus Neurono isolated weakness, no paresthesia, no weakness Psychno depression, no anxiety Physical Exam 2 Physical Exam: General-alert and oriented x3, no fever, no chills HEENT-head atraumatic and normocephalic, pupils equal and reactive to light, extraocular muscles intact Neck-no lymphadenopathy or thyromegaly, trachea midline Chest-midline rhonchi with bilateral expiratory wheezes. No dullness to percussion. No inspiratory rales Cardiac-irregular rhythm. Controlled rate. Normal S1 and S2 Abdomen-normal bowel sounds, no hepatosplenomegaly Extremities-no cyanosis, clubbing, or edema. Distal right second toe is blackened with surrounding ulceration Neuro-cranial nerves II through XII intact, motor and sensory function within normal limits, strength symmetrical, no focal deficits Psych-normal affect, normal mood Results & Data Results & Data Vital Signs (Past 12 Hours) Vital Signs Temp Pulse Pulse Pulse Pulse Pulse Resp 05/18/24 11:57 05/18/24 11:26 36.6 C 80 20 05/18/24 07:24 130 H 102 H 100 H 05/18/24 07:02 36.4 C L 83 17 05/18/24 07:00 91 H 05/18/24 03:36 36.5 C 82 18 Resp Resp Resp BP Pulse Ox Pulse Ox Pulse Ox 05/18/24 11:57 05/18/24 11:26 139/85 94 05/18/24 07:24 22 18 18 91 95 05/18/24 07:02 134/83 97 05/18/24 07:00 05/18/24 03:36 134/78 96 Pulse Ox O2 Del Method O2 Flow Rate O2 Flow Rate O2 Flow Rate 05/18/24 11:57 Nasal Cannula 2 05/18/24 11:26 Nasal Cannula 2 05/18/24 07:24 85 L 2 2 05/18/24 07:02 Nasal Cannula 3 05/18/24 07:00 05/18/24 03:36 Nasal Cannula Laboratory Results 05/18/24 07:12 05/18/24 07:12 PG Care Time/CCT Total # of Minutes Spent Total Time Spent with Patient: Total time spent is greater than 50% in coordination of care (as documented) at patient's floor/unit and/or counseling patient: Coding Level of Care Code 68212 SUB INP/OBS CARE 3/50MIN Diagnoses Hypoxia R09.02 Asthmatic bronchitis J45.909 Atrial flutter with rapid ventricular response I48.92 Hypokalemia E87.6 Elevated troponin R79.89 Wound of right foot S91.301A
[2024-05-18] MEDS ORDERED: dilTIAZem HCl 5 MG/ML 5 ML VIAL IV PRN (17:28)
[2024-05-18] MEDS: dilTIAZem HCL 125 MG in DEXTROSE 5% 100 ML IV SCH (21:06)
--- NOTE | 2024-05-18 21:26 | Podiatry Consultation ---
Date of Consultation May 18, 2024 Assessment & Plan (1) Wound of right foot: (2) Hammertoe of right foot: (3) Contusion of right lesser toe(s) with damage to nail, initial encounter: Plan Patient examined and evaluated. Discussed at length etiology and treatment of her right second toe wound/injury. There is no clinical evidence of osteomyelitis, with no deep probing wound, purulence, or local infection of any kind. Instead, there is evidence of resolving subungual hematoma formation with some residual pain. Her hammertoe/hallux rigidus deformity have likely made this more difficult to heal while in shoes, due to the positioning of the digits. Still, they should continue to heal with bandage and topical antibiotic ointment. She was dressed with an optifoam border pad today and can continue with similar dressing on discharge. Can likely d/c home vs. rehab from podiatry standpoint when stable per other specialties. We appreciate the consult and are always happy to help as needed. Thanks. History of Present Illness Reason for Consultation: Right toe osteomyelitis concern Attending Physician: Bran Roberts MD History of Present Illness Patient seen at bedside at lunch. States that she stubbed her second toe of her right foot weeks ago and has been doctoring it on her own, outpatient. It has remained stable, but bloody locally. She denies any drainage or drastic changes to the wound, including no redness or swelling of the foot. Overall, she states she has concerns of arthritis, bunions, and hammertoes but that none have truly bothered her over the years. Believes she is otherwise ready for discharge from the hospital sooner than later, though is uncertain of any pending discharge plans. Has been admitted with weakness and shortness of breath but is feeling better since admission. Allergies Allergy/AdvReac Type Severity Reaction Status Date / Time pollen extracts Allergy Intermediate Itchy, Verified 02/14/24 12:50 watery eyes, sneezing, congestion adhesive Allergy Mild skin Verified 02/14/24 12:50 irritation, "burning" capsaicin Allergy Mild Rash Verified 02/14/24 12:50 Penicillins Allergy Mild Hives Verified 02/14/24 12:50 gabapentin AdvReac Intermediate Confusion Verified 02/14/24 12:50 Home Medications Medication Instructions Recorded Confirmed Type cetirizine 10 mg tablet 10 mg PO QAM PRN allergies 11/17/18 05/15/24 History calcium 600 mg (as 1 tab PO HS 03/23/19 05/15/24 History carbonate)-vitamin D3 5 mcg (200 unit) tablet Auto Titrating CPAP #1 ea 11/05/20 02/14/24 Rx acetaminophen 500 mg capsule 1,000 mg PO TID PRN Pain 12/03/21 05/15/24 History diclofenac sodium 1 % topical gel 2 g topical QID 02/03/22 05/15/24 History (Voltaren Arthritis Pain) CPAP Machine #1 ea 04/19/23 02/14/24 Rx CPAP Supplies #1 ea 06/22/23 02/14/24 Rx CPAP Supplies #1 ea 07/14/23 02/14/24 Rx triamcinolone acetonide 0.5 % 1 applic topical DAILY PRN skin 08/06/23 05/15/24 Rx topical cream irritation #60 grams apixaban 5 mg tablet (Eliquis) 5 mg PO BID #60 tabs 10/26/23 05/15/24 Rx potassium chloride 20 mEq 20 meq PO BID #180 tabs 12/08/23 05/15/24 Rx tablet,extended release(part/cryst) (Klor-Con M) duloxetine 60 mg capsule,delayed 60 mg PO DAILY 02/25/24 05/15/24 History release tramadol 50 mg tablet 50 mg PO Q4H PRN pain #60 tabs 04/27/24 05/15/24 Rx diltiazem HCl 180 mg 180 mg PO DAILY #90 caps 05/02/24 05/15/24 Rx capsule,extended release 24 hr hydrochlorothiazide 25 mg tablet 25 mg PO QAM #90 tabs 05/02/24 05/15/24 Rx pravastatin 80 mg tablet 80 mg PO HS #90 tabs 05/02/24 05/15/24 Rx Patient History Medical History Left rotator cuff tear arthropathy Chronic pain 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 Dyspnea on exertion Arthritis of right hip Chronic cough Hypercalcemia Fatigue Obesity Surgical History History of total right hip arthroplasty Status post right hip replacement History of colonoscopy History of carpal tunnel surgery R/L H/O dilation and curettage Hx of cataract surgery R/L Hx of lumpectomy L BREAST (BENIGN) History of total knee replacement Left TKA (09/21/14): SAB at L3/L4 (x1 attempt) + PNB at [facility] History of bilateral tubal ligation History of tooth extraction History of lobectomy of lung L LUNG- 2016 (BENIGN MASS) Family History Mother History of colon cancer Hypercholesteremia Colorectal cancer Father Sinus disorder Coronary heart disease Cardiac disorder Myocardial infarction Stroke syndrome Hx of CABG Hypertension Other No family history of adverse response to anesthesia Denies family history of Ovarian cancer Prostate cancer Breast cancer Social History Smoking Status: Never smoker Second Hand Exposure: No; Do You Dip or Chew Tobacco: No; Hx Alcohol Use: No Hx Substance Use: No Preferred Language: Maldivian Communication Ability: Effective Visual Impairment: No Limitations Hearing Ability: Normal Acquisition Editor Required: No Beliefs That Will Affect Care: None marital status: / Current Living Situation: Alone current occupational status: retired 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 [employer] Feels Safe at Home: Yes Childhood Exposure to Second-Hand Smoke: Yes Diet: DASH Diet Comment: heart healthy caffeine: No during the past year weight has: remained stable Dental Care, Regularly: No Physical Activity Frequency: 3-4 Times per Week Physical Activity Frequency Comment: walking; house work Seatbelt Use: always Sunscreen Use: Yes Assistive Devices: Cane and Walker Review of Systems Review of Systems: All systems reviewed & are unremarkable except as noted in HPI & below Constitutional: + weakness; no fever, no chills and no f atigue Eyes: no problem reported Ear, Nose, Mouth, Throat: no problem reported Respiratory: no problem reported Shortness of breath on admission Cardiovascular: + edema; no calf pain and no problem rep orted Gastrointestinal: no nausea, no vomiting and no problem reported Genitourinary: no problem reported Musculoskeletal: + deformity; no swelling and no problem reported Integumentary: + non-healing lesions, + wounds and + er ythema Neurologic: + loss of sensation, + numbness and + pa resthesia; no generalized weakness Psychiatric: no problem reported Physical Exam Physical Exam: Lower extremity focused exam: DP/PT pulses diminished. Skin atrophy, nail dystrophy, distal cooling noted. Hallux valgus/rigidus noted bilaterally. Concomitant second toe hammertoe noted bilaterally, worse on right. Right second toe is traumatized distally, consistent with subungual hematoma and contusion. No active bleeding or drainage. No open wound. This does appear to be healing well, if not slightly delayed. No evidence of local infection. Pain is in proportion to level of injury. No loss of protective sensation noted. Constitutional: WD/WN, vitals as above + ill appearing and + obese Eyes: PERRL, conjunctivae normal, anicteric sclerae ENMT: external ear and nose normal, oropharynx normal Neck: trachea midline, no thyromegaly normal visual inspection Respiratory: normal respiratory effort; no respiratory distress Cardiovascular: Rate/Rhythm: regular rate and regular rhythm Vessels: posterior tibial pulses present and dorsalis pedis pulses present Extremities: normal capillary refill; no calf tenderness, no pedal edema and no edema Chest (Breasts): Chest: normal inspection of chest Gastrointestinal (Abdomen): Inspection/Auscultation: abdomen normal to inspection Percussion/Palpation: + abdomen tender and abdomen soft Musculoskeletal: no cyanosis or clubbing, extremities motor strength 5/5 Head/Neck/Chest: normocephalic and head atraumatic Extremities: extremities normal to inspection Skin: + skin atrophy, + eschar, + nail abnorma lity and + nails dystrophic; no erythema and no fistulous tract Neurologic: normal touch/pain/proprioception, normal sensation to monofilament and awake; no focal motor deficits Psychiatric: A+Ox3, euthymic affect Results & Data Vital Signs (Past 12 Hours) Vital Signs Temp Pulse Pulse Resp BP Pulse Ox O2 Del Method 05/18/24 20:00 36.7 C 156 H 18 108/74 05/18/24 19:15 36.7 C 74 17 128/72 97 Room Air 05/18/24 18:45 155 H 119/75 05/18/24 18:06 127 H 113/67 05/18/24 17:49 162 H 128/79 05/18/24 17:21 123 H 135/73 05/18/24 17:17 163 H 157/95 H 05/18/24 16:13 Nasal Cannula 05/18/24 15:57 36.3 C L 123 H 20 159/84 H 95 Nasal Cannula 05/18/24 15:25 86 05/18/24 11:57 Nasal Cannula 05/18/24 11:26 36.6 C 80 20 139/85 94 Nasal Cannula O2 Flow Rate 05/18/24 20:00 05/18/24 19:15 05/18/24 18:45 05/18/24 18:06 05/18/24 17:49 05/18/24 17:21 05/18/24 17:17 05/18/24 16:13 2 05/18/24 15:57 2 05/18/24 15:25 05/18/24 11:57 2 05/18/24 11:26 2
[2024-05-19 07:02] LABS: Basophils # (auto) 0.01 K/uL (0.00-0.20); Basophils % (auto) 0.1 %; Hematocrit (blood only) 36.2 % (37.0-47.0); Hemoglobin 12.5 g/dl (12.0-16.0); Immature Granulocytes # (auto) 0.17 K/uL (0.01-0.20); Immature Granulocytes % (auto) 2.1 %; Lymphocytes # (auto) 0.56 K/uL (1.20-3.40); Mean Corpuscular Hgb Conc 34.5 g/dL (32.0-36.0); Mean Corpuscular Volume 95.5 fL (80.0-100.0); Mean Platelet Volume 10.1 fL (9.4-12.4); Monocytes # (auto) 0.12 K/uL (0.11-0.59); Monocytes % (auto) 1.5 %; Neutrophils # (auto) 7.15 K/uL (1.40-6.50); Neutrophils % (auto) 89.3 %; Platelet Count 186 K/uL (130-400); RDW Coefficient of Variation 16.5 % (11.5-14.5); RDW Standard Deviation 56.1 fL (36.4-46.3); Red Blood Count 3.79 M/uL (4.20-5.40); White Blood Count 8.01 K/ul (4.8-10.8)
[2024-05-19 07:20] LABS: BUN Creatinine Ratio 39.3 (10-20); Calcium 9.2 mg/dl (8.6-10.3); Creatinine Clr Calc Pharmacy 71.6 ml/min; Potassium 3.9 mmol/L (3.5-5.1)
[2024-05-19] MEDS: ONDANSETRON INJ 2 MG/ML 2 ML VIAL IV PRN (07:26)
[2024-05-19] MEDS: dilTIAZem HCL 300 MG CAPCR PO SCH (09:50)
[2024-05-19] MEDS: METOPROLOL TARTRATE 25 MG TAB PO SCH (10:24)
[2024-05-19] MEDS: GADOBUTROL 30ML VIAL IV ONE (11:45)
--- NOTE | 2024-05-19 12:06 | Magnetic Resonance Report ---
MRI OF THE RIGHT FOREFOOT WITH AND WITHOUT CONTRAST CLINICAL HISTORY: Evaluate for osteomyelitis of the right second toe. COMPARISON STUDY: Right foot radiographs May 15, 2024. TECHNIQUE: Utilizing a 1.5 Mira magnet and dedicated coil, multiplanar, multiecho imaging of the rig ht forefoot was performed pre and postcontrast administration. Intravenous injection of 8 cc of Gadav ist was uneventful. FINDINGS: This exam is moderately compromised by motion artifact. There is hallux valgus. Severe oste oarthritis of the right first metatarsophalangeal joint is present. Moderate mid foot osteoarthritis is present. There are no fractures within the right midfoot. There is focal moderate increased T2 sig nal and diminished T1 signal within the distal tuft of the distal phalanx of the right second toe. Th is is shown best on coronal sequences image 13 of 24. No additional sites of marrow edema within the right midfoot or forefoot are identified. There is no fluid collection to suggest abscess. IMPRESSION: 1. Focal marrow edema within the distal tuft of the distal phalanx of the right second toe. This favo rs a small focus of acute osteomyelitis. 2. No additional sites of acute osteomyelitis within the right midfoot or forefoot. 3. Osteoarthritis of the right midfoot and right first metatarsophalangeal joint, as described above. ACT 112: Negative or not required by law. Electronically signed by: Sam Kern M.D. 05/19/2024 12:04 PM
--- NOTE | 2024-05-19 14:04 | Cardiology Consultation ---
Date of Consultation May 19, 2024 Assessment & Plan (1) Atrial flutter with rapid ventricular response: (2) Atrial fibrillation, permanent: (3) Hypertension: (4) Pulmonary hypertension: Plan ASSESSMENT/PLAN: 1. Atrial flutter: Has a history of atrial fibrillation but now appears to be in atrial flutter. We discussed the diagnosis. She ate breakfast this morning and thus, none urgent cardioversion is not an option today. She is asymptomatic. Her heart rate is well-controlled on intravenous diltiazem. After discussing options, she is comfortable with an attempt at rate control strategy. Discontinue diltiazem drip and initiate metoprolol 25 mg p.o. every 6 hours. Continue diltiazem 300 mg daily. Plan of care communicated with nursing staff. Continue anticoagulation for stroke risk reduction. If heart rate is not adequately controlled with further adjustment to rate control strategy, could consider antiarrhythmic therapy such as amiodarone and cardioversion however given her severely dilated left atrium, maintaining sinus rhythm may be difficult. 2. Atrial fibrillation: History of longstanding atrial fibrillation. Did not tolerate flecainide but has tolerated her atrial fibrillation which has been asymptomatic. Continue anticoagulation for stroke risk reduction. 3. Pulmonary hypertension: She has been seen by pulmonology and referral in the outpatient setting to a pulmonary hypertension clinic was recommended with right heart catheterization at that facility. She is comfortable with this referral. Right heart cath at another facility will at least offer the potential for vasodilatory response evaluation. She does not appear hypervolemic. 4. Hypertension: Blood pressure mostly normotensive. Continue current regimen with adjustment of rate controlling medications as noted. 5. Pneumonia: As per pulmonary and primary hospitalist service. 6. Disposition: Dr. Tai will begin call this evening at 5 PM. She will be signed out to Dr. Tai who can assist in treatment of her arrhythmia. Patient care communicated with primary hospitalist, Dr. Roberts. Thank you for allowing me to participate in the care of your patient. Please call for any other questions or concerns. Sincerely, Junior Brennan M.D. History of Present Illness Reason for Consultation: "afib rvr" Requesting Physician: Bran Roberts MD Attending Physician: Bran Roberts MD History of Present Illness Mrs. Garza is a very pleasant 78-year-old female with a history significant for atrial fibrillation, crest/scleroderma, sleep apnea on CPAP, hypertension, and dyslipidemia. She is status post left lung wedge resection for benign lesion in January of 2016. In May of 2016 she was hospitalized for atrial fibrillation. She did not feel well that day and had worsening shortness of breath. She checked her blood pressure noted that her heart rate was elevated. She spontaneously converted to sinus rhythm. She was placed on metoprolol and anticoagulation therapy. Soon after, she was started on CPAP for sleep apnea, which improved her symptoms. In September of 2017, she once again developed atrial fibrillation and was placed on flecainide. She did not tolerate 150 mg twice daily but did feel well on 100 mg twice daily. She converted while on flecainide. She later stop taking flecainide due to intolerance. She has had the following studies/procedures: 1. PFTs 12/27/2015: Normal spirometry. 2. Echo 05/31/2016: Normal LV systolic function. EF 65-70%. Normal wall motion. Borderline LVH. Moderate left atrial dilation. RVSP 30-40. No significant valvular abnormalities. 3. Nuclear stress 04/27/2017: Normal myocardial perfusion study. EF 85%. Normal wall motion. 4. Echo 06/22/2017: Normal LV size with hyperdynamic systolic function. EF 65- 70%. Normal wall motion. No significant diastolic dysfunction. Mild left atrial dilation. RVSP 36. 5. Echo 03/10/2019: Normal LV size, wall motion, systolic function. EF 60-65%. Mild left atrial dilation. No significant valvular abnormalities reported. 6. Nuclear stress 03/28/2019: No ischemia or infarct. EF 86%. Normal wall motion. 7. Holter 03/20/2021: AFib with average heart rate 84, ranging 46-138. Isolated PVCs. No reported symptoms. 8. Echo 05/08/2024 [facility]: Normal LV size, wall motion, systolic function. EF 60- 65%. Moderate LVH. Normal RV size with mildly reduced systolic function. Severe left atrial dilation. Mild right atrial dilation. No significant valvular abnormalities. RVSP 73. Atrial flutter/fibrillation with normal rate. She was admitted on 05/15/2024 after presenting with dizziness. She had cough, shortness of breath, wheezing and "flulike symptoms" that occurred 1 week prior to arrival. She was mildly hypoxic on room air based on EMS assessment and improved on 2 L of supplemental oxygen via nasal cannula. On presentation, ECG demonstrated atrial flutter with heart rate 86 bpm. Pulmonology evaluated her on 05/15/2024 and recommended outpatient PFTs and right heart catheterization and a pulmonary hypertension center of excellence. High- res CT scan was performed on 05/15/2024 which suggested mosaic attenuation suggestive of air trapping and tree-in-bud opacities in the right lung base. Pulmonology added doxycycline for atypical coverage in addition to cefepime while being treated for acute pneumonia. In the meantime, there has been concern for osteomyelitis due to her right second toe wound/injury. She was seen by podiatry. Her heart rate has been variable but elevated often. Diltiazem was increased from her baseline 180 mg daily to 300 mg daily and then on 05/18/2024, heart rate became even more elevated. She was given intravenous diltiazem and then placed on a diltiazem drip. She is completely asymptomatic in this regard. She denies palpitations, chest pain, syncope, near syncope. She denies edema. Her breathing is at baseline. She denies melena, hematochezia, or hematuria. Review of systems: As above. Family history: Father had CABG at approximately 60 years of age. Social history: She denies tobacco, alcohol abuse. She is a . She has 3 children, all of which live nearby. She has grandchildren. She lives alone. 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 Allergies Allergy/AdvReac Type Severity Reaction Status Date / Time pollen extracts Allergy Intermediate Itchy, Verified 02/14/24 12:50 watery eyes, sneezing, congestion adhesive Allergy Mild skin Verified 02/14/24 12:50 irritation, "burning" capsaicin Allergy Mild Rash Verified 02/14/24 12:50 Penicillins Allergy Mild Hives Verified 02/14/24 12:50 gabapentin AdvReac Intermediate Confusion Verified 02/14/24 12:50 Home Medications Medication Instructions Recorded Confirmed Type cetirizine 10 mg tablet 10 mg PO QAM PRN allergies 11/17/18 05/15/24 History calcium 600 mg (as 1 tab PO HS 03/23/19 05/15/24 History carbonate)-vitamin D3 5 mcg (200 unit) tablet Auto Titrating CPAP #1 ea 11/05/20 02/14/24 Rx acetaminophen 500 mg capsule 1,000 mg PO TID PRN Pain 12/03/21 05/15/24 History diclofenac sodium 1 % topical gel 2 g topical QID 02/03/22 05/15/24 History (Voltaren Arthritis Pain) CPAP Machine #1 ea 04/19/23 02/14/24 Rx CPAP Supplies #1 ea 06/22/23 02/14/24 Rx CPAP Supplies #1 ea 07/14/23 02/14/24 Rx triamcinolone acetonide 0.5 % 1 applic topical DAILY PRN skin 08/06/23 05/15/24 Rx topical cream irritation #60 grams apixaban 5 mg tablet (Eliquis) 5 mg PO BID #60 tabs 10/26/23 05/15/24 Rx potassium chloride 20 mEq 20 meq PO BID #180 tabs 12/08/23 05/15/24 Rx tablet,extended release(part/cryst) (Klor-Con M) duloxetine 60 mg capsule,delayed 60 mg PO DAILY 02/25/24 05/15/24 History release tramadol 50 mg tablet 50 mg PO Q4H PRN pain #60 tabs 04/27/24 05/15/24 Rx diltiazem HCl 180 mg 180 mg PO DAILY #90 caps 05/02/24 05/15/24 Rx capsule,extended release 24 hr hydrochlorothiazide 25 mg tablet 25 mg PO QAM #90 tabs 05/02/24 05/15/24 Rx pravastatin 80 mg tablet 80 mg PO HS #90 tabs 05/02/24 05/15/24 Rx Problem List (Updated 05/18/24 @ 21:36 by Angel Herbert DPM) Contusion of right lesser toe(s) with damage to nail, initial encounter Hammertoe of right foot Atrial flutter with rapid ventricular response Asthmatic bronchitis Acute pneumonia Abnormal CT scan, chest Scleroderma Pulmonary hypertension Wound of right foot Elevated troponin Hypokalemia Hypoxia (Acute) Fibromyalgia Arthritis of left hip History of colon polyps Morbid obesity Lichen sclerosus et atrophicus Internal hemorrhoids Impaired fasting glucose Gastroesophageal reflux disease Diverticulosis Depression with anxiety Degenerative joint disease of cervical spine Anticoagulant long-term use Reactive airway disease Right knee DJD Atrial fibrillation, permanent dx approx 3 yrs ago > no pacer, Eliquis Anxiety and depression Paroxysmal atrial flutter (Chronic) Follows with [facility]/Dr. Brennan Allergic rhinitis CREST variant of scleroderma (Chronic) Stable Carotid artery plaque Dyslipidemia Generalized osteoarthritis of multiple sites Hypertension Lymphoproliferative disease Obstructive sleep apnea (adult) (pediatric) CPAP (Generally compliant) Osteopenia Pulmonary nodule Raynaud's disease without gangrene Splenomegaly Patient History Medical History Left rotator cuff tear arthropathy Chronic pain 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 Dyspnea on exertion Arthritis of right hip Chronic cough Hypercalcemia Fatigue Obesity Surgical History History of total right hip arthroplasty Status post right hip replacement History of colonoscopy History of carpal tunnel surgery R/L H/O dilation and curettage Hx of cataract surgery R/L Hx of lumpectomy L BREAST (BENIGN) History of total knee replacement Left TKA (09/21/14): SAB at L3/L4 (x1 attempt) + PNB at [facility] History of bilateral tubal ligation History of tooth extraction History of lobectomy of lung L LUNG- 2016 (BENIGN MASS) Family History Mother History of colon cancer Hypercholesteremia Colorectal cancer Father Sinus disorder Coronary heart disease Cardiac disorder Myocardial infarction Stroke syndrome Hx of CABG Hypertension Other No family history of adverse response to anesthesia Denies family history of Ovarian cancer Prostate cancer Breast cancer Social History Smoking Status: Never smoker Second Hand Exposure: No; Do You Dip or Chew Tobacco: No; Hx Alcohol Use: No Hx Substance Use: No Preferred Language: Ukrainian Communication Ability: Effective Visual Impairment: No Limitations Hearing Ability: Normal Moss Bleacher Required: No Beliefs That Will Affect Care: None marital status: / Current Living Situation: Alone current occupational status: retired 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 Alert. HEENT: Anicteric sclera. Neck: No appreciable JVD. Cardiac: Irregular with normal heart rate (on dilt gtt). Normal S1-S2. No audible murmur. No rubs or gallops. Pulmonary: Clear to auscultation bilaterally without wheezes, rales, or rhonchi. Abdomen: Soft, nontender, nondistended, with normoactive bowel sounds. No bruits noted. Extremities: 1+ radial pulses bilaterally. 2+ posterior tibialis pulses bilaterally. No edema. No cyanosis. Results & Data Vital Signs (Past 12 Hours) Vital Signs Temp Pulse Resp BP Pulse Ox O2 Del Method O2 Flow Rate 05/19/24 10:55 36.6 C 80 19 114/65 93 Nasal Cannula 2 05/19/24 09:53 131/73 05/19/24 08:00 Nasal Cannula 2 05/19/24 07:22 36.4 C 96 H 18 148/84 H 95 Nasal Cannula 2 05/19/24 02:24 36.7 C 79 20 152/81 H Intake & Output 05/17/24 05/18/24 05/19/24 05/20/24 06:59 06:59 06:59 06:59 Intake Total 1100 / 1100 850 / 850 851.083 / 851.083 101.25 / 101.25 Output Total 100 / 100 502 / 502 400 / 400 Balance 1000 / 1000 348 / 348 451.083 / 451.083 101.25 / 101.25 Weight 183 lb 6.793 oz 162 lb 14.746 oz 180 lb 12.465 oz Laboratory Results Laboratory Results - last 24 hr 05/16/24 05/19/24 17:30 06:10 WBC 8.01 RBC 3.79 L Hgb 12.5 Hct 36.2 L MCV 95.5 MCH 33.0 MCHC 34.5 RDW Std Deviation 56.1 H RDW Coeff of Morro 16.5 H Plt Count 186 MPV 10.1 Immature Gran % (Auto) 2.1 Neut % (Auto) 89.3 Lymph % (Auto) 7.0 [place] % (Auto) 1.5 Eos % (Auto) 0.0 Baso % (Auto) 0.1 Neut # (Auto) 7.15 H Lymph # (Auto) 0.56 L [place] # (Auto) 0.12 Eos # (Auto) 0.00 Baso # (Auto) 0.01 Immature Gran # (Auto) 0.17 Sodium 140 Potassium 3.9 Chloride 104 Carbon Dioxide 31 Anion Gap 5 BUN 24 H Creatinine 0.61 Est Cr Clr Drug Dosing 71.6 eGFR 92.02 BUN/Creatinine Ratio 39.3 H Glucose 194 H Calcium 9.2 Urine Legionella Ag SEE NOTE Diagnostic Findings Pulmonary note and hospitalist note reviewed. Podiatry consult reviewed. Labs reviewed and notable for normal blood counts, normal transaminase levels, normal TSH on 02/25/2024, stable renal function, normal potassium, mildly elevated BNP, flat high-sensitivity troponin on day of admission. Telemetry personally reviewed: Atrial flutter with improved heart rate while on diltiazem drip but otherwise quite elevated on 05/18/2024. No significant pause. ECG personally reviewed: ECG 05/14/20242123: Atrial flutter [address]/T wave abnormality. Echo report reviewed as summarized in HPI. Medications Administered Current Inpatient Medications Acetaminophen (Acetaminophen 325 Mg Tab) 650 mg PO Q4H PRN PRN Reason: Pain or Fever Stop: 06/14/24 02:09 Acetaminophen (Acetaminophen 500 Mg Tab) 1,000 mg PO TID PRN PRN Reason: Pain Stop: 06/14/24 06:20 Apixaban (Apixaban 5 Mg Tablet) 5 mg PO BID [facility] Stop: 06/14/24 08:59 Last Admin: 05/19/24 08:34 Dose: 5 mg Diclofenac Sodium (Diclofenac Sod 1% Gel 100 Gm Tube) 2 gm EXT BID [facility]; Protocol Stop: 06/14/24 21:44 Last Admin: 05/19/24 08:34 Dose: 2 gm Diltiazem HCl (Diltiazem Hcl 60 Mg Tab) 60 mg PO Q6H [facility] Stop: 06/18/24 15:59 Duloxetine HCl (Duloxetine Hcl 60 Mg Cap) 60 mg PO DAILY [facility] Stop: 06/14/24 08:59 Last Admin: 05/19/24 08:34 Dose: 60 mg Guaifenesin (Guaifenesin 600 Mg Tabcr) 1,200 mg PO Q12 [facility] Stop: 06/14/24 10:29 Last Admin: 05/19/24 08:34 Dose: 1,200 mg Methylprednisolone 60 mg/ (Syringe) 0.96 mls @ 1.5 mls/min IV Q8H [facility] Stop: 06/17/24 12:29 Last Admin: 05/19/24 12:32 Dose: 1.5 mls/min Levalbuterol HCl (Levalbuterol 0.31mg/3 Ml Vial) 0.31 mg NEB Q4H PRN PRN Reason: Shortness Of Breath Or Wheezing Stop: 06/14/24 02:09 Metoprolol Tartrate (Metoprolol Tartrate 25 Mg Tab) 25 mg PO Q6H [facility] Stop: 06/18/24 09:29 Last Admin: 05/19/24 10:24 Dose: 25 mg Ondansetron HCl (Ondansetron Inj 2 Mg/Ml 2 Ml Vial) 4 mg IV Q6H PRN PRN Reason: Nausea Stop: 06/14/24 02:09 Last Admin: 05/19/24 07:26 Dose: 4 mg Polyethylene Glycol (Polyethylene (Miralax) 17 Gm Pack) 17 gm PO DAILY PRN PRN Reason: Constipation Stop: 06/14/24 02:09 Tramadol HCl (Tramadol Hcl 50 Mg Tablet) 50 mg PO Q4H PRN PRN Reason: pain Stop: 06/14/24 06:13 Trimethoprim/Sulfamethoxazole (Sulfamethoxazole/Trimethoprim Ds 800/160mg Tab) 1 tab PO Q12 [facility] Stop: 05/26/24 20:59 PG Care Time/CCT Total # of Minutes Spent Total Time Spent with Patient: Total time spent is greater than 50% in coordination of care (as documented) at patient's floor/unit and/or counseling patient: Coding Level of Care Code 13734 INT INP/OBS CARE 3/75MIN Diagnoses Atrial flutter with rapid ventricular response I48.92 Atrial fibrillation, permanent I48.21 Primary hypertension I10 Hypertension type: primary hypertension Pulmonary hypertension I27.20 (3) Hypertension Hypertension type: primary hypertension Qualified Code(s): I10 - Essential (primary) hypertension
--- NOTE | 2024-05-19 14:45 | Hospitalist Progress Note ---
Date of Service May 19, 2024 Assessment & Plan (1) Hypoxia: Plan: Acute hypoxic respiratory failure. Continue oxygen per nasal cannula to maintain saturation greater than 90%. Wean off as tolerated. Treat suspected asthmatic bronchitis. No overt pneumonia seen on chest x-ray (2) Asthmatic bronchitis: Plan: Treated with intravenous cefepime for several days. She has now been switched to oral Bactrim therapy. Blood cultures remain negative. Parenteral steroid therapy has been down titrated today, May 19 (3) Atrial flutter with rapid ventricular response: Plan: Unfortunately she required diltiazem drip last evening, 05/18. Cardiology consultation appreciated. Diltiazem drip has been switched to oral diltiazem and metoprolol has been added. Cardiac echo reveals normal ejection fraction with severe left atrial enlargement and elevated right ventricular systolic pressure. (4) Hypokalemia: Plan: Corrected with oral replacement (5) Elevated troponin: Plan: Appears to be due to supply demand mismatch. No evidence of acute coronary syndrome (6) Wound of right foot: Plan: Right second toe appears to have a distal infection. Unfortunately the MRI scan reveals the possibility of osteomyelitis in the distal tuft. Podiatry consultation appreciated. Podiatry will review the MRI scan and make further recommendations. Cefepime has been switched to oral Bactrim DS Plan Hopeful discharge to home within the next day or 2 Admission and Anticipated Discharge Date Admission Date: May 15, 2024 Subjective Unfortunately she had to be put on a diltiazem drip last evening for atrial fibrillation with rapid ventricular rate. She has been seen by cardiology and has been switched to oral diltiazem and oral metoprolol has been added. She now has rate control. Unfortunately her right foot MRI is suspicious for osteomyelitis involving the distal tuft of the right second toe. Podiatry has been notified and they will examine the MRI scan results. Her cefepime has been switched over to oral Bactrim DS. Right toe cultures are growing stenotrophomonas. Her asthmatic bronchitis has improved considerably but she is still requiring low-flow oxygen per nasal cannula. Hopefully this can be weaned off before discharge. Review of Systems 2 Review of Systems: Constitutionalno fever or chills ENTno blurred vision, no double vision, no epistaxis, no sore throat Respiratoryproductive cough and wheezing. Dyspnea on exertion. No hemoptysis Cardiacno palpitations, no chest pain, no syncope Russ nausea, vomiting, diarrhea, melena, hematochezia GUno urinary retention, no urinary incontinence, no dysuria, no hematuria Musculoskeletalno joint pain, no muscle tenderness. Tip of right second toe appears blackened. Skinno bruising, no rashes, no pruritus Neurono isolated weakness, no paresthesia, no weakness Psychno depression, no anxiety Physical Exam 2 Physical Exam: General-alert and oriented x3, no fever, no chills HEENT-head atraumatic and normocephalic, pupils equal and reactive to light, extraocular muscles intact Neck-no lymphadenopathy or thyromegaly, trachea midline Chest-midline rhonchi with bilateral expiratory wheezes. No dullness to percussion. No inspiratory rales Cardiac-irregular rhythm. Controlled rate. Normal S1 and S2 Abdomen-normal bowel sounds, no hepatosplenomegaly Extremities-no cyanosis, clubbing, or edema. Distal right second toe is blackened with surrounding ulceration Neuro-cranial nerves II through XII intact, motor and sensory function within normal limits, strength symmetrical, no focal deficits Psych-normal affect, normal mood Results & Data Results & Data Vital Signs (Past 12 Hours) Vital Signs Temp Pulse Resp BP Pulse Ox O2 Del Method O2 Flow Rate 05/19/24 10:55 36.6 C 80 19 114/65 93 Nasal Cannula 2 05/19/24 09:53 131/73 05/19/24 08:00 Nasal Cannula 2 05/19/24 07:22 36.4 C 96 H 18 148/84 H 95 Nasal Cannula 2 Laboratory Results 05/19/24 06:10 05/19/24 06:10 PG Care Time/CCT Total # of Minutes Spent Total Time Spent with Patient: Total time spent is greater than 50% in coordination of care (as documented) at patient's floor/unit and/or counseling patient: Coding Level of Care Code 27176 SUB INP/OBS CARE 3/50MIN Diagnoses Hypoxia R09.02 Asthmatic bronchitis J45.909 Atrial flutter with rapid ventricular response I48.92 Hypokalemia E87.6 Elevated troponin R79.89 Wound of right foot S91.301A
[2024-05-19] MEDS ORDERED: methylPREDNISolone 10 mg/mL (For Ped Dose < 7mg) IV SCH (15:00)
[2024-05-19] MEDS: dilTIAZem HCl 60 MG TAB PO SCH (16:14)
[2024-05-19] MEDS: MUPIROCIN 2% OINT 22 GM TUBE EXT SCH (17:53)
[2024-05-19] MEDS: SULFAMETHOXAZOLE/TRIMETHOPRIM DS 800/160MG TAB PO SCH (20:20)
--- NOTE | 2024-05-19 20:55 | Podiatry Progress Note ---
Date of Service May 19, 2024 Assessment & Plan (1) Wound of right foot: (2) Hammertoe of right foot: (3) Contusion of right lesser toe(s) with damage to nail, initial encounter: Plan Patient examined and evaluated. Discussed at length etiology and treatment of her right second toe wound/injury. - Did discuss that the MRI is concerning for OM but her clinical exam in no way matches this finding. In fact, that the third toe looks vaguely osteomyelitic on MRI should raise suspicion of false negative of second toe OM. - I did discuss that the only way to prove this either way would be via bone biopsy, and she would likely benefit most from a distal Syme's digital amputa tion to perform this, since the bone is so small to begin with. - Otherwise, with no clinical evidence of infection, she could likely be d/c with topical antibiotics only and monitor it. She has no associated local or systemic concerns for infection. - Would recommend daily mupirocin ointment for 2 weeks and close outpatient follow-up for now. - Would be ok with her d/c when stable per other specialties and f/u with us next week. - Wound/hematoma cleaned, debrided lightly, and redressed today. Ordered mupirocin daily for the remainder of her hospitalization. Admission and Anticipated Discharge Date Admission Date: May 15, 2024 Subjective Patient seen at bedside. Had MRI yesterday. No new concerns re: the foot/ankle. Believes her toe is doing well. States that it initially became discolored, she thinks, because of frostbite, which she believes she developed after stepping on cold, wet concrete on a cold day a few weeks ago. Has been using a variety of aloe and bacitracin on it with regular soaks. Now, curious about her MRI results. Denies any new s/s of infection, otherwise. Review of Systems Constitutional: + weakness; no fever, no chills and no f atigue Eyes: no problem reported Ear, Nose, Mouth, Throat: no problem reported Respiratory: no problem reported Shortness of breath on admission Cardiovascular: + edema; no calf pain and no problem rep orted Gastrointestinal: no nausea, no vomiting and no problem reported Genitourinary: no problem reported Musculoskeletal: + deformity; no swelling and no problem reported Integumentary: + non-healing lesions, + wounds and + er ythema Neurologic: + loss of sensation, + numbness and + pa resthesia; no generalized weakness Psychiatric: no problem reported Physical Exam Physical Exam: Lower extremity focused exam: DP/PT pulses diminished. Skin atrophy, nail dystrophy, distal cooling noted. Hallux valgus/rigidus noted bilaterally. Concomitant second toe hammertoe noted bilaterally, worse on right. Right second toe is traumatized distally, consistent with subungual hematoma and contusion. No active bleeding or drainage. No open wound. On bedside debridement, there is still no obvious open wound and no portal of entry. There is no local or ascending cellulitis. No purulence. The only sign of concern is this localized hematoma/blood blister underlying the leading edge of the dystrophic nail. MRI was reviewed and concerns for OM noted, though the 2nd toe has similar appearance to the third toe, which is not suspected to have OM. This change in bone marrow edema is likely more associated with whatever trauma led to the hematoma vs. repetitive trauma associated with the hammertoe. It could even be edge artifact, due to the imaging protocol, though true OM is thought less likely. Constitutional: WD/WN, vitals as above + ill appearing and + obese Eyes: PERRL, conjunctivae normal, anicteric sclerae ENMT: external ear and nose normal, oropharynx normal Neck: trachea midline, no thyromegaly normal visual inspection Respiratory: normal respiratory effort; no respiratory distress Cardiovascular: Rate/Rhythm: regular rate and regular rhythm Vessels: posterior tibial pulses present and dorsalis pedis pulses present Extremities: normal capillary refill; no calf tenderness, no pedal edema and no edema Chest (Breasts): Chest: normal inspection of chest Gastrointestinal (Abdomen): Inspection/Auscultation: abdomen normal to inspection Percussion/Palpation: + abdomen tender and abdomen soft Musculoskeletal: no cyanosis or clubbing, extremities motor strength 5/5 Head/Neck/Chest: normocephalic and head atraumatic Extremities: extremities normal to inspection Skin: + skin atrophy, + eschar, + nail abnorma lity and + nails dystrophic; no erythema and no fistulous tract Neurologic: normal touch/pain/proprioception, normal sensation to monofilament and awake; no focal motor deficits Psychiatric: A+Ox3, euthymic affect Results & Data Results & Data Vital Signs (Past 12 Hours) Vital Signs Temp Pulse Pulse Resp BP Pulse Ox O2 Del Method 05/19/24 20:00 Nasal Cannula 05/19/24 19:54 36.7 C 77 18 121/75 96 Room Air 05/19/24 16:13 122/74 05/19/24 15:15 36.8 C 70 20 122/74 97 Nasal Cannula 05/19/24 14:56 78 05/19/24 10:55 36.6 C 80 19 114/65 93 Nasal Cannula 05/19/24 09:53 131/73 O2 Flow Rate 05/19/24 20:00 1 05/19/24 19:54 05/19/24 16:13 05/19/24 15:15 2 05/19/24 14:56 05/19/24 10:55 2 05/19/24 09:53
[2024-05-19] MEDS: methylPREDNISolone 40 MG in SYRINGE 0 ML IV SCH (21:00)
--- NOTE | 2024-05-19 21:29 | Electrocardiogram Report ---
Test Reason : Blood Pressure : */* mmHG Vent. Rate : 80 BPM Atrial Rate : 320 BPM P-R Int : * ms QRS Dur : 70 ms QT Int : 334 ms P-R-T Axes : 105 71 259 degrees QTcB Int : 385 ms Atrial flutter with 4:1 A-V conduction Abnormal ECG When compared with ECG of 14-May-2024 21:24, ST now depressed in Inferior leads T wave inversion now evident in Inferior leads Confirmed by Erlin Brennan [id number] on 05/19/2024 9:28:54 PM Referred By: REFERRED SELF Confirmed By: Erlin Brennan
[2024-05-20 07:31] LABS: Basophils # (auto) 0.05 K/uL (0.00-0.20); Basophils % (auto) 0.3 %; Hematocrit (blood only) 36.8 % (37.0-47.0); Hemoglobin 12.2 g/dl (12.0-16.0); Immature Granulocytes # (auto) 0.48 K/uL (0.01-0.20); Immature Granulocytes % (auto) 3.1 %; Lymphocytes # (auto) 0.72 K/uL (1.20-3.40); Lymphocytes % (auto) 4.6 %; Mean Corpuscular Hemoglobin 32.1 pg (25.0-34.0); Mean Corpuscular Hgb Conc 33.2 g/dL (32.0-36.0); Mean Corpuscular Volume 96.8 fL (80.0-100.0); Mean Platelet Volume 9.7 fL (9.4-12.4); Monocytes # (auto) 0.46 K/uL (0.11-0.59); Monocytes % (auto) 2.9 %; Neutrophils # (auto) 13.91 K/uL (1.40-6.50); Neutrophils % (auto) 89.1 %; Nucleated RBC # (auto) 0.02 K/uL (0.00-0.12); Nucleated RBC % (auto) 0.1 %; Platelet Count 240 K/uL (130-400); RDW Standard Deviation 58.6 fL (36.4-46.3); White Blood Count 15.62 K/ul (4.8-10.8)
[2024-05-20 07:53] LABS: Calcium 9.2 mg/dl (8.6-10.3); Creatinine Clr Calc Pharmacy 58.3 ml/min; Potassium 4.9 mmol/L (3.5-5.1)
[2024-05-20] MEDS: LEVALBUTEROL 0.31MG/3 ML VIAL NEB PRN (09:21)
--- NOTE | 2024-05-20 13:39 | Hospitalist Progress Note ---
Date of Service May 20, 2024 Assessment & Plan (1) Atrial flutter with rapid ventricular response: Plan: Appreciate Cardiology consultation rates now controlled with dual AV nacho agents Change cardizem 60mg q6h back to Cardizem CD 180mg daily Change metoprolol 25mg q6h to meto tartrate 50mg BID Watch rates overnight Cont Eliquis 5mg BID echo this admission - normal ejection fraction with severe left atrial enlargement and elevated right ventricular systolic pressure/severe pulm HTN with mild reduction in RV function (2) Hypokalemia: Plan: repleted resolved (3) Elevated troponin: Plan: no evidence of ACS likely myocardial demand ischemia only (4) Wound of right foot: Plan: Right second toe with ? distal tuft OM in the setting of hammertoe deformity Appreciate Podiatry consultation by Dr Herbert He has evaluated Mrs Garza and does not feel that her clinical picture is c/w OM He did some basic bedside debridement and recommends daily bactroban topically and f/u with him in clinic previously was on IV Cefepime for this toe infection now switched to oral Bactrim DS 1 tab BID as the culture grew stenotrophamonas (5) Pulmonary hypertension: Plan: severe on echo suspect 2nd to CREST/scleroderma 2-step O2 test on 05/18 demonstrated need for home O2 - 2 liters with ambulation should see a pulmonary HTN clinic at tertiary care center as outpatient for right heart cath consideration, etc. (6) Scleroderma: Plan: not on Rx for such last saw Rheum in 2023 - at that time no features of active disease (7) Obstructive sleep apnea (adult) (pediatric): Plan: CPAP (8) CREST variant of scleroderma: (9) Pneumonia: Plan: RLL previously on cefepime - received about 5 days of such also had been on doxycycline switched to monotherapy with bactrim the PM of 05/19/24 (presumably to cover the lungs & the right 2nd toe) 2-step results from 05/18 noted (10) Abnormal CT scan, chest: Plan: mosaicism and air-trapping noted on chest CT this admission previously had been trialed on LABA/ICS in the past but wasn't taking one prior to admission she has no wheezing on exam and is on large quantities of steroid at this time stop IV steroid convert to po prednisone in am tomorrow and wean Plan anticipate d/c home tomorrow if labs are stable, etc updated pt's daughter Chanda this evening by phone leukocytosis - suspect 2nd to high-dose IV steroids/demargination rather than worsening infection especially with how good she feels today dizziness - resolved HTN - cont to hold HCTZ Admission and Anticipated Discharge Date Admission Date: May 15, 2024 Subjective patient reports improvement in all symptoms that led to her hospitalization - dizziness, shortness of breath, flu-like symptoms, weakness, etc. appetite improved o2 weaned off earlier today a.flutter rates have been <100 ambulating in the room without significant dyspnea very anxious to go home denies any pain in her right foot 2nd toe Review of Systems Review of Systems: gen - no fevers or chills cv - no chest pain pulm - no cough; she voices that she is not really interested in using oxygen at home GI - no N/V Physical Exam Physical Exam: gen - NAD, looks good neck - no JVD mouth - MMM heart - RRR, s1 s2 lungs - CTA b/l abd - soft NT ND BS+ ext - right 2nd toe wound distal tip, no drainage; no edema of feet; pulses b/l feet 2+ Results & Data Results & Data Vital Signs (Past 12 Hours) Vital Signs Temp Pulse Resp BP Pulse Ox O2 Del Method O2 Flow Rate 05/20/24 12:00 Room Air 0 05/20/24 10:45 36.8 C 79 18 133/86 90 Nasal Cannula 05/20/24 09:21 78 20 92 Nasal Cannula 2 05/20/24 07:04 36.6 C 76 19 135/78 91 Nasal Cannula 1 05/20/24 03:10 36.7 C 87 17 112/68 98 Room Air Laboratory Results Laboratory Results - last 24 hr 05/20/24 06:40 WBC 15.62 H RBC 3.80 L Hgb 12.2 Hct 36.8 L MCV 96.8 MCH 32.1 MCHC 33.2 RDW Std Deviation 58.6 H RDW Coeff of [place] 17.0 H Plt Count 240 MPV 9.7 Immature Gran % (Auto) 3.1 Neut % (Auto) 89.1 Lymph % (Auto) 4.6 [place] % (Auto) 2.9 Eos % (Auto) 0.0 Baso % (Auto) 0.3 Neut # (Auto) 13.91 H Lymph # (Auto) 0.72 L [place] # (Auto) 0.46 Eos # (Auto) 0.00 Baso # (Auto) 0.05 Immature Gran # (Auto) 0.48 H Absolute Nucleated RBC 0.02 Nucleated RBC % (auto) 0.1 Sodium 138 Potassium 4.9 D Chloride 103 Carbon Dioxide 33 H Anion Gap 2 L BUN 30 H Creatinine 0.75 Est Cr Clr Drug Dosing 58.3 eGFR 81.95 BUN/Creatinine Ratio 40.0 H Glucose 187 H Calcium 9.2 PG Care Time/CCT Total # of Minutes Spent Total Time Spent with Patient: Total time spent is greater than 50% in coordination of care (as documented) at patient's floor/unit and/or counseling patient: Coding Level of Care Code 56164 SUB INP/OBS CARE 3/50MIN Diagnoses Atrial flutter with rapid ventricular response I48.92 Hypokalemia E87.6 Elevated troponin R79.89 Wound of right foot S91.301A Pulmonary hypertension I27.20 Scleroderma M34.9 Obstructive sleep apnea (adult) (pediatric) G47.33 CREST variant of scleroderma M34.[address] scan, chest R93.89
[2024-05-20] MEDS: METOPROLOL TARTRATE 50 MG TAB PO SCH (14:47)
[2024-05-20] MEDS: dilTIAZem HCL 180 MG CAPCR PO SCH (16:23)
[2024-05-21 07:19] LABS: Hematocrit (blood only) 37.1 % (37.0-47.0); Hemoglobin 12.5 g/dl (12.0-16.0); Mean Corpuscular Hemoglobin 32.7 pg (25.0-34.0); Mean Corpuscular Hgb Conc 33.7 g/dL (32.0-36.0); Mean Corpuscular Volume 97.1 fL (80.0-100.0); Mean Platelet Volume 9.4 fL (9.4-12.4); Platelet Count 234 K/uL (130-400); RDW Coefficient of Variation 17.1 % (11.5-14.5); RDW Standard Deviation 59.6 fL (36.4-46.3); Red Blood Count 3.82 M/uL (4.20-5.40); White Blood Count 13.96 K/ul (4.8-10.8)
[2024-05-21 07:42] LABS: BUN Creatinine Ratio 36.3 (10-20); Calcium 9.4 mg/dl (8.6-10.3); Creatinine Clr Calc Pharmacy 54.3 ml/min; Potassium 5.2 mmol/L (3.5-5.1)
[2024-05-21 07:47] LABS: Basophils # (auto) 0.05 K/uL (0.00-0.20); Basophils % (auto) 0.4 %; Immature Granulocytes # (auto) 0.73 K/uL (0.01-0.20); Immature Granulocytes % (auto) 5.2 %; Lymphocytes % (auto) 6.4 %; Monocytes # (auto) 0.72 K/uL (0.11-0.59); Monocytes % (auto) 5.2 %; Neutrophils # (auto) 11.56 K/uL (1.40-6.50); Neutrophils % (auto) 82.8 %
[2024-05-21] MEDS: POLYETHYLENE (MIRALAX) 17 GM PACK PO PRN (08:57)
[2024-05-21] MEDS: predniSONE 20 MG TAB PO SCH (09:01)
[2024-05-21] MEDS: PATIROMER CALCIUM SORBITEX 8.4 GM PACK PO ONE (09:40)
[2024-05-21 16:15] VITALS: BP 132/76; PULSE 72; RESP 18; TEMP 98.4; O2SAT 95
--- NOTE | 2024-05-21 16:39 | Discharge Summary ---
Discharge Summary Date of Service date of admission - May 15, 2024 date of discharge - May 21, 2024 Principal Dx & Hospital Course #1 = Principal Diagnosis (1) Wound of right foot: Right second toe wound with question of distal tuft osteomyelitis in the setting of hammertoe deformity Podiatry consultation was performed by Dr Angel Herbert He evaluated Mrs Garza and did not feel that her clinical picture was consistent with osteomyelitis Dr Herbert performed bedside debridement of the distal 2nd toe and recommended daily bactroban topically and f/u with him in clinic Patient was treated with IV Cefepime for the 2nd toe infection Then was switched to oral Bactrim as the culture grew stenotrophomonas She had borderline high potassium with the Bactrim unfortunately thus she was changed to Minocycline 200mg twice daily x 1 week at discharge (2) Atrial flutter with rapid ventricular response: Patient developed atrial flutter during the hospitalization She has a prior history of atrial fibrillation and takes Eliquis She was seen in consult by [facility] for such She was placed on dual AV nacho agents with cardizem & metoprolol Rates improved & were controlled with such At discharge she will take the following: * Cardizem CD 180mg daily * Metoprolol tartrate 50mg BID * Eliquis 5mg BID Echo this admission - normal ejection fraction with severe left atrial enlargement and elevated right ventricular systolic pressure/severe pulmonary HTN with mild reduction in RV function (3) Pneumonia: RLL previously on cefepime - received about 5 days of such also had been on doxycycline switched to monotherapy initially with Bactrim (to cover the lungs & the right 2nd toe) then at discharge the Bactrim was changed to minocycline 200mg BID x 7 days 2-step ambulatory O2 test showed the need for 2 liters of NC O2 continuously (4) Abnormal CT scan, chest: CT chest showed increased mosaic attenuation of the lungs suggesting air trapping. Tree-in-bud nodular opacities in the right lung were also seen. She was treated for right-sided pneumonia as noted above. Per outpatient pulmonology notes she had previously been trialed on LABA/ICS in the past but wasn't taking one prior to admission. For bronchospasm/wheezing she will - * complete a prednisone taper at discharge * start Breo 1 puff daily She should follow-up with [facility] within a few weeks of discharge for recheck. (5) Hypokalemia: repleted resolved (6) Elevated troponin: no evidence of ACS likely myocardial demand ischemia only peak troponin was 24 (7) Pulmonary hypertension: severe on echo suspect 2nd to CREST syndrome/scleroderma 2-step ambulatory O2 test showed need for 2 liters of NC O2 continuously patient should see a pulmonary HTN clinic at tertiary care center as outpatient for right heart cath consideration, to discuss treatment options, etc. 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 other etiology? f/u with [facility] in addition, ultimately needs referral to tertiary care for her pulmonary HTN & cor pulmonale Plan HTN - cont to hold HCTZ at discharge; continue cardizem CD + metoprolol BID Notes For Next Care Provider Started on oxygen - 2 liters NC O2 continuously Medication Changes From Visit 1. stop HCTZ 2. stop K supplement 3. metoprolol tartrate 50mg BID 4. prednisone taper 5. Breo 1 puff daily Admission HPI Per Admitting Provider 78-year-old female PMHx fibromyalgia, GERD, depression anxiety, A-fib on Eliquis, scleroderma (crest), dyslipidemia, HTN, QUINTON, and Raynaud's presenting via EMS for dizziness starting day of arrival. Patient started to have "flulike" symptoms with cough, SOB, wheezing, and significant dizziness approximate 1 week WHEEL WORKER. When EMS arrived, patient was reported to be 88% on RA but was able to be increased to 96% on 2L NC. No oxygen at baseline. Patient states that for approximately 4 to 5 days she has been having flulike symptoms described as productive cough and scattered feeling of being feverish. On the day of arrival, patient states that in the morning hours that she felt slightly weak and tired, but around the time that she was getting ready for bed she was walking from her bathroom to her bed and suddenly became very weak, had onset of shortness of breath, could feel her heart racing, and felt as though she was, passed out. She was able to make it to bed and did not pass out or fall but was still getting the sensation that she was going to. Patient states that this happened on 2 occasions within minutes of each other. Denies sick contacts, and has never had this happen before. Overall denying chest pain, palpitations, abdominal pain, N/V/D/C, LUTS, numbness/tingling, vertigo, or headache. Denies smoking, but states that she had secondhand exposure to her for 50 years. ED evaluation reveals no leukocytosis, H&H 11.9/34.5, VBG's pH 7.43, potassium 3.4, BUN 27, ratio 33.3, bilirubin 1.1, Trope 23.9, pending repeat, BNP 218, procalcitonin 0.05; BioFire negative; CXR pending official read; EKG A- fib with variable AV block and rate controlled (86 bpm). Provided with NSS in ED. Discharge Exam gen - NAD, looks well neck - no JVD mouth - MMM heart - RRR, s1 s2, 2/6 systolic murmur LSB lungs - mild end-exp wheezes b/l, no increased work of breathing abd - soft NT ND BS+ ext - right 2nd toe wound distal tip, no drainage; no edema of feet; pulses b/l feet 2+ Discharge Plan Discharge Items Patient Disposition: Home - Self-Care Reason For Visit: HYPOXIA, WHEEZING Discharge Diagnosis: 1. right-sided pneumonia 2. severe pulmonary hypertension 3. wheezing - likely due to #1, cannot rule out other causes 4. right 2nd toe infection 5. right 2nd toe hammertoe deformity 6. wound of right 2nd toe 7. atrial flutter 8. history of CREST syndrome Activity: Resume your previous activity Activity Comment: as tolerated Non-emergency contact: Primary Care Provider, Meat Cutting Block Repairer and Order Schedule Clerk Call non-emergency contact if: you have any medication questions, your symptoms worsen and you have a fever Follow-up/Referrals: Torin Reis PA-C [Physician Agricultural Pilot] - 05/22/24 1:30 pm Emmie Weinstein DO [Primary Care Provider] - 05/24/24 10:30 am (within 1 week Hospital follow up scheduled on 05/24/24 at 10:30 with Yamileth Maldonado ) Kirk Preciado MD, FCCP [Physician] - (1 month; f/u of ?CREST syndrome, pulm HTN, etc.) Angel Herbert DPM [Physician] - (within 2 weeks for recheck of right 2nd toe wound) Diet: Heart Healthy Addtl Attending Provider Instructions: Ms Garza, You were hospitalized due to weakness, dizziness, low oxygen levels, and wheezing. CT scan of your chest showed that you had pneumonia in the right lung. You received several days of IV antibiotics while here. You also received IV/oral steroids for the wheezing. We suspect that the weakness and dizziness was related to your low oxygen levels in the blood. All of your symptoms improved with oxygen therapy, antibiotics, steroids, and supportive care. In addition, you mentioned that the tip of your right 2nd toe was bothering you. Dr Angel Herbert from podiatry saw you in consult. MRI of the right foot was taken. No broken bones were identified. There was a question of bone infection in the 2nd toe but this was uncertain. Dr Herbert plans to follow you closely in his clinic. He did clean the tip of the 2nd toe and antibiotic ointment has been applied to it daily. During the hospitalization you had new-onset atrial flutter (see handout). This is a closely related heart condition to atrial fibrillation. The atrial flutter improved with the addition of metoprolol medicine to your typical cardizem. Dr Brennan from [facility] saw you for the atrial flutter. He also noted that a condition called "pulmonary hypertension" (see handout) was much worse in comparison to your old echocardiogram from several years ago. The pulmonary hypertension coupled with the pneumonia are the likely reasons you need oxygen upon return home. A walking oxygen test on 05/21 showed that you need 2 liters of oxygen at ALL TIMES. Recommendations - 1. antibiotics for pneumonia as well as the 2nd toe, right foot - * minocycline 200mg twice daily x 7 days, first dose tomorrow morning 05/21/24. * this antibiotic can sometimes cause stomach upset/nausea. * this antibiotic rarely can cause a rash if you go out into the sun heavily while taking it; thus, over the next week, cover up adequately if you spend time outdoors. 2. right 2nd toe wound care - * apply a layer of mupirocin (bactroban) ointment on the tip of the 2nd toe on daily basis. * cover with Optifoam or similar dressing. * change daily. 3. oxygen - 2 liters of oxygen at ALL TIMES. Please blend the oxygen into your CPAP unit while you sleep. The home oxygen company will show you how to do this. Be sure to take your oxygen with you when you leave your home. Do not allow anyone to smoke in your home due to risk of having a house fire. 4. for wheezing take - * Breo inhaler - 1 puff once daily every day. * Rinse mouth with water after each use. Spit the water out; do not swallow. * Stay on this inhaler until you see the lung doctor down the line. * Prednisone taper - start this on 05/22/24; take with food. 5. for atrial flutter take - * metoprolol tartrate 50mg twice daily; start AM of 05/22/24. 6. STOP your hydrochlorothiazide & potassium supplements for now. It is uncertain if you will need to resume these in the future. 7. for stomach upset / nausea you may take - * ondansetron 4mg every 6 hours as needed for nausea/stomach upset/vomiting. You have a scheduled appointment with Torin Reis, cardiology PA, on 05/22/24 at 130pm. Mr Reis works with Dr Brennan at the cardiology office. I would keep this appointment as Mr Reis can refer you to [facility] or [facility] for additional work-up/treatment of the pulmonary hypertension problem. Keeping this appointment will expedite the referral process. Follow-up - see separate section. Please contact Dr Herbert's office to schedule follow-up for the right 2nd toe issue. Return to [facility] if - * you have fevers over 100 degrees * you have worsening shortness of breath * you have chest pains * you develop severe diarrhea (3 or more liquid stools in 24 hours) * you have any concerns about the 2nd toe on the right foot (worsening pain, drainage, redness, odor, etc) * your oxygen levels on your finger using a pulse oximeter is consistently less than 90% * any other concerns It was our pleasure to care for you! -Dr Reynaga Pending Studies at Discharge: No Stand-Alone Forms: My [facility], Smoking Cessation Medications and DC Order Prescriptions: New minocycline 100 mg tablet 200 mg PO BID 7 Days Qty: 28 0RF metoprolol tartrate 50 mg Tablet 50 mg PO BID Qty: 60 2RF mupirocin 2 % Ointment 1 applic EXT DAILY Qty: 15 2RF Rx Instructions: apply to tip of right 2nd toe every day x 2 weeks. ondansetron 4 mg tablet,disintegrating 4 mg PO Q6H PRN (Reason: nausea and vomiting) Qty: 10 0RF prednisone 10 mg tablet 10 mg PO DIRECTED Qty: 12 0RF Rx Instructions: start 05/22/24, take with food - 3 tabs PO QD x 2 days; 2 tabs PO QD x 2 days; 1 tab PO QD x 2 days. fluticasone furoate-vilanterol [Breo Ellipta] 100-25 mcg/dose blister with device 1 inh inhalation DAILY Qty: 60 1RF Rx Instructions: rinse mouth with water after each use; spit water out, do not swallow. Continued (DME) CPAP Machine Misc See Rx Instructions .Route Qty: 1 0RF Rx Instructions: Min 5- Max 20 Aflex 3 (DME) CPAP Supplies Misc See Rx Instructions .Route Qty: 1 0RF Rx Instructions: As directed; face mask- patient will need fitted (DME) CPAP Supplies Misc See Rx Instructions .Route Qty: 1 3RF Rx Instructions: As directed. Face mask HCPCS A7030, head gear HCPCS a7035 Eliquis 5 mg tablet 5 mg PO BID Qty: 60 11RF tramadol 50 mg tablet 50 mg PO Q4H PRN (Reason: pain) Qty: 60 0RF diltiazem HCl 180 mg capsule,extended release 24hr 180 mg PO DAILY Qty: 90 3RF pravastatin 80 mg tablet 80 mg PO HS Qty: 90 3RF calcium carbonate-vitamin D3 600 mg(1,500mg) -200 unit tablet 1 tab PO HS diclofenac sodium [Voltaren Arthritis Pain] 1 % gel 2 g topical QID Rx Instructions: apply to single elbow, wrist or hand; for hand includes palm/fingers/back of hand cetirizine 10 mg tablet 10 mg PO QAM PRN (Reason: allergies) (DME) Auto Titrating CPAP Misc See Rx Instructions .Route Qty: 1 0RF Rx Instructions: As directed acetaminophen 500 mg capsule 1,000 mg PO TID PRN (Reason: Pain) Rx Instructions: TAke 3 times per day to lessen pain. duloxetine 60 mg capsule,delayed release(DR/EC) 60 mg PO DAILY Discontinued potassium chloride [Klor-Con M20] 20 mEq tablet,ER particles/crystals 20 meq PO BID Qty: 180 1RF hydrochlorothiazide 25 mg tablet 25 mg PO QAM Qty: 90 3RF Hold Instructions: Home Medication placed on hold at Doctor's office No Action (DME) CPAP Supplies Misc See Rx Instructions .Route Qty: 1 0RF Rx Instructions: cpap Heated Hose with O2 adapter Discharge Orders: Discharge Order (Routine); Ordered 05/21/24 Ordered By: Caio Woods/Other Patient Handouts: Pulmonary Hypertension, Understanding Atrial Flutter Admission Data Admit Date/Time: 05/15/24 00:14 Attending Provider: Caio Reynaga Admit Provider: Kennedy Dey Primary Care Provider: Emmie Weinstein Other Providers: Koby Pham; Angel Herbert; Erlin Brennan Other Interventions: Discharge Summary Assessment (RN) Last Done: 05/21/24 17:11 Hospital Stay Data Consultations Consult Pulmonology Consult Podiatry Consult Cardiology PT, OT Procedures Performed echocardiogram: Diagnostic Imagining Performed Chest X-Ray 05/14/24 21:28 Exam(s): XR CXR 1 VIEW EXAM: XR Chest, 1 View CLINICAL HISTORY: Reason for exam: Chest pain, nonspecific. TECHNIQUE: Frontal view of the chest. COMPARISON: July 14, 2021 FINDINGS: Lungs: Prominent vascular and interstitial markings in the perihilar regions and left lung base, increased previous. No definite edema or focal consolidation seen. Pleural space: Unremarkable. No pneumothorax. Heart: The cardiac silhouette is mildly enlarged, similar to previous. Mediastinum: Unremarkable. Normal mediastinal contour. Bones/joints: Mild degenerative changes in the lower thoracic spine. Moderate degenerative changes in the left shoulder and old healed fracture of the proximal right humerus. Vasculature: The aortic arch is calcified, unchanged. Upper abdomen: 4 cm elevation of the right diaphragm. IMPRESSION: 1. The cardiac silhouette is mildly enlarged, similar to previous. 2. Prominent vascular and interstitial markings in the perihilar regions and left lung base, increased previous. No definite edema or focal consolidation seen. Electronically signed by: Angel Hernandez MD 05/15/24 00:05 AM Duplex Scan Lower Extremity Artery 05/15/24 01:02 EXAM: US arterial duplex LE RT CLINICAL HISTORY: Toe wound, CREST. TECHNIQUE: Ultrasound examination of the right lower extremity arteries and duplex in real time. One or more of the following were performed- spectral analysis, resistive index, waveform analysis, and pulsed Doppler. COMPARISON: None. FINDINGS: Vessel Flow Pattern Right Peak Velocity Right (cm/sec) Common Femoral Artery (JIGSAW OPERATOR) Triphasic [PSV 107] Superficial Femoral Artery (SFA) Triphasic [PSV 75] Popliteal Artery (POP A) Triphasic [PSV 65] Posterior Tibial Artery (WHEEL WORKER), proximal Triphasic [PSV 121] Posterior Tibial Artery (WHEEL WORKER), distal Triphasic [PSV 120] Dorsalis Pedis Artery (DPA) Triphasic [PSV 79] Multiple small nonsignificant mural plaques with no hemodynamically significant stenosis are noted in the arteries. The peak systolic velocities are within normal limits. No evidence of significant stenosis (50%) or hemodynamically significant lesions. Normal triphasic/triphasic waveform pattern observed throughout the evaluated segments. Collateral Circulation: No significant collateral circulation noted indicative of chronic arterial occlusion. IMPRESSION: 1. Duplex ultrasound of the lower extremity arteries: 2. Preserved arterial flow characteristics with no evidence of significant stenosis or occlusion. Electronically signed by Deven Wilson 05-15-2024 04:26 AM Foot X-Ray 05/15/24 01:02 EXAM: XR foot RT min 3V routine CLINICAL HISTORY: 2nd toe osteomyelitis; CREST, toe wound. TECHNIQUE: X-ray images of the right foot were obtained in anteroposterior (AP), lateral, and oblique projections. COMPARISON: No prior studies available for comparison. FINDINGS: Bone Structure: There is hallux valgus deformity. There are osteoarthritic changes involving the first metatarsophalangeal joint, the proximal interphalangeal joint of the fifth toe, and all tarsometatarsal joints. A small calcaneal spur is seen along its plantar aspect. Enthesophyte at the attachment site of the Achilles tendon. Questionable lucency is present in the head of the proximal phalanx of the second toe only appreciated on oblique view. The possibility of osteomyelitis can't be ruled out. Joint Spaces: No evidence of joint effusion. Soft Tissues: Soft tissue swelling and lucencies are identified in the right fore and midfoot. IMPRESSION: 1. Hallux valgus deformity 2. Osteoarthritic changes as mentioned above. 3. Questionable lucency in the head of the proximal phalanx of the second toe is only appreciated in the oblique view. The possibility of osteomyelitis can't be ruled out. 4. MRI/CT scan is advised for further evaluation. 5. Soft tissue swelling and lucencies are identified in the right fore and midfoot. Disclaimer: A subtle bone abnormality or fracture may not be readily apparent on X-rays, thus clinical correlation and further imaging including follow-up CT, MRI, or follow-up X-rays are advised as needed. Electronically signed by Deven Wilson 05-15-2024 03:[address] 05/15/24 13:43 CT CHEST HIGH RESOLUTION (INCLUDING INSPIRATORY AND EXPIRATORY PHASES) WITHOUT CONTRAST: HISTORY: Shortness of breath. TECHNIQUE: CT of the chest was obtained without intravenous contrast. Coronal and sagittal reformats were created. COMPARISON: CT thorax May 15, 2024 FINDINGS: LOWER NECK: Normal thyroid. LYMPH NODES: A few small nonenlarged lymph nodes in the mediastinum. No lymphadenopathy by size criteria. CARDIOVASCULAR: Cardiac size is enlarged. Coronary artery calcifications are noted. No aortic aneurysm. LUNGS: The trachea and central bronchi are widely patent. No focal confluent infiltrates are seen. There is increased mosaic attenuation of the lungs in the expiratory phase imaging. There are tree-in-bud nodular opacities in the medial aspect of the right lower lobe and in the right upper lobe. No significant reticulations in the lungs. No suspicious pulmonary nodules identified. PLEURA: There are no pleural effusions. There is no pneumothorax. UPPER ABDOMEN: Hepatosplenomegaly. Gallstones. OSSEOUS STRUCTURES: No acute findings. Severe osteoarthritis of both glenohumeral joints. Intraosseous hemangiomas of the spinal vertebral bodies. IMPRESSION: Increased mosaic attenuation of the lungs in the expiratory phase suggesting air trapping. Tree-in-bud nodular opacities in the right lung as above indicative of bronchiolitis and mild pneumonia. No appreciable reticular changes to the lungs to suggest fibrosis. Electronically signed by Naseem Rivera 05-15-2024 7:29 PM Chest X-Ray 05/18/24 09:56 XR chest 1V portable CLINICAL HISTORY: hypoxia COMPARISON STUDY: 05/14/2024, 03/09/2019, and 10/03/2017 FINDINGS: No significant interval changes have occurred. Chronic prominence of the bronchovascular markings with bronchial wall thickening and right hilar prominence are redemonstrated. Right diaphragmatic eventration unchanged. No focal airspace opacity or pneumothorax. IMPRESSION: Stable exam as described. No new or adverse change identified. Consider chest CT if clinical symptoms warrant. ACT 112: Negative or not required by law. Electronically signed by: Malu Shea M.D. 05/18/2024 10:32 AM Foot MRI 05/19/24 12:20 MRI OF THE RIGHT FOREFOOT WITH AND WITHOUT CONTRAST CLINICAL HISTORY: Evaluate for osteomyelitis of the right second toe. COMPARISON STUDY: Right foot radiographs May 15, 2024. TECHNIQUE: Utilizing a 1.5 Mira magnet and dedicated coil, multiplanar, multiecho imaging of the right forefoot was performed pre and postcontrast administration. Intravenous injection of 8 cc of Gadavist was uneventful. FINDINGS: This exam is moderately compromised by motion artifact. There is hallux valgus. Severe osteoarthritis of the right first metatarsophalangeal joint is present. Moderate mid foot osteoarthritis is present. There are no fractures within the right midfoot. There is focal moderate increased T2 signal and diminished T1 signal within the distal tuft of the distal phalanx of the right second toe. This is shown best on coronal sequences image 13 of 24. No additional sites of marrow edema within the right midfoot or forefoot are identified. There is no fluid collection to suggest abscess. IMPRESSION: 1. Focal marrow edema within the distal tuft of the distal phalanx of the right second toe. This favors a small focus of acute osteomyelitis. 2. No additional sites of acute osteomyelitis within the right midfoot or forefoot. 3. Osteoarthritis of the right midfoot and right first metatarsophalangeal joint, as described above. ACT 112: Negative or not required by law. Electronically signed by: Sam Kern M.D. 05/19/2024 12:04 PM Pending Results Patient Have Any Pending Studies at Discharge: No Discharge Instructions Given to Patient (Per Discharging Provider) Ms Garza, You were hospitalized due to weakness, dizziness, low oxygen levels, and wheezing. CT scan of your chest showed that you had pneumonia in the right lung. You received several days of IV antibiotics while here. You also received IV/oral steroids for the wheezing. We suspect that the weakness and dizziness was related to your low oxygen levels in the blood. All of your symptoms improved with oxygen therapy, antibiotics, steroids, and supportive care. In addition, you mentioned that the tip of your right 2nd toe was bothering you. Dr Angel Herbert from podiatry saw you in consult. MRI of the right foot was taken. No broken bones were identified. There was a question of bone infection in the 2nd toe but this was uncertain. Dr Herbert plans to follow you closely in his clinic. He did clean the tip of the 2nd toe and antibiotic ointment has been applied to it daily. During the hospitalization you had new-onset atrial flutter (see handout). This is a closely related heart condition to atrial fibrillation. The atrial flutter improved with the addition of metoprolol medicine to your typical cardizem. Dr Brennan from [facility] saw you for the atrial flutter. He also noted that a condition called "pulmonary hypertension" (see handout) was much worse in comparison to your old echocardiogram from several years ago. The pulmonary hypertension coupled with the pneumonia are the likely reasons you need oxygen upon return home. A walking oxygen test on 05/21 showed that you need 2 liters of oxygen at ALL TIMES. Recommendations - 1. antibiotics for pneumonia as well as the 2nd toe, right foot - * minocycline 200mg twice daily x 7 days, first dose tomorrow morning 05/21/24. * this antibiotic can sometimes cause stomach upset/nausea. * this antibiotic rarely can cause a rash if you go out into the sun heavily while taking it; thus, over the next week, cover up adequately if you spend time outdoors. 2. right 2nd toe wound care - * apply a layer of mupirocin (bactroban) ointment on the tip of the 2nd toe on daily basis. * cover with Optifoam or similar dressing. * change daily. 3. oxygen - 2 liters of oxygen at ALL TIMES. Please blend the oxygen into your CPAP unit while you sleep. The home oxygen company will show you how to do this. Be sure to take your oxygen with you when you leave your home. Do not allow anyone to smoke in your home due to risk of having a house fire. 4. for wheezing take - * Breo inhaler - 1 puff once daily every day. * Rinse mouth with water after each use. Spit the water out; do not swallow. * Stay on this inhaler until you see the lung doctor down the line. * Prednisone taper - start this on 05/22/24; take with food. 5. for atrial flutter take - * metoprolol tartrate 50mg twice daily; start AM of 05/22/24. 6. STOP your hydrochlorothiazide & potassium supplements for now. It is uncertain if you will need to resume these in the future. 7. for stomach upset / nausea you may take - * ondansetron 4mg every 6 hours as needed for nausea/stomach upset/vomiting. You have a scheduled appointment with Torin Reis, cardiology PA, on 05/22/24 at 130pm. Mr Reis works with Dr Brennan at the cardiology office. I would keep this appointment as Mr Reis can refer you to [facility]a or [facility] for additional work-up/treatment of the pulmonary hypertension problem. Keeping this appointment will expedite the referral process. Follow-up - see separate section. Please contact Dr Herbert's office to schedule follow-up for the right 2nd toe issue. Return to [facility] if - * you have fevers over 100 degrees * you have worsening shortness of breath * you have chest pains * you develop severe diarrhea (3 or more liquid stools in 24 hours) * you have any concerns about the 2nd toe on the right foot (worsening pain, drainage, redness, odor, etc) * your oxygen levels on your finger using a pulse oximeter is consistently less than 90% * any other concerns It was our pleasure to care for you! 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
[2024-05-21] MEDS: MINOCYCLINE HCL 50 MG CAP PO SCH (17:02)
[2024-05-22 12:30] LABS: Hypersegmented Neutrophils 1+
== END 2024-05-21 18:27 | disposition home or self-care (01) | DRG 314 ==
LOC: ED 21:18 → 2S 05-15 00:14 → SUATTDRO 05-15 00:14 → 2S 05-15 01:50
DX: M34.9 Systemic sclerosis, unspecified; J18.9 Pneumonia, unspecified organism; I24.89 Other forms of acute ischemic heart disease; M20.41 Other hammer toe(s) (acquired), right foot; I48.21 Permanent atrial fibrillation; E87.6 Hypokalemia; I48.92 Unspecified atrial flutter; M34.1 CR(E)ST syndrome; M86.8X7 Other osteomyelitis, ankle and foot; I27.29 Other secondary pulmonary hypertension; E83.52 Hypercalcemia; I73.00 Raynaud's syndrome without gangrene; E78.5 Hyperlipidemia, unspecified; Z88.0 Allergy status to penicillin; M79.7 Fibromyalgia; R09.02 Hypoxemia; J40 Bronchitis, not specified as acute or chronic; X31.XXXA Exposure to excessive natural cold, initial encounter; Z79.01 Long term (current) use of anticoagulants; S90.221A Contusion of right lesser toe(s) with damage to nail, initial encounter; Y92.89 Other specified places as the place of occurrence of the external cause

== ENCOUNTER 2024-06-11 01:31 | Observation (INO) ==
--- NOTE | 2024-06-11 01:57 | Emergency Department Note ---
Impression & Plan Pulmonary edema, Acute CHF, Atrial flutter ED Provider Note Name: LOKESH NEUMANN Age: 78 Sex: Female Arrives Via: Walk-In Informant: Patient, Daughter ED Provider: Bjorn Sumner MD Chief Complaint: Shortness of breath Impression: As per impressions above Medical Decision Making: Pleasant 78-year-old female arrives for evaluation of shortness of breath. Patient with worsening shortness of breath over the last several days after being hospitalized 3 weeks ago for A-flutter RVR, foot infection, pneumonia. On examination patient has poor lung sounds throughout with mild hypoxia on her 2 L nasal cannula. Doing better on 3 L nasal cannula. 1 view chest x-ray shows diffuse pulmonary edema versus infiltrates. Laboratory workup with unremarkable white blood cell count. Does have elevated BNP. My suspicion is that this is acute CHF which may be secondary to persistent A-flutter. She is not having any chest pain or evidence of ACS at this time. Patient is anticoagulated without severe hypoxia or hypotension thus I do not feel CT angiography of the chest would be indicated to rule out PE. Patient is afebrile without an elevated white blood cell count thus my suspicion is that she does not have pneumonia but rather fluid overload. She does not have a significant amount of edema in her legs or hands however given examination of lungs and chest x-ray along with elevated BNP heart failure is most likely. She did have an echo about a month ago that showed an EF of 60% but did show dilated left atrium. Given degree of shortness of breath and highly concerning chest x-ray I have consulted hospitalist for further management. Triage/Nursing Notes reviewed by Me External Chart Review by me: I reviewed the discharge summary from 05/20/2024 discussing recent hospitalization management. Differential:Reactive airway disease, pneumonia, pneumothorax, COPD, CHF, infections, cardiac ischemia, pulmonary embolism, musculoskeletal, gastrointestinal, as well as other pathologies. Vital Signs: reviewed and remarkable for mild hypoxia on 2 L nasal cannula Interventions: Lasix 40 mg IV Labs:ED labs Reviewed by me and remarkable for +bnp Imagin view chest x-ray as per my interpretation bilateral infiltrates versus pulmonary edema with mildly elevated hemidiaphragm on right and blunting of costophrenic angle. EKG:As per my interpretation. Indication shortness of breath. Atrial flutter at 73 beats per minute with a 4 to 1 AV Conduction. QTc is 317. There is no ischemia. When compared to EKG of May 19, 2024 there is no significant change. Cardiac/Tele Monitoring: Cardiac Monitoring: An Order was placed for continuous cardiac monitoring. The monitor shows a rate of 70 with an aflutter rhythm. Consults:Dr Precious CHANEL Hospitalist consulted for further management Plan: Disposition:Hospitalization. Condition: Good History of Present Illness: 78-year-old female arrives for evaluation of shortness of breath. Patient had been hospitalized 3 weeks ago for a combination of pneumonia, foot infection, A-fib RVR. She notes that since getting home she initially started feeling better and then symptoms started to return. She gets quite short of breath with any exertion. When she lays down she does seem to get a bit better. She is not sure if symptoms get significantly worse with laying flat. She denies any chest pain, syncope. She states she has no appetite has not really been eating or drinking much. No urinary burning or frequency. She denies any leg swelling or calf pain. The foot wound has healed well. She has not been noticing any palpitations or significant lightheadedness. Patient denies any black or bloody stools. She is not having any abdominal pain. She does take Eliquis for her A-fib. Past Medical History:See Below Home Medications:See Below Allergies:See Below Vitals:Blood Pressure: 114/62, Pulse 84, RR 20, T 36.6C, O2 85% on 2L NC Physical Exam: GENERAL: Patient is tired and mildly pale appearing and in mild distress. RESPIRATORY: Mild dyspnea with decreased breath sounds throughout the left lower lobe and crackles at the left upper lobe and right lower lobes. CARDIOVASCULAR: Regular rate and rhythm.No murmur appreciated. GASTROINTESTINAL: Abdomen soft, non-tender, no peritonitis. EXTREMITIES: Normal motion all extremities, no cyanosis, no edema. NEUROLOGIC: Alert and oriented. No focal neurologic deficits appreciated SKIN: No rash, no jaundice, no diaphoresis. PSYCH: Appropriate GCS: 15 ED Course: Times/Reassessments: Patient stable with good vitals on 3 L nasal cannula. Bjorn Sumner MD Past Med/Surg History Problem List (Updated 06/11/24 @ 04:45 by [employer] PA-C) Urinary incontinence Atrial flutter (Acute) Acute CHF (Acute) Pulmonary edema (Acute) Chronic right-sided congestive heart failure Pneumonia Contusion of right lesser toe(s) with damage to nail, initial encounter Hammertoe of right foot Atrial flutter with rapid ventricular response Asthmatic bronchitis Acute pneumonia Abnormal CT scan, chest Scleroderma Pulmonary hypertension Wound of right foot Elevated troponin Hypokalemia Hypoxia (Acute) Fibromyalgia Arthritis of left hip History of colon polyps Morbid obesity Lichen sclerosus et atrophicus Internal hemorrhoids Impaired fasting glucose Gastroesophageal reflux disease Diverticulosis Depression with anxiety Degenerative joint disease of cervical spine Anticoagulant long-term use Reactive airway disease Right knee DJD Atrial fibrillation, permanent dx approx 3 yrs ago > no pacer, Eliquis Anxiety and depression Paroxysmal atrial flutter (Chronic) Follows with [facility]/Dr. Brennan Allergic rhinitis CREST variant of scleroderma (Chronic) Stable Carotid artery plaque Dyslipidemia Generalized osteoarthritis of multiple sites Hypertension Lymphoproliferative disease Osteopenia Pulmonary nodule Raynaud's disease without gangrene Splenomegaly Medical History Obstructive sleep apnea (adult) (pediatric) CPAP (Generally compliant) Left rotator cuff tear arthropathy Chronic pain 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 Dyspnea on exertion Arthritis of right hip Chronic cough Hypercalcemia Fatigue Obesity Surgical History History of total right hip arthroplasty Status post right hip replacement History of colonoscopy History of carpal tunnel surgery R/L H/O dilation and curettage Hx of cataract surgery R/L Hx of lumpectomy L BREAST (BENIGN) History of total knee replacement Left TKA (09/21/14): SAB at L3/L4 (x1 attempt) + PNB at [facility] History of bilateral tubal ligation History of tooth extraction History of lobectomy of lung L LUNG- 2016 (BENIGN MASS) Family History Mother History of colon cancer Hypercholesteremia Colorectal cancer Father Sinus disorder Coronary heart disease Cardiac disorder Myocardial infarction Stroke syndrome Hx of CABG Hypertension Other No family history of adverse response to anesthesia Denies family history of Ovarian cancer Prostate cancer Breast cancer Social History Smoking Status: Never smoker Second Hand Exposure: No; Do You Dip or Chew Tobacco: No; Hx Alcohol Use: No Hx Substance Use: No Preferred Language: Citizen Of [place] Communication Ability: Effective Visual Impairment: No Limitations Hearing Ability: Normal Agricultural Research Technician Required: No Beliefs That Will Affect Care: None marital status: / Current Living Situation: Alone current occupational status: retired 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 Feels Safe at Home: Yes Childhood Exposure to Second-Hand Smoke: Yes Diet: DASH Diet Comment: heart healthy caffeine: No during the past year weight has: remained stable Dental Care, Regularly: No Physical Activity Frequency: 3-4 Times per Week Physical Activity Frequency Comment: walking; house work Seatbelt Use: always Sunscreen Use: Yes Assistive Devices: Cane and Walker Allergies Allergies Allergy/AdvReac Type Severity Reaction Status Date / Time pollen extracts Allergy Intermediate Itchy, Verified 05/22/24 16:02 watery eyes, sneezing, congestion adhesive Allergy Mild skin Verified 05/22/24 16:02 irritation, "burning" capsaicin Allergy Mild Rash Verified 05/22/24 16:02 Penicillins Allergy Mild Hives Verified 05/22/24 16:02 gabapentin AdvReac Intermediate Confusion Verified 05/22/24 16:02 Home Meds Home Medications Medication Instructions Recorded Confirmed cetirizine 10 mg tablet 10 mg PO QAM PRN allergies 11/17/18 06/11/24 calcium 600 mg (as 1 tab PO HS 03/23/19 05/22/24 carbonate)-vitamin D3 5 mcg (200 unit) tablet acetaminophen 500 mg capsule 1,000 mg PO TID PRN Pain 12/03/21 06/11/24 diclofenac sodium 1 % topical gel 2 g topical QID 02/03/22 06/11/24 (Voltaren Arthritis Pain) duloxetine 60 mg capsule,delayed 60 mg PO DAILY 02/25/24 06/11/24 release furosemide 20 mg tablet (Lasix) 20 mg PO DAILY 06/11/24 06/11/24 Previous Rx's Medication Instructions Recorded Auto Titrating CPAP #1 ea 11/05/20 CPAP Machine #1 ea 04/19/23 CPAP Supplies #1 ea 06/22/23 CPAP Supplies #1 ea 07/14/23 apixaban 5 mg tablet (Eliquis) 5 mg PO BID #60 tabs 08/20/24 tramadol 50 mg tablet 50 mg PO Q4H PRN pain #60 tabs 04/27/24 diltiazem HCl 180 mg 180 mg PO DAILY #90 caps 05/02/24 capsule,extended release 24 hr pravastatin 80 mg tablet 80 mg PO HS #90 tabs 05/02/24 fluticasone furoate 100 1 inh inhalation DAILY #60 ea 05/21/24 mcg-vilanterol 25 mcg/dose inhalation powder (Breo Ellipta) metoprolol tartrate 50 mg tablet 50 mg PO BID #60 tabs 05/21/24 mupirocin 2 % topical ointment 1 applic EXT DAILY #15 grams 05/21/24 ondansetron 4 mg disintegrating 4 mg PO Q6H PRN nausea and 05/21/24 tablet vomiting #10 tabs CPAP Supplies #1 ea 05/23/24 Portable Oxygen Contrator with #1 ea 06/09/24 portable tanks oxygen concentrator #1 ea 06/09/24 Results & Data (ED) Vital Signs Vital Signs - 24 hr 06/11/24 01:32 06/11/24 01:35 06/11/24 01:54 Temperature 36.6 C Temperature Source Oral Pulse Rate 84 72 Pulse Rate [Right Finger] 73 Pulse Rhythm [Right Finger] Respiratory Rate 20 20 Respiratory Effort / Characteristics Non-Labored Non-Labored Spontaneous Respiratory Depth Normal Normal Respiratory Pattern Blood Pressure 114/62 Blood Pressure [Left Arm] 122/80 Blood Pressure Mean 79 Blood Pressure Mean [Left Arm] 94 Blood Pressure Position [Left Arm] Pulse Oximetry 93 100 Oxygen Delivery Method Nasal Cannula Nasal Cannula Oxygen Flow Rate 4 2 Sepsis Recent Fever Within 48 Hours No Sepsis New/Unexplained Change in Mental Status N/A Sepsis Action Taken by Nursing No Action Required 06/11/24 02:18 06/11/24 03:44 Temperature Temperature Source Pulse Rate Pulse Rate [Right Finger] 73 73 Pulse Rhythm [Right Finger] Regular Regular Respiratory Rate 22 20 Respiratory Effort / Characteristics Non-Labored Spontaneous Non-Labored Spontaneous Respiratory Depth Normal Normal Respiratory Pattern Regular Regular Blood Pressure Blood Pressure [Left Arm] 122/80 117/86 Blood Pressure Mean Blood Pressure Mean [Left Arm] 94 96 Blood Pressure Position [Left Arm] Semi-fowlers Semi-fowlers Pulse Oximetry 96 97 Oxygen Delivery Method Nasal Cannula Nasal Cannula Oxygen Flow Rate 4 3 Sepsis Recent Fever Within 48 Hours Sepsis New/Unexplained Change in Mental Status Sepsis Action Taken by Nursing Laboratory Data 06/11/24 02:29 06/11/24 02:29 Lab Results 06/11/24 Range/Units 02:29 WBC 6.03 (4.8-10.8) K/ul RBC 3.13 L (4.20-5.40) M/uL Hgb 10.4 L (12.0-16.0) g/dl Hct 32.0 L (37.0-47.0) % MCV 102.2 H (80.0-100.0) fL MCH 33.2 (25.0-34.0) pg MCHC 32.5 (32.0-36.0) g/dL RDW Std Deviation 72.9 H (36.4-46.3) fL RDW Coeff of Morro 20.1 H (11.5-14.5) % Plt Count 176 (130-400) K/uL MPV 9.8 (9.4-12.4) fL Immature Gran % (Auto) 1.7 % Neut % (Auto) 73.1 % Lymph % (Auto) 15.8 % Upson % (Auto) 6.0 % Eos % (Auto) 3.2 % Baso % (Auto) 0.2 % Neut # (Auto) 4.42 (1.40-6.50) K/uL Lymph # (Auto) 0.95 L (1.20-3.40) K/uL Upson # (Auto) 0.36 (0.11-0.59) K/uL Eos # (Auto) 0.19 (0.00-0.50) K/uL Baso # (Auto) 0.01 (0.00-0.20) K/uL Immature Gran # (Auto) 0.10 (0.01-0.20) K/uL Absolute Nucleated RBC 0.02 (0.00-0.12) K/uL Nucleated RBC % (auto) 0.3 % Polychromasia 1+ Anisocytosis Present Sodium 142 (136-145) mmol/L Potassium 4.1 (3.5-5.1) mmol/L Chloride 102 (98-107) mmol/L Carbon Dioxide 35 H (21-32) mmol/L Anion Gap 5 (3-11) BUN 18 (6-23) mg/dl Creatinine 0.77 (0.6-1.2) mg/dl Est Cr Clr Drug Dosing 55.2 ml/min eGFR 79.40 BUN/Creatinine Ratio 23.4 H (10-20) Glucose 131 H (70-99(Fasting)) mg/dl Calcium 9.0 (8.6-10.3) mg/dl Magnesium 2.1 (1.7-2.4) mg/dl Total Bilirubin 1.1 H (0.2-1.0) mg/dl Direct Bilirubin 0.2 (0-0.2) mg/dl AST 20 (13-39) U/L ALT 19 (7-52) U/L Alkaline Phosphatase 72 (34-104) U/L Troponin I High Sens 13.9 (0-14) pg/ml B-Natriuretic Peptide 438 H (0-100) pg/ml Total Protein 6.6 (6.0-8.3) gm/dl Albumin 4.0 (3.4-5.0) gm/dl TSH 2.677 (0.300-4.500) uIu/ml SARS-CoV-2 (PCR) NEGATIVE (Negative) Influenza Type A (PCR) Negative (Neg) Influenza Type B (PCR) Negative (Neg) RSV (RT-PCR) Negative (Neg) Administered Medications Discontinued Medications Furosemide (Furosemide 40 Mg/4 Ml Vial) 40 mg IV ONE ONE Stop: 06/11/24 03:39 Last Admin: 06/11/24 03:51 Dose: 40 mg Documented By: ANTHONY Imaging Data Radiologist's Impression: Chest X-Ray 06/11/24 01:55 EXAM: XR chest 1V portable CLINICAL HISTORY: Shortness of breath TECHNIQUE: An X-ray image of the chest is obtained in AP projection. COMPARISON: 05/18/2024 FINDINGS: Pulmonary Parenchyma: This is a suboptimal image due to an expiratory film. Faint opacity in the peripheral right upper and mid zones. Left perihilar and left lower zone opacities silhouetting the left heart border. Blunting of the costophrenic angles Heart and Mediastinum: The heart size cannot be assessed properly. Prominent atherosclerotic aortic knuckle. Bony Thorax: Degenerative changes of the visualized skeleton. An abnormal flattened right humeral head, with adjacent bony hypertrophy, could be due to degenerative changes versus an old humeral neck fracture. Soft Tissues: Soft tissues overlying the chest wall are unremarkable. IMPRESSION: 1. This is a suboptimal image due to an expiratory film. 2. Right upper and mid zone mainly peripheral faint opacity. Left mid and lower zone opacity, silhouetting the left heart border. Clinical correlation is advised to assess for pneumonic infiltrates. (New finding) 3. Blunting of costophrenic angles. Clinical correlation is advised to assess for pleural effusion/thickening. (More conspicuous in the present study) Electronically signed by Deven Wilson 06-11-2024 03:25 AM Discharge Plan Visit Data Chief Complaint: Illness Stated Complaint: SOB, WEAKNESS, NO APPETITE, DIZZY ED Provider: Bjorn Sumner Discharge Problem: Pulmonary edema, Acute CHF, Atrial flutter Forms Stand Alone Forms: [facility] Prescriptions Prescriptions: No Action (DME) CPAP Machine Misc See Rx Instructions .Route Qty: 1 0RF Rx Instructions: Min 5- Max 20 Aflex 3 (DME) CPAP Supplies Misc See Rx Instructions .Route Qty: 1 0RF Rx Instructions: As directed; face mask- patient will need fitted (DME) CPAP Supplies Misc See Rx Instructions .Route Qty: 1 3RF Rx Instructions: As directed. Face mask HCPCS A7030, head gear HCPCS a7035 Eliquis 5 mg tablet 5 mg PO BID Qty: 60 11RF tramadol 50 mg tablet 50 mg PO Q4H PRN (Reason: pain) Qty: 60 0RF diltiazem HCl 180 mg capsule,extended release 24hr 180 mg PO DAILY Qty: 90 3RF pravastatin 80 mg tablet 80 mg PO HS Qty: 90 3RF (DME) CPAP Supplies Misc See Rx Instructions .Route Qty: 1 0RF Rx Instructions: cpap Heated Hose with O2 adapter (DME) oxygen concentrator See Rx Instructions .Route .MEDSUPPLY Qty: 1 0RF Rx Instructions: 2L NC As directed (DME) Portable Oxygen Contrator with portable tanks See Rx Instructions .Route .MEDSUPPLY Qty: 1 0RF Rx Instructions: 2L NC as directed. calcium carbonate-vitamin D3 600 mg(1,500mg) -200 unit tablet 1 tab PO HS diclofenac sodium [Voltaren Arthritis Pain] 1 % gel 2 g topical QID Rx Instructions: apply to single elbow, wrist or hand; for hand includes palm/fingers/back of hand cetirizine 10 mg tablet 10 mg PO QAM PRN (Reason: allergies) (DME) Auto Titrating CPAP Misc See Rx Instructions .Route Qty: 1 0RF Rx Instructions: As directed acetaminophen 500 mg capsule 1,000 mg PO TID PRN (Reason: Pain) Rx Instructions: TAke 3 times per day to lessen pain. duloxetine 60 mg capsule,delayed release(DR/EC) 60 mg PO DAILY furosemide [Lasix] 20 mg tablet 20 mg PO DAILY metoprolol tartrate 50 mg Tablet 50 mg PO BID Qty: 60 2RF mupirocin 2 % Ointment 1 applic EXT DAILY Qty: 15 2RF Rx Instructions: apply to tip of right 2nd toe every day x 2 weeks. ondansetron 4 mg tablet,disintegrating 4 mg PO Q6H PRN (Reason: nausea and vomiting) Qty: 10 0RF fluticasone furoate-vilanterol [Breo Ellipta] 100-25 mcg/dose blister with device 1 inh inhalation DAILY Qty: 60 1RF Rx Instructions: rinse mouth with water after each use; spit water out, do not swallow. Referrals Referrals: Emmie Weinstein DO [Primary Care Provider] -
[2024-06-11 02:59] LABS: Basophils # (auto) 0.01 K/uL (0.00-0.20); Basophils % (auto) 0.2 %; Eosinophils # (auto) 0.19 K/uL (0.00-0.50); Eosinophils % (auto) 3.2 %; Hemoglobin 10.4 g/dl (12.0-16.0); Immature Granulocytes % (auto) 1.7 %; Lymphocytes # (auto) 0.95 K/uL (1.20-3.40); Lymphocytes % (auto) 15.8 %; Mean Corpuscular Hemoglobin 33.2 pg (25.0-34.0); Mean Corpuscular Hgb Conc 32.5 g/dL (32.0-36.0); Mean Corpuscular Volume 102.2 fL (80.0-100.0); Mean Platelet Volume 9.8 fL (9.4-12.4); Monocytes # (auto) 0.36 K/uL (0.11-0.59); Neutrophils # (auto) 4.42 K/uL (1.40-6.50); Neutrophils % (auto) 73.1 %; Nucleated RBC # (auto) 0.02 K/uL (0.00-0.12); Nucleated RBC % (auto) 0.3 %; Platelet Count 176 K/uL (130-400); RDW Coefficient of Variation 20.1 % (11.5-14.5); RDW Standard Deviation 72.9 fL (36.4-46.3); Red Blood Count 3.13 M/uL (4.20-5.40); White Blood Count 6.03 K/ul (4.8-10.8)
[2024-06-11 03:10] LABS: BUN Creatinine Ratio 23.4 (10-20); Bilirubin Direct 0.2 mg/dl (0-0.2); Bilirubin,Total 1.1 mg/dl (0.2-1.0); Creatinine Clr Calc Pharmacy 55.2 ml/min; Magnesium 2.1 mg/dl (1.7-2.4); Potassium 4.1 mmol/L (3.5-5.1); Total Protein 6.6 gm/dl (6.0-8.3)
[2024-06-11 03:16] LABS: Troponin I High Sensitivity 13.9 pg/ml (0-14)
[2024-06-11 03:21] LABS: Influenza A virus by PCR Negative (Neg); Influenza B virus by PCR Negative (Neg); RSV by PCR Negative (Neg); SARS CoV2 RNA(COVID-19) Ceph NEGATIVE (Negative)
[2024-06-11 03:26] LABS: Thyroid Stimulating Hormone 2.677 uIu/ml (0.300-4.500)
[2024-06-11 03:27] LABS: Anisocytosis Present; Polychromasia 1+
--- NOTE | 2024-06-11 03:27 | XRay Report ---
EXAM: XR chest 1V portable CLINICAL HISTORY: Shortness of breath TECHNIQUE: An X-ray image of the chest is obtained in AP projection. COMPARISON: 05/18/2024 FINDINGS: Pulmonary Parenchyma: This is a suboptimal image due to an expiratory film. Faint opacity in the peripheral right upper and mid zones. Left perihilar and left lower zone opacities silhouetting the left heart border. Blunting of the costophrenic angles Heart and Mediastinum: The heart size cannot be assessed properly. Prominent atherosclerotic aortic knuckle. Bony Thorax: Degenerative changes of the visualized skeleton. An abnormal flattened right humeral head, with adjacent bony hypertrophy, could be due to degenerative changes versus an old humeral neck fracture. Soft Tissues: Soft tissues overlying the chest wall are unremarkable. IMPRESSION: 1. This is a suboptimal image due to an expiratory film. 2. Right upper and mid zone mainly peripheral faint opacity. Left mid and lower zone opacity, silhouetting the left heart border. Clinical correlation is advised to assess for pneumonic infiltrates. (New finding) 3. Blunting of costophrenic angles. Clinical correlation is advised to assess for pleural effusion/thickening. (More conspicuous in the present study) Electronically signed by Deven Wilson 06-11-2024 03:25 AM
[2024-06-11] MEDS: FUROSEMIDE 40 MG/4 ML VIAL IV ONE (03:51)
--- NOTE | 2024-06-11 03:59 | History & Physical Report ---
Date of Service June 11, 2024 Assessment & Plan (1) Acute CHF: (2) Atrial flutter: (3) Urinary incontinence: Plan Patient is a 78-year-old female PMHx fibromyalgia, GERD, depression, anxiety, A- fib on Eliquis, scleroderma (crest), Raynaud's, dyslipidemia, HTN, and QUINTON presenting for SOB and weakness. ED evaluation reveals no leukocytosis, H&H 10.4/32; CMP CO2 35, BUN/creatinine ratio 23.4, glucose 131, bilirubin 1.1; BNP 432; TSH 2.677; negative for COVID/flu/RSV; CXR reveals right upper and middle lobe mainly peripheral faint opacity, left middle and lower zone opacity, advised to assess for pneumonic infiltrates, blunting of costophrenic angles, to assess for pleural effusion/thickening; EKG reveals A-fib with 41 AV conduction at 73 bpm.; Provided with furosemide 40 mg IV x 1 in ED. #Acute on chronic heart failure with preserved ejection fraction/A-flutter Suspect hypoxia/SOB/REYES 2/2 acute CHF likely in setting of ? persistent Aflutter/Afib vs recent d/c of HCTZ vs recent prednisone use causing fluid retention with only 20mg Lasix. History of A-fib on Eliquis; Cardizem, metoprolol, and Eliquis. 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 - Dry weight 155 lb per patient + current weight 170s- daily weights, strict I+Os - Echo 05/08/2024 with EF 60 to 65% mildly reduced systolic function, severe left atrial dilation, mild right atrial dilation, and severe pulmonary hypertension (RVSP 73 mmHg) - CBC without leukocytosis, and H&H 10.4/32; BNP 438 - CXR right upper/middle lobe faint opacities, left middle/lower zone opacities, blunting costophrenic angles - O2 2L NC at rest; O2 prn - wean to baseline as patient tolerates - On Lasix 20 mg p.o. daily as outpatient - Lasix 40 mg IV BID17 while inpatient - No leukocytosis, no fever or chills; procal pending- deferred antibiotics at time of admission, adjust regimen as appropriate - Can consider cardiology consult as appropriate- suspect exacerbation 2/2 d/c of HCTZ vs recent prednisone use ? persistent Aflutter #Urinary incontinence Concerns for mild urinary incontinence, not in setting of back pain or neurologic symptoms. - CBC w/o leukocytosis; renal function WNL- CBC, BMP am - UA pending Reports feeling "more upset" given recent health concerns and this causes her worry. Does not at this time feel that she wants to speak with psych or a therapist, but would be more so interested in an as needed medication or daily if appropriate. Is on Duloxetine from a pain management standpoint. #HLD- Pravastatin #QUINTON- CPAP HS #Scleroderma/CREST- Followed by rheumatology most recently in 2023, not on medications for such Dispo: Admit, PCU VTE prophylaxis: Eliquis This document was dictated utilizing [email or web address]. Please excuse any grammatical errors that may be secondary to use of this software. Admission and Anticipated Discharge Date Admission Date: 06/11/2024 History of Present Illness Chief Complaint: SOB Primary Care Provider: Emmie Weinstein DO Patient is a 78-year-old female PMHx fibromyalgia, GERD, depression, anxiety, A- fib on Eliquis, scleroderma (crest), Raynaud's, dyslipidemia, HTN, and QUINTON presenting for SOB and weakness. Most recent hospital admission 05/14/2024 until 05/21/2024 for pneumonia and a right foot wound. Patient presents today with shortness of breath. Initially following her discharge she started to feel better once home but was still getting SOB with exertion. For the past week, the patient states that her REYES has become so severe that she does not want to get up because she is so short of breath even walking from room to room. This also causes her significant fatigue causing her to sit down to rest. States that she does feel more short of breath when laying flat so she does prop herself slightly. Had felt that her feet were "feeling puffy" and that she was restarted on a water pill (Lasix) which helped to alleviate this some. Admits to a mild cough that comes and goes and is mainly feeling as though there is congestion that she cannot clear, though she is not having any sputum production. Slight rhinorrhea which she mainly notices when wearing her oxygen via NC. Denies any fever or chills, no known sick contacts, no URI symptoms aside that mentioned. She denies chest pain or palpitations. Of note, patient does have urinary incontinence which she states she had before and she believes that she had an infection, but no additional LUTS. Overall denying abdominal pain, N/V/D/C, numbness/tingling, syncope, weakness, or headaches. Does report that she has been feeling more down given her change in health, stating she gets "pretty upset" regarding have to wear oxygen, however she is denying SI/HI. ED evaluation reveals no leukocytosis, H&H 10.4/32; CMP CO2 35, BUN/creatinine ratio 23.4, glucose 131, bilirubin 1.1; BNP 432; TSH 2.677; negative for COVID/flu/RSV; EKG reveals right upper and middle lobe mainly peripheral faint opacity, left middle and lower zone opacity, advised to assess for pneumonic infiltrates, blunting of costophrenic angles, to assess for pleural effusion/thickening; EKG reveals A-fib with 41 AV conduction at 73 bpm.; Provided with furosemide 40 mg IV x [address] Please see Dr. Lang's attestation for adjustments/additions to treatment plan. Allergies Allergy/AdvReac Type Severity Reaction Status Date / Time pollen extracts Allergy Intermediate Itchy, Verified 05/22/24 16:02 watery eyes, sneezing, congestion adhesive Allergy Mild skin Verified 05/22/24 16:02 irritation, "burning" capsaicin Allergy Mild Rash Verified 05/22/24 16:02 Penicillins Allergy Mild Hives Verified 05/22/24 16:02 gabapentin AdvReac Intermediate Confusion Verified 05/22/24 16:02 Home Medications Medication Instructions Recorded Confirmed Type cetirizine 10 mg tablet 10 mg PO QAM PRN allergies 11/17/18 06/11/24 History calcium 600 mg (as 1 tab PO HS 03/23/19 05/22/24 History carbonate)-vitamin D3 5 mcg (200 unit) tablet Auto Titrating CPAP #1 ea 11/05/20 05/22/24 Rx acetaminophen 500 mg capsule 1,000 mg PO TID PRN Pain 12/03/21 06/11/24 History diclofenac sodium 1 % topical gel 2 g topical QID 02/03/22 06/11/24 History (Voltaren Arthritis Pain) CPAP Machine #1 ea 04/19/23 05/22/24 Rx CPAP Supplies #1 ea 06/22/23 05/22/24 Rx CPAP Supplies #1 ea 07/14/23 05/22/24 Rx apixaban 5 mg tablet (Eliquis) 5 mg PO BID #60 tabs 10/26/23 06/11/24 Rx duloxetine 60 mg capsule,delayed 60 mg PO DAILY 02/25/24 06/11/24 History release tramadol 50 mg tablet 50 mg PO Q4H PRN pain #60 tabs 04/27/24 06/11/24 Rx diltiazem HCl 180 mg 180 mg PO DAILY #90 caps 05/02/24 06/11/24 Rx capsule,extended release 24 hr pravastatin 80 mg tablet 80 mg PO HS #90 tabs 05/02/24 06/11/24 Rx fluticasone furoate 100 1 inh inhalation DAILY #60 ea 05/21/24 06/11/24 Rx mcg-vilanterol 25 mcg/dose inhalation powder (Breo Ellipta) metoprolol tartrate 50 mg tablet 50 mg PO BID #60 tabs 05/21/24 06/11/24 Rx mupirocin 2 % topical ointment 1 applic EXT DAILY #15 grams 05/21/24 05/22/24 Rx ondansetron 4 mg disintegrating 4 mg PO Q6H PRN nausea and 05/21/24 05/22/24 Rx tablet vomiting #10 tabs CPAP Supplies #1 ea 05/23/24 Rx Portable Oxygen Contrator with #1 ea 06/09/24 Rx portable tanks oxygen concentrator #1 ea 06/09/24 Rx furosemide 20 mg tablet (Lasix) 20 mg PO DAILY 06/11/24 06/11/24 History Past Med/Surg History Problem List (Updated 06/11/24 @ 04:45 by Estrada Painting PA-C) Urinary incontinence Atrial flutter (Acute) Acute CHF (Acute) Pulmonary edema (Acute) Chronic right-sided congestive heart failure Pneumonia Contusion of right lesser toe(s) with damage to nail, initial encounter Hammertoe of right foot Atrial flutter with rapid ventricular response Asthmatic bronchitis Acute pneumonia Abnormal CT scan, chest Scleroderma Pulmonary hypertension Wound of right foot Elevated troponin Hypokalemia Hypoxia (Acute) Fibromyalgia Arthritis of left hip History of colon polyps Morbid obesity Lichen sclerosus et atrophicus Internal hemorrhoids Impaired fasting glucose Gastroesophageal reflux disease Diverticulosis Depression with anxiety Degenerative joint disease of cervical spine Anticoagulant long-term use Reactive airway disease Right knee DJD Atrial fibrillation, permanent dx approx 3 yrs ago > no pacer, Eliquis Anxiety and depression Paroxysmal atrial flutter (Chronic) Follows with [facility]/Dr. Brennan Allergic rhinitis CREST variant of scleroderma (Chronic) Stable Carotid artery plaque Dyslipidemia Generalized osteoarthritis of multiple sites Hypertension Lymphoproliferative disease Osteopenia Pulmonary nodule Raynaud's disease without gangrene Splenomegaly Medical History Obstructive sleep apnea (adult) (pediatric) CPAP (Generally compliant) Left rotator cuff tear arthropathy Chronic pain 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 Dyspnea on exertion Arthritis of right hip Chronic cough Hypercalcemia Fatigue Obesity Surgical History History of total right hip arthroplasty Status post right hip replacement History of colonoscopy History of carpal tunnel surgery R/L H/O dilation and curettage Hx of cataract surgery R/L Hx of lumpectomy L BREAST (BENIGN) History of total knee replacement Left TKA (09/21/14): SAB at L3/L4 (x1 attempt) + PNB at [facility] History of bilateral tubal ligation History of tooth extraction History of lobectomy of lung L LUNG- 2016 (BENIGN MASS) Family History Mother History of colon cancer Hypercholesteremia Colorectal cancer Father Sinus disorder Coronary heart disease Cardiac disorder Myocardial infarction Stroke syndrome Hx of CABG Hypertension Other No family history of adverse response to anesthesia Denies family history of Ovarian cancer Prostate cancer Breast cancer Social History Smoking Status: Never smoker Second Hand Exposure: No; Do You Dip or Chew Tobacco: No; Hx Alcohol Use: No Hx Substance Use: No Preferred Language: Nigerian Communication Ability: Effective Visual Impairment: No Limitations Hearing Ability: Normal Helicopter Utility Aircrewman Required: No Beliefs That Will Affect Care: None marital status: / Current Living Situation: Alone current occupational status: retired 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 [employer] Other Information That Helps Us Care for You: No Feels Safe at Home: Yes Safety Concerns: Feels Safe At This Time Childhood Exposure to Second-Hand Smoke: Yes Diet: DASH Diet Comment: heart healthy caffeine: No during the past year weight has: remained stable Dental Care, Regularly: No Physical Activity Frequency: 3-4 Times per Week Physical Activity Frequency Comment: walking; house work Seatbelt Use: always Sunscreen Use: Yes Assistive Devices: Oxygen - Continuous and Walker Review of Systems Review of Systems: All systems reviewed & are unremarkable except as noted in Subjective Physical Exam Physical Exam: General: No acute distress Skin: Warm and dry Head: Normocephalic, atraumatic Eyes: PERRL, conjunctivae clear, sclera non-icteric; wearing glasses ENT: External ear and ear canal without swelling; nose atraumatic; good dentition, tongue normal appearance, pharynx normal Neck: Supple, no LAD Cardio: RRR, no M/G/R, S1 and S2 normal Resp: Mild conversational dyspnea, diminished breath sounds, with crackles auscultated in bilateral bases; wearing O2 via NC Abdomen: Soft, symmetric, nontender; No masses or hepatosplenomegaly; Bowel sounds normoactive MSK: No deformities; pulses palpable and equal; 1+ pitting edema BLE to level of knees. Neuro: Awake, alert; Sensation intact bilaterally; CN grossly intact Psych: Appropriate mood and affect; good judgement and insight. Daughter present in room at time of visit. Results & Data Results & Data Vital Signs (Past 12 Hours) Vital Signs Temp Pulse Pulse Resp BP BP Pulse Ox 06/11/24 03:44 73 20 117/86 97 06/11/24 02:18 73 22 122/80 96 06/11/24 01:54 72 06/11/24 01:35 36.6 C 84 20 114/62 100 06/11/24 01:32 73 20 122/80 93 O2 Del Method O2 Flow Rate 06/11/24 03:44 Nasal Cannula 2 06/11/24 02:18 Nasal Cannula 2 06/11/24 01:54 06/11/24 01:35 Nasal Cannula 2 06/11/24 01:32 Nasal Cannula 4 Laboratory Results 06/11/24 02:29 WBC 6.03 RBC 3.13 L Hgb 10.4 L Hct 32.0 L MCV 102.2 H MCH 33.2 MCHC 32.5 RDW Std Deviation 72.9 H RDW Coeff of Morro 20.1 H Plt Count 176 MPV 9.8 Immature Gran % (Auto) 1.7 Neut % (Auto) 73.1 Lymph % (Auto) 15.8 Faulk % (Auto) 6.0 Eos % (Auto) 3.2 Baso % (Auto) 0.2 Neut # (Auto) 4.42 Lymph # (Auto) 0.95 L Faulk # (Auto) 0.36 Eos # (Auto) 0.19 Baso # (Auto) 0.01 Immature Gran # (Auto) 0.10 Absolute Nucleated RBC 0.02 Nucleated RBC % (auto) 0.3 Polychromasia 1+ Anisocytosis Present Sodium 142 Potassium 4.1 Chloride 102 Carbon Dioxide 35 H Anion Gap 5 BUN 18 Creatinine 0.77 Est Cr Clr Drug Dosing 55.2 eGFR 79.40 BUN/Creatinine Ratio 23.4 H Glucose 131 H Calcium 9.0 Magnesium 2.1 Total Bilirubin 1.1 H Direct Bilirubin 0.2 AST 20 ALT 19 Alkaline Phosphatase 72 Troponin I High Sens 13.9 B-Natriuretic Peptide 438 H Total Protein 6.6 Albumin 4.0 TSH 2.677 SARS-CoV-2 (PCR) NEGATIVE Influenza Type A (PCR) Negative Influenza Type B (PCR) Negative RSV (RT-PCR) Negative Diagnostic Findings Chest X-Ray 06/11/24 01:55 EXAM: XR chest 1V portable CLINICAL HISTORY: Shortness of breath TECHNIQUE: An X-ray image of the chest is obtained in AP projection. COMPARISON: 05/18/2024 FINDINGS: Pulmonary Parenchyma: This is a suboptimal image due to an expiratory film. Faint opacity in the peripheral right upper and mid zones. Left perihilar and left lower zone opacities silhouetting the left heart border. Blunting of the costophrenic angles Heart and Mediastinum: The heart size cannot be assessed properly. Prominent atherosclerotic aortic knuckle. Bony Thorax: Degenerative changes of the visualized skeleton. An abnormal flattened right humeral head, with adjacent bony hypertrophy, could be due to degenerative changes versus an old humeral neck fracture. Soft Tissues: Soft tissues overlying the chest wall are unremarkable. IMPRESSION: 1. This is a suboptimal image due to an expiratory film. 2. Right upper and mid zone mainly peripheral faint opacity. Left mid and lower zone opacity, silhouetting the left heart border. Clinical correlation is advised to assess for pneumonic infiltrates. (New finding) 3. Blunting of costophrenic angles. Clinical correlation is advised to assess for pleural effusion/thickening. (More conspicuous in the present study) Electronically signed by Deven Wilson 06-11-2024 03:25 AM Medications Administered Furosemide 40 mg IV x 1 ECG Additional Comments: A flutter with 4 1 AV conduction, nonspecific ST-T wave abnormality 73 bpm, QRS 77, QT/QTc 288/317, PRT 95/80/146 Code Status & VTE Plan Code Status Full Supervising Physician Co-Signing Physician Notes I personally saw and examined the patient. I independently reviewed the labs, EKG, imaging, problem list, medication list, past medical history and family history. I verified all barker points and agree with Estrada Painting PA-C with the following exceptions and/or additions: 78-year-old female presents the ER after recent hospitalization with similar symptoms of shortness of breath. No fever or chills. Leg swelling increased. She was placed on a course of prednisone, antibiotics after discharge. Hydrochlorothiazide was discontinued however Lasix was started as an outpatient on June 02. O/E HS RRR, no murmurs, Chest bibasal crackles, no wheezing, Abdo SNT, 1+ pedal edema bilateral equal A/P Acute on chronic HFpEF - suspect as a result of steroid fluid retention and holding HCTZ, strict I&Os, daily weights, Low Na diet, Lasix 40mg IV BID A flutter - continue rate control strategy as unlikely causing of acute HF, continue dilt + metoprolol, Eliquis for anticoagulation PG Care Time/CCT Total # of Minutes Spent Total Time Spent with Patient: Total time spent is greater than 50% in coordination of care (as documented) at patient's floor/unit and/or counseling patient: Coding Level of Care Code 78318 INT INP/OBS CARE 3/75MIN Diagnoses Acute CHF I50.9 Heart failure type: unspecified Atrial flutter I48.3 Atrial flutter type: typical Urinary incontinence R32 (1) Acute CHF Heart failure type: unspecified Qualified Code(s): I50.9 - Heart failure, unspecified (2) Atrial flutter Atrial flutter type: typical Qualified Code(s): I48.3 - Typical atrial flutter
[2024-06-11] MEDS ORDERED: ONDANSETRON INJ 2 MG/ML 2 ML VIAL IV PRN (05:23)
[2024-06-11] MEDS ORDERED: POLYETHYLENE (MIRALAX) 17 GM PACK PO PRN (05:23)
[2024-06-11] MEDS ORDERED: ACETAMINOPHEN 500 MG TAB PO PRN (05:31)
[2024-06-11] MEDS: FLUTICASONE/VILANTEROL 100/25MCG 14 PUFFS/INHALER INH SCH (08:46)
[2024-06-11] MEDS: DULoxetine HCL 60 MG CAP PO SCH (08:47)
[2024-06-11] MEDS: METOPROLOL TARTRATE 50 MG TAB PO SCH (08:47)
[2024-06-11] MEDS: dilTIAZem HCL 180 MG CAPCR PO SCH (08:47)
[2024-06-11] MEDS: FUROSEMIDE 40 MG/4 ML VIAL IV SCH (08:47)
[2024-06-11] MEDS: APIXABAN 5 MG TABLET PO SCH (08:48)
[2024-06-11] MEDS: DICLOFENAC SOD 1% GEL 100 GM TUBE EXT SCH (13:22)
--- NOTE | 2024-06-11 13:22 | Electrocardiogram Report ---
Test Reason : Blood Pressure : */* mmHG Vent. Rate : 73 BPM Atrial Rate : 292 BPM P-R Int : * ms QRS Dur : 72 ms QT Int : 288 ms P-R-T Axes : 95 80 146 degrees QTcB Int : 317 ms Atrial flutter with 4:1 A-V conduction Nonspecific ST and T wave abnormality Abnormal ECG When compared with ECG of 19-May-2024 06:06, Nonspecific T wave abnormality has replaced inverted T waves in Lateral leads Confirmed by Erlin Brennan ([id number]) on 06/11/2024 1:22:04 PM Referred By: REFERRED SELF Confirmed By: Erlin Brennan
--- NOTE | 2024-06-11 15:52 | Hospitalist Progress Note ---
Date of Service June 11, 2024 Assessment & Plan (1) Acute CHF: (2) Atrial flutter: (3) Urinary incontinence: Plan Patient is a 78-year-old female PMHx fibromyalgia, GERD, depression, anxiety, A- fib on Eliquis, scleroderma (crest), Raynaud's, dyslipidemia, HTN, and QUINTON presenting for SOB and weakness. ED evaluation reveals no leukocytosis, elevated BNP, negative for COVID/flu/RSV; CXR reveals right upper and middle lobe mainly peripheral faint opacity, left middle and lower zone opacity, advised to assess for pneumonic infiltrates, blunting of costophrenic angles, to assess for pleural effusion/thickening; EKG reveals A-fib with 41 AV conduction at 73 bpm.; Provided with furosemide 40 mg IV x 1 in ED. Patient admitted to hospitalist service 06/11/24. #Acute on chronic heart failure with preserved ejection fraction/A-flutter - on Lasix 20 mg p.o. daily as outpatient and home O2 therapy via NC at 2L baseline. - Echo 05/08/2024 with EF 60 to 65% mildly reduced systolic function, severe left atrial dilation, mild right atrial dilation, and severe pulmonary hypertension (RVSP 73 mmHg) - BNP 438 - Chest xray right upper/middle lobe faint opacities, left middle/lower zone opacities, blunting costophrenic angles (No leukocytosis, procal negative ) - Continue Lasix 40 mg IV BID17 - Continue DOAC, diltiazem, metoprolol - Cardiology consult ordered with Dr. Brennan who will evaluate patient tomorrow #Urinary incontinence - UA pending #Right toe wound - wound care - podiatry follow up #HLD- Pravastatin #QUINTON- CPAP HS #Scleroderma/CREST- Followed by rheumatology most recently in 2023, not on medications for such Dispo: Admit, PCU VTE prophylaxis: Eliquis This document was dictated utilizing [employer]. Please excuse any grammatical errors that may be secondary to use of this software. Admission and Anticipated Discharge Date Admission Date: June 11, 2024 Supervising Physician Co-Signing Physician Notes 78 y/o with afib/flutter admitted with acute HFpEF. Recently admitted with rapid aflutter pneumonia and toe wound 05/15-05/21. At discharge she was on prednisone for wheezing and HCTZ was stopped. First few days felt well but then began to decline with shortness of breath, REYES, difficulty sleeping, short of breath during the night, poor appetite, nausea, feeling overwhelmed. Volume overloaded on admission and in rate controlled aflutter Acute diastolic heart failure - triggered by prednisone, stopping HCTZ. wheezing last admission could have been pulmonary edema rather than bronchospasm. Atrial flutter -remains volume overloaded cont lasix 40 IV bid. -continue DOAC, diltiazem, metoprolol -discussed with Dr. Brennan - he'll see tomorrow. In past she's tolerated flutter well so unclear that converting her would provide benefit -needs diuretic on discharge R 2nd toe wound - does not appear infected. Had podiatry eval and MRI last admission - employee welfare manager thought OM unlikely. Cont wound care and follow up with Dr. Herbert UA negative, baseline urinary incontinence but no dysuria. HTN - evaluate after diuresis Severe pulmonary hypertension and cor pulmonale (mildly reduced RV function) on chronic home oxygen - should follow up in tertiary care QUINTON on CPAP Scleroderma/CREST Subjective Patient is a 78-year-old female PMHx fibromyalgia, GERD, depression, anxiety, A- fib on Eliquis, scleroderma (crest), Raynaud's, dyslipidemia, HTN, and QUINTON who presented to ED early this AM for SOB and weakness. She was admitted to hospitalist service for acute CHF, atrial flutter, urinary incontinence. She was started on IV Lasix 40mg BID. Currently, she reports significant improvement in symptoms. Prior to ED visit, she reports generalized weakness, fatigue, sleep disturbance with orthopnea, low appetite, nausea, decreased mood/motivation due to feeling overwhelmed with recent health changes. Since last admission in May, has required home O2 therapy and states she feels "tied to it." She was recently given prednisone therapy for bronchospasm and hctz discontinued. She reports improving sob and LE edema since admission early this AM. She reports she has had urinary incontinence as well, denies fevers/chills, headache, dizziness, vison change, chest pain, palpitations, pre-syncope, syncope, cough, abdominal pain, vomiting, diarrhea, constipation, dysuria, blood in stool/urine, numbness/tingling, rash, bleeding, bruising. She has r second toe wound secondary toe deformity that has been treated with IV abx last admission and has been evaluated by podiatry. She states scab fell off of wound in shower, wound are will rub against big toe and cause blister. No current pain, drainage, redness, swelling. Review of Systems Review of Systems: see HPI Physical Exam Physical Exam: General: no acute distress; non-toxic appearing; well-nourished; cooperative HEENT: normocephalic, atraumatic; no scleral icterus; PERRLA w/ EOMs intact; vision and hearing grossly intact Neck: supple; no lymphadenopathy; trachea midline. (+) JVD. (+) Hepatojugular reflex Skin: warm, dry without signs of tenting; no cyanosis; no rashes, bruising, or erythema noted. R distal second toe with medial lesion of pink skin and underlying white blister, nontender without drainage, erythema, edema, ulceration. CV: chest wall NTP; RRR; S1/S2 normal; no murmurs/rubs/gallops; pulses intact and symmetric at radial, DP, and PT Lungs: no acute respiratory distress; symmetrical chest wall expansion; (+) rales present at lung bases bilaterally. (+) O2 NC at 3 L currently. ABD: Soft, NTP; BS present; no rebound/guarding; no distention MSK: no tics or fasciculations; Trace nonpitting edema noted in the LEs b/l, nonerythematous Neuro: A&Ox3; normal mood and affect; fluent speech; no focal deficits; sensation grossly intact in the LEs b/l Results & Data Results & Data Vital Signs (Past 12 Hours) Vital Signs Temperature, HR, RR, BP, O2 saturations, O2 flow rate reviewed Temp Pulse Pulse Resp BP BP Pulse Ox 06/11/24 15:19 74 06/11/24 14:35 97.3 F L 72 20 100/63 97 06/11/24 14:32 06/11/24 14:29 78 23 117/87 98 06/11/24 13:23 73 25 H 117/83 93 06/11/24 07:16 75 06/11/24 07:03 76 21 132/70 90 06/11/24 05:45 06/11/24 05:45 97.9 F 75 22 135/67 96 06/11/24 05:45 Pulse Ox O2 Del Method O2 Del Method O2 Flow Rate O2 Flow Rate 06/11/24 15:19 06/11/24 14:35 Nasal Cannula 4 06/11/24 14:32 Nasal Cannula 4 06/11/24 14:29 Nasal Cannula 4 06/11/24 13:23 Nasal Cannula 4 06/11/24 07:16 06/11/24 07:03 Nasal Cannula 06/11/24 05:45 Nasal Cannula 4 06/11/24 05:45 Nasal Cannula 4 06/11/24 05:45 96 Nasal Cannula 4 Laboratory Results CBC, BMP, BNP reviewed Diagnostic Findings Chest xray reviewed PG Care Time/CCT Total # of Minutes Spent Total Time Spent with Patient: Total time spent is greater than 50% in coordination of care (as documented) at patient's floor/unit and/or counseling patient: Coding Level of Care Code None Diagnoses Acute CHF I50.9 Heart failure type: unspecified Atrial flutter I48.3 Atrial flutter type: typical Urinary incontinence R32 (1) Acute CHF Heart failure type: unspecified Qualified Code(s): I50.9 - Heart failure, unspecified (2) Atrial flutter Atrial flutter type: typical Qualified Code(s): I48.3 - Typical atrial flutter
--- NOTE | 2024-06-11 16:47 | Communication Note ---
Date of Service: June 11, 2024 78 y/o with afib/flutter admitted with acute HFpEF. Recently admitted with rapid aflutter pneumonia and toe wound 05/15-05/21. At discharge she was on predn isone for wheezing and HCTZ was stopped. First few days felt well but then began to decline with shortness of breath, REYES, difficulty sleeping, short of breath during the night, poor appetite, nausea, feeling overwhelmed. Volume overloaded on admission and in rate controlled aflutter Acute diastolic heart failure - triggered by prednisone, stopping HCTZ. wheezing last admission could have been pulmonary edema rather than bronchospasm. Atrial flutter -remains volume overloaded cont lasix 40 IV bid. -continue DOAC, diltiazem, metoprolol -discussed with Dr. Brennan - he'll see tomorrow. In past she's tolerated flutter well so unclear that converting her would provide benefit -needs diuretic on discharge R 2nd toe wound - does not appear infected. Had podiatry eval and MRI last ad mission - applied computer science professor thought OM unlikely. Cont wound care and follow up with Dr. Herbert HTN - evaluate after diuresis Severe pulmonary hypertension and cor pulmonale (mildly reduced RV function) on chronic home oxygen - should follow up in tertiary care QUINTON on CPAP Scleroderma/CREST
[2024-06-11 17:40] LABS: Appearance Urine Clear (Clear); Bilirubin Urine Negative (Negative); Blood Urine Negative (Negative); Color Urine Yellow; Glucose Urine UA Negative (Negative); Ketones Urine Negative (Negative); Leukocyte Esterase Urine Negative (Negative); Nitrite Urine Negative (Negative); Protein Urine Negative (Negative); Specific Gravity Urine 1.009 (1.000-1.030); Urobilinogen Urine Negative (Negative)
[2024-06-11] MEDS: PRAVASTATIN SOD 40 MG TAB PO SCH (20:38)
[2024-06-12 06:22] LABS: Hematocrit (blood only) 33.5 % (37.0-47.0); Mean Corpuscular Hemoglobin 33.3 pg (25.0-34.0); Mean Corpuscular Hgb Conc 32.8 g/dL (32.0-36.0); Mean Corpuscular Volume 101.5 fL (80.0-100.0); Mean Platelet Volume 9.4 fL (9.4-12.4); Nucleated RBC # (auto) 0.03 K/uL (0.00-0.12); Nucleated RBC % (auto) 0.5 %; Platelet Count 173 K/uL (130-400); RDW Coefficient of Variation 20.1 % (11.5-14.5); RDW Standard Deviation 72.1 fL (36.4-46.3); White Blood Count 6.47 K/ul (4.8-10.8)
[2024-06-12 06:47] LABS: BUN Creatinine Ratio 23.5 (10-20); Creatinine Clr Calc Pharmacy 43.4 ml/min; Potassium 3.9 mmol/L (3.5-5.1)
--- NOTE | 2024-06-12 10:07 | Hospitalist Progress Note ---
Date of Service June 12, 2024 Assessment & Plan (1) Obstructive sleep apnea (adult) (pediatric): (2) Urinary incontinence: (3) Atrial flutter: (4) Pulmonary hypertension: (5) Morbid obesity: (6) CREST variant of scleroderma: Plan 78 y/o with afib/flutter admitted with acute HFpEF. Recently admitted with rapid aflutter pneumonia and toe wound 05/15-05/21. At discharge she was on prednisone for wheezing and HCTZ was stopped. First few days felt well but then began to decline with shortness of breath, REYES, difficulty sleeping, short of breath during the night, poor appetite, nausea, feeling overwhelmed. Volume overloaded on admission and in rate controlled aflutter Acute diastolic heart failure - triggered by prednisone, stopping HCTZ. wheezing last admission could have been pulmonary edema rather than bronchospasm. Acute on chronic hypoxic respiratory failure Atrial flutter -good diuresis overnight, close to euvolemic still higher O2 requirement than usual, contraction alkalosis but Cr unchanged and lytes ok - ordered one more dose lasix 40 mg IV -continue DOAC, diltiazem, metoprolol - remains rate controlled -consulted Dr. Brennan. discussed with him - he had similar assessment - one dose IV lasix today probably will be able to go home tomorrow -needs diuretic on discharge R 2nd toe wound - does not appear infected. Had podiatry eval and MRI last admission - training and development rep thought OM unlikely. Cont wound care and follow up with Dr. Herbert Urge incontinence - chronic, difficult to manage at home. Trial ditropan 5 mg. Discussed risks/benefits. Follow up in primary care HTN - normotensive on current medications Severe pulmonary hypertension and cor pulmonale (mildly reduced RV function) on chronic home oxygen - should follow up in tertiary care QUINTON on CPAP Scleroderma/CREST Needs to get up and around but anticipate home soon Admission and Anticipated Discharge Date Admission Date: June 11, 2024 Subjective Chanel is feeling MUCH better with respect to her breathing. Much less short of breath, was able to sleep last night, leg and abdominal edema less Physical Exam 2 Physical Exam: Last 24h vitals reviewed GEN: no acute distress, sitting in bed HEENT: pupils equal, sclerae anicteric, moist MM RESP: normal WOB, slight bibasilar crackles no wheezing CV: reg no mrg, still some JVD but improved a lot ABD: soft/nt/nd +BT, abdomen is looser/less full : no mitchell SKIN: warm and dry, no generalized rashes, no leg edema NEURO: AOx person, place, and situation. Face symmetric, speech normal, moves 4 ext spontaneously and equally Results & Data Results & Data Vital Signs (Past 12 Hours) Vital Signs Temp Pulse Pulse Resp BP Pulse Ox Pulse Ox 06/12/24 08:35 37.0 C 89 16 109/60 97 06/12/24 07:57 06/12/24 07:15 74 06/12/24 05:23 95 06/12/24 03:25 70 21 91 06/12/24 03:08 36.6 C 76 18 98/65 L 95 06/11/24 23:12 36.6 C 73 19 119/77 91 06/11/24 23:11 73 22 92 O2 Del Method O2 Del Method O2 Flow Rate O2 Flow Rate 06/12/24 08:35 Nasal Cannula 4 06/12/24 07:57 Nasal Cannula 06/12/24 07:15 06/12/24 05:23 CPAP 2 06/12/24 03:25 2 06/12/24 03:08 Nasal Cannula 06/11/24 23:12 Nasal Cannula 4 06/11/24 23:11 2 Laboratory Results 06/12/24 05:44 06/12/24 05:44 PG Care Time/CCT Total # of Minutes Spent Total Time Spent with Patient: Total time spent is greater than 50% in coordination of care (as documented) at patient's floor/unit and/or counseling patient: Coding Level of Care Code 44490 SUB INP/OBS CARE 3/50MIN Diagnoses Obstructive sleep apnea (adult) (pediatric) G47.33 Urinary incontinence R32 Atrial flutter I48.3 Atrial flutter type: typical Pulmonary hypertension I27.20 Morbid obesity E66.01 CREST variant of scleroderma M34.1 (3) Atrial flutter Atrial flutter type: typical Qualified Code(s): I48.3 - Typical atrial flutter
--- NOTE | 2024-06-12 10:12 | Cardiology Consultation ---
Date of Consultation June 12, 2024 Assessment & Plan (1) Acute heart failure with preserved ejection fraction (HFpEF): (2) Atrial flutter: (3) Pulmonary hypertension: (4) Scleroderma: (5) Atrial fibrillation, permanent: (6) Hypertension: Plan ASSESSMENT/PLAN: 1. Acute heart failure with preserved EF: Based on her history, she was hypervolemic upon presentation after discontinuation of her HCTZ after her last hospitalization last month. She also had been on prednisone. She feels back to baseline but is still on more supplemental oxygen than baseline. She has diuresed nicely with intravenous furosemide. She appears euvolemic on examination. Can give another dose of intravenous Lasix today and then would recommend oral Lasix tomorrow, likely 40 mg daily. Recommend heart failure program for close follow-up. Low-sodium diet, less than 2000 mg daily. Recomm ended daily weights. If no contraindication, SGLT2 inhibitor. 2. Atrial flutter: Rate controlled. Asymptomatic. She has chronically been in atrial fibrillation and tolerated it well. Given severe left atrial dilation, achieving and maintaining sinus rhythm may be difficult and unclear if it will add much quality of life. Cannot exclude that it contributed to her heart failure, however she had been tolerating it well until diuretic recently discontinued. Therefore, can continue with rate control strategy for now. She would like to avoid more aggressive treatments if her quality of life is acceptable. She agrees with rate control strategy for now. Continue anticoagulation for stroke risk reduction. Monitor CBC and renal function. 3. Atrial fibrillation: History of atrial fibrillation which was felt to be permanent. Now in atrial flutter. She did not tolerate flecainide in the past. She was rate controlled with diltiazem before atrial flutter and was asymptomatic. Continue anticoagulation therapy as above. 4. Pulmonary hypertension: Severe pulmonary hypertension on 05/08/2024 echo. She was seen by pulmonology and recommended that she be seen at a facility with a pulmonary hypertension specialist, which has not yet been set up as far as she knows. Can repeat echo in the outpatient setting once euvolemic. 5. Scleroderma: Has been diagnosed with scleroderma but most recent rheumatology notes from 2 different facilities did not believe that she has scleroderma. As per rheumatology. 6. Hypertension: Blood pressure well-controlled. Plan as above. 7. Disposition: Cardiology will continue to follow while hospitalized. Heart failure program on follow-up. Patient care communicated with primary hospitalist, Dr. Mak. Thank you for allowing me to participate in the care of your patient. Please call for any other questions or concerns. Sincerely, Junior Brennan M.D. History of Present Illness Reason for Consultation: CHF and atrial flutter Requesting Physician: Kimber Mak MD Attending Physician: Kimber Mak MD History of Present Illness Mrs. Garza is a very pleasant 78-year-old female with a history significant for atrial fibrillation, crest/scleroderma, pulmonary hypertension, sleep apnea on CPAP, hypertension, and dyslipidemia. She is status post left lung wedge resection for benign lesion in January of 2016. In May of 2016 she was hospitalized for atrial fibrillation. She did not feel well that day and had worsening shortness of breath. She checked her blood pressure noted that her heart rate was elevated. She spontaneously converted to sinus rhythm. She was placed on metoprolol and anticoagulation therapy. Soon after, she was started on CPAP for sleep apnea, which improved her symptoms. In September of 2017, she once again developed atrial fibrillation and was placed on flecainide. She did not tolerate 150 mg twice daily but did feel well on 100 mg twice daily. She converted while on flecainide. She later stop taking flecainide due to intolerance. She has had the following studies/procedures: 1. PFTs 12/27/2015: Normal spirometry. 2. Echo 05/31/2016: Normal LV systolic function. EF 65-70%. Normal wall motion. Borderline LVH. Moderate left atrial dilation. RVSP 30-40. No significant valvular abnormalities. 3. Nuclear stress 04/27/2017: Normal myocardial perfusion study. EF 85%. Normal wall motion. 4. Echo 06/22/2017: Normal LV size with hyperdynamic systolic function. EF 65- 70%. Normal wall motion. No significant diastolic dysfunction. Mild left atrial dilation. RVSP 36. 5. Echo 03/10/2019: Normal LV size, wall motion, systolic function. EF 60-65%. Mild left atrial dilation. No significant valvular abnormalities reported. 6. Nuclear stress 03/28/2019: No ischemia or infarct. EF 86%. Normal wall motion. 7. Holter 03/20/2021: AFib with average heart rate 84, ranging 46-138. Isolated PVCs. No reported symptoms. 8. Echo 05/08/2024 [facility]: Normal LV size, wall motion, systolic function. EF 60- 65%. Moderate LVH. Normal RV size with mildly reduced systolic function. Severe left atrial dilation. Mild right atrial dilation. No significant valvul ar abnormalities. RVSP 73. Atrial flutter/fibrillation with normal rate. She was hospitalized in May 2024 with a right foot wound. She was noted to be in atrial flutter. Oral metoprolol and diltiazem adequately controlled her rate. She was asymptomatic in this regard. Upon discharge, HCTZ was discontinued by the hospitalist service. She has since been on prednisone and developed increased lower extremity edema, dyspnea on exertion, and orthopnea. She uses supplemental oxygen at home, 2 L via nasal cannula, but despite this, developed worsening dyspnea. She was admitted on 06/11/2024 and placed on intravenous diuretic in the form of furosemide 40 mg IV twice daily. Her last dose was on the evening of 06/11/2024. Since then, her breathing has significantly improved and she feels back to baseline, however she is on 4 L via nasal cannula. Her net negative fluid balance is charted as 3 L and she has dropped 12 pounds according to the hospital scales. She had not been weighing herself at home but she does maintain a low-sodium diet. She denies palpitations, syncope, near syncope, chest pain, melena, hematochezia, or hematuria. Review of systems: As above. Family history: Father had CABG at approximately 60 years of age. Social history: She denies tobacco, alcohol abuse. She is a . She has 3 children, all of which live nearby. She has grandchildren. She lives alone. 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 She was unaccompanied. Allergies Allergy/AdvReac Type Severity Reaction Status Date / Time pollen extracts Allergy Intermediate Itchy, Verified 05/22/24 16:02 watery eyes, sneezing, congestion adhesive Allergy Mild skin Verified 05/22/24 16:02 irritation, "burning" capsaicin Allergy Mild Rash Verified 05/22/24 16:02 Penicillins Allergy Mild Hives Verified 05/22/24 16:02 gabapentin AdvReac Intermediate Confusion Verified 05/22/24 16:02 Home Medications Medication Instructions Recorded Confirmed Type cetirizine 10 mg tablet 10 mg PO QAM PRN allergies 11/17/18 06/11/24 History calcium 600 mg (as 1 tab PO HS 03/23/19 05/22/24 History carbonate)-vitamin D3 5 mcg (200 unit) tablet Auto Titrating CPAP #1 ea 11/05/20 05/22/24 Rx acetaminophen 500 mg capsule 1,000 mg PO TID PRN Pain 12/03/21 06/11/24 History diclofenac sodium 1 % topical gel 2 g topical QID 02/03/22 06/11/24 History (Voltaren Arthritis Pain) CPAP Machine #1 ea 04/19/23 05/22/24 Rx CPAP Supplies #1 ea 06/22/23 05/22/24 Rx CPAP Supplies #1 ea 07/14/23 05/22/24 Rx apixaban 5 mg tablet (Eliquis) 5 mg PO BID #60 tabs 10/26/23 06/11/24 Rx duloxetine 60 mg capsule,delayed 60 mg PO DAILY 02/25/24 06/11/24 History release tramadol 50 mg tablet 50 mg PO Q4H PRN pain #60 tabs 04/27/24 06/11/24 Rx diltiazem HCl 180 mg 180 mg PO DAILY #90 caps 05/02/24 06/11/24 Rx capsule,extended release 24 hr pravastatin 80 mg tablet 80 mg PO HS #90 tabs 05/02/24 06/11/24 Rx fluticasone furoate 100 1 inh inhalation DAILY #60 ea 05/21/24 06/11/24 Rx mcg-vilanterol 25 mcg/dose inhalation powder (Breo Ellipta) metoprolol tartrate 50 mg tablet 50 mg PO BID #60 tabs 05/21/24 06/11/24 Rx mupirocin 2 % topical ointment 1 applic EXT DAILY #15 grams 05/21/24 05/22/24 Rx ondansetron 4 mg disintegrating 4 mg PO Q6H PRN nausea and 05/21/24 05/22/24 Rx tablet vomiting #10 tabs CPAP Supplies #1 ea 05/23/24 Rx Portable Oxygen Contrator with #1 ea 06/09/24 Rx portable tanks oxygen concentrator #1 ea 06/09/24 Rx furosemide 20 mg tablet (Lasix) 20 mg PO DAILY 06/11/24 06/11/24 History Problem List (Updated 06/12/24 @ 10:08 by Erlin Brennan MD) Acute heart failure with preserved ejection fraction (HFpEF) Urinary incontinence Atrial flutter (Acute) Acute CHF (Acute) Pulmonary edema (Acute) Chronic right-sided congestive heart failure Pneumonia Contusion of right lesser toe(s) with damage to nail, initial encounter Hammertoe of right foot Atrial flutter with rapid ventricular response Asthmatic bronchitis Acute pneumonia Abnormal CT scan, chest Scleroderma Pulmonary hypertension Wound of right foot Elevated troponin Hypokalemia Hypoxia (Acute) Fibromyalgia Arthritis of left hip History of colon polyps Morbid obesity Lichen sclerosus et atrophicus Internal hemorrhoids Impaired fasting glucose Gastroesophageal reflux disease Diverticulosis Depression with anxiety Degenerative joint disease of cervical spine Anticoagulant long-term use Reactive airway disease Right knee DJD Atrial fibrillation, permanent dx approx 3 yrs ago > no pacer, Eliquis Anxiety and depression Paroxysmal atrial flutter (Chronic) Follows with [facility]/Dr. Brennan Allergic rhinitis CREST variant of scleroderma (Chronic) Stable Carotid artery plaque Dyslipidemia Generalized osteoarthritis of multiple sites Hypertension Lymphoproliferative disease Osteopenia Pulmonary nodule Raynaud's disease without gangrene Splenomegaly Patient History Medical History Obstructive sleep apnea (adult) (pediatric) CPAP (Generally compliant) Left rotator cuff tear arthropathy Chronic pain 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 Dyspnea on exertion Arthritis of right hip Chronic cough Hypercalcemia Fatigue Obesity Surgical History History of total right hip arthroplasty Status post right hip replacement History of colonoscopy History of carpal tunnel surgery R/L H/O dilation and curettage Hx of cataract surgery R/L Hx of lumpectomy L BREAST (BENIGN) History of total knee replacement Left TKA (09/21/14): SAB at L3/L4 (x1 attempt) + PNB at [facility] History of bilateral tubal ligation History of tooth extraction History of lobectomy of lung L LUNG- 2016 (BENIGN MASS) Family History Mother History of colon cancer Hypercholesteremia Colorectal cancer Father Sinus disorder Coronary heart disease Cardiac disorder Myocardial infarction Stroke syndrome Hx of CABG Hypertension Other No family history of adverse response to anesthesia Denies family history of Ovarian cancer Prostate cancer Breast cancer Social History Smoking Status: Never smoker Second Hand Exposure: No; Do You Dip or Chew Tobacco: No; Hx Alcohol Use: No Hx Substance Use: No Preferred Language: Estonian Communication Ability: Effective Visual Impairment: No Limitations Hearing Ability: Normal Life Underwriter Required: No Beliefs That Will Affect Care: None marital status: / Current Living Situation: Alone current occupational status: retired 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 Alert. HEENT: Anicteric sclera. Neck: No appreciable JVD. No hepatojugular reflux appreciated. Normal carotid upstrokes bilaterally. Cardiac: Regular. Normal heart rate. Normal S1-S2. No audible murmur. No rubs or gallops. Pulmonary: Clear to auscultation bilaterally without wheezes, rales, or rhonchi. Abdomen: Soft, nontender, nondistended, with normoactive bowel sounds. No bruits noted. Extremities: 1+ radial pulses bilaterally. 2+ posterior tibialis pulses bilaterally. No edema. No cyanosis. Results & Data Vital Signs (Past 12 Hours) Vital Signs Temp Pulse Pulse Resp BP Pulse Ox Pulse Ox 06/12/24 08:35 37.0 C 89 16 109/60 97 06/12/24 07:57 06/12/24 07:15 74 06/12/24 05:23 95 06/12/24 03:25 70 21 91 06/12/24 03:08 36.6 C 76 18 98/65 L 95 06/11/24 23:12 36.6 C 73 19 119/77 91 06/11/24 23:11 73 22 92 06/11/24 22:01 73 O2 Del Method O2 Del Method O2 Flow Rate O2 Flow Rate 06/12/24 08:35 Nasal Cannula 4 06/12/24 07:57 Nasal Cannula 06/12/24 07:15 06/12/24 05:23 CPAP 2 06/12/24 03:25 2 06/12/24 03:08 Nasal Cannula 06/11/24 23:12 Nasal Cannula 4 06/11/24 23:11 2 06/11/24 22:01 Intake & Output 06/10/24 06/11/24 06/12/24 06/13/24 06:59 06:59 06:59 06:59 Intake Total 50 / 50 Output Total 999 / 999 2049 / 2049 Balance -999 / -999 -1999 / Weight 172 lb 2.896 oz 160 lb 14.999 oz Laboratory Results Laboratory Results - last 24 hr 06/11/24 06/12/24 17:25 05:44 WBC 6.47 RBC 3.30 L Hgb 11.0 L Hct 33.5 L MCV 101.5 H MCH 33.3 MCHC 32.8 RDW Std Deviation 72.1 H RDW Coeff of [place] 20.1 H Plt Count 173 MPV 9.4 Absolute Nucleated RBC 0.03 Nucleated RBC % (auto) 0.5 Sodium 141 Potassium 3.9 Chloride 97 L Carbon Dioxide 41 H* Anion Gap 3 BUN 23 Creatinine 0.98 Est Cr Clr Drug Dosing 43.4 eGFR 59.45 BUN/Creatinine Ratio 23.5 H Glucose 121 H Calcium 9.0 Urine Color Yellow Urine Appearance Clear Urine pH 8.0 H Ur Specific [place] 1.009 Urine Protein Negative Urine Glucose (UA) Negative Urine Ketones Negative Urine Blood Negative Urine Nitrite Negative Urine Bilirubin Negative Urine Urobilinogen Negative Ur Leukocyte Esterase Negative Diagnostic Findings Labs reviewed and notable for elevated BNP compared to baseline, normal sodium, normal potassium, stable renal function, normal transaminase levels, normal TSH, mild anemia, normal WBC. ECG personally reviewed from 06/11/2024 at 2:06 AM: Atrial flutter [address]/T wave abnormality. Telemetry personally reviewed: Rate controlled atrial flutter without significant pause. History and physical report reviewed. Chest x-ray 06/11/2024: Suboptimal image due to expiratory film per radiology. Right upper and mid zone mainly peripheral faint opacity and left mid and lower zone opacity per radiology. Blunting of costophrenic angles. Medications Administered Current Inpatient Medications Acetaminophen (Acetaminophen 500 Mg Tab) 1,000 mg PO TID PRN PRN Reason: Pain Stop: 07/11/24 05:30 Apixaban (Apixaban 5 Mg Tablet) 5 mg PO BID [facility] Stop: 07/11/24 08:59 Last Admin: 06/12/24 09:21 Dose: 5 mg Diclofenac Sodium (Diclofenac Sod 1% Gel 100 Gm Tube) 2 gm EXT QID JAVIER; Protocol Stop: 07/11/24 08:59 Last Admin: 06/12/24 09:20 Dose: 2 gm Diltiazem HCl (Diltiazem Hcl 180 Mg Capcr) 180 mg PO DAILY [facility] Stop: 07/11/24 08:59 Last Admin: 06/12/24 09:21 Dose: 180 mg Duloxetine HCl (Duloxetine Hcl 60 Mg Cap) 60 mg PO DAILY [facility] Stop: 07/11/24 08:59 Last Admin: 06/12/24 09:21 Dose: 60 mg Fluticasone/Vilanterol (Fluticasone/Vilanterol 100/25mcg 14 Puffs/Inhaler) 1 puffs INH DAILY [facility] Stop: 07/11/24 08:59 Last Admin: 06/12/24 09:20 Dose: 1 puffs Furosemide (Furosemide 40 Mg/4 Ml Vial) 40 mg IV BID17 [facility] Stop: 07/11/24 08:59 Last Admin: 06/11/24 16:26 Dose: 40 mg Melatonin (Melatonin 3 Mg Tab) 3 mg PO HS PRN PRN Reason: Sleep Stop: 07/11/24 05:22 Metoprolol Tartrate (Metoprolol Tartrate 50 Mg Tab) 50 mg PO BID [facility] Stop: 07/11/24 08:59 Last Admin: 06/12/24 09:21 Dose: 50 mg Ondansetron HCl (Ondansetron Inj 2 Mg/Ml 2 Ml Vial) 4 mg IV Q6H PRN PRN Reason: Nausea Stop: 07/11/24 05:22 Polyethylene Glycol (Polyethylene (Miralax) 17 Gm Pack) 17 gm PO DAILY PRN PRN Reason: Constipation Stop: 07/11/24 05:22 Pravastatin Sodium (Pravastatin Sod 40 Mg Tab) 80 mg PO HS [facility] Stop: 07/11/24 20:59 Last Admin: 06/11/24 20:38 Dose: 80 mg PG Care Time/CCT Total # of Minutes Spent Total Time Spent with Patient: Total time spent is greater than 50% in coordination of care (as documented) at patient's floor/unit and/or counseling patient: Coding Level of Care Code 27904 INT INP/OBS CARE 3/75MIN Diagnoses Acute heart failure with preserved ejection fraction (HFpEF) I50.31 Atrial flutter I48.3 Atrial flutter type: typical Pulmonary hypertension I27.20 Scleroderma M34.9 Atrial fibrillation, permanent I48.21 Primary hypertension I10 Hypertension type: primary hypertension (2) Atrial flutter Atrial flutter type: typical Qualified Code(s): I48.3 - Typical atrial flutter (6) Hypertension Hypertension type: primary hypertension Qualified Code(s): I10 - Essential (primary) hypertension
[2024-06-12] MEDS: FUROSEMIDE 40 MG/4 ML VIAL IV ONE ×2 (11:28→11:30)
[2024-06-12] MEDS: OXYBUTYNIN CHLORIDE XL 5 MG TABCR PO SCH (11:28)
--- NOTE | 2024-06-12 16:37 | Billing Data ---
Date of Service June 11, 2024 Coding Level of Care Code 16174 SUB INP/OBS CARE
--- NOTE | 2024-06-12 16:37 | Billing Data ---
Date of Service June 12, 2024 Coding Level of Care Code 14182 SUB INP/OBS CARE
[2024-06-13] MEDS: MELATONIN 3 MG TAB PO PRN (01:41)
[2024-06-13 09:14] LABS: BUN Creatinine Ratio 25.5 (10-20); Calcium 9.2 mg/dl (8.6-10.3); Creatinine Clr Calc Pharmacy 42.2 ml/min; Potassium 4.1 mmol/L (3.5-5.1)
--- NOTE | 2024-06-13 10:06 | Cardiology Progress Note ---
Date of Service June 13, 2024 Assessment & Plan (1) Acute heart failure with preserved ejection fraction (HFpEF): (2) Atrial flutter: (3) Pulmonary hypertension: (4) Scleroderma: (5) Atrial fibrillation, permanent: (6) Hypertension: Plan ASSESSMENT/PLAN: 1. Acute heart failure with preserved EF: Based on her history, she was hypervolemic upon presentation after discontinuation of her HCTZ after her last hospitalization last month. She also had been on prednisone. Feels back to baseline. Can discontinue intravenous Lasix. Start Lasix 40 mg p.o. once daily tomorrow. She appears euvolemic on examination. Recommend heart failure program for close follow-up) already scheduled). Low-sodium diet, less than 2000 mg daily. Recommended daily weights. If no contraindication, SGLT2 inhibitor can be considered in the outpatient setting and follow-up after monito ring renal function. 2. Atrial flutter: Rate controlled. Asymptomatic. She has chronically been in atrial fibrillation and tolerated it well. Given severe left atrial dilation, achieving and maintaining sinus rhythm may be difficult and unclear if it will add much quality of life. Cannot exclude that it contributed to her heart failure, however she had been tolerating it well until diuretic recently discontinued. Therefore, can continue with rate control strategy for now. She would like to avoid more aggressive treatments if her quality of life is acceptable. She agrees with rate control strategy for now. Continue anticoagulation for stroke risk reduction. Monitor CBC and renal function. 3. Atrial fibrillation: History of atrial fibrillation which was felt to be permanent. Now in atrial flutter. She did not tolerate flecainide in the past. She was rate controlled with diltiazem before atrial flutter and was asymptomatic. Continue anticoagulation therapy as above. 4. Pulmonary hypertension: Severe pulmonary hypertension on 05/08/2024 echo. She was seen by pulmonology and recommended that she be seen at a facility with a pulmonary hypertension specialist, which has not yet been set up as far as she knows. Can repeat echo in the outpatient setting once euvolemic. 5. Scleroderma: Has been diagnosed with scleroderma but most recent rheumatology notes from 2 different facilities did not believe that she has scleroderma. As per rheumatology. 6. Hypertension: Blood pressure well-controlled. Plan as above. 7. Disposition: Can be discharged home from a cardiology perspective. Heart failure program on follow-up. Personally communicated with Niyah Cuevas PA-C of the heart failure program who has follow-up arranged. Patient care communicated with primary hospitalist, Dr. Wen. Admission and Anticipated Discharge Date Admission Date: June 11, 2024 Subjective Patient was seen this morning. She feels back to baseline. She is eager to be discharged. She denies chest pain, shortness of breath, syncope, near syncope, orthopnea, palpitations, or edema. She has tolerated ambulation in her hospital room well without shortness of breath. She was unaccompanied. Physical Exam Physical Exam: Gen.: No acute distress. Alert. HEENT: Anicteric sclera. Neck: No appreciable JVD. No hepatojugular reflux appreciated. Cardiac: Regular. Normal rate. Normal S1-S2. No audible murmur. No rubs or gallops. Pulmonary: Clear to auscultation bilaterally without wheezes, rales, or rhonchi. Abdomen: Soft, nontender, nondistended, with normoactive bowel sounds. No bruits noted. Extremities: 1+ radial pulses bilaterally. 2+ posterior tibialis pulses bilaterally. No edema. No cyanosis. Results & Data Vital Signs (Past 12 Hours) Vital Signs Temp Pulse Resp BP BP Pulse Ox O2 Del Method 06/13/24 08:34 36.9 C 77 18 109/66 94 Nasal Cannula 06/13/24 08:00 Nasal Cannula 06/13/24 05:00 06/13/24 03:33 36.5 C 75 18 113/73 96 Nasal Cannula 06/12/24 22:27 36.6 C 72 18 110/65 92 Nasal Cannula O2 Del Method O2 Flow Rate 06/13/24 08:34 4 06/13/24 08:00 2 06/13/24 05:00 Room Air 06/13/24 03:33 4 06/12/24 22:27 4.0 Intake & Output 06/11/24 06/12/24 06/13/24 06/14/24 06:59 06:59 06:59 06:59 Intake Total 50 / 50 1676 / 1676 Output Total 1000 / 1000 2049 / 2049 401 / 401 Balance -1000 / -999 -1999 / 1275 / 1275 Weight 172 lb 2.896 oz 163 lb 9.328 oz 163 lb 9.328 oz Laboratory Results Laboratory Results - last 24 hr 06/13/24 08:22 Sodium 142 Potassium 4.1 Chloride 96 L Carbon Dioxide 42 H* Anion Gap 4 BUN 25 H Creatinine 0.98 Est Cr Clr Drug Dosing 42.2 eGFR 59.45 BUN/Creatinine Ratio 25.5 H Glucose 130 H Calcium 9.2 Medications Administered Current Inpatient Medications Acetaminophen (Acetaminophen 500 Mg Tab) 1,000 mg PO TID PRN PRN Reason: Pain Stop: 07/11/24 05:30 Apixaban (Apixaban 5 Mg Tablet) 5 mg PO BID [facility] Stop: 07/11/24 08:59 Last Admin: 06/13/24 07:56 Dose: 5 mg Diclofenac Sodium (Diclofenac Sod 1% Gel 100 Gm Tube) 2 gm EXT QID [facility]; Protocol Stop: 07/11/24 08:59 Last Admin: 06/13/24 07:57 Dose: 2 gm Diltiazem HCl (Diltiazem Hcl 180 Mg Capcr) 180 mg PO DAILY [facility] Stop: 07/11/24 08:59 Last Admin: 06/13/24 07:55 Dose: 180 mg Duloxetine HCl (Duloxetine Hcl 60 Mg Cap) 60 mg PO DAILY [facility] Stop: 07/11/24 08:59 Last Admin: 06/13/24 07:56 Dose: 60 mg Fluticasone/Vilanterol (Fluticasone/Vilanterol 100/25mcg 14 Puffs/Inhaler) 1 puffs INH DAILY [facility] Stop: 07/11/24 08:59 Last Admin: 06/13/24 07:56 Dose: 1 puffs Melatonin (Melatonin 3 Mg Tab) 3 mg PO HS PRN PRN Reason: Sleep Stop: 07/11/24 05:22 Last Admin: 06/13/24 01:41 Dose: 3 mg Metoprolol Tartrate (Metoprolol Tartrate 50 Mg Tab) 50 mg PO BID [facility] Stop: 07/11/24 08:59 Last Admin: 06/13/24 07:56 Dose: 50 mg Ondansetron HCl (Ondansetron Inj 2 Mg/Ml 2 Ml Vial) 4 mg IV Q6H PRN PRN Reason: Nausea Stop: 07/11/24 05:22 Oxybutynin Chloride (Oxybutynin Chloride Xl 5 Mg Tabcr) 5 mg PO QAM [facility] Stop: 07/12/24 10:14 Last Admin: 06/13/24 07:56 Dose: 5 mg Polyethylene Glycol (Polyethylene (Miralax) 17 Gm Pack) 17 gm PO DAILY PRN PRN Reason: Constipation Stop: 07/11/24 05:22 Pravastatin Sodium (Pravastatin Sod 40 Mg Tab) 80 mg PO HS [facility] Stop: 07/11/24 20:59 Last Admin: 06/12/24 21:29 Dose: 80 mg PG Care Time/CCT Total # of Minutes Spent Total Time Spent with Patient: Total time spent is greater than 50% in coordination of care (as documented) at patient's floor/unit and/or counseling patient: Coding Level of Care Code 98287 SUB INP/OBS CARE 3/50MIN Diagnoses Acute heart failure with preserved ejection fraction (HFpEF) I50.31 Atrial flutter I48.3 Atrial flutter type: typical Pulmonary hypertension I27.20 Scleroderma M34.9 Atrial fibrillation, permanent I48.21 Primary hypertension I10 Hypertension type: primary hypertension (2) Atrial flutter Atrial flutter type: typical Qualified Code(s): I48.3 - Typical atrial flutter (6) Hypertension Hypertension type: primary hypertension Qualified Code(s): I10 - Essential (primary) hypertension
--- NOTE | 2024-06-13 11:27 | Discharge Summary ---
Discharge Summary Date of Service June 13, 2024 Principal Dx & Hospital Course #1 = Principal Diagnosis (1) Acute CHF: (2) Atrial flutter: (3) Urinary incontinence: Plan Patient is a 78-year-old female PMHx fibromyalgia, GERD, depression, anxiety, A- fib on Eliquis, scleroderma (crest), Raynaud's, dyslipidemia, HTN, and QUINTON presenting for SOB and weakness. ED evaluation reveals no leukocytosis, elevated BNP, negative for COVID/flu/RSV; CXR reveals right upper and middle lobe mainly peripheral faint opacity, left middle and lower zone opacity, advised to assess for pneumonic infiltrates, blunting of costophrenic angles, to assess for pleural effusion/thickening; EKG reveals A-fib with 41 AV conduction at 73 bpm.; Provided with furosemide 40 mg IV x 1 in ED. Patient admitted to hospitalist service 06/11/24. #Acute on chronic heart failure with preserved ejection fraction/A-flutter - on Lasix 20 mg p.o. daily as outpatient and home O2 therapy via NC at 2L baseline. - Echo 05/08/2024 with EF 60 to 65% mildly reduced systolic function, severe left atrial dilation, mild right atrial dilation, and severe pulmonary hypertension (RVSP 73 mmHg) - BNP 438 - Chest xray right upper/middle lobe faint opacities, left middle/lower zone opacities, blunting costophrenic angles (No leukocytosis, procal negative ) - Patient require Lasix 40 mg IV BID - Continue DOAC, diltiazem, metoprolol - Cardiology consult ordered with Dr. Brennan: Patient now euvolemic. Patient will followup with Heart failure clinic as an outpatient. Will increase diuretics to 40 mg daily and will add Jardiance. #Urinary incontinence - will treat with oxybutynin. #Right toe wound - wound care - podiatry follow up #HLD- Pravastatin #QUINTON- CPAP HS #Scleroderma/CREST- Followed by rheumatology most recently in 2023, not on medications for such Admission HPI Per Admitting Provider Patient is a 78-year-old female PMHx fibromyalgia, GERD, depression, anxiety, A- fib on Eliquis, scleroderma (crest), Raynaud's, dyslipidemia, HTN, and QUINTON presenting for SOB and weakness. Most recent hospital admission 05/14/2024 until 05/21/2024 for pneumonia and a right foot wound. Patient presents today with shortness of breath. Initially following her discharge she started to feel better once home but was still getting SOB with exertion. For the past week, the patient states that her REYES has become so severe that she does not want to get up because she is so short of breath even walking from room to room. This also causes her significant fatigue causing her to sit down to rest. States that she does feel more short of breath when laying flat so she does prop herself slightly. Had felt that her feet were "feeling puffy" and that she was restarted on a water pill (Lasix) which helped to alleviate this some. Admits to a mild cough that comes and goes and is mainly feeling as though there is congestion that she cannot clear, though she is not having any sputum production. Slight rhinorrhea which she mainly notices when wearing her oxygen via NC. Denies any fever or chills, no known sick contacts, no URI symptoms aside that mentioned. She denies chest pain or palpitations. Of note, patient does have urinary incontinence which she states she had before and she believes that she had an infection, but no additional LUTS. Overall denying abdominal pain, N/V/D/C, numbness/tingling, syncope, weakness, or headaches. Does report that she has been feeling more down given her change in health, stating she gets "pretty upset" regarding have to wear oxygen, however she is denying SI/HI. ED evaluation reveals no leukocytosis, H&H 10.4/32; CMP CO2 35, BUN/creatinine ratio 23.4, glucose 131, bilirubin 1.1; BNP 432; TSH 2.677; negative for COVID/flu/RSV; EKG reveals right upper and middle lobe mainly peripheral faint opacity, left middle and lower zone opacity, advised to assess for pneumonic infiltrates, blunting of costophrenic angles, to assess for pleural effusion/thickening; EKG reveals A-fib with 41 AV conduction at 73 bpm.; Provided with furosemide 40 mg IV x 1 in ED. Discharge Exam Constitutional WD/WN, vitals as above Neck trachea midline, no thyromegaly Respiratory normal respiratory effort, lungs clear to auscultation Cardiovascular RRR, no murmur, no edema Discharge Plan Discharge Items Patient Disposition: Home - Self-Care Reason For Visit: ACUTE CHF Discharge Diagnosis: acute chf Activity: Resume your previous activity Non-emergency contact: Primary Care Provider Call non-emergency contact if: you have any medication questions Follow-up/Referrals: Emmie Weinstein DO [Primary Care Provider] - 06/20/24 9:20 am (Hospital follow up scheduled June 20 at 9:20) Niyah Cuevas PA-C [Physician Motor Vehicle Escort Driver] - 06/20/24 2:00 pm (Congestive Heart Failure Program Appointment Information Early follow up is essential to managing your heart failure. An appointment has been scheduled for you with the [facility] Heart Failure Program within 7 days of discharge. Anticipate this visit to be 30-60 minutes long. Please expect a optical instrument inspector phone call from one of our nurses approximately 48 hours from discharge. They will a lso be placing an order for lab work to be completed 1-2 days prior to your heart failure follow up appointment. Please be sure to have this done so we can go over the results when you come in. Office Location The cardiology office building is located in front of the hospital at [address] [facility]. Bring the following with you to your follow-up doctor appointments: Please bring your daily weight log any discharge paperwork all of your medication bottles with you to this visit. ) Diet: Low Sodium (2gm) Addtl Attending Provider Instructions: Call your Primary Care doctor if any of the following symptoms or problems start or get worse: * Shortness of breath or difficulty breathing * Wake up at night short of breath * Chest pain * Cough * Swelling of your hands, feet, or legs * More fatigued or tired with your normal activity * Palpitations - sudden fast heart beats WEIGHT * Weigh yourself every morning after using the bathroom. * Use the same scale. * Wear the same amount of clothing. * Write your weight down on a chart. * Call your Primary Care doctor if you gain more than 2-3 pounds in 1-2 days. MEDICATIONS * Use this discharge instruction sheet for medication instructions. * Take your medications at the time your doctor ordered. * Do not skip a dose of your medicines. * If you miss a dose of medicine, take it as soon as possible, but DO NOT DOUBLE A DOSE. * Read your medicine information when you get home. * Know all of the side effects of your medicine. If in doubt, ask your pharmacist * Call your Primary Care doctor's office if you have any side effects. * Be sure all of your doctors know what medicine and herbs you take (including cold, flu, and herbal medicine). Take the following with you to your follow-up doctor appointments: * Weight Chart * Medication List * List of questions Do not drink excessive alcohol, beer or wine. Pending Studies at Discharge: No Stand-Alone Forms: My [facility] eEye, Smoking Cessation Medications and DC Order Prescriptions: New oxybutynin chloride 5 mg Tablet Extended Release 24hr 5 mg PO QAM Qty: 30 0RF Jardiance 10 mg tablet 10 mg PO DAILY Qty: 30 0RF furosemide 40 mg tablet 40 mg PO DAILY Qty: 30 0RF Continued (DME) CPAP Machine Misc See Rx Instructions .Route Qty: 1 0RF Rx Instructions: Min 5- Max 20 Aflex 3 (DME) CPAP Supplies Misc See Rx Instructions .Route Qty: 1 0RF Rx Instructions: As directed; face mask- patient will need fitted (DME) CPAP Supplies Misc See Rx Instructions .Route Qty: 1 3RF Rx Instructions: As directed. Face mask HCPCS A7030, head gear HCPCS a7035 Eliquis 5 mg tablet 5 mg PO BID Qty: 60 11RF tramadol 50 mg tablet 50 mg PO Q4H PRN (Reason: pain) Qty: 60 0RF diltiazem HCl 180 mg capsule,extended release 24hr 180 mg PO DAILY Qty: 90 3RF pravastatin 80 mg tablet 80 mg PO HS Qty: 90 3RF (DME) CPAP Supplies Misc See Rx Instructions .Route Qty: 1 0RF Rx Instructions: cpap Heated Hose with O2 adapter (DME) oxygen concentrator See Rx Instructions .Route .MEDSUPPLY Qty: 1 0RF Rx Instructions: 2L NC As directed (DME) Portable Oxygen Contrator with portable tanks See Rx Instructions .Route .MEDSUPPLY Qty: 1 0RF Rx Instructions: 2L NC as directed. calcium carbonate-vitamin D3 600 mg(1,500mg) -200 unit tablet 1 tab PO HS diclofenac sodium [Voltaren Arthritis Pain] 1 % gel 2 g topical QID Rx Instructions: apply to single elbow, wrist or hand; for hand includes palm/fingers/back of hand cetirizine 10 mg tablet 10 mg PO QAM PRN (Reason: allergies) (DME) Auto Titrating CPAP Misc See Rx Instructions .Route Qty: 1 0RF Rx Instructions: As directed acetaminophen 500 mg capsule 1,000 mg PO TID PRN (Reason: Pain) Rx Instructions: TAke 3 times per day to lessen pain. duloxetine 60 mg capsule,delayed release(DR/EC) 60 mg PO DAILY metoprolol tartrate 50 mg Tablet 50 mg PO BID Qty: 60 2RF mupirocin 2 % Ointment 1 applic EXT DAILY Qty: 15 2RF Rx Instructions: apply to tip of right 2nd toe every day x 2 weeks. ondansetron 4 mg tablet,disintegrating 4 mg PO Q6H PRN (Reason: nausea and vomiting) Qty: 10 0RF fluticasone furoate-vilanterol [Breo Ellipta] 100-25 mcg/dose blister with device 1 inh inhalation DAILY Qty: 60 1RF Rx Instructions: rinse mouth with water after each use; spit water out, do not swallow. Discharge Orders: Discharge Order- CHF (Routine); Ordered 06/13/24 Ordered By: Jermaine Wen Admission Data Admit Date/Time: 06/11/24 04:35 Attending Provider: Jermaine Wen Admit Provider: Caio Lang Primary Care Provider: Emmie Weinstein Other Providers: Erlin Brennan; Jose Raul Tarango [facility] Other Interventions: Discharge Summary Assessment (RN) Last Done: 06/13/24 12:45 Hospital Stay Data Consultations 06/11/24 03:48 ED Decision to Admit Stat 06/11/24 14:43 Consult Cardiology Routine 06/12/24 10:14 [facility] [place]ine Pending Results Patient Have Any Pending Studies at Discharge: No Discharge Instructions Given to Patient (Per Discharging Provider) Call your Primary Care doctor if any of the following symptoms or problems start or get worse: * Shortness of breath or difficulty breathing * Wake up at night short of breath * Chest pain * Cough * Swelling of your hands, feet, or legs * More fatigued or tired with your normal activity * Palpitations - sudden fast heart beats WEIGHT * Weigh yourself every morning after using the bathroom. * Use the same scale. * Wear the same amount of clothing. * Write your weight down on a chart. * Call your Primary Care doctor if you gain more than 2-3 pounds in 1-2 days. MEDICATIONS * Use this discharge instruction sheet for medication instructions. * Take your medications at the time your doctor ordered. * Do not skip a dose of your medicines. * If you miss a dose of medicine, take it as soon as possible, but DO NOT DOUBLE A DOSE. * Read your medicine information when you get home. * Know all of the side effects of your medicine. If in doubt, ask your pharmacist * Call your Primary Care doctor's office if you have any side effects. * Be sure all of your doctors know what medicine and herbs you take (including cold, flu, and herbal medicine). Take the following with you to your follow-up doctor appointments: * Weight Chart * Medication List * List of questions Do not drink excessive alcohol, beer or wine. Total Time Total Time Spent Total Time Spent (In Minutes): 32 Coding Level of Care Code 04775 INP/OBS DISCH >30 MIN Diagnoses Acute CHF I50.9 Heart failure type: unspecified Atrial flutter I48.3 Atrial flutter type: typical Urinary incontinence R32
[2024-06-13 11:52] VITALS: PULSE 131; RESP 17; TEMP 97.5; O2SAT 91
[2024-06-13 12:46] VITALS: BP 113/73
== END 2024-06-13 14:32 | disposition home or self-care (01) | DRG 291 ==
LOC: SUATTDRO → ED 01:31 → EDINP 04:35 → SUATTDRO 04:35 → INTOOBSV 04:35 → 4W 14:29